=== PATIENT | female | born 1970 | race Caucasian/White ===

== ENCOUNTER 2017-11-05 10:35 | Emergency (ER) | payer MEDICARE, MEDICAID, SELFPAY ==
[2017-11-05 10:36] VITALS: BP 145/33; PULSE 80; RESP 22; TEMP 36.6; O2SAT 100; BMI 38.9
--- NOTE | 2017-11-05 10:47 | RAD_ITS ---
STUDY: X-RAY - RIGHT ANKLE REASON FOR EXAM: Female, 47 years old. Pain and swelling following a recent fall. TECHNIQUE: 3 view(s) of the ankle. COMPARISON: None. FINDINGS: Normal visualized distal tibia and fibula. Normal medial and lateral malleoli. Normal tibiotalar articulation and ankle mortise. Normal visualized talus and calcaneus. The visualized subtalar, talonavicular, calcaneocuboid and tarsal articulations are normal. Diffuse soft tissue swelling. RAD/Ankle min 3 Views IMPRESSION: Diffuse soft tissue swelling. Electronically Signed: Joseph Mclean MD at 11:43 EST Tel [phone], Service support ,
--- NOTE | 2017-11-05 10:47 | RAD_ITS ---
STUDY: X-RAY - RIGHT FOOT CLINICAL: Female, 47 years old. Soft tissue swelling and bruising following a recent fall. TECHNIQUE: 3 view(s) of the foot. COMPARISON: None. FINDINGS: Normal talus, calcaneus, and tarsal bones. Normal visualized subtalar, talonavicular, calcaneocuboid, tarsal and tarsometatarsal articulations. Normal metatarsi. Normal metatarsophalangeal joint of the great toe. Normal tibial and fibular sesamoid bones. Normal interphalangeal joint of the great toe. Normal phalanges of the great toe. Normal second through fifth metatarsophalangeal joints. Normal interphalangeal joints and phalanges of the lesser toes. Diffuse soft tissue swelling worse in the dorsal aspect of the foot. RAD/Foot min 3 Views IMPRESSION: Diffuse soft tissue swelling. Electronically Signed: Joseph Mclean MD at 11:41 EST Tel [phone], Service support ,
--- NOTE | 2017-11-05 11:14 | ED.DCSUM_ITS ---
- ER Visit Summary Date of Service: 11/05/17 Chief Complaint: From urgent care because of presumed fracture infection of the right foot/ankle and leg. History of Present Illness: The patient is a 47 F fell last Wednesday. She has been able to ambulate. She complains of pain with ambulation. No anticoagulant. She does have history of lymphedema per old records. She denies fever, chills night sweats. She has no other complaints please read written note for complete detail. Physical Examination: Should not is obese with a BMI of 39.0. Blood pressure is elevated 145/33 with a wide pulse pressure. Patient has bilateral lymphedema with venous stasis dermatitis bilaterally. There is ecchymosis and discoloration noted over the lateral and medial malleolus as well as over the fifth metatarsal. There is pain palpation over the tip of the lateral malleolus. There is no pain the patient over the posterior aspect of the lateral malleolus or the medial malleolus. There is no laxity with drawer testing. Difficult to palpate pulses secondary to body habitus. There is no pain the patient the base of the fifth metatarsal. There is no subungual hematoma. Test Results: Three-view x-ray of the ankle and foot were obtained interpreted by me as negative for fracture. Emergency Department Course and Treatment: Nursing protocol x-rays were ordered and in my opinion were appropriate. Treatment Plan: Has a sprained ankle with ecchymosis. Her skin discoloration is secondary to venous stasis dermatitis. This does not represent an infection. Disposition: Charge to home with symptomatic treatment i.e. ice, elevation and OTC analgesia Impression: Right ankle sprain anterior talofibular ligament Venous stasis with dermatitis This note was generated with [employer] dictation software. It may contain incorrect words, spelling, and punctuation that were not noted in review of the chart prior to signing ED Disposition - Plan for ED Patient: Disposition: Home or Assisted Living Chief Complaint: Lower Extremity Injury Instructions: ED Sprain Ankle W X Ray, ED Leg Swelling Bilateral Referrals: Dillan Kraus DO [Primary Care Provider] - 1 Week if not improving
[2017-11-05 11:31] VITALS: BP 132/59; PULSE 76; RESP 16; O2SAT 97
== END 2017-11-05 11:32 | disposition home or self-care (01) ==
PROVIDERS: Emergency Provider Emergency Medicine; Family Provider Student in an Organized Health Care Education/Training Program; PCP Student in an Organized Health Care Education/Training Program
DX: S93.491A Sprain of other ligament of right ankle, initial encounter (principal); I87.8 Other specified disorders of veins; L30.9 Dermatitis, unspecified; F32.9 Major depressive disorder, single episode, unspecified; E11.9 Type 2 diabetes mellitus without complications; I10 Essential (primary) hypertension; I25.10 Atherosclerotic heart disease of native coronary artery without angina pectoris; Z72.0 Tobacco use; W19.XXXA Unspecified fall, initial encounter; Y93.9 Activity, unspecified; Y92.89 Other specified places as the place of occurrence of the external cause; Y99.9 Unspecified external cause status
CPT/HCPCS: 73610; 73630; 99282

== ENCOUNTER → 2017-11-30 10:17 | Outpatient (CLI) | payer MEDICARE, MEDICAID, SELFPAY ==
[2017-11-30 13:58] LABS: Albumin, Serum 2.9 g/dL (3.2-5.0); BUN 17 mg/dL (7-18); Calcium,Total 8.7 mg/dL (8.5-10.1); Chloride 110 mmol/L (98-107); Creatinine, Serum 0.81 mg/dL (0.55-1.02); EST Glomerular Filtration Rate 80 mL/min (>60); Est Glom Filt Rate - Afr Amer 97 mL/min (>60); Glucose 148 mg/dL (74-106); Phosphorus 3.3 mg/dL (2.5-4.9); Potassium 4.1 mmol/L (3.5-5.1); Sodium Level 142 mmol/L (136-145)
== END ==
PROVIDERS: Family Provider Student in an Organized Health Care Education/Training Program; PCP Student in an Organized Health Care Education/Training Program; Visit Provider Internal Medicine Nephrology
DX: N18.2 Chronic kidney disease, stage 2 (mild) (principal)
CPT/HCPCS: 36415; 80069

== ENCOUNTER → 2017-12-23 14:55 | Outpatient (CLI) | payer MEDICARE, MEDICAID, SELFPAY ==
[2017-12-23 17:51] LABS: Amphetamine Urine VISTA NEGATIVE (<1000 ng/mL); Barbiturate Urine VISTA NEGATIVE (< 200 ng/mL); Benzodiazepine Urine VISTA NEGATIVE (< 200 ng/mL); Cocaine Urine VISTA NEGATIVE (< 300 ng/mL); Ecstacy Urine VISTA NEGATIVE (< 500 ng/mL); Methadone Urine VISTA NEGATIVE (< 300 ng/mL); PCP Urine VISTA NEGATIVE (< 25 ng/mL); THC Urine VISTA NEGATIVE (< 50 ng/mL); Vista UDS pH Range 5
== END ==
PROVIDERS: Family Provider Student in an Organized Health Care Education/Training Program; PCP Student in an Organized Health Care Education/Training Program; Visit Provider Anesthesiology Pain Medicine
DX: F11.20 Opioid dependence, uncomplicated (principal)
CPT/HCPCS: 80307

== ENCOUNTER → 2017-12-31 17:30 | Outpatient (CLI) | payer MEDICARE, MEDICAID, SELFPAY | PROVIDERS: Family Provider Student in an Organized Health Care Education/Training Program; PCP Student in an Organized Health Care Education/Training Program; Visit Provider Podiatrist | DX: L03.115 Cellulitis of right lower limb (principal) | CPT/HCPCS: 87070; 87186; 87205 ==

== ENCOUNTER 2018-01-01 15:14 | Emergency (ER) | payer MEDICARE, MEDICAID, SELFPAY ==
[2018-01-01 15:16] VITALS: BP 148/75; PULSE 80; RESP 16; TEMP 36.6; O2SAT 94; BMI 45.3
[2018-01-01] MEDS: DiphenhydrAMINE 50 MG/ML Syringe 25 MG IV (15:54)
[2018-01-01] MEDS: proCHLORPERazine 10 MG/2 ML Vial IM (15:58)
--- NOTE | 2018-01-01 16:35 | ED.RN ---
SPOKE WITH DR CIFUENTES REGARDING OBSERVATION OF PT ON MAGNESIUM. VS SET FOR EVERY [address] CIFUENTES VERBALIZED HE WAS GOING TO MONITOR PT REFLEXES. PT STABLE AND TOELRATING WELL AT THIS TIME.
--- NOTE | 2018-01-01 16:57 | ED.DCSUM_ITS ---
- ER Visit Summary Date of Service: 01/01/18 Chief Complaint: Headache for 3 days History of Present Illness: The patient is a 47 F who has a history or migraine headaches presents with global headache for the past 3 days. She states she has taken her migraine medication with no improvement. She denies fever, chills or night sweats. She does complain of photophobia and sonophobia. He denies neck pain or stiffness of her neck. She denies any cardiac, respiratory symptoms. She does complain of nausea without vomiting diarrhea. She denies abdominal pain. She denies any urologic symptoms. She denies any skin lesions. There is no history of trauma. She denies any paresthesia, anesthesia or motor weakness. She does report bilateral lymphedema and is seen at the wound center for cellulitis. Upon further questioning she admits to blurred vision when she concentrates and is reading for a long period of time. There is no history of myasthenia gravis. She denies trouble with vision at night and specifically diplopia. There is a past medical history of type 3 diabetes, hypertension, hypercholesterolemia and paroxysmal atrial fibrillation. She also has history of chronic back pain. Physical Examination: Blood pressure is 148/75. BMI is 45.4. HEENT exam is remarkable for kline face. She does give history of his own use. Otherwise HEENT exam is unremarkable. Neck is supple with no lymphadenopathy or meningeal findings. There is no stridor. Heart is regular without murmur, gallop or rub. S1 and S2 are normal. Lungs are clear to auscultation with good movement of air bilaterally. Abdomen is soft nontender. Patient is alert and oriented ?3. Motor is 5 over 5. Sensory is intact. DTRs are symmetric with no clonus or Babinski sign. Cranial 2 through 12 are intact. Cerebellar testing is normal. Affect is normal. Test Results: None Emergency Department Course and Treatment: Since she is middle-aged with history of diabetes hypertension she was not administered Toradol. She was treated with 10 mg of Compazine and 25 mg of Benadryl since there is a national shortage of Reglan. Treatment Plan: Follow-up with her physician Disposition: Discharged home in stable and improved condition, resolved Impression: Acute migraine headache This note was generated with [employer] dictation software. It may contain incorrect words, spelling, and punctuation that were not noted in review of the chart prior to signing ED Disposition - Plan for ED Patient: Disposition: Home or Assisted Living Chief Complaint: Headache Instructions: ED Headache Migraine Referrals: Dillan Kraus DO [Primary Care Provider] - As Needed
[2018-01-01 17:07] VITALS: BP 147/85; PULSE 77; RESP 16; O2SAT 95
--- NOTE | 2018-01-01 17:09 | ED.RN ---
PT GIVEN WRITTEN AND VERBAL DISCHARGE INSTRUCTIONS. PT VERBALIZES UNDERSTANDING. EDUCATED NOT TO DRIVE AFTER HAVING BENADRYL AND COMPAZINE BECAUSE IT CAUSES DROWSINESS, PT REPORTS FRIEND IS TAKING HER HOME. PT IV D/C AND COVERED WITH 2X2 GAUZE DRESSING AND PAPER TAPE. PT AMBULATORY HOME WITH FRIEND.
== END 2018-01-01 17:12 | disposition home or self-care (01) ==
PROVIDERS: Emergency Provider Emergency Medicine; Family Provider Student in an Organized Health Care Education/Training Program; PCP Student in an Organized Health Care Education/Training Program
DX: G43.909 Migraine, unspecified, not intractable, without status migrainosus (principal); E11.9 Type 2 diabetes mellitus without complications; I10 Essential (primary) hypertension; E78.00 Pure hypercholesterolemia, unspecified; I48.0 Paroxysmal atrial fibrillation; G89.29 Other chronic pain; M54.9 Dorsalgia, unspecified; E66.9 Obesity, unspecified; Z68.42 Body mass index [BMI] 45.0-49.9, adult
CPT/HCPCS: 96374; 96375; 99283; J7030

== ENCOUNTER → 2018-01-10 07:35 | Outpatient (CLI) | payer MEDICARE, MEDICAID, SELFPAY ==
[2018-01-10 08:21] LABS: Hematocrit 42.1 % (37-47); Hemoglobin 13.7 g/dl (12.0-15.0); Mean Corp Hgb Conc 32.5 g/gl (32-36); Mean Corpuscular Hgb 30.2 pg (27.0-32.0); Mean Corpuscular Volume 92.7 fL (81-99); Mean Platelet Vol. 10.2 fl (6.2-12.0); Platelet Count 199 K/mm3 (150-450); RBC Distribution Width CV 13.1 % (11.6-14.6); RBC Distribution Width SD 43.3 fl (35.1-43.9); Red Blood Count 4.54 M/mm3 (4.2-5.4); White Blood Count 7.7 K/mm3 (4.4-11.0)
[2018-01-10 08:25] LABS: Scan Indicated on CBC? Y/N NO
[2018-01-10 08:41] LABS: ALB/GLOB Ratio 0.7 RATIO (0.9-2.4); AST(SGOT) 18 U/L (15-37); Alanine Aminotransfer ALT/SGPT 16 U/L (13-56); Albumin, Serum 2.7 g/dL (3.2-5.0); Alkaline Phosphatase 109 U/L (45-117); Anion Gap 4 (5-15); BUN 19 mg/dL (7-18); BUN/Creat Ratio 20.8 RATIO (10-20); Calcium,Total 8.8 mg/dL (8.5-10.1); Chloride 108 mmol/L (98-107); Creatinine, Serum 0.92 mg/dL (0.55-1.02); EST Glomerular Filtration Rate 69 mL/min (>60); Est Glom Filt Rate - Afr Amer 84 mL/min (>60); Globulin 4.1 g/dL (2.2-4.2); Glucose 199 mg/dL (74-106); Potassium 4.5 mmol/L (3.5-5.1); Prealbumin 15.4 mg/dL (20.0-40.0); Protein, Total 6.8 g/dL (6.4-8.2); Sodium Level 140 mmol/L (136-145)
[2018-01-10 09:13] LABS: Hemoglobin A1c 8.2 % (4.2-6.3)
== END ==
PROVIDERS: Family Provider Student in an Organized Health Care Education/Training Program; PCP Student in an Organized Health Care Education/Training Program; Visit Provider Surgery
DX: E11.9 Type 2 diabetes mellitus without complications (principal); I87.2 Venous insufficiency (chronic) (peripheral); I73.9 Peripheral vascular disease, unspecified; I89.0 Lymphedema, not elsewhere classified
CPT/HCPCS: 36415; 80053; 83036; 84134; 85027

== ENCOUNTER 2018-01-11 08:30 | Outpatient (RCR) | payer MEDICARE, MEDICAID, SELFPAY ==
[2018-01-04 09:28] VITALS: BP 122/55; PULSE 93; RESP 18; TEMP 36.7; BMI 47.1
--- NOTE | 2018-01-04 10:40 | HP.PCM_ITS ---
(1) Tobacco abuse counseling Status: Chronic Current Visit: Yes Code(s): Z71.6 - Tobacco abuse counseling (2) Swelling of lower extremity Status: Chronic Current Visit: Yes Code(s): M79.89 - Other specified soft tissue disorders (3) Edema of both legs Status: Chronic Current Visit: Yes Code(s): R60.0 - Localized edema (4) Lymphedema of leg Status: Chronic Current Visit: Yes Qualifiers: Laterality: bilateral Qualified Code(s): I89.0 - Lymphedema, not elsewhere classified Code(s): I89.0 - Lymphedema, not elsewhere classified (5) GERD (gastroesophageal reflux disease) Status: Chronic Current Visit: No Code(s): K21.9 - Gastro-esophageal reflux disease without esophagitis (6) Multiple sclerosis Status: Chronic Current Visit: No Code(s): G35 - Multiple sclerosis (7) CKD (chronic kidney disease) stage 4, GFR 15-29 ml/min Status: Chronic Current Visit: No Code(s): N18.4 - Chronic kidney disease, stage 4 (severe) (8) PAD (peripheral artery disease) Status: Chronic Current Visit: Yes Code(s): I73.9 - Peripheral vascular disease, unspecified (9) History of CVA (cerebrovascular accident) Status: Chronic Current Visit: No Code(s): Z86.73 - Personal history of transient ischemic attack (TIA), and cerebral infarction without residual deficits (10) History of DVT (deep vein thrombosis) Status: Chronic Current Visit: No Code(s): Z86.718 - Personal history of other venous thrombosis and embolism (11) Psoriasis Status: Acute Current Visit: Yes Code(s): L40.9 - Psoriasis, unspecified (12) CHF (congestive heart failure) Status: Chronic Current Visit: No Code(s): I50.9 - Heart failure, unspecified (13) Hyperlipidemia Status: Chronic Current Visit: No Code(s): E78.5 - Hyperlipidemia, unspecified (14) Hypertension Status: Chronic Current Visit: No Code(s): I10 - Essential (primary) hypertension (15) Type 2 diabetes mellitus Status: Chronic Current Visit: No Code(s): E11.9 - Type 2 diabetes mellitus without complications (16) Tobacco use disorder Status: Chronic Current Visit: Yes Code(s): F17.200 - Nicotine dependence, unspecified, uncomplicated (17) Paroxysmal a-fib Status: Chronic Current Visit: No Code(s): I48.0 - Paroxysmal atrial fibrillation Comment: ? questionable (18) Morbid obesity with body mass index of 40.0-49.9 Status: Chronic Current Visit: Yes Code(s): E66.01 - Morbid (severe) obesity due to excess calories (19) Chronic back pain Status: Chronic Current Visit: No Code(s): M54.9 - Dorsalgia, unspecified; G89.29 - Other chronic pain (20) H/O heart artery stent Status: Chronic Current Visit: No Code(s): Z95.5 - Presence of coronary angioplasty implant and graft (21) Hypothyroidism Status: Chronic Current Visit: No Code(s): E03.9 - Hypothyroidism, unspecified (22) Essential (primary) hypertension Status: Chronic Current Visit: No Code(s): I10 - Essential (primary) hypertension (23) Atherosclerotic heart disease of [place] coronary artery without angina pectoris Status: Chronic Current Visit: No Code(s): I25.10 - Atherosclerotic heart disease of [place] coronary artery without angina pectoris History of Present Illness Date of Service: 01/04/18 Chief Complaint: Bilateral lower extremity swelling, edema, and lymphedema. 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 Mayo, for evaluation and management regarding bilateral lower extremity swelling, edema, and lymphedema. This has been a problem for the patient in the past, and is chronic in nature. However, it appears to have been exacerbated recently by a traumatic hairline fracture of the right ankle which occurred on November 01, 2017. As result, the patient was immobile for a period of time, relatively inactive, spending her days in an idle sitting position. As a result of her inactivity and chronic dependency, she has noted swelling, edema, and lymphedema in her lower extremities to be much more severe than usual, prompting her to seek medical attention. The patient claims to sleep in a relatively flat position at night. She has a history of bilateral lower extremity deep vein thrombosis, for which she has been previously treated with systemic anticoagulation therapy. She is not currently taking anticoagulation. The patient has multiple medical problems, which include diabetes mellitus, morbid obesity, hypertension, coronary artery disease, chronic kidney disease, peripheral arterial occlusive disease, and tobacco abuse. The patient has Farrow wraps for her lower extremities, which she has not been using. She also has pneumatic mechanical compression pumps for her lower extremities, which she has not been using recently. These measures have been previously implemented and treatment for the patient's chronic lower extremity swelling and edema. Past Medical History Past Medical History: Chronic Problems (Last Reviewed 11/12/17 @ 14:16 by Sinan Lazcano) Hyperlipidemia (Chronic) Hypertension (Chronic) Type 2 diabetes mellitus (Chronic) Tobacco use disorder (Chronic) Paroxysmal a-fib (Chronic) ? questionable Multiple personality disorder (Chronic) Morbid obesity with body mass index of 40.0-49.9 (Chronic) Chronic back pain (Chronic) Tobacco abuse counseling (Chronic) Swelling of lower extremity (Chronic) Edema of both legs (Chronic) Lymphedema of leg (Chronic) GERD (gastroesophageal reflux disease) (Chronic) Multiple sclerosis (Chronic) CKD (chronic kidney disease) stage 4, GFR 15-29 ml/min (Chronic) PAD (peripheral artery disease) (Chronic) History of CVA (cerebrovascular accident) (Chronic) History of DVT (deep vein thrombosis) (Chronic) CHF (congestive heart failure) (Chronic) H/O heart artery stent (Chronic) Hypothyroidism (Chronic) Essential (primary) hypertension (Chronic) Atherosclerotic heart disease of [place] coronary artery without angina pectoris (Chronic) Past Medical History: The patient has a history of multiple medical problems, which include myocardial infarction, congestive heart failure, morbid obesity, tobacco abuse, coronary artery disease, and history of deep vein thrombosis bilaterally, multiple sclerosis, alcohol abuse, diabetes mellitus, gastroesophageal reflux disease, stage IV chronic kidney disease, hypertension, hypothyroidism, peripheral arterial occlusive disease, chronic back pain, cerebrovascular accident ?3 with no significant residual deficit, and psoriasis. Surgical History: appendectomy, cholecystectomy, - - The patient has a history of appendectomy, cholecystectomy, bilateral lower extremity vein stripping, partial hysterectomy, tonsillectomy, lumbar surgery ?4, and bilateral carpal tunnel release. The patient is a Ab0. Her only two live births succumbed shortly following . Allergies/Adverse Reactions: Allergies latex Allergy (Verified 01/01/18 15:18) Rash Penicillins Allergy (Verified 01/01/18 15:18) Unknown venom-honey bee [bee venom (honey bee)] Allergy (Verified 01/01/18 15:18) Unknown Home Medications: Ambulatory Orders Medication Instructions Recorded Celecoxib [Celebrex] 200 mg PO BID 07/03/14 Oxycodone HCl/Acetaminophen 1 ea PO Q4H PRN PRN 07/03/14 [Oxycodone-Acetaminophen 10-325] Tizanidine HCl [Zanaflex] 4 mg PO Q8H 07/03/14 Glimepiride [Amaryl] 4 mg PO BID 11/15/14 ALPRAZolam [Xanax] 0.25 mg PO BID 05/20/17 Diltiazem CD [Cardizem CD] 240 mg PO DAILY 05/20/17 Isosorbide Mononitrate [Isosorbide 60 mg PO DAILY 05/20/17 Mononitrate ER] Albuterol Aerosols [Ventolin 2.5 mg INHALATION Q4H PRN #25 vial 06/18/17 Aerosols] Doxycycline [Vibramycin] 100 mg PO BID #20 cap 06/18/17 Benzonatate [Tessalon Perle] 100 mg PO Q4H PRN PRN #20 cap 06/19/17 amitriptyline 50 mg tablet 100 mg PO QHS tab 08/23/17 aspirin 81 mg tablet,delayed 81 mg PO QDAY 08/23/17 release rizatriptan 5 mg tablet 5 mg PO ONCE 08/23/17 thyroid (pork) 60 mg tablet 120 mg PO DAILY tab 08/23/17 Gabapentin [Neurontin] 1,200 mg PO TIDCM 01/01/18 Insulin Detemir [Levemir] 64 unit SQ QHS 01/01/18 Insulin Regular, Human [Novolin R] 100 unit SQ BID 01/01/18 Liraglutide [Victoza] 0.12 mg SQ DAILY 01/01/18 proCHLORPERazine suppository 50 mg RECTAL DAILY PRN PRN 01/01/18 [Compazine suppository] - Family History Maternal Family History: Family History (Last Reviewed 11/12/17 @ 14:16 by Sinan Lazcano) Mother CAD (coronary artery disease) Diabetes, Heart Disease, No pertinent history, - - Hypothyroid Paternal Family History: Family History (Last Reviewed 11/12/17 @ 14:16 by Sinan Lazcano) Mother CAD (coronary artery disease) Cancer, - - The patient's mother had a history of emphysema, COPD, coronary artery disease, diabetes mellitus, dementia, and Parkinson's disease. Patient' s mother at age of 67. Social History: The patient lives alone. She smokes approximately 1 pack of cigarettes per day. She consumes alcoholic beverages occasionally. Lives: Alone Smoking Status: Current some day smoker Tobacco Use: Cigarettes Alcohol: Occasional Drugs: None Review of Systems Constitutional: Denies: Chills, Fever, Weight Change Eyes: Denies: Pain, Vision Change HEENT: Denies: Difficulty Hearing, Difficulty Swallowing, Sinus Congestion Cardiovascular: Denies: Chest Pain, Palpitations Respiratory: Denies: Cough, Shortness of Breath Gastrointestinal: Denies: Diarrhea, Nausea, Vomiting Genitourinary: Denies: Dysuria, Hematuria Endocrine: Denies: Heat/ Cold Intolerance, Polydipsia, Polyuria Hematologic/ Lymphatic: Denies: Easy Bruising, Easy Bleeding - Physical Exam Vital Signs Temp Pulse Resp BP 98.0 F 93 18 122/55 H 01/04/18 09:28 01/04/18 09:28 01/04/18 09:28 01/04/18 09:28 General: Alert, Oriented x3, Cooperative, No apparent distress, Well developed, Well nourished, - - The patient is morbidly obese. HEENT: Atraumatic, PERRLA, EOMI, Normocephalic Oral: Moist Mucosa, - - The patient is edentulous. Neck: Supple, No JVD, Negative Carotid Bruits, Negative Hepatojugular Reflux, No Nodes, No Nuchal Rigidity, Trachea Midline Lungs: Clear to auscultation, Normal air movement, No rhonchi, No wheeze, No rales Cardiovascular: Regular rate, Regular Rhythm, Normal S1, Normal S2, No murmurs Abdomen: Soft, Non Tender, Non-Distended, Obese Extremities: No clubbing, No cyanosis, No Calf Tenderness, - - Swelling, edema, and lymphedema are noted in the lower extremities bilaterally. There are no booker open wounds or ulcerations. Circumference measurements are documented elsewhere. There is no sign of infection or cellulitis. Skin: No rashes Wound Measurements and Assessment WC - Nurse 1 - General Ulcer Measurement Start: 01/04/18 09:28 Freq: Status: Active Protocol: Activity Type Activity Date Activity User E-Sign Co-Sign Detail Recorded Client Recorded Date Recorded By Document 01/04/18 09:28 DV [id number] 01/04/18 09:41 DV 01/04/18 09:28 Wound Center Nurse 1 [Edema Assessment] -Lower Limb Edema Present Yes -Right Calf (cm) 54.3 -Right Ankle (cm) 30 -Left Calf (cm) 54.0 -Left Ankle (cm) 30.6 WC - Nurse 2 - General Ulcer CM Notes Start: 01/04/18 09:28 Freq: Status: Active Protocol: Activity Type Activity Date Activity User E-Sign Co-Sign Detail Recorded Client Recorded Date Recorded By Document 01/04/18 10:10 JS [id number] 01/04/18 10:23 01/04/18 10:10 Pain Scale: 0-10 Numeric [Pain] -Is Patient Pain Free? Yes Musculoskeletal: No Muscle Wasting Neurological: Cranial nerves II-XII grossly intact, Neuro grossly intact Psych/Mental Status: Normal Affect, Appropriate, Alert and oriented to time, place, person, mood and affect Debridement Note Post-Debridement Measurements/Treatment WC - Nurse 2 - General Ulcer CM Notes Start: 01/04/18 09:28 Freq: Status: Active Protocol: Activity Type Activity Date Activity User E-Sign Co-Sign Detail Recorded Client Recorded Date Recorded By Document 01/04/18 10:10 JS [id number] 01/04/18 10:23 01/04/18 10:10 Pain Scale: 0-10 Numeric Is Patient Pain Free? Yes No debridement was completed today Assessment/Plan Active Problems (Last Reviewed 11/12/17 @ 14:16 by Sinan Lazcano) Tobacco use disorder (Chronic) Morbid obesity with body mass index of 40.0-49.9 (Chronic) Tobacco abuse counseling (Chronic) Swelling of lower extremity (Chronic) Edema of both legs (Chronic) Lymphedema of leg (Chronic) PAD (peripheral artery disease) (Chronic) Psoriasis (Acute) Assessment: This is a 47-year-old morbidly obese diabetic female with multiple medical problems, which have been listed above. It appears as though a hairline fracture of the right ankle, sustained on November 01, 2017, resulted in a decrease in activity, limited ambulation, and chronic lower extremity dependency. This significant change in the patient's activity and habits as resulted in exacerbation of the swelling, edema, and lymphedema in the patient' s lower extremities. At this time, there are no open wounds or ulcerations. Plan: The patient has been instructed to elevate her lower extremities as much as possible. Lower extremities are to be elevated to heart level, or higher. She is to sleep on a flat mattress at night. Leg elevation is to be implemented even during daytime hours. Sitting is to be kept to a minimum. Activity has been encouraged. Recruitment of the calf and foot muscle pumps has been explained, and can be implemented by means of activity and ambulation. Weight loss has been highly recommended. The patient has been advised to optimize her diabetic control. Dietary counseling will be offered if the patient so wishes. The patient has been advised to re-implement the use of her mechanical compression pumps. A noninvasive lower extremity arterial study will be obtained, as well as a venous duplex examination. Once the status of her lower extremity arterial system is assessed, it is likely that compression will be implemented to the lower extremities by means of wraps or compression stockings. The patient has been asked to bring her Farrow wraps with her to her next appointment. We are to obtain laboratory studies, which will include a CBC, comprehensive metabolic profile, serum prealbumin, and hemoglobin A1c. Patient will return in 1 week for reassessment. The patient is a smoker, and smoking cessation has been recommended. She is to collaborate with her primary care physician in this regard. Influenza vaccine was not administered today. Patient stands 5 feet 1 inch tall. She weighs 250 pounds. Her BMI is 47.1. Weight loss has been recommended, and the patient has been advised to collaborate with her primary care physician in terms of weight loss options. Dietary counseling has been offered as an option.
[2018-01-11 08:29] VITALS: BP 166/85; PULSE 96; RESP 18; TEMP 35.6; BMI 47.1
--- NOTE | 2018-01-11 08:54 | HP.PCM_ITS ---
(1) Tobacco abuse counseling Status: Chronic Current Visit: Yes Code(s): Z71.6 - Tobacco abuse counseling (2) Swelling of lower extremity Status: Chronic Current Visit: Yes Code(s): M79.89 - Other specified soft tissue disorders (3) Edema of both legs Status: Chronic Current Visit: Yes Code(s): R60.0 - Localized edema (4) Lymphedema of leg Status: Chronic Current Visit: Yes Qualifiers: Laterality: bilateral Qualified Code(s): I89.0 - Lymphedema, not elsewhere classified Code(s): I89.0 - Lymphedema, not elsewhere classified (5) GERD (gastroesophageal reflux disease) Status: Chronic Current Visit: No Code(s): K21.9 - Gastro-esophageal reflux disease without esophagitis (6) Multiple sclerosis Status: Chronic Current Visit: No Code(s): G35 - Multiple sclerosis (7) CKD (chronic kidney disease) stage 4, GFR 15-29 ml/min Status: Chronic Current Visit: No Code(s): N18.4 - Chronic kidney disease, stage 4 (severe) (8) PAD (peripheral artery disease) Status: Chronic Current Visit: Yes Code(s): I73.9 - Peripheral vascular disease, unspecified (9) History of CVA (cerebrovascular accident) Status: Chronic Current Visit: No Code(s): Z86.73 - Personal history of transient ischemic attack (TIA), and cerebral infarction without residual deficits (10) History of DVT (deep vein thrombosis) Status: Chronic Current Visit: No Code(s): Z86.718 - Personal history of other venous thrombosis and embolism (11) Psoriasis Status: Acute Current Visit: Yes Code(s): L40.9 - Psoriasis, unspecified (12) CHF (congestive heart failure) Status: Chronic Current Visit: No Code(s): I50.9 - Heart failure, unspecified (13) Hyperlipidemia Status: Chronic Current Visit: No Code(s): E78.5 - Hyperlipidemia, unspecified (14) Hypertension Status: Chronic Current Visit: No Code(s): I10 - Essential (primary) hypertension (15) Type 2 diabetes mellitus Status: Chronic Current Visit: No Code(s): E11.9 - Type 2 diabetes mellitus without complications (16) Tobacco use disorder Status: Chronic Current Visit: Yes Code(s): F17.200 - Nicotine dependence, unspecified, uncomplicated (17) Paroxysmal a-fib Status: Chronic Current Visit: No Code(s): I48.0 - Paroxysmal atrial fibrillation Comment: ? questionable (18) Morbid obesity with body mass index of 40.0-49.9 Status: Chronic Current Visit: Yes Code(s): E66.01 - Morbid (severe) obesity due to excess calories (19) Chronic back pain Status: Chronic Current Visit: No Code(s): M54.9 - Dorsalgia, unspecified; G89.29 - Other chronic pain (20) H/O heart artery stent Status: Chronic Current Visit: No Code(s): Z95.5 - Presence of coronary angioplasty implant and graft (21) Hypothyroidism Status: Chronic Current Visit: No Code(s): E03.9 - Hypothyroidism, unspecified (22) Essential (primary) hypertension Status: Chronic Current Visit: No Code(s): I10 - Essential (primary) hypertension (23) Atherosclerotic heart disease of [place] coronary artery without angina pectoris Status: Chronic Current Visit: No Code(s): I25.10 - Atherosclerotic heart disease of [place] coronary artery without angina pectoris History of Present Illness Date of Service: 01/11/18 Chief Complaint: Bilateral lower extremity swelling, edema, and lymphedema. History of Wound: This is a 47-year-old morbidly obese diabetic female who presents as a referral from her medication care manager, Dr. Mayo, for evaluation and management regarding bilateral lower extremity swelling, edema, and lymphedema. This has been a problem for the patient in the past, and is chronic in nature. However, it appears to have been exacerbated recently by a traumatic hairline fracture of the right ankle which occurred on November 01, 2017. As a result, the patient was immobile for a period of time, relatively inactive, spending her days in an idle sitting position. As a result of her inactivity and chronic dependency, she has noted swelling, edema, and lymphedema in her lower extremities to be much more severe than usual, prompting her to seek medical attention. The patient claims to sleep in a relatively flat position at night. She has a history of bilateral lower extremity deep vein thrombosis, for which she has been previously treated with systemic anticoagulation therapy. She is not currently taking anticoagulation. The patient has multiple medical problems, which include diabetes mellitus, morbid obesity, hypertension, coronary artery disease, chronic kidney disease, peripheral arterial occlusive disease, and tobacco abuse. The patient has Farrow wraps for her lower extremities, which she has not been using. She also has pneumatic mechanical compression pumps for her lower extremities, which she has not been using recently. These measures have been previously implemented in treatment for the patient's chronic lower extremity swelling and edema. Past Medical History Past Medical History: Chronic Problems (Last Reviewed 11/12/17 @ 14:16 by Sinan Lazcano) Hyperlipidemia (Chronic) Hypertension (Chronic) Type 2 diabetes mellitus (Chronic) Tobacco use disorder (Chronic) Paroxysmal a-fib (Chronic) ? questionable Multiple personality disorder (Chronic) Morbid obesity with body mass index of 40.0-49.9 (Chronic) Chronic back pain (Chronic) Tobacco abuse counseling (Chronic) Swelling of lower extremity (Chronic) Edema of both legs (Chronic) Lymphedema of leg (Chronic) GERD (gastroesophageal reflux disease) (Chronic) Multiple sclerosis (Chronic) CKD (chronic kidney disease) stage 4, GFR 15-29 ml/min (Chronic) PAD (peripheral artery disease) (Chronic) History of CVA (cerebrovascular accident) (Chronic) History of DVT (deep vein thrombosis) (Chronic) CHF (congestive heart failure) (Chronic) H/O heart artery stent (Chronic) Hypothyroidism (Chronic) Essential (primary) hypertension (Chronic) Atherosclerotic heart disease of [place] coronary artery without angina pectoris (Chronic) Surgical History: appendectomy, cholecystectomy, - - The patient has a history of appendectomy, cholecystectomy, bilateral lower extremity vein stripping, partial hysterectomy, tonsillectomy, lumbar surgery ?4, and bilateral carpal tunnel release. The patient is a Ab0. Her only two live births succumbed shortly following . Allergies/Adverse Reactions: Allergies latex Allergy (Verified 01/01/18 15:18) Rash Penicillins Allergy (Verified 01/01/18 15:18) Unknown venom-honey bee [bee venom (honey bee)] Allergy (Verified 01/01/18 15:18) Unknown Home Medications: Ambulatory Orders Medication Instructions Recorded Celecoxib [Celebrex] 200 mg PO BID 07/03/14 Oxycodone HCl/Acetaminophen 1 ea PO Q4H PRN PRN 07/03/14 [Oxycodone-Acetaminophen 10-325] Tizanidine HCl [Zanaflex] 4 mg PO Q8H 07/03/14 Glimepiride [Amaryl] 4 mg PO BID 11/15/14 ALPRAZolam [Xanax] 0.25 mg PO BID 05/20/17 Diltiazem CD [Cardizem CD] 240 mg PO DAILY 05/20/17 Isosorbide Mononitrate [Isosorbide 60 mg PO DAILY 05/20/17 Mononitrate ER] Albuterol Aerosols [Ventolin 2.5 mg INHALATION Q4H PRN #25 vial 06/18/17 Aerosols] Doxycycline [Vibramycin] 100 mg PO BID #20 cap 06/18/17 Benzonatate [Tessalon Perle] 100 mg PO Q4H PRN PRN #20 cap 06/19/17 amitriptyline 50 mg tablet 100 mg PO QHS tab 08/23/17 aspirin 81 mg tablet,delayed 81 mg PO QDAY 08/23/17 release rizatriptan 5 mg tablet 5 mg PO ONCE 08/23/17 thyroid (pork) 60 mg tablet 120 mg PO DAILY tab 08/23/17 Gabapentin [Neurontin] 1,200 mg PO TIDCM 01/01/18 Insulin Detemir [Levemir] 64 unit SQ QHS 01/01/18 Insulin Regular, Human [Novolin R] 100 unit SQ BID 01/01/18 Liraglutide [Victoza] 0.12 mg SQ DAILY 01/01/18 proCHLORPERazine suppository 50 mg RECTAL DAILY PRN PRN 01/01/18 [Compazine suppository] - Family History Maternal Family History: Family History (Last Reviewed 11/12/17 @ 14:16 by Sinan Lazcano) Mother CAD (coronary artery disease) Diabetes, Heart Disease, No pertinent history, - - Hypothyroid Paternal Family History: Family History (Last Reviewed 11/12/17 @ 14:16 by Sinan Lazcano) Mother CAD (coronary artery disease) Cancer, - - The patient's mother had a history of emphysema, COPD, coronary artery disease, diabetes mellitus, dementia, and Parkinson's disease. Patient' s mother at age of 67. Lives: Alone Smoking Status: Current some day smoker Tobacco Use: Cigarettes Alcohol: Occasional Drugs: None Review of Systems Constitutional: Denies: Chills, Fever, Weight Change Eyes: Denies: Pain, Vision Change HEENT: Denies: Difficulty Hearing, Difficulty Swallowing, Sinus Congestion Cardiovascular: Denies: Chest Pain, Palpitations Respiratory: Denies: Cough, Shortness of Breath Gastrointestinal: Denies: Diarrhea, Nausea, Vomiting Genitourinary: Denies: Dysuria, Hematuria Endocrine: Denies: Heat/ Cold Intolerance, Polydipsia, Polyuria Hematologic/ Lymphatic: Denies: Easy Bruising, Easy Bleeding - Physical Exam Vital Signs Temp Pulse Resp BP 96.0 F L 96 18 166/85 H 01/11/18 08:29 01/11/18 08:29 01/11/18 08:29 01/11/18 08:29 General: Alert, Oriented x3, Cooperative, No apparent distress, Well developed, Well nourished, - - The patient is morbidly obese HEENT: Atraumatic, PERRLA, EOMI, Normocephalic Oral: Moist Mucosa Neck: No JVD Lungs: Normal air movement Abdomen: Non-Distended Extremities: No clubbing, No cyanosis, No Calf Tenderness, - - Bilateral lower extremity swelling, edema, and lymphedema are noted. There is very faint bilateral erythema in the gaiter areas. This is not suggestive of infectious cellulitis. There are no open wounds or ulcerations. Circumference measurements today, as compared to last week, are significantly improved, and documented elsewhere. Skin: No breakdown Wound Measurements and Assessment WC - Nurse 1 - General Ulcer Measurement Start: 01/04/18 09:28 Freq: Status: Active Protocol: Activity Type Activity Date Activity User E-Sign Co-Sign Detail Recorded Client Recorded Date Recorded By Document 01/11/18 08:29 [id number] 01/11/18 08:30 01/11/18 08:29 Wound Center Nurse 1 [Edema Assessment] -Lower Limb Edema Present Yes -Right Calf (cm) 49.5 -Right Ankle (cm) 27.5 -Left Calf (cm) 50.0 -Left Ankle (cm) 28.0 WC - Nurse 2 - General Ulcer CM Notes Start: 01/04/18 09:28 Freq: Status: Active Protocol: Activity Type Activity Date Activity User E-Sign Co-Sign Detail Recorded Client Recorded Date Recorded By Document 01/11/18 08:40 [id number] 01/11/18 08:41 01/11/18 08:40 Pain Scale: 0-10 Numeric [Pain] -Is Patient Pain Free? Yes Neurological: Cranial nerves II-XII grossly intact, Neuro grossly intact Psych/Mental Status: Normal Affect, Appropriate, Alert and oriented to time, place, person, mood and affect Debridement Note Post-Debridement Measurements/Treatment WC - Nurse 2 - General Ulcer CM Notes Start: 01/04/18 09:28 Freq: Status: Active Protocol: Activity Type Activity Date Activity User E-Sign Co-Sign Detail Recorded Client Recorded Date Recorded By Document 01/04/18 10:10 [id number] 01/04/18 10:23 Document 01/11/18 08:40 [id number] 01/11/18 08:41 01/04/18 01/11/18 10:10 08:40 Pain Scale: 0-10 Numeric Is Patient Pain Free? Yes Yes No debridement was completed today Assessment/Plan Active Problems (Last Reviewed 11/12/17 @ 14:16 by Sinan Lazcano) Tobacco use disorder (Chronic) Morbid obesity with body mass index of 40.0-49.9 (Chronic) Tobacco abuse counseling (Chronic) Swelling of lower extremity (Chronic) Edema of both legs (Chronic) Lymphedema of leg (Chronic) PAD (peripheral artery disease) (Chronic) Psoriasis (Acute) Assessment: This is a 47-year-old morbidly obese diabetic female with multiple medical problems, which have been listed above. It appears as though a hairline fracture of the right ankle, sustained on November 01, 2017, resulted in a decrease in activity, limited ambulation, and chronic lower extremity dependency. This significant change in the patient's activity and habits as resulted in exacerbation of the swelling, edema, and lymphedema in the patient' s lower extremities. At this time, there are no open wounds or ulcerations. The patient has undergone a battery of diagnostic laboratory tests, which have been reviewed. Results are as follows: White blood count 7.7, hemoglobin 13.7, hematocrit 42.1, platelets 199,000, sodium 140, potassium 4.5, chloride 108, BUN 19, creatinine 0.92, glucose 199, hemoglobin A1c 8.2, calcium 8.8, total bilirubin 0.30, AST 18, ALT 16, alkaline phosphatase 109, total protein 6.8, albumin 2.7, pre-albumin 15.4. Plan: The patient has been instructed to elevate her lower extremities as much as possible. Thus far, she appears to have been compliant with these recommendations. Lower extremities are to be elevated to heart level, or higher. She is to sleep on a flat mattress at night. Leg elevation is to be implemented even during daytime hours. Sitting is to be kept to a minimum. Activity has been encouraged. Recruitment of the calf and foot muscle pumps has been explained, and can be implemented by means of activity and ambulation. Weight loss has been highly recommended. The patient has been advised to optimize her diabetic control. Dietary counseling will be offered if the patient so wishes. The patient has been advised to re-implement the use of her mechanical compression pumps, and appears to have been recently compliant. A noninvasive lower extremity arterial study will be obtained, as well as a venous duplex examination. These are scheduled for late this week, prior to her next follow-up visit. Once the status of her lower extremity arterial system is assessed, it is likely that compression will be implemented to the lower extremities by means of wraps or compression stockings. The patient's Farrow wraps are currently unusable, too small to fit her lower extremities at the current time. Patient will return in 1 week for reassessment. The patient is a smoker, and smoking cessation has been recommended. She is to collaborate with her primary care physician in this regard. Influenza vaccine was not administered today. Patient stands 5 feet 1 inch tall. She weighs 250 pounds. Her BMI is 47.1. Weight loss has been recommended, and the patient has been advised to collaborate with her primary care physician in terms of weight loss options. Dietary counseling has been offered as an option.
--- NOTE | 2018-01-14 12:42 | VDLE_ITS ---
Reason For Study: LYMPHEDEMA RIGHT LEFT GSV is normal. GSV is normal. CFV is compressible, spontaneous, phasic, CFV is compressible, spontaneous, phasic, competent and demonstrates normal competent, and demonstrates normal augmentation. augmentation. FV is compressible, spontaneous, phasic, FV is compressible, spontaneous, phasic, competent and demonstrates normal competent and demonstrates normal augmentation. augmentation. POP V is compressible, spontaneous, phasic, POP V is compressible, spontaneous, phasic, competent and demonstrates normal competent and demonstrates normal augmentation. augmentation. T/P Trunk is compressible. T/P Trunk is compressible. PTV is compressible. PTV is compressible. SFJ is competent SFJ is competent GSV is INCOMPETENT with reflux greater GSV is competent than .5 sec and diameter of .48 x .50 SSV is competent. SSV is competent INCOMPETENT boat canvas installer 17 cm prox to medial malleolus. Procedure Exam performed in department. A preliminary report was called and/or faxed to [facility]. Interpretation Summary Deep veins of the lower extremities are bilaterally patent and compressible segmentally. There is no evidence of deep vein thrombosis on either side. Valvular competence appears intact within the proximal deep venous systems bilaterally. The greater saphenous veins appear bilaterally patent and compressible segmentally. Sapheno-femoral junctions are bilaterally competent . The right greater saphenous vein appears segmentally incompetent. The left greater saphenous vein appears segmentally competent. Small saphenous veins are patent and competent bilaterally. An incompetent boat canvas installer vein is noted in the right calf, located 17 centimeters proximal to the right medial malleolus. Ordering Physician: Benji Moya Referring Physician: Dillan Kraus Performed By: Celeste Dillon RVT
--- NOTE | 2018-01-16 11:40 | LEAS ---
Arterial Study - Arterial Study Arterial Study: This is a 47-year-old female with a history of smoking, multiple sclerosis, chronic kidney disease, hyperlipidemia, hypertension, diabetes mellitus, atrial fibrillation, coronary artery disease, congestive heart failure, and peripheral arterial occlusive disease. The patient is brought to the noninvasive vascular laboratory at this time for the purpose of bilateral noninvasive lower extremity arterial assessment. Doppler signal assessment was used to evaluate the pulses at ankle level bilaterally. The posterior tibial and dorsalis pedis pulses were triphasic bilaterally. Segmental limb pressures were obtained bilaterally. The right ankle pressure, as determined by posterior tibial pulse, was measured at 141 mmHg. The right ankle pressure, as determined by dorsalis pedis pulse, was measured at 143 mmHg. The right digital pressure was measured at 145 mmHg. The left ankle pressure, as determined by posterior tibial pulse, was measured at 164 mmHg. The left ankle pressure, as determined by dorsalis pedis pulse, was measured at 150 mmHg. The left digital pressure was measured at 146 mmHg. Pulse-volume recordings were obtained bilaterally and segmentally. Waveform amplitudes appeared to be satisfactory at all levels bilaterally, including low thigh, calf, ankle, and digital levels. Resting ankle-brachial indices were calculated bilaterally. The resting right ankle-brachial index was calculated to be 1.09. The resting left ankle-brachial index was calculated to be 1.25. Digital-brachial indices were calculated bilaterally. The right digital-brachial index was calculated to be 1.11. The left digital-brachial index was calculated to be 1.11. Impression: Based upon the findings of this resting noninvasive lower extremity arterial study, there is no evidence of significant atherosclerotic peripheral arterial occlusive disease in the lower extremities bilaterally. Triphasic waveforms were noted at ankle level bilaterally. Resting ankle-brachial indices were bilaterally normal. Digital-brachial indices were also normal bilaterally. In summary, this represents a normal resting noninvasive lower extremity arterial study bilaterally.
--- NOTE | 2018-01-16 11:44 | LEAS_ITS ---
Arterial Study - Arterial Study Arterial Study: This is a 47-year-old female with a history of smoking, multiple sclerosis, chronic kidney disease, hyperlipidemia, hypertension, diabetes mellitus, atrial fibrillation, coronary artery disease, congestive heart failure, and peripheral arterial occlusive disease. The patient is brought to the noninvasive vascular laboratory at this time for the purpose of bilateral noninvasive lower extremity arterial assessment. Doppler signal assessment was used to evaluate the pulses at ankle level bilaterally. The posterior tibial and dorsalis pedis pulses were triphasic bilaterally. Segmental limb pressures were obtained bilaterally. The right ankle pressure, as determined by posterior tibial pulse, was measured at 141 mmHg. The right ankle pressure, as determined by dorsalis pedis pulse, was measured at 143 mmHg. The right digital pressure was measured at 145 mmHg. The left ankle pressure, as determined by posterior tibial pulse, was measured at 164 mmHg. The left ankle pressure, as determined by dorsalis pedis pulse, was measured at 150 mmHg. The left digital pressure was measured at 146 mmHg. Pulse-volume recordings were obtained bilaterally and segmentally. Waveform amplitudes appeared to be satisfactory at all levels bilaterally, including low thigh, calf, ankle, and digital levels. Resting ankle-brachial indices were calculated bilaterally. The resting right ankle-brachial index was calculated to be 1.09. The resting left ankle- brachial index was calculated to be 1.25. Digital-brachial indices were calculated bilaterally. The right digital- brachial index was calculated to be 1.11. The left digital-brachial index was calculated to be 1.11. Impression: Based upon the findings of this resting noninvasive lower extremity arterial study, there is no evidence of significant atherosclerotic peripheral arterial occlusive disease in the lower extremities bilaterally. Triphasic waveforms were noted at ankle level bilaterally. Resting ankle-brachial indices were bilaterally normal. Digital-brachial indices were also normal bilaterally. In summary, this represents a normal resting noninvasive lower extremity arterial study bilaterally.
== END 2018-01-17 23:59 ==
LOC: WC 08:30
PROVIDERS: Family Provider Student in an Organized Health Care Education/Training Program; PCP Student in an Organized Health Care Education/Training Program; Visit Provider Surgery
DX: I89.0 Lymphedema, not elsewhere classified (principal); I25.10 Atherosclerotic heart disease of native coronary artery without angina pectoris; E03.9 Hypothyroidism, unspecified; E66.01 Morbid (severe) obesity due to excess calories; K21.9 Gastro-esophageal reflux disease without esophagitis; G35 Multiple sclerosis; I13.0 Hypertensive heart and chronic kidney disease with heart failure and stage 1 through stage 4 chronic kidney disease, or unspecified chronic kidney disease; N18.4 Chronic kidney disease, stage 4 (severe); E11.51 Type 2 diabetes mellitus with diabetic peripheral angiopathy without gangrene; Z95.5 Presence of coronary angioplasty implant and graft; Z68.42 Body mass index [BMI] 45.0-49.9, adult; Z71.3 Dietary counseling and surveillance; Z86.73 Personal history of transient ischemic attack (TIA), and cerebral infarction without residual deficits; Z86.718 Personal history of other venous thrombosis and embolism; L40.9 Psoriasis, unspecified; I50.9 Heart failure, unspecified; E78.5 Hyperlipidemia, unspecified; I48.0 Paroxysmal atrial fibrillation; Z79.899 Other long term (current) drug therapy; Z79.4 Long term (current) use of insulin; F17.210 Nicotine dependence, cigarettes, uncomplicated
CPT/HCPCS: 93923; 93970; 99212; 99213; G0463

== ENCOUNTER → 2018-01-14 12:27 | Outpatient (CLI) | payer MEDICARE, MEDICAID, SELFPAY | PROVIDERS: Family Provider Student in an Organized Health Care Education/Training Program; PCP Student in an Organized Health Care Education/Training Program; Visit Provider Internal Medicine Nephrology | DX: N18.2 Chronic kidney disease, stage 2 (mild) (principal); E11.22 Type 2 diabetes mellitus with diabetic chronic kidney disease | CPT/HCPCS: 36415; 82570; 84156 ==

== ENCOUNTER 2018-02-10 13:49 | Outpatient (RCR) | payer MEDICARE, MEDICAID, SELFPAY ==
--- NOTE | 2018-02-15 07:34 | HP.OTEVAL_ITS ---
Patient's Visit Information CHELITA SILVEIRA is a 47 year old F, referred to Occupational Therapy by Benji Moya, with a diagnosis of BLE lymphedema. Date of Evaluation: 02/10/18 Occupational Therapist: Gilda Navarro, TELMA/Cesar, CHT - Subjective Subjective: Pt states she has been dealing with swelling for some time now- Pt states she has been through treatments for lymphedema in the past. pts states she has used compression socks during the day and does use the farrow wraps at night. Pt states the socks and farrow wraps are over three years old and she is in need of new ones. Pt states she has had cellulitis at least 4-6 time. Pt states her legs did break open and weep - pt states she has been seen at the wound center for the past 6 months. pt states she is walking daily to help with her circulation. pt is hopeful she can get compression socks and the alternative compression garments to use to mtg her lymphedema. - Lymphedema (Circumferential Measure) Mid-foot: right 23cm left 24cm Ankle: right 28cm left 26cm Lower calf: right 32 cm left 31cm Largest calf: right 36cm left 34cm Below knee: right 47cm left 43cm Lower Exremity Comments: pt demo swelling in toes and foot- - Sensation Sensation Comments: denies - Lower Limb Functional Index Lower Extremity Functional Score: 44 - Goals Demonstrate adequate knowledge of self-bangaging by 1st week: Yes Demonstrate adequate knowledge of self-massage by 2nd week: Yes Demonstrate adequate knowledge skin care/prec by 2nd week: Yes Demonstrate adequate knowledge therapeutic exercises by d/c: Yes Select approp compression garment w/donning/care/wear by d/c: Yes Voice need to replace compression garment every 4-6mo by dc: Yes - Rehabilitation General Assessment: pt demo BLE lymphedema- pt has been using farrow wraps during the night and stockenett during the day (pt thought the stockenett was a compression sock sent with the Farrow wraps) pt was ed.on use of compression socks during the day 30-40mmHg and alternative compression garments at night ie CircAide, Farrow waps etc. Pt does have a compression pump she uses but does not use on a regular basis. - pt would benefit from thigh high compression socks 30-40mmHg full foot included for day use. alternative velcro closure compression wraps- with foot and ankle included. Therapist rec'd compression socks with silver to assist in bacteria control- pt is to call her insurance company to see if the compression garments are cover and where the order needs fax. This visit pt was ed. on lymphedema mtg and skin care and beneficial ex to promote fluid circulation. pt demo understanding. pt is to return for further ed. on ex and correct donning and doffing of compression. Rehabilitation Potential: Questionable - Anticipated Interventions Anticipated Interventions: Education re Diagnosis, Education re Life-long lymphedema Management, Education re Self-Bandaging Techniques, Education re Skin Care and Precautions, Education re Self Massage Techniques, Education re Correct Donning Tech,Care&Wearing Sched Comp Garments - Visit Plan Frequency: Every Other Week Duration: 4 Weeks TEXT: Thank you for the opportunity to evaluate your patient. For Medicare and Medicare HMO plans, please review the plan of care and approve it. It will need to be FAXED BACK to us at [phone] for Medicare purposes. Please let me know if there are questions or concerns regarding this plan of care. Physician Signature: Date:
--- NOTE | 2018-05-17 09:19 | HP.OT.NRP ---
HP - Discharge Summary - Patient Information CHELITA SILVEIRA was seen in my office for initial evaluation on 02/10/18. The following Plan of Care was established for this patient: Initial Frequency: Every Other Week Initial Duration: 4 Weeks - Anticipated Interventions Anticipated Interventions: Education re Diagnosis, Education re Life-long lymphedema Management, Education re Self-Bandaging Techniques, Education re Skin Care and Precautions, Education re Self Massage Techniques, Education re Correct Donning Tech,Care&Wearing Sched Comp Garments This patient was last seen in our office 02/10/18. Pertinent comments regarding their Occupational therapy will appear below: Pt was seen for eval only- pt was to return with compression garments. pt was notified that insurance would not cover the compression garments. pt has not returned and due to time laps in tx pt is D/C at this time. At this point I will be discontinuing this patient from occupational therapy. I would be happy to see this patient again in the future if found appropriate by the physician. Thank you! Gilda Navarro, OTR/L, CHT
== END 2018-02-10 19:00 | disposition home or self-care (01) ==
LOC: OT 13:49
PROVIDERS: Family Provider Student in an Organized Health Care Education/Training Program; PCP Student in an Organized Health Care Education/Training Program; Visit Provider Surgery
DX: I89.0 Lymphedema, not elsewhere classified (principal)
CPT/HCPCS: 97166; G8978; G8979

== ENCOUNTER 2018-02-15 08:30 | Outpatient (RCR) | payer MEDICARE, MEDICAID, SELFPAY ==
[2018-01-18 01:12] VITALS: PULSE 96; RESP 18; TEMP 35.6
[2018-01-18 09:22] VITALS: BP 163/87; PULSE 90; RESP 16; TEMP 36
--- NOTE | 2018-01-18 10:36 | PCM.WC.HP ---
(1) Hyperlipidemia Status: Chronic Current Visit: No Code(s): E78.5 - Hyperlipidemia, unspecified (2) Hypertension Status: Chronic Current Visit: No Qualifiers: Hypertension type: essential hypertension Qualified Code(s): I10 - Essential (primary) hypertension Code(s): I10 - Essential (primary) hypertension (3) Type 2 diabetes mellitus Status: Chronic Current Visit: No Code(s): E11.9 - Type 2 diabetes mellitus without complications (4) Tobacco use disorder Status: Chronic Current Visit: No Code(s): F17.200 - Nicotine dependence, unspecified, uncomplicated (5) Paroxysmal a-fib Status: Chronic Current Visit: No Code(s): I48.0 - Paroxysmal atrial fibrillation Comment: ? questionable (6) Multiple personality disorder Status: Chronic Current Visit: No Code(s): F44.81 - Dissociative identity disorder (7) Morbid obesity with body mass index of 40.0-49.9 Status: Chronic Current Visit: Yes Code(s): E66.01 - Morbid (severe) obesity due to excess calories (8) Chronic back pain Status: Chronic Current Visit: No Code(s): M54.9 - Dorsalgia, unspecified; G89.29 - Other chronic pain (9) Tobacco abuse counseling Status: Chronic Current Visit: No Code(s): Z71.6 - Tobacco abuse counseling (10) Swelling of lower extremity Status: Chronic Current Visit: Yes Code(s): M79.89 - Other specified soft tissue disorders (11) Edema of both legs Status: Chronic Current Visit: Yes Code(s): R60.0 - Localized edema (12) Lymphedema of leg Status: Chronic Current Visit: Yes Qualifiers: Laterality: bilateral Code(s): I89.0 - Lymphedema, not elsewhere classified (13) GERD (gastroesophageal reflux disease) Status: Chronic Current Visit: No Code(s): K21.9 - Gastro-esophageal reflux disease without esophagitis (14) Multiple sclerosis Status: Chronic Current Visit: No Code(s): G35 - Multiple sclerosis (15) CKD (chronic kidney disease) stage 4, GFR 15-29 ml/min Status: Chronic Current Visit: No Code(s): N18.4 - Chronic kidney disease, stage 4 (severe) (16) PAD (peripheral artery disease) Status: Chronic Current Visit: No Code(s): I73.9 - Peripheral vascular disease, unspecified (17) History of CVA (cerebrovascular accident) Status: Chronic Current Visit: No Code(s): Z86.73 - Personal history of transient ischemic attack (TIA), and cerebral infarction without residual deficits (18) History of DVT (deep vein thrombosis) Status: Chronic Current Visit: No Code(s): Z86.718 - Personal history of other venous thrombosis and embolism (19) Psoriasis Status: Chronic Current Visit: No Code(s): L40.9 - Psoriasis, unspecified (20) CHF (congestive heart failure) Status: Chronic Current Visit: No Code(s): I50.9 - Heart failure, unspecified (21) Edema Status: Chronic Current Visit: Yes Qualifiers: Code(s): R60.9 - Edema, unspecified (22) H/O heart artery stent Status: Chronic Current Visit: No Code(s): Z95.5 - Presence of coronary angioplasty implant and graft (23) Hypothyroidism Status: Chronic Current Visit: No Code(s): E03.9 - Hypothyroidism, unspecified (24) Essential (primary) hypertension Status: Chronic Current Visit: No Code(s): I10 - Essential (primary) hypertension (25) Atherosclerotic heart disease of [place] coronary artery without angina pectoris Status: Chronic Current Visit: No Code(s): I25.10 - Atherosclerotic heart disease of [place] coronary artery without angina pectoris History of Present Illness Date of Service: 01/18/18 Chief Complaint: Bilateral lower extremity swelling, edema, and lymphedema. History of Wound: This is a 47-year-old morbidly obese diabetic female who presents as a referral from her rolls baker, Dr. Mayo, for evaluation and management regarding bilateral lower extremity swelling, edema, and lymphedema. This has been a problem for the patient in the past, and is chronic in nature. However, it appears to have been exacerbated recently by a traumatic hairline fracture of the right ankle which occurred on November 01, 2017. As a result, the patient was immobile for a period of time, relatively inactive, spending her days in an idle sitting position. As a result of her inactivity and chronic dependency, she has noted swelling, edema, and lymphedema in her lower extremities to be much more severe than usual, prompting her to seek medical attention. The patient claims to sleep in a relatively flat position at night. She has a history of bilateral lower extremity deep vein thrombosis, for which she has been previously treated with systemic anticoagulation therapy. She is not currently taking anticoagulation. The patient has multiple medical problems, which include diabetes mellitus, morbid obesity, hypertension, coronary artery disease, chronic kidney disease, peripheral arterial occlusive disease, and tobacco abuse. The patient has Farrow wraps for her lower extremities, which she has not been using. The wraps are not large enough to accommodate the severe swelling which currently exists in her lower extremities. She also has pneumatic mechanical compression pumps for her lower extremities, which she has not been using recently. These measures have been previously implemented in treatment for the patient's chronic lower extremity swelling and edema. Past Medical History Past Medical History: Chronic Problems (Last Reviewed 11/12/17 @ 14:16 by Sinan Lazcano) Hyperlipidemia (Chronic) Hypertension (Chronic) Type 2 diabetes mellitus (Chronic) Tobacco use disorder (Chronic) Paroxysmal a-fib (Chronic) ? questionable Multiple personality disorder (Chronic) Morbid obesity with body mass index of 40.0-49.9 (Chronic) Chronic back pain (Chronic) Tobacco abuse counseling (Chronic) Swelling of lower extremity (Chronic) Edema of both legs (Chronic) Lymphedema of leg (Chronic) GERD (gastroesophageal reflux disease) (Chronic) Multiple sclerosis (Chronic) CKD (chronic kidney disease) stage 4, GFR 15-29 ml/min (Chronic) PAD (peripheral artery disease) (Chronic) History of CVA (cerebrovascular accident) (Chronic) History of DVT (deep vein thrombosis) (Chronic) Psoriasis (Chronic) CHF (congestive heart failure) (Chronic) Edema (Chronic) H/O heart artery stent (Chronic) Hypothyroidism (Chronic) Essential (primary) hypertension (Chronic) Atherosclerotic heart disease of [place] coronary artery without angina pectoris (Chronic) Surgical History: appendectomy, cholecystectomy, - - The patient has a history of appendectomy, cholecystectomy, bilateral lower extremity vein stripping, partial hysterectomy, tonsillectomy, lumbar surgery ?4, and bilateral carpal tunnel release. The patient is a Ab0. Her only two live births succumbed shortly following . Allergies/Adverse Reactions: Allergies latex Allergy (Verified 01/01/18 15:18) Rash Penicillins Allergy (Verified 01/01/18 15:18) Unknown venom-honey bee [bee venom (honey bee)] Allergy (Verified 01/01/18 15:18) Unknown Home Medications: Ambulatory Orders Medication Instructions Recorded Celecoxib [Celebrex] 200 mg PO BID 07/03/14 Oxycodone HCl/Acetaminophen 1 ea PO Q4H PRN PRN 07/03/14 [Oxycodone-Acetaminophen 10-325] Tizanidine HCl [Zanaflex] 4 mg PO Q8H 07/03/14 Glimepiride [Amaryl] 4 mg PO BID 11/15/14 ALPRAZolam [Xanax] 0.25 mg PO BID 05/20/17 Diltiazem CD [Cardizem CD] 240 mg PO DAILY 05/20/17 Isosorbide Mononitrate [Isosorbide 60 mg PO DAILY 05/20/17 Mononitrate ER] Albuterol Aerosols [Ventolin 2.5 mg INHALATION Q4H PRN #25 vial 06/18/17 Aerosols] Doxycycline [Vibramycin] 100 mg PO BID #20 cap 06/18/17 Benzonatate [Tessalon Perle] 100 mg PO Q4H PRN PRN #20 cap 06/19/17 amitriptyline 50 mg tablet 100 mg PO QHS tab 08/23/17 aspirin 81 mg tablet,delayed 81 mg PO QDAY 08/23/17 release rizatriptan 5 mg tablet 5 mg PO ONCE 08/23/17 thyroid (pork) 60 mg tablet 120 mg PO DAILY tab 08/23/17 Gabapentin [Neurontin] 1,200 mg PO TIDCM 01/01/18 Insulin Detemir [Levemir] 64 unit SQ QHS 01/01/18 Insulin Regular, Human [Novolin R] 100 unit SQ BID 01/01/18 Liraglutide [Victoza] 0.12 mg SQ DAILY 01/01/18 proCHLORPERazine suppository 50 mg RECTAL DAILY PRN PRN 01/01/18 [Compazine suppository] - Family History Maternal Family History: Family History (Last Reviewed 11/12/17 @ 14:16 by Sinan Lazcano) Mother CAD (coronary artery disease) Diabetes, Heart Disease, No pertinent history, - - Hypothyroid Paternal Family History: Family History (Last Reviewed 11/12/17 @ 14:16 by Sinan Lazcano) Mother CAD (coronary artery disease) Cancer, - - The patient's mother had a history of emphysema, COPD, coronary artery disease, diabetes mellitus, dementia, and Parkinson's disease. Patient's mother at age of 67. Smoking Status: Current some day smoker Tobacco Use: Cigarettes Review of Systems Constitutional: Denies: Chills, Fever, Weight Change Eyes: Denies: Pain, Vision Change HEENT: Denies: Difficulty Hearing, Difficulty Swallowing, Sinus Congestion Cardiovascular: Denies: Chest Pain, Palpitations Respiratory: Denies: Cough, Shortness of Breath Gastrointestinal: Denies: Diarrhea, Nausea, Vomiting Genitourinary: Denies: Dysuria, Hematuria Endocrine: Denies: Heat/ Cold Intolerance, Polydipsia, Polyuria Hematologic/ Lymphatic: Denies: Easy Bruising, Easy Bleeding - Physical Exam Vital Signs Temp Pulse Resp BP 96.8 F L 90 16 163/87 H 01/18/18 09:22 01/18/18 09:22 01/18/18 09:22 01/18/18 09:22 General: Alert, Oriented x3, Cooperative, No apparent distress, Well developed, Well nourished HEENT: Atraumatic, PERRLA, EOMI, Normocephalic Oral: Moist Mucosa Neck: No JVD Lungs: Normal air movement Abdomen: Non-Distended Extremities: No clubbing, No cyanosis, No Calf Tenderness, - - Severe swelling, edema, and lymphedema persist in the patient's lower extremities bilaterally. Circumference measurements are documented elsewhere. There are no open wounds or ulcerations. Mild erythema is noted in the gaiter areas bilaterally. The erythema appears to be inflammatory rather than infectious. Cellulitis is not suspected. Wound Measurements and Assessment WC - Nurse 1 - General Ulcer Measurement Start: 01/18/18 09:22 Freq: Status: Active Protocol: Activity Type Activity Date Activity User E-Sign Co-Sign Detail Recorded Client Recorded Date Recorded By Document 01/18/18 09:22 JF [id number] 01/18/18 09:24 ALEX 01/18/18 09:22 Wound Center Nurse 1 [Edema Assessment] -Lower Limb Edema Present Yes -Right Calf (cm) 50.5 -Right Ankle (cm) 26.6 -Left Calf (cm) 47.3 -Left Ankle (cm) 28.5 WC - Nurse 2 - General Ulcer CM Notes Start: 01/18/18 09:22 Freq: Status: Active Protocol: Activity Type Activity Date Activity User E-Sign Co-Sign Detail Recorded Client Recorded Date Recorded By Document 01/18/18 10:18 GELACIO [id number] 01/18/18 10:19 01/18/18 10:18 Pain Scale: 0-10 Numeric [Pain] -Is Patient Pain Free? Yes Neurological: Cranial nerves II-XII grossly intact, Neuro grossly intact Psych/Mental Status: Normal Affect, Appropriate, Alert and oriented to time, place, person, mood and affect Debridement Note Post-Debridement Measurements/Treatment WC - Nurse 2 - General Ulcer CM Notes Start: 01/18/18 09:22 Freq: Status: Active Protocol: Activity Type Activity Date Activity User E-Sign Co-Sign Detail Recorded Client Recorded Date Recorded By Document 01/18/18 10:18 GELACIO [id number] 01/18/18 10:19 01/18/18 10:18 Pain Scale: 0-10 Numeric Is Patient Pain Free? Yes No debridement was completed today Assessment/Plan Active Problems (Last Reviewed 11/12/17 @ 14:16 by Sinan Lazcano) Morbid obesity with body mass index of 40.0-49.9 (Chronic) Swelling of lower extremity (Chronic) Edema of both legs (Chronic) Lymphedema of leg (Chronic) Edema (Chronic) Assessment: This is a 47-year-old morbidly obese diabetic female with multiple medical problems, which have been listed above. It appears as though a hairline fracture of the right ankle, sustained on November 01, 2017, resulted in a decrease in activity, limited ambulation, and chronic lower extremity dependency. This significant change in the patient's activity and habits as resulted in exacerbation of the swelling, edema, and lymphedema in the patient's lower extremities. At this time, there are no open wounds or ulcerations. The patient has undergone a battery of diagnostic laboratory tests, which have been reviewed. Results are as follows: White blood count 7.7, hemoglobin 13.7, hematocrit 42.1, platelets 199,000, sodium 140, potassium 4.5, chloride 108, BUN 19, creatinine 0.92, glucose 199, hemoglobin A1c 8.2, calcium 8.8, total bilirubin 0.30, AST 18, ALT 16, alkaline phosphatase 109, total protein 6.8, albumin 2.7, pre-albumin 15.4. A venous duplex examination has recently been performed, revealing incompetence of the right great saphenous vein and an incompetent traffic safety administrator vein 17 cm proximal to the right medial malleolus. No superficial venous incompetence is noted in the left lower extremity. A noninvasive lower extremity arterial study is normal, revealing normal arterial perfusion in the lower extremities bilaterally. Plan: The patient has been instructed to elevate her lower extremities as much as possible. The patient is accompanied by her sister today, who assists in her daily care. According the patient's sister, the patient has been sitting for long periods each day, despite advice to the contrary. In addition, it appears as though the patient is not very active. Once again, we have encouraged the patient to elevate her legs, even during daytime hours. It appears as though she is sleeping in a relatively recumbent position. Activity has been encouraged. Avoidance of prolonged idle sitting has been recommended. Lower extremities are to be elevated to heart level, or higher. Recruitment of the calf and foot muscle pumps has been explained, and can be implemented by means of activity and ambulation. Weight loss has been highly recommended. The patient has been advised to optimize her diabetic control. Dietary counseling will be offered if the patient so wishes. The patient has been advised to re-implement the use of her mechanical compression pumps. We are to implement compression to the lower extremities by means of a 3M 2 layer compression wrap applied bilaterally, which will be changed twice weekly. The patient's Farrow wraps are currently unusable, too small to fit her lower extremities at the current time. Patient will return in 1 week for reassessment. The patient is a smoker, and smoking cessation has been recommended. She is to collaborate with her primary care physician in this regard. Influenza vaccine was not administered today. Patient stands 5 feet 1 inch tall. She weighs 250 pounds. Her BMI is 47.1. Weight loss has been recommended, and the patient has been advised to collaborate with her primary care physician in terms of weight loss options. Dietary counseling has been offered as an option.
[2018-01-25 09:17] VITALS: BP 146/69; PULSE 74; RESP 16; TEMP 36.1
--- NOTE | 2018-01-25 09:29 | PCM.WC.HP ---
(1) Hyperlipidemia Status: Chronic Current Visit: No Code(s): E78.5 - Hyperlipidemia, unspecified (2) Hypertension Status: Chronic Current Visit: No Qualifiers: Hypertension type: essential hypertension Qualified Code(s): I10 - Essential (primary) hypertension Code(s): I10 - Essential (primary) hypertension (3) Type 2 diabetes mellitus Status: Chronic Current Visit: No Code(s): E11.9 - Type 2 diabetes mellitus without complications (4) Tobacco use disorder Status: Chronic Current Visit: Yes Code(s): F17.200 - Nicotine dependence, unspecified, uncomplicated (5) Paroxysmal a-fib Status: Chronic Current Visit: No Code(s): I48.0 - Paroxysmal atrial fibrillation Comment: ? questionable (6) Multiple personality disorder Status: Chronic Current Visit: No Code(s): F44.81 - Dissociative identity disorder (7) Morbid obesity with body mass index of 40.0-49.9 Status: Chronic Current Visit: Yes Code(s): E66.01 - Morbid (severe) obesity due to excess calories (8) Chronic back pain Status: Chronic Current Visit: No Code(s): M54.9 - Dorsalgia, unspecified; G89.29 - Other chronic pain (9) Tobacco abuse counseling Status: Chronic Current Visit: Yes Code(s): Z71.6 - Tobacco abuse counseling (10) Swelling of lower extremity Status: Chronic Current Visit: Yes Code(s): M79.89 - Other specified soft tissue disorders (11) Edema of both legs Status: Chronic Current Visit: Yes Code(s): R60.0 - Localized edema (12) Lymphedema of leg Status: Chronic Current Visit: Yes Qualifiers: Laterality: bilateral Code(s): I89.0 - Lymphedema, not elsewhere classified (13) GERD (gastroesophageal reflux disease) Status: Chronic Current Visit: No Code(s): K21.9 - Gastro-esophageal reflux disease without esophagitis (14) Multiple sclerosis Status: Chronic Current Visit: No Code(s): G35 - Multiple sclerosis (15) CKD (chronic kidney disease) stage 4, GFR 15-29 ml/min Status: Chronic Current Visit: No Code(s): N18.4 - Chronic kidney disease, stage 4 (severe) (16) PAD (peripheral artery disease) Status: Chronic Current Visit: No Code(s): I73.9 - Peripheral vascular disease, unspecified (17) History of CVA (cerebrovascular accident) Status: Chronic Current Visit: No Code(s): Z86.73 - Personal history of transient ischemic attack (TIA), and cerebral infarction without residual deficits (18) History of DVT (deep vein thrombosis) Status: Chronic Current Visit: No Code(s): Z86.718 - Personal history of other venous thrombosis and embolism (19) Psoriasis Status: Chronic Current Visit: No Code(s): L40.9 - Psoriasis, unspecified (20) CHF (congestive heart failure) Status: Chronic Current Visit: No Code(s): I50.9 - Heart failure, unspecified (21) Edema Status: Chronic Current Visit: Yes Qualifiers: Code(s): R60.9 - Edema, unspecified (22) H/O heart artery stent Status: Chronic Current Visit: No Code(s): Z95.5 - Presence of coronary angioplasty implant and graft (23) Hypothyroidism Status: Chronic Current Visit: No Code(s): E03.9 - Hypothyroidism, unspecified (24) Essential (primary) hypertension Status: Chronic Current Visit: No Code(s): I10 - Essential (primary) hypertension (25) Atherosclerotic heart disease of [place] coronary artery without angina pectoris Status: Chronic Current Visit: No Code(s): I25.10 - Atherosclerotic heart disease of [place] coronary artery without angina pectoris History of Present Illness Date of Service: 01/25/18 Chief Complaint: Bilateral lower extremity swelling, edema, and lymphedema. History of Wound: This is a 47-year-old morbidly obese diabetic female who presents as a referral from her diabetes clinical manager, Dr. Maoy, for evaluation and management regarding bilateral lower extremity swelling, edema, and lymphedema. This has been a problem for the patient in the past, and is chronic in nature. However, it appears to have been exacerbated recently by a traumatic hairline fracture of the right ankle which occurred on November 01, 2017. As a result, the patient was immobile for a period of time, relatively inactive, spending her days in an idle sitting position. As a result of her inactivity and chronic dependency, she has noted swelling, edema, and lymphedema in her lower extremities to be much more severe than usual, prompting her to seek medical attention. The patient claims to sleep in a relatively flat position at night. She has a history of bilateral lower extremity deep vein thrombosis, for which she has been previously treated with systemic anticoagulation therapy. She is not currently taking anticoagulation. The patient has multiple medical problems, which include diabetes mellitus, morbid obesity, hypertension, coronary artery disease, chronic kidney disease, peripheral arterial occlusive disease, and tobacco abuse. The patient has Farrow wraps for her lower extremities, which she has not been using. The wraps are not large enough to accommodate the severe swelling which currently exists in her lower extremities. She also has pneumatic mechanical compression pumps for her lower extremities, which she had not been using recently. These measures have been previously implemented in treatment for the patient's chronic lower extremity swelling and edema. In recent weeks, the patient has demonstrated increasing compliance with recommended measures. She has been elevating her lower extremities more frequently. She has been using her mechanical compression pumps. As result, there has been a significant decrease in the swelling, edema, and lymphedema in her lower extremities bilaterally. Past Medical History Past Medical History: Chronic Problems (Last Reviewed 11/12/17 @ 14:16 by Sinan Lazcano) Hyperlipidemia (Chronic) Hypertension (Chronic) Type 2 diabetes mellitus (Chronic) Tobacco use disorder (Chronic) Paroxysmal a-fib (Chronic) ? questionable Multiple personality disorder (Chronic) Morbid obesity with body mass index of 40.0-49.9 (Chronic) Chronic back pain (Chronic) Tobacco abuse counseling (Chronic) Swelling of lower extremity (Chronic) Edema of both legs (Chronic) Lymphedema of leg (Chronic) GERD (gastroesophageal reflux disease) (Chronic) Multiple sclerosis (Chronic) CKD (chronic kidney disease) stage 4, GFR 15-29 ml/min (Chronic) PAD (peripheral artery disease) (Chronic) History of CVA (cerebrovascular accident) (Chronic) History of DVT (deep vein thrombosis) (Chronic) Psoriasis (Chronic) CHF (congestive heart failure) (Chronic) Edema (Chronic) H/O heart artery stent (Chronic) Hypothyroidism (Chronic) Essential (primary) hypertension (Chronic) Atherosclerotic heart disease of [place] coronary artery without angina pectoris (Chronic) Surgical History: appendectomy, cholecystectomy, - - The patient has a history of appendectomy, cholecystectomy, bilateral lower extremity vein stripping, partial hysterectomy, tonsillectomy, lumbar surgery ?4, and bilateral carpal tunnel release. The patient is a Ab0. Her only two live births succumbed shortly following . Allergies/Adverse Reactions: Allergies latex Allergy (Verified 01/01/18 15:18) Rash Penicillins Allergy (Verified 01/01/18 15:18) Unknown venom-honey bee [bee venom (honey bee)] Allergy (Verified 01/01/18 15:18) Unknown Home Medications: Ambulatory Orders Medication Instructions Recorded Celecoxib [Celebrex] 200 mg PO BID 07/03/14 Oxycodone HCl/Acetaminophen 1 ea PO Q4H PRN PRN 07/03/14 [Oxycodone-Acetaminophen 10-325] Tizanidine HCl [Zanaflex] 4 mg PO Q8H 07/03/14 Glimepiride [Amaryl] 4 mg PO BID 11/15/14 ALPRAZolam [Xanax] 0.25 mg PO BID 05/20/17 Diltiazem CD [Cardizem CD] 240 mg PO DAILY 05/20/17 Isosorbide Mononitrate [Isosorbide 60 mg PO DAILY 05/20/17 Mononitrate ER] Albuterol Aerosols [Ventolin 2.5 mg INHALATION Q4H PRN #25 vial 06/18/17 Aerosols] Doxycycline [Vibramycin] 100 mg PO BID #20 cap 06/18/17 Benzonatate [Tessalon Perle] 100 mg PO Q4H PRN PRN #20 cap 06/19/17 amitriptyline 50 mg tablet 100 mg PO QHS tab 08/23/17 aspirin 81 mg tablet,delayed 81 mg PO QDAY 08/23/17 release rizatriptan 5 mg tablet 5 mg PO ONCE 08/23/17 thyroid (pork) 60 mg tablet 120 mg PO DAILY tab 08/23/17 Gabapentin [Neurontin] 1,200 mg PO TIDCM 01/01/18 Insulin Detemir [Levemir] 64 unit SQ QHS 01/01/18 Insulin Regular, Human [Novolin R] 100 unit SQ BID 01/01/18 Liraglutide [Victoza] 0.12 mg SQ DAILY 01/01/18 proCHLORPERazine suppository 50 mg RECTAL DAILY PRN PRN 01/01/18 [Compazine suppository] - Family History Maternal Family History: Family History (Last Reviewed 11/12/17 @ 14:16 by Sinan Lazcano) Mother CAD (coronary artery disease) Diabetes, Heart Disease, No pertinent history, - - Hypothyroid Paternal Family History: Family History (Last Reviewed 11/12/17 @ 14:16 by Sinan Lazcano) Mother CAD (coronary artery disease) Cancer, - - The patient's mother had a history of emphysema, COPD, coronary artery disease, diabetes mellitus, dementia, and Parkinson's disease. Patient's mother at age of 67. Smoking Status: Current some day smoker Tobacco Use: Cigarettes Review of Systems Constitutional: Denies: Chills, Fever, Weight Change Eyes: Denies: Pain, Vision Change HEENT: Denies: Difficulty Hearing, Difficulty Swallowing, Sinus Congestion Cardiovascular: Denies: Chest Pain, Palpitations Respiratory: Denies: Cough, Shortness of Breath Gastrointestinal: Denies: Diarrhea, Nausea, Vomiting Genitourinary: Denies: Dysuria, Hematuria Endocrine: Denies: Heat/ Cold Intolerance, Polydipsia, Polyuria Hematologic/ Lymphatic: Denies: Easy Bruising, Easy Bleeding - Physical Exam Vital Signs Temp Pulse Resp BP 96.9 F L 74 16 146/69 H 01/25/18 09:17 01/25/18 09:17 01/25/18 09:17 01/25/18 09:17 General: Alert, Oriented x3, Cooperative, No apparent distress, Well developed, Well nourished HEENT: Atraumatic, PERRLA, EOMI, Normocephalic Oral: Moist Mucosa Neck: No JVD Lungs: Normal air movement Abdomen: Non-Distended Extremities: No clubbing, No cyanosis, No Calf Tenderness, - - The swelling, edema, and lymphedema in the lower extremities is markedly diminished. Circumference measurements are significantly decreased bilaterally. Visually, there is marked improvement in the lower extremities bilaterally. There is slight erythema in the gaiter areas bilaterally, which does not appear to be cellulitic, but more likely inflammatory. There are no open wounds or ulcerations. Skin: No breakdown Wound Measurements and Assessment WC - Nurse 1 - General Ulcer Measurement Start: 01/18/18 09:22 Freq: Status: Active Protocol: Activity Type Activity Date Activity User E-Sign Co-Sign Detail Recorded Client Recorded Date Recorded By Document 01/25/18 09:17 ALEX [id number] 01/25/18 09:18 ALEX 01/25/18 09:17 Wound Center Nurse 1 [Edema Assessment] -Lower Limb Edema Present Yes -Right Calf (cm) 41.2 -Right Ankle (cm) 26.7 -Left Calf (cm) 41.6 -Left Ankle (cm) 26.7 WC - Nurse 2 - General Ulcer CM Notes Start: 01/18/18 09:22 Freq: Status: Active Protocol: Activity Type Activity Date Activity User E-Sign Co-Sign Detail Recorded Client Recorded Date Recorded By Document 01/25/18 09:22 [id number] 01/25/18 09:23 01/25/18 09:22 Pain Scale: 0-10 Numeric [Pain] -Is Patient Pain Free? Yes Neurological: Cranial nerves II-XII grossly intact, Neuro grossly intact Psych/Mental Status: Normal Affect, Appropriate, Alert and oriented to time, place, person, mood and affect Debridement Note Post-Debridement Measurements/Treatment WC - Nurse 2 - General Ulcer CM Notes Start: 01/18/18 09:22 Freq: Status: Active Protocol: Activity Type Activity Date Activity User E-Sign Co-Sign Detail Recorded Client Recorded Date Recorded By Document 01/18/18 10:18 [id number] 01/18/18 10:19 JS Document 01/25/18 09:22 [id number] 01/25/18 09:23 01/18/18 01/25/18 10:18 09:22 Pain Scale: 0-10 Numeric Is Patient Pain Free? Yes Yes No debridement was completed today Assessment/Plan Active Problems (Last Reviewed 11/12/17 @ 14:16 by Sinan Lazcano) Tobacco use disorder (Chronic) Morbid obesity with body mass index of 40.0-49.9 (Chronic) Tobacco abuse counseling (Chronic) Swelling of lower extremity (Chronic) Edema of both legs (Chronic) Lymphedema of leg (Chronic) Edema (Chronic) Assessment: This is a 47-year-old morbidly obese diabetic female with multiple medical problems, which have been listed above. It appears as though a hairline fracture of the right ankle, sustained on November 01, 2017, resulted in a decrease in activity, limited ambulation, and chronic lower extremity dependency. This significant change in the patient's activity and habits as resulted in exacerbation of the swelling, edema, and lymphedema in the patient's lower extremities. At this time, there are no open wounds or ulcerations. The patient has undergone a battery of diagnostic laboratory tests, which have been reviewed. Results are as follows: White blood count 7.7, hemoglobin 13.7, hematocrit 42.1, platelets 199,000, sodium 140, potassium 4.5, chloride 108, BUN 19, creatinine 0.92, glucose 199, hemoglobin A1c 8.2, calcium 8.8, total bilirubin 0.30, AST 18, ALT 16, alkaline phosphatase 109, total protein 6.8, albumin 2.7, pre-albumin 15.4. A venous duplex examination has recently been performed, revealing incompetence of the right great saphenous vein and an incompetent clothing consultant vein 17 cm proximal to the right medial malleolus. No superficial venous incompetence is noted in the left lower extremity. A noninvasive lower extremity arterial study is normal, revealing normal arterial perfusion in the lower extremities bilaterally. The patient has, apparently, been more compliant in recent weeks with recommended measures. As result of her compliance with leg elevation, increasing activity levels, avoidance of idle standing and sitting, etc., the swelling, edema, and lymphedema in her lower extremities is markedly improved. Plan: The patient has been instructed to elevate her lower extremities as much as possible. We have encouraged the patient to elevate her legs, even during daytime hours. It appears as though she is sleeping in a relatively recumbent position. Activity has been encouraged. Avoidance of prolonged idle sitting has been recommended. Lower extremities are to be elevated to heart level, or higher. Recruitment of the calf and foot muscle pumps has been explained, and can be implemented by means of activity and ambulation. Weight loss has been highly recommended. The patient has been advised to optimize her diabetic control. Dietary counseling will be offered if the patient so wishes. The patient has been advised to continue the use of her mechanical compression pumps. We are to continue compression to the lower extremities by means of a 3M 2 layer compression wrap applied bilaterally, which will be changed twice weekly. The patient's Farrow wraps have recently been unusable, too small to fit her lower extremities due to extreme swelling. Patient will return in 1 week for reassessment. The patient is a smoker, and smoking cessation has been recommended. She is to collaborate with her primary care physician in this regard. Influenza vaccine was not administered today. Patient stands 5 feet 1 inch tall. She weighs 250 pounds. Her BMI is 47.1. Weight loss has been recommended, and the patient has been advised to collaborate with her primary care physician in terms of weight loss options. Dietary counseling has been offered as an option.
--- NOTE | 2018-01-25 09:37 | HP.PCM_ITS ---
(1) Hyperlipidemia Status: Chronic Current Visit: No Code(s): E78.5 - Hyperlipidemia, unspecified (2) Hypertension Status: Chronic Current Visit: No Qualifiers: Hypertension type: essential hypertension Qualified Code(s): I10 - Essential (primary) hypertension Code(s): I10 - Essential (primary) hypertension (3) Type 2 diabetes mellitus Status: Chronic Current Visit: No Code(s): E11.9 - Type 2 diabetes mellitus without complications (4) Tobacco use disorder Status: Chronic Current Visit: Yes Code(s): F17.200 - Nicotine dependence, unspecified, uncomplicated (5) Paroxysmal a-fib Status: Chronic Current Visit: No Code(s): I48.0 - Paroxysmal atrial fibrillation Comment: ? questionable (6) Multiple personality disorder Status: Chronic Current Visit: No Code(s): F44.81 - Dissociative identity disorder (7) Morbid obesity with body mass index of 40.0-49.9 Status: Chronic Current Visit: Yes Code(s): E66.01 - Morbid (severe) obesity due to excess calories (8) Chronic back pain Status: Chronic Current Visit: No Code(s): M54.9 - Dorsalgia, unspecified; G89.29 - Other chronic pain (9) Tobacco abuse counseling Status: Chronic Current Visit: Yes Code(s): Z71.6 - Tobacco abuse counseling (10) Swelling of lower extremity Status: Chronic Current Visit: Yes Code(s): M79.89 - Other specified soft tissue disorders (11) Edema of both legs Status: Chronic Current Visit: Yes Code(s): R60.0 - Localized edema (12) Lymphedema of leg Status: Chronic Current Visit: Yes Qualifiers: Laterality: bilateral Code(s): I89.0 - Lymphedema, not elsewhere classified (13) GERD (gastroesophageal reflux disease) Status: Chronic Current Visit: No Code(s): K21.9 - Gastro-esophageal reflux disease without esophagitis (14) Multiple sclerosis Status: Chronic Current Visit: No Code(s): G35 - Multiple sclerosis (15) CKD (chronic kidney disease) stage 4, GFR 15-29 ml/min Status: Chronic Current Visit: No Code(s): N18.4 - Chronic kidney disease, stage 4 (severe) (16) PAD (peripheral artery disease) Status: Chronic Current Visit: No Code(s): I73.9 - Peripheral vascular disease, unspecified (17) History of CVA (cerebrovascular accident) Status: Chronic Current Visit: No Code(s): Z86.73 - Personal history of transient ischemic attack (TIA), and cerebral infarction without residual deficits (18) History of DVT (deep vein thrombosis) Status: Chronic Current Visit: No Code(s): Z86.718 - Personal history of other venous thrombosis and embolism (19) Psoriasis Status: Chronic Current Visit: No Code(s): L40.9 - Psoriasis, unspecified (20) CHF (congestive heart failure) Status: Chronic Current Visit: No Code(s): I50.9 - Heart failure, unspecified (21) Edema Status: Chronic Current Visit: Yes Qualifiers: Code(s): R60.9 - Edema, unspecified (22) H/O heart artery stent Status: Chronic Current Visit: No Code(s): Z95.5 - Presence of coronary angioplasty implant and graft (23) Hypothyroidism Status: Chronic Current Visit: No Code(s): E03.9 - Hypothyroidism, unspecified (24) Essential (primary) hypertension Status: Chronic Current Visit: No Code(s): I10 - Essential (primary) hypertension (25) Atherosclerotic heart disease of [place] coronary artery without angina pectoris Status: Chronic Current Visit: No Code(s): I25.10 - Atherosclerotic heart disease of [place] coronary artery without angina pectoris History of Present Illness Date of Service: 01/25/18 Chief Complaint: Bilateral lower extremity swelling, edema, and lymphedema. History of Wound: This is a 47-year-old morbidly obese diabetic female who presents as a referral from her senior training specialist, Dr. Mayo, for evaluation and management regarding bilateral lower extremity swelling, edema, and lymphedema. This has been a problem for the patient in the past, and is chronic in nature. However, it appears to have been exacerbated recently by a traumatic hairline fracture of the right ankle which occurred on November 01, 2017. As a result, the patient was immobile for a period of time, relatively inactive, spending her days in an idle sitting position. As a result of her inactivity and chronic dependency, she has noted swelling, edema, and lymphedema in her lower extremities to be much more severe than usual, prompting her to seek medical attention. The patient claims to sleep in a relatively flat position at night. She has a history of bilateral lower extremity deep vein thrombosis, for which she has been previously treated with systemic anticoagulation therapy. She is not currently taking anticoagulation. The patient has multiple medical problems, which include diabetes mellitus, morbid obesity, hypertension, coronary artery disease, chronic kidney disease, peripheral arterial occlusive disease, and tobacco abuse. The patient has Farrow wraps for her lower extremities, which she has not been using. The wraps are not large enough to accommodate the severe swelling which currently exists in her lower extremities. She also has pneumatic mechanical compression pumps for her lower extremities, which she had not been using recently. These measures have been previously implemented in treatment for the patient's chronic lower extremity swelling and edema. In recent weeks, the patient has demonstrated increasing compliance with recommended measures. She has been elevating her lower extremities more frequently. She has been using her mechanical compression pumps. As result, there has been a significant decrease in the swelling, edema, and lymphedema in her lower extremities bilaterally. Past Medical History Past Medical History: Chronic Problems (Last Reviewed 11/12/17 @ 14:16 by Sinan Lazcano) Hyperlipidemia (Chronic) Hypertension (Chronic) Type 2 diabetes mellitus (Chronic) Tobacco use disorder (Chronic) Paroxysmal a-fib (Chronic) ? questionable Multiple personality disorder (Chronic) Morbid obesity with body mass index of 40.0-49.9 (Chronic) Chronic back pain (Chronic) Tobacco abuse counseling (Chronic) Swelling of lower extremity (Chronic) Edema of both legs (Chronic) Lymphedema of leg (Chronic) GERD (gastroesophageal reflux disease) (Chronic) Multiple sclerosis (Chronic) CKD (chronic kidney disease) stage 4, GFR 15-29 ml/min (Chronic) PAD (peripheral artery disease) (Chronic) History of CVA (cerebrovascular accident) (Chronic) History of DVT (deep vein thrombosis) (Chronic) Psoriasis (Chronic) CHF (congestive heart failure) (Chronic) Edema (Chronic) H/O heart artery stent (Chronic) Hypothyroidism (Chronic) Essential (primary) hypertension (Chronic) Atherosclerotic heart disease of [place] coronary artery without angina pectoris (Chronic) Surgical History: appendectomy, cholecystectomy, - - The patient has a history of appendectomy, cholecystectomy, bilateral lower extremity vein stripping, partial hysterectomy, tonsillectomy, lumbar surgery ?4, and bilateral carpal tunnel release. The patient is a Ab0. Her only two live births succumbed shortly following . Allergies/Adverse Reactions: Allergies latex Allergy (Verified 01/01/18 15:18) Rash Penicillins Allergy (Verified 01/01/18 15:18) Unknown venom-honey bee [bee venom (honey bee)] Allergy (Verified 01/01/18 15:18) Unknown Home Medications: Ambulatory Orders Medication Instructions Recorded Celecoxib [Celebrex] 200 mg PO BID 07/03/14 Oxycodone HCl/Acetaminophen 1 ea PO Q4H PRN PRN 07/03/14 [Oxycodone-Acetaminophen 10-325] Tizanidine HCl [Zanaflex] 4 mg PO Q8H 07/03/14 Glimepiride [Amaryl] 4 mg PO BID 11/15/14 ALPRAZolam [Xanax] 0.25 mg PO BID 05/20/17 Diltiazem CD [Cardizem CD] 240 mg PO DAILY 05/20/17 Isosorbide Mononitrate [Isosorbide 60 mg PO DAILY 05/20/17 Mononitrate ER] Albuterol Aerosols [Ventolin 2.5 mg INHALATION Q4H PRN #25 vial 06/18/17 Aerosols] Doxycycline [Vibramycin] 100 mg PO BID #20 cap 06/18/17 Benzonatate [Tessalon Perle] 100 mg PO Q4H PRN PRN #20 cap 06/19/17 amitriptyline 50 mg tablet 100 mg PO QHS tab 08/23/17 aspirin 81 mg tablet,delayed 81 mg PO QDAY 08/23/17 release rizatriptan 5 mg tablet 5 mg PO ONCE 08/23/17 thyroid (pork) 60 mg tablet 120 mg PO DAILY tab 08/23/17 Gabapentin [Neurontin] 1,200 mg PO TIDCM 01/01/18 Insulin Detemir [Levemir] 64 unit SQ QHS 01/01/18 Insulin Regular, Human [Novolin R] 100 unit SQ BID 01/01/18 Liraglutide [Victoza] 0.12 mg SQ DAILY 01/01/18 proCHLORPERazine suppository 50 mg RECTAL DAILY PRN PRN 01/01/18 [Compazine suppository] - Family History Maternal Family History: Family History (Last Reviewed 11/12/17 @ 14:16 by Sinan Lazcano) Mother CAD (coronary artery disease) Diabetes, Heart Disease, No pertinent history, - - Hypothyroid Paternal Family History: Family History (Last Reviewed 11/12/17 @ 14:16 by Sinan Lazcano) Mother CAD (coronary artery disease) Cancer, - - The patient's mother had a history of emphysema, COPD, coronary artery disease, diabetes mellitus, dementia, and Parkinson's disease. Patient' s mother at age of 67. Smoking Status: Current some day smoker Tobacco Use: Cigarettes Review of Systems Constitutional: Denies: Chills, Fever, Weight Change Eyes: Denies: Pain, Vision Change HEENT: Denies: Difficulty Hearing, Difficulty Swallowing, Sinus Congestion Cardiovascular: Denies: Chest Pain, Palpitations Respiratory: Denies: Cough, Shortness of Breath Gastrointestinal: Denies: Diarrhea, Nausea, Vomiting Genitourinary: Denies: Dysuria, Hematuria Endocrine: Denies: Heat/ Cold Intolerance, Polydipsia, Polyuria Hematologic/ Lymphatic: Denies: Easy Bruising, Easy Bleeding - Physical Exam Vital Signs Temp Pulse Resp BP 96.9 F L 74 16 146/69 H 01/25/18 09:17 01/25/18 09:17 01/25/18 09:17 01/25/18 09:17 General: Alert, Oriented x3, Cooperative, No apparent distress, Well developed, Well nourished HEENT: Atraumatic, PERRLA, EOMI, Normocephalic Oral: Moist Mucosa Neck: No JVD Lungs: Normal air movement Abdomen: Non-Distended Extremities: No clubbing, No cyanosis, No Calf Tenderness, - - The swelling, edema, and lymphedema in the lower extremities is markedly diminished. Circumference measurements are significantly decreased bilaterally. Visually, there is marked improvement in the lower extremities bilaterally. There is slight erythema in the gaiter areas bilaterally, which does not appear to be cellulitic, but more likely inflammatory. There are no open wounds or ulcerations. Skin: No breakdown Wound Measurements and Assessment WC - Nurse 1 - General Ulcer Measurement Start: 01/18/18 09:22 Freq: Status: Active Protocol: Activity Type Activity Date Activity User E-Sign Co-Sign Detail Recorded Client Recorded Date Recorded By Document 01/25/18 09:17 ALEX [id number] 01/25/18 09:18 ALEX 01/25/18 09:17 Wound Center Nurse 1 [Edema Assessment] -Lower Limb Edema Present Yes -Right Calf (cm) 41.2 -Right Ankle (cm) 26.7 -Left Calf (cm) 41.6 -Left Ankle (cm) 26.7 WC - Nurse 2 - General Ulcer CM Notes Start: 01/18/18 09:22 Freq: Status: Active Protocol: Activity Type Activity Date Activity User E-Sign Co-Sign Detail Recorded Client Recorded Date Recorded By Document 01/25/18 09:22 [id number] 01/25/18 09:23 01/25/18 09:22 Pain Scale: 0-10 Numeric [Pain] -Is Patient Pain Free? Yes Neurological: Cranial nerves II-XII grossly intact, Neuro grossly intact Psych/Mental Status: Normal Affect, Appropriate, Alert and oriented to time, place, person, mood and affect Debridement Note Post-Debridement Measurements/Treatment WC - Nurse 2 - General Ulcer CM Notes Start: 01/18/18 09:22 Freq: Status: Active Protocol: Activity Type Activity Date Activity User E-Sign Co-Sign Detail Recorded Client Recorded Date Recorded By Document 01/18/18 10:18 [id number] 01/18/18 10:19 JS Document 01/25/18 09:22 [id number] 01/25/18 09:23 01/18/18 01/25/18 10:18 09:22 Pain Scale: 0-10 Numeric Is Patient Pain Free? Yes Yes No debridement was completed today Assessment/Plan Active Problems (Last Reviewed 11/12/17 @ 14:16 by Sinan Lazcano) Tobacco use disorder (Chronic) Morbid obesity with body mass index of 40.0-49.9 (Chronic) Tobacco abuse counseling (Chronic) Swelling of lower extremity (Chronic) Edema of both legs (Chronic) Lymphedema of leg (Chronic) Edema (Chronic) Assessment: This is a 47-year-old morbidly obese diabetic female with multiple medical problems, which have been listed above. It appears as though a hairline fracture of the right ankle, sustained on November 01, 2017, resulted in a decrease in activity, limited ambulation, and chronic lower extremity dependency. This significant change in the patient's activity and habits as resulted in exacerbation of the swelling, edema, and lymphedema in the patient' s lower extremities. At this time, there are no open wounds or ulcerations. The patient has undergone a battery of diagnostic laboratory tests, which have been reviewed. Results are as follows: White blood count 7.7, hemoglobin 13.7, hematocrit 42.1, platelets 199,000, sodium 140, potassium 4.5, chloride 108, BUN 19, creatinine 0.92, glucose 199, hemoglobin A1c 8.2, calcium 8.8, total bilirubin 0.30, AST 18, ALT 16, alkaline phosphatase 109, total protein 6.8, albumin 2.7, pre-albumin 15.4. A venous duplex examination has recently been performed, revealing incompetence of the right great saphenous vein and an incompetent cyber intelligence analyst vein 17 cm proximal to the right medial malleolus. No superficial venous incompetence is noted in the left lower extremity. A noninvasive lower extremity arterial study is normal, revealing normal arterial perfusion in the lower extremities bilaterally. The patient has, apparently, been more compliant in recent weeks with recommended measures. As result of her compliance with leg elevation, increasing activity levels, avoidance of idle standing and sitting, etc., the swelling, edema, and lymphedema in her lower extremities is markedly improved. Plan: The patient has been instructed to elevate her lower extremities as much as possible. We have encouraged the patient to elevate her legs, even during daytime hours. It appears as though she is sleeping in a relatively recumbent position. Activity has been encouraged. Avoidance of prolonged idle sitting has been recommended. Lower extremities are to be elevated to heart level, or higher. Recruitment of the calf and foot muscle pumps has been explained, and can be implemented by means of activity and ambulation. Weight loss has been highly recommended. The patient has been advised to optimize her diabetic control. Dietary counseling will be offered if the patient so wishes. The patient has been advised to continue the use of her mechanical compression pumps. We are to continue compression to the lower extremities by means of a 3M 2 layer compression wrap applied bilaterally, which will be changed twice weekly. The patient's Farrow wraps have recently been unusable, too small to fit her lower extremities due to extreme swelling. Patient will return in 1 week for reassessment. The patient is a smoker, and smoking cessation has been recommended. She is to collaborate with her primary care physician in this regard. Influenza vaccine was not administered today. Patient stands 5 feet 1 inch tall. She weighs 250 pounds. Her BMI is 47.1. Weight loss has been recommended, and the patient has been advised to collaborate with her primary care physician in terms of weight loss options. Dietary counseling has been offered as an option.
[2018-02-01 08:14] VITALS: BP 119/78; PULSE 80; RESP 18; TEMP 36.4
--- NOTE | 2018-02-01 08:35 | PCM.WC.HP ---
(1) Hyperlipidemia Status: Chronic Current Visit: No Code(s): E78.5 - Hyperlipidemia, unspecified (2) Hypertension Status: Chronic Current Visit: No Qualifiers: Hypertension type: essential hypertension Qualified Code(s): I10 - Essential (primary) hypertension Code(s): I10 - Essential (primary) hypertension (3) Type 2 diabetes mellitus Status: Chronic Current Visit: No Code(s): E11.9 - Type 2 diabetes mellitus without complications (4) Tobacco use disorder Status: Chronic Current Visit: Yes Code(s): F17.200 - Nicotine dependence, unspecified, uncomplicated (5) Paroxysmal a-fib Status: Chronic Current Visit: No Code(s): I48.0 - Paroxysmal atrial fibrillation Comment: ? questionable (6) Multiple personality disorder Status: Chronic Current Visit: No Code(s): F44.81 - Dissociative identity disorder (7) Morbid obesity with body mass index of 40.0-49.9 Status: Chronic Current Visit: Yes Code(s): E66.01 - Morbid (severe) obesity due to excess calories (8) Chronic back pain Status: Chronic Current Visit: No Code(s): M54.9 - Dorsalgia, unspecified; G89.29 - Other chronic pain (9) Tobacco abuse counseling Status: Chronic Current Visit: Yes Code(s): Z71.6 - Tobacco abuse counseling (10) Swelling of lower extremity Status: Chronic Current Visit: Yes Code(s): M79.89 - Other specified soft tissue disorders (11) Edema of both legs Status: Chronic Current Visit: Yes Code(s): R60.0 - Localized edema (12) Lymphedema of leg Status: Chronic Current Visit: Yes Qualifiers: Laterality: bilateral Code(s): I89.0 - Lymphedema, not elsewhere classified (13) GERD (gastroesophageal reflux disease) Status: Chronic Current Visit: No Code(s): K21.9 - Gastro-esophageal reflux disease without esophagitis (14) Multiple sclerosis Status: Chronic Current Visit: No Code(s): G35 - Multiple sclerosis (15) CKD (chronic kidney disease) stage 4, GFR 15-29 ml/min Status: Chronic Current Visit: No Code(s): N18.4 - Chronic kidney disease, stage 4 (severe) (16) PAD (peripheral artery disease) Status: Chronic Current Visit: No Code(s): I73.9 - Peripheral vascular disease, unspecified (17) History of CVA (cerebrovascular accident) Status: Chronic Current Visit: No Code(s): Z86.73 - Personal history of transient ischemic attack (TIA), and cerebral infarction without residual deficits (18) History of DVT (deep vein thrombosis) Status: Chronic Current Visit: No Code(s): Z86.718 - Personal history of other venous thrombosis and embolism (19) Psoriasis Status: Chronic Current Visit: No Code(s): L40.9 - Psoriasis, unspecified (20) CHF (congestive heart failure) Status: Chronic Current Visit: No Code(s): I50.9 - Heart failure, unspecified (21) Edema Status: Chronic Current Visit: Yes Qualifiers: Code(s): R60.9 - Edema, unspecified (22) H/O heart artery stent Status: Chronic Current Visit: No Code(s): Z95.5 - Presence of coronary angioplasty implant and graft (23) Hypothyroidism Status: Chronic Current Visit: No Code(s): E03.9 - Hypothyroidism, unspecified (24) Essential (primary) hypertension Status: Chronic Current Visit: No Code(s): I10 - Essential (primary) hypertension (25) Atherosclerotic heart disease of creek coronary artery without angina pectoris Status: Chronic Current Visit: No Code(s): I25.10 - Atherosclerotic heart disease of [place] coronary artery without angina pectoris History of Present Illness Date of Service: 02/01/18 Chief Complaint: Bilateral lower extremity swelling, edema, and lymphedema. 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 Mayo, for evaluation and management regarding bilateral lower extremity swelling, edema, and lymphedema. This has been a problem for the patient in the past, and is chronic in nature. However, it appears to have been exacerbated recently by a traumatic hairline fracture of the right ankle which occurred on November 01, 2017. As a result, the patient was immobile for a period of time, relatively inactive, spending her days in an idle sitting position. As a result of her inactivity and chronic dependency, she has noted swelling, edema, and lymphedema in her lower extremities to be much more severe than usual, prompting her to seek medical attention. The patient claims to sleep in a relatively flat position at night. She has a history of bilateral lower extremity deep vein thrombosis, for which she has been previously treated with systemic anticoagulation therapy. She is not currently taking anticoagulation. The patient has multiple medical problems, which include diabetes mellitus, morbid obesity, hypertension, coronary artery disease, chronic kidney disease, peripheral arterial occlusive disease, and tobacco abuse. The patient has Farrow wraps for her lower extremities, which she has not been using. The wraps are not large enough to accommodate the severe swelling which currently exists in her lower extremities. She also has pneumatic mechanical compression pumps for her lower extremities, which she had not been using recently. These measures have been previously implemented in treatment for the patient's chronic lower extremity swelling and edema. In recent weeks, the patient has demonstrated increasing compliance with recommended measures. She has been elevating her lower extremities more frequently. She has been using her mechanical compression pumps. As result, there has been a significant decrease in the swelling, edema, and lymphedema in her lower extremities bilaterally. Past Medical History Past Medical History: Chronic Problems (Last Reviewed 11/12/17 @ 14:16 by Sinan Lazcano) Hyperlipidemia (Chronic) Hypertension (Chronic) Type 2 diabetes mellitus (Chronic) Tobacco use disorder (Chronic) Paroxysmal a-fib (Chronic) ? questionable Multiple personality disorder (Chronic) Morbid obesity with body mass index of 40.0-49.9 (Chronic) Chronic back pain (Chronic) Tobacco abuse counseling (Chronic) Swelling of lower extremity (Chronic) Edema of both legs (Chronic) Lymphedema of leg (Chronic) GERD (gastroesophageal reflux disease) (Chronic) Multiple sclerosis (Chronic) CKD (chronic kidney disease) stage 4, GFR 15-29 ml/min (Chronic) PAD (peripheral artery disease) (Chronic) History of CVA (cerebrovascular accident) (Chronic) History of DVT (deep vein thrombosis) (Chronic) Psoriasis (Chronic) CHF (congestive heart failure) (Chronic) Edema (Chronic) H/O heart artery stent (Chronic) Hypothyroidism (Chronic) Essential (primary) hypertension (Chronic) Atherosclerotic heart disease of creek coronary artery without angina pectoris (Chronic) Surgical History: appendectomy, cholecystectomy, - - The patient has a history of appendectomy, cholecystectomy, bilateral lower extremity vein stripping, partial hysterectomy, tonsillectomy, lumbar surgery ?4, and bilateral carpal tunnel release. The patient is a Ab0. Her only two live births succumbed shortly following . Allergies/Adverse Reactions: Allergies latex Allergy (Verified 01/01/18 15:18) Rash Penicillins Allergy (Verified 01/01/18 15:18) Unknown venom-honey bee [bee venom (honey bee)] Allergy (Verified 01/01/18 15:18) Unknown Home Medications: Ambulatory Orders Medication Instructions Recorded Celecoxib [Celebrex] 200 mg PO BID 07/03/14 Oxycodone HCl/Acetaminophen 1 ea PO Q4H PRN PRN 07/03/14 [Oxycodone-Acetaminophen 10-325] Tizanidine HCl [Zanaflex] 4 mg PO Q8H 07/03/14 Glimepiride [Amaryl] 4 mg PO BID 11/15/14 ALPRAZolam [Xanax] 0.25 mg PO BID 05/20/17 Diltiazem CD [Cardizem CD] 240 mg PO DAILY 05/20/17 Isosorbide Mononitrate [Isosorbide 60 mg PO DAILY 05/20/17 Mononitrate ER] Albuterol Aerosols [Ventolin 2.5 mg INHALATION Q4H PRN #25 vial 06/18/17 Aerosols] Doxycycline [Vibramycin] 100 mg PO BID #20 cap 06/18/17 Benzonatate [Tessalon Perle] 100 mg PO Q4H PRN PRN #20 cap 06/19/17 amitriptyline 50 mg tablet 100 mg PO QHS tab 08/23/17 aspirin 81 mg tablet,delayed 81 mg PO QDAY 08/23/17 release rizatriptan 5 mg tablet 5 mg PO ONCE 08/23/17 thyroid (pork) 60 mg tablet 120 mg PO DAILY tab 08/23/17 Gabapentin [Neurontin] 1,200 mg PO TIDCM 01/01/18 Insulin Detemir [Levemir] 64 unit SQ QHS 01/01/18 Insulin Regular, Human [Novolin R] 100 unit SQ BID 01/01/18 Liraglutide [Victoza] 0.12 mg SQ DAILY 01/01/18 proCHLORPERazine suppository 50 mg RECTAL DAILY PRN PRN 01/01/18 [Compazine suppository] - Family History Maternal Family History: Family History (Last Reviewed 11/12/17 @ 14:16 by Sinan Lazcano) Mother CAD (coronary artery disease) Diabetes, Heart Disease, No pertinent history, - - Hypothyroid Paternal Family History: Family History (Last Reviewed 11/12/17 @ 14:16 by Sinan Lazcano) Mother CAD (coronary artery disease) Cancer, - - The patient's mother had a history of emphysema, COPD, coronary artery disease, diabetes mellitus, dementia, and Parkinson's disease. Patient's mother at age of 67. Smoking Status: Current some day smoker Tobacco Use: Cigarettes Review of Systems Constitutional: Denies: Chills, Fever, Weight Change Eyes: Denies: Pain, Vision Change HEENT: Denies: Difficulty Hearing, Difficulty Swallowing, Sinus Congestion Cardiovascular: Denies: Chest Pain, Palpitations Respiratory: Denies: Cough, Shortness of Breath Gastrointestinal: Denies: Diarrhea, Nausea, Vomiting Genitourinary: Denies: Dysuria, Hematuria Endocrine: Denies: Heat/ Cold Intolerance, Polydipsia, Polyuria Hematologic/ Lymphatic: Denies: Easy Bruising, Easy Bleeding - Physical Exam Vital Signs Temp Pulse Resp BP 97.6 F L 80 18 119/78 02/01/18 08:14 02/01/18 08:14 02/01/18 08:14 02/01/18 08:14 General: Alert, Oriented x3, Cooperative, No apparent distress, Well developed, Well nourished HEENT: Atraumatic, PERRLA, EOMI, Normocephalic Oral: Moist Mucosa Neck: No JVD Lungs: Normal air movement Abdomen: Non-Distended, Obese Extremities: No clubbing, No cyanosis, No Calf Tenderness, - - Mild swelling, edema, and lymphedema persist in the lower extremities, though with continuing improvement. Dimensions are improved over prior weeks. The swelling and edema in the distal lower extremities has diminished significantly. There are no open wounds or ulcerations. There is no sign of cellulitis or infection. Skin: No rashes, No breakdown Wound Measurements and Assessment WC - Nurse 1 - General Ulcer Measurement Start: 01/18/18 09:22 Freq: Status: Active Protocol: Activity Type Activity Date Activity User E-Sign Co-Sign Detail Recorded Client Recorded Date Recorded By Document 02/01/18 08:14 DL [id number] 02/01/18 08:16 DL 02/01/18 08:14 Wound Center Nurse 1 [Edema Assessment] -Right Calf (cm) 40.5 -Right Ankle (cm) 25.6 -Left Calf (cm) 40 -Left Ankle (cm) 26 WC - Nurse 2 - General Ulcer CM Notes Start: 01/18/18 09:22 Freq: Status: Active Protocol: Activity Type Activity Date Activity User E-Sign Co-Sign Detail Recorded Client Recorded Date Recorded By Document 02/01/18 08:30 [id number] 02/01/18 08:33 02/01/18 08:30 Pain Scale: 0-10 Numeric [Pain] -Is Patient Pain Free? Yes Neurological: Cranial nerves II-XII grossly intact, Neuro grossly intact Psych/Mental Status: Normal Affect, Appropriate, Alert and oriented to time, place, person, mood and affect Debridement Note Post-Debridement Measurements/Treatment WC - Nurse 2 - General Ulcer CM Notes Start: 01/18/18 09:22 Freq: Status: Active Protocol: Activity Type Activity Date Activity User E-Sign Co-Sign Detail Recorded Client Recorded Date Recorded By Document 01/18/18 10:18 [id number] 01/18/18 10:19 JS Document 01/25/18 09:22 JS [id number] 01/25/18 09:23 JS Document 02/01/18 08:30 [id number] 02/01/18 08:33 JS 01/18/18 01/25/18 02/01/18 10:18 09:22 08:30 Pain Scale: 0-10 Numeric Is Patient Pain Free? Yes Yes Yes No debridement was completed today Assessment/Plan Active Problems (Last Reviewed 11/12/17 @ 14:16 by Sinan Lazcano) Tobacco use disorder (Chronic) Morbid obesity with body mass index of 40.0-49.9 (Chronic) Tobacco abuse counseling (Chronic) Swelling of lower extremity (Chronic) Edema of both legs (Chronic) Lymphedema of leg (Chronic) Edema (Chronic) Assessment: This is a 47-year-old morbidly obese diabetic female with multiple medical problems, which have been listed above. It appears as though a hairline fracture of the right ankle, sustained on November 01, 2017, resulted in a decrease in activity, limited ambulation, and chronic lower extremity dependency. This significant change in the patient's activity and habits resulted in exacerbation of the swelling, edema, and lymphedema in the patient's lower extremities. At this time, there are no open wounds or ulcerations. The patient has undergone a battery of diagnostic laboratory tests, which have been reviewed. Results are as follows: White blood count 7.7, hemoglobin 13.7, hematocrit 42.1, platelets 199,000, sodium 140, potassium 4.5, chloride 108, BUN 19, creatinine 0.92, glucose 199, hemoglobin A1c 8.2, calcium 8.8, total bilirubin 0.30, AST 18, ALT 16, alkaline phosphatase 109, total protein 6.8, albumin 2.7, pre-albumin 15.4. A venous duplex examination has recently been performed, revealing incompetence of the right great saphenous vein and an incompetent relay record clerk vein 17 cm proximal to the right medial malleolus. No superficial venous incompetence is noted in the left lower extremity. A noninvasive lower extremity arterial study is normal, revealing normal arterial perfusion in the lower extremities bilaterally. The patient has, apparently, been more compliant in recent weeks with recommended measures. As a result of her compliance with leg elevation, increasing activity levels, avoidance of idle standing and sitting, etc., the swelling, edema, and lymphedema in her lower extremities is markedly improved. Plan: The patient has been instructed to elevate her lower extremities as much as possible. We have encouraged the patient to elevate her legs, even during daytime hours. It appears as though she is sleeping in a relatively recumbent position. Activity has been encouraged. Avoidance of prolonged idle sitting has been recommended. Lower extremities are to be elevated to heart level, or higher. Recruitment of the calf and foot muscle pumps has been explained, and can be implemented by means of activity and ambulation. Weight loss has been highly recommended. The patient has been advised to optimize her diabetic control. Dietary counseling will be offered if the patient so wishes. The patient has been advised to continue the use of her mechanical compression pumps. We are to continue compression to the lower extremities by means of a 3M 2 layer compression wrap applied bilaterally, which will be changed twice weekly. The patient's Farrow wraps have recently been unusable, too small to fit her lower extremities due to extreme swelling. In addition, the patient's Farrow wraps are several years old, due to be replaced. We are to refer the patient to the [facility] at [facility]. The intention is to instruct in appropriate long-term habits, and to ultimately fit the patient with CircAid Velcro compression garments bilaterally. Patient will return in 1 week for reassessment. Discharge from our facility is anticipated in the near future, as the patient appears to have nearly achieved her goals of treatment. The patient is a smoker, and smoking cessation has been recommended. She is to collaborate with her primary care physician in this regard. Influenza vaccine was not administered today. Patient stands 5 feet 1 inch tall. She weighs 250 pounds. Her BMI is 47.1. Weight loss has been recommended, and the patient has been advised to collaborate with her primary care physician in terms of weight loss options. Dietary counseling has been offered as an option.
--- NOTE | 2018-02-01 08:42 | HP.PCM_ITS ---
(1) Hyperlipidemia Status: Chronic Current Visit: No Code(s): E78.5 - Hyperlipidemia, unspecified (2) Hypertension Status: Chronic Current Visit: No Qualifiers: Hypertension type: essential hypertension Qualified Code(s): I10 - Essential (primary) hypertension Code(s): I10 - Essential (primary) hypertension (3) Type 2 diabetes mellitus Status: Chronic Current Visit: No Code(s): E11.9 - Type 2 diabetes mellitus without complications (4) Tobacco use disorder Status: Chronic Current Visit: Yes Code(s): F17.200 - Nicotine dependence, unspecified, uncomplicated (5) Paroxysmal a-fib Status: Chronic Current Visit: No Code(s): I48.0 - Paroxysmal atrial fibrillation Comment: ? questionable (6) Multiple personality disorder Status: Chronic Current Visit: No Code(s): F44.81 - Dissociative identity disorder (7) Morbid obesity with body mass index of 40.0-49.9 Status: Chronic Current Visit: Yes Code(s): E66.01 - Morbid (severe) obesity due to excess calories (8) Chronic back pain Status: Chronic Current Visit: No Code(s): M54.9 - Dorsalgia, unspecified; G89.29 - Other chronic pain (9) Tobacco abuse counseling Status: Chronic Current Visit: Yes Code(s): Z71.6 - Tobacco abuse counseling (10) Swelling of lower extremity Status: Chronic Current Visit: Yes Code(s): M79.89 - Other specified soft tissue disorders (11) Edema of both legs Status: Chronic Current Visit: Yes Code(s): R60.0 - Localized edema (12) Lymphedema of leg Status: Chronic Current Visit: Yes Qualifiers: Laterality: bilateral Code(s): I89.0 - Lymphedema, not elsewhere classified (13) GERD (gastroesophageal reflux disease) Status: Chronic Current Visit: No Code(s): K21.9 - Gastro-esophageal reflux disease without esophagitis (14) Multiple sclerosis Status: Chronic Current Visit: No Code(s): G35 - Multiple sclerosis (15) CKD (chronic kidney disease) stage 4, GFR 15-29 ml/min Status: Chronic Current Visit: No Code(s): N18.4 - Chronic kidney disease, stage 4 (severe) (16) PAD (peripheral artery disease) Status: Chronic Current Visit: No Code(s): I73.9 - Peripheral vascular disease, unspecified (17) History of CVA (cerebrovascular accident) Status: Chronic Current Visit: No Code(s): Z86.73 - Personal history of transient ischemic attack (TIA), and cerebral infarction without residual deficits (18) History of DVT (deep vein thrombosis) Status: Chronic Current Visit: No Code(s): Z86.718 - Personal history of other venous thrombosis and embolism (19) Psoriasis Status: Chronic Current Visit: No Code(s): L40.9 - Psoriasis, unspecified (20) CHF (congestive heart failure) Status: Chronic Current Visit: No Code(s): I50.9 - Heart failure, unspecified (21) Edema Status: Chronic Current Visit: Yes Qualifiers: Code(s): R60.9 - Edema, unspecified (22) H/O heart artery stent Status: Chronic Current Visit: No Code(s): Z95.5 - Presence of coronary angioplasty implant and graft (23) Hypothyroidism Status: Chronic Current Visit: No Code(s): E03.9 - Hypothyroidism, unspecified (24) Essential (primary) hypertension Status: Chronic Current Visit: No Code(s): I10 - Essential (primary) hypertension (25) Atherosclerotic heart disease of [place] coronary artery without angina pectoris Status: Chronic Current Visit: No Code(s): I25.10 - Atherosclerotic heart disease of [place] coronary artery without angina pectoris History of Present Illness Date of Service: 02/01/18 Chief Complaint: Bilateral lower extremity swelling, edema, and lymphedema. 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 Mayo, for evaluation and management regarding bilateral lower extremity swelling, edema, and lymphedema. This has been a problem for the patient in the past, and is chronic in nature. However, it appears to have been exacerbated recently by a traumatic hairline fracture of the right ankle which occurred on November 01, 2017. As a result, the patient was immobile for a period of time, relatively inactive, spending her days in an idle sitting position. As a result of her inactivity and chronic dependency, she has noted swelling, edema, and lymphedema in her lower extremities to be much more severe than usual, prompting her to seek medical attention. The patient claims to sleep in a relatively flat position at night. She has a history of bilateral lower extremity deep vein thrombosis, for which she has been previously treated with systemic anticoagulation therapy. She is not currently taking anticoagulation. The patient has multiple medical problems, which include diabetes mellitus, morbid obesity, hypertension, coronary artery disease, chronic kidney disease, peripheral arterial occlusive disease, and tobacco abuse. The patient has Farrow wraps for her lower extremities, which she has not been using. The wraps are not large enough to accommodate the severe swelling which currently exists in her lower extremities. She also has pneumatic mechanical compression pumps for her lower extremities, which she had not been using recently. These measures have been previously implemented in treatment for the patient's chronic lower extremity swelling and edema. In recent weeks, the patient has demonstrated increasing compliance with recommended measures. She has been elevating her lower extremities more frequently. She has been using her mechanical compression pumps. As result, there has been a significant decrease in the swelling, edema, and lymphedema in her lower extremities bilaterally. Past Medical History Past Medical History: Chronic Problems (Last Reviewed 11/12/17 @ 14:16 by Sinan Lazcano) Hyperlipidemia (Chronic) Hypertension (Chronic) Type 2 diabetes mellitus (Chronic) Tobacco use disorder (Chronic) Paroxysmal a-fib (Chronic) ? questionable Multiple personality disorder (Chronic) Morbid obesity with body mass index of 40.0-49.9 (Chronic) Chronic back pain (Chronic) Tobacco abuse counseling (Chronic) Swelling of lower extremity (Chronic) Edema of both legs (Chronic) Lymphedema of leg (Chronic) GERD (gastroesophageal reflux disease) (Chronic) Multiple sclerosis (Chronic) CKD (chronic kidney disease) stage 4, GFR 15-29 ml/min (Chronic) PAD (peripheral artery disease) (Chronic) History of CVA (cerebrovascular accident) (Chronic) History of DVT (deep vein thrombosis) (Chronic) Psoriasis (Chronic) CHF (congestive heart failure) (Chronic) Edema (Chronic) H/O heart artery stent (Chronic) Hypothyroidism (Chronic) Essential (primary) hypertension (Chronic) Atherosclerotic heart disease of [place] coronary artery without angina pectoris (Chronic) Surgical History: appendectomy, cholecystectomy, - - The patient has a history of appendectomy, cholecystectomy, bilateral lower extremity vein stripping, partial hysterectomy, tonsillectomy, lumbar surgery ?4, and bilateral carpal tunnel release. The patient is a Ab0. Her only two live births succumbed shortly following . Allergies/Adverse Reactions: Allergies latex Allergy (Verified 01/01/18 15:18) Rash Penicillins Allergy (Verified 01/01/18 15:18) Unknown venom-honey bee [bee venom (honey bee)] Allergy (Verified 01/01/18 15:18) Unknown Home Medications: Ambulatory Orders Medication Instructions Recorded Celecoxib [Celebrex] 200 mg PO BID 07/03/14 Oxycodone HCl/Acetaminophen 1 ea PO Q4H PRN PRN 07/03/14 [Oxycodone-Acetaminophen 10-325] Tizanidine HCl [Zanaflex] 4 mg PO Q8H 07/03/14 Glimepiride [Amaryl] 4 mg PO BID 11/15/14 ALPRAZolam [Xanax] 0.25 mg PO BID 05/20/17 Diltiazem CD [Cardizem CD] 240 mg PO DAILY 05/20/17 Isosorbide Mononitrate [Isosorbide 60 mg PO DAILY 05/20/17 Mononitrate ER] Albuterol Aerosols [Ventolin 2.5 mg INHALATION Q4H PRN #25 vial 06/18/17 Aerosols] Doxycycline [Vibramycin] 100 mg PO BID #20 cap 06/18/17 Benzonatate [Tessalon Perle] 100 mg PO Q4H PRN PRN #20 cap 06/19/17 amitriptyline 50 mg tablet 100 mg PO QHS tab 08/23/17 aspirin 81 mg tablet,delayed 81 mg PO QDAY 08/23/17 release rizatriptan 5 mg tablet 5 mg PO ONCE 08/23/17 thyroid (pork) 60 mg tablet 120 mg PO DAILY tab 08/23/17 Gabapentin [Neurontin] 1,200 mg PO TIDCM 01/01/18 Insulin Detemir [Levemir] 64 unit SQ QHS 01/01/18 Insulin Regular, Human [Novolin R] 100 unit SQ BID 01/01/18 Liraglutide [Victoza] 0.12 mg SQ DAILY 01/01/18 proCHLORPERazine suppository 50 mg RECTAL DAILY PRN PRN 01/01/18 [Compazine suppository] - Family History Maternal Family History: Family History (Last Reviewed 11/12/17 @ 14:16 by Sinan Lazcano) Mother CAD (coronary artery disease) Diabetes, Heart Disease, No pertinent history, - - Hypothyroid Paternal Family History: Family History (Last Reviewed 11/12/17 @ 14:16 by Sinan Lazcano) Mother CAD (coronary artery disease) Cancer, - - The patient's mother had a history of emphysema, COPD, coronary artery disease, diabetes mellitus, dementia, and Parkinson's disease. Patient' s mother at age of 67. Smoking Status: Current some day smoker Tobacco Use: Cigarettes Review of Systems Constitutional: Denies: Chills, Fever, Weight Change Eyes: Denies: Pain, Vision Change HEENT: Denies: Difficulty Hearing, Difficulty Swallowing, Sinus Congestion Cardiovascular: Denies: Chest Pain, Palpitations Respiratory: Denies: Cough, Shortness of Breath Gastrointestinal: Denies: Diarrhea, Nausea, Vomiting Genitourinary: Denies: Dysuria, Hematuria Endocrine: Denies: Heat/ Cold Intolerance, Polydipsia, Polyuria Hematologic/ Lymphatic: Denies: Easy Bruising, Easy Bleeding - Physical Exam Vital Signs Temp Pulse Resp BP 97.6 F L 80 18 119/78 02/01/18 08:14 02/01/18 08:14 02/01/18 08:14 02/01/18 08:14 General: Alert, Oriented x3, Cooperative, No apparent distress, Well developed, Well nourished HEENT: Atraumatic, PERRLA, EOMI, Normocephalic Oral: Moist Mucosa Neck: No JVD Lungs: Normal air movement Abdomen: Non-Distended, Obese Extremities: No clubbing, No cyanosis, No Calf Tenderness, - - Mild swelling, edema, and lymphedema persist in the lower extremities, though with continuing improvement. Dimensions are improved over prior weeks. The swelling and edema in the distal lower extremities has diminished significantly. There are no open wounds or ulcerations. There is no sign of cellulitis or infection. Skin: No rashes, No breakdown Wound Measurements and Assessment WC - Nurse 1 - General Ulcer Measurement Start: 01/18/18 09:22 Freq: Status: Active Protocol: Activity Type Activity Date Activity User E-Sign Co-Sign Detail Recorded Client Recorded Date Recorded By Document 02/01/18 08:14 DL [id number] 02/01/18 08:16 DL 02/01/18 08:14 Wound Center Nurse 1 [Edema Assessment] -Right Calf (cm) 40.5 -Right Ankle (cm) 25.6 -Left Calf (cm) 40 -Left Ankle (cm) 26 WC - Nurse 2 - General Ulcer CM Notes Start: 01/18/18 09:22 Freq: Status: Active Protocol: Activity Type Activity Date Activity User E-Sign Co-Sign Detail Recorded Client Recorded Date Recorded By Document 02/01/18 08:30 [id number] 02/01/18 08:33 02/01/18 08:30 Pain Scale: 0-10 Numeric [Pain] -Is Patient Pain Free? Yes Neurological: Cranial nerves II-XII grossly intact, Neuro grossly intact Psych/Mental Status: Normal Affect, Appropriate, Alert and oriented to time, place, person, mood and affect Debridement Note Post-Debridement Measurements/Treatment WC - Nurse 2 - General Ulcer CM Notes Start: 01/18/18 09:22 Freq: Status: Active Protocol: Activity Type Activity Date Activity User E-Sign Co-Sign Detail Recorded Client Recorded Date Recorded By Document 01/18/18 10:18 [id number] 01/18/18 10:19 JS Document 01/25/18 09:22 JS [id number] 01/25/18 09:23 JS Document 02/01/18 08:30 [id number] 02/01/18 08:33 JS 01/18/18 01/25/18 02/01/18 10:18 09:22 08:30 Pain Scale: 0-10 Numeric Is Patient Pain Free? Yes Yes Yes No debridement was completed today Assessment/Plan Active Problems (Last Reviewed 11/12/17 @ 14:16 by Sinan Lazcano) Tobacco use disorder (Chronic) Morbid obesity with body mass index of 40.0-49.9 (Chronic) Tobacco abuse counseling (Chronic) Swelling of lower extremity (Chronic) Edema of both legs (Chronic) Lymphedema of leg (Chronic) Edema (Chronic) Assessment: This is a 47-year-old morbidly obese diabetic female with multiple medical problems, which have been listed above. It appears as though a hairline fracture of the right ankle, sustained on November 01, 2017, resulted in a decrease in activity, limited ambulation, and chronic lower extremity dependency. This significant change in the patient's activity and habits resulted in exacerbation of the swelling, edema, and lymphedema in the patient' s lower extremities. At this time, there are no open wounds or ulcerations. The patient has undergone a battery of diagnostic laboratory tests, which have been reviewed. Results are as follows: White blood count 7.7, hemoglobin 13.7, hematocrit 42.1, platelets 199,000, sodium 140, potassium 4.5, chloride 108, BUN 19, creatinine 0.92, glucose 199, hemoglobin A1c 8.2, calcium 8.8, total bilirubin 0.30, AST 18, ALT 16, alkaline phosphatase 109, total protein 6.8, albumin 2.7, pre-albumin 15.4. A venous duplex examination has recently been performed, revealing incompetence of the right great saphenous vein and an incompetent welder tack vein 17 cm proximal to the right medial malleolus. No superficial venous incompetence is noted in the left lower extremity. A noninvasive lower extremity arterial study is normal, revealing normal arterial perfusion in the lower extremities bilaterally. The patient has, apparently, been more compliant in recent weeks with recommended measures. As a result of her compliance with leg elevation, increasing activity levels, avoidance of idle standing and sitting, etc., the swelling, edema, and lymphedema in her lower extremities is markedly improved. Plan: The patient has been instructed to elevate her lower extremities as much as possible. We have encouraged the patient to elevate her legs, even during daytime hours. It appears as though she is sleeping in a relatively recumbent position. Activity has been encouraged. Avoidance of prolonged idle sitting has been recommended. Lower extremities are to be elevated to heart level, or higher. Recruitment of the calf and foot muscle pumps has been explained, and can be implemented by means of activity and ambulation. Weight loss has been highly recommended. The patient has been advised to optimize her diabetic control. Dietary counseling will be offered if the patient so wishes. The patient has been advised to continue the use of her mechanical compression pumps. We are to continue compression to the lower extremities by means of a 3M 2 layer compression wrap applied bilaterally, which will be changed twice weekly. The patient's Farrow wraps have recently been unusable, too small to fit her lower extremities due to extreme swelling. In addition, the patient's Farrow wraps are several years old, due to be replaced. We are to refer the patient to the [facility]. The intention is to instruct in appropriate long-term habits, and to ultimately fit the patient with CircAid Velcro compression garments bilaterally. Patient will return in 1 week for reassessment. Discharge from our facility is anticipated in the near future, as the patient appears to have nearly achieved her goals of treatment. The patient is a smoker, and smoking cessation has been recommended. She is to collaborate with her primary care physician in this regard. Influenza vaccine was not administered today. Patient stands 5 feet 1 inch tall. She weighs 250 pounds. Her BMI is 47.1. Weight loss has been recommended, and the patient has been advised to collaborate with her primary care physician in terms of weight loss options. Dietary counseling has been offered as an option.
[2018-02-08 08:07] VITALS: BP 139/64; PULSE 72; RESP 18; TEMP 35.6
--- NOTE | 2018-02-08 08:17 | PCM.WC.HP ---
(1) Hyperlipidemia Status: Chronic Current Visit: No Code(s): E78.5 - Hyperlipidemia, unspecified (2) Hypertension Status: Chronic Current Visit: No Qualifiers: Hypertension type: essential hypertension Qualified Code(s): I10 - Essential (primary) hypertension Code(s): I10 - Essential (primary) hypertension (3) Type 2 diabetes mellitus Status: Chronic Current Visit: No Code(s): E11.9 - Type 2 diabetes mellitus without complications (4) Tobacco use disorder Status: Chronic Current Visit: Yes Code(s): F17.200 - Nicotine dependence, unspecified, uncomplicated (5) Paroxysmal a-fib Status: Chronic Current Visit: No Code(s): I48.0 - Paroxysmal atrial fibrillation Comment: ? questionable (6) Multiple personality disorder Status: Chronic Current Visit: No Code(s): F44.81 - Dissociative identity disorder (7) Morbid obesity with body mass index of 40.0-49.9 Status: Chronic Current Visit: Yes Code(s): E66.01 - Morbid (severe) obesity due to excess calories (8) Chronic back pain Status: Chronic Current Visit: No Code(s): M54.9 - Dorsalgia, unspecified; G89.29 - Other chronic pain (9) Tobacco abuse counseling Status: Chronic Current Visit: Yes Code(s): Z71.6 - Tobacco abuse counseling (10) Swelling of lower extremity Status: Chronic Current Visit: Yes Code(s): M79.89 - Other specified soft tissue disorders (11) Edema of both legs Status: Chronic Current Visit: Yes Code(s): R60.0 - Localized edema (12) Lymphedema of leg Status: Chronic Current Visit: Yes Qualifiers: Laterality: bilateral Code(s): I89.0 - Lymphedema, not elsewhere classified (13) GERD (gastroesophageal reflux disease) Status: Chronic Current Visit: No Code(s): K21.9 - Gastro-esophageal reflux disease without esophagitis (14) Multiple sclerosis Status: Chronic Current Visit: No Code(s): G35 - Multiple sclerosis (15) CKD (chronic kidney disease) stage 4, GFR 15-29 ml/min Status: Chronic Current Visit: No Code(s): N18.4 - Chronic kidney disease, stage 4 (severe) (16) PAD (peripheral artery disease) Status: Chronic Current Visit: No Code(s): I73.9 - Peripheral vascular disease, unspecified (17) History of CVA (cerebrovascular accident) Status: Chronic Current Visit: No Code(s): Z86.73 - Personal history of transient ischemic attack (TIA), and cerebral infarction without residual deficits (18) History of DVT (deep vein thrombosis) Status: Chronic Current Visit: No Code(s): Z86.718 - Personal history of other venous thrombosis and embolism (19) Psoriasis Status: Chronic Current Visit: No Code(s): L40.9 - Psoriasis, unspecified (20) CHF (congestive heart failure) Status: Chronic Current Visit: No Code(s): I50.9 - Heart failure, unspecified (21) Edema Status: Chronic Current Visit: Yes Qualifiers: Code(s): R60.9 - Edema, unspecified (22) H/O heart artery stent Status: Chronic Current Visit: No Code(s): Z95.5 - Presence of coronary angioplasty implant and graft (23) Hypothyroidism Status: Chronic Current Visit: No Code(s): E03.9 - Hypothyroidism, unspecified (24) Essential (primary) hypertension Status: Chronic Current Visit: No Code(s): I10 - Essential (primary) hypertension (25) Atherosclerotic heart disease of [place] coronary artery without angina pectoris Status: Chronic Current Visit: No Code(s): I25.10 - Atherosclerotic heart disease of [place] coronary artery without angina pectoris History of Present Illness Date of Service: 02/08/18 Chief Complaint: Bilateral lower extremity swelling, edema, and lymphedema. History of Wound: This is a 47-year-old morbidly obese diabetic female who presented as a referral from her clinical services assistant, Dr. Mayo, for evaluation and management regarding bilateral lower extremity swelling, edema, and lymphedema. This has been a problem for the patient in the past, and is chronic in nature. However, it appears to have been exacerbated recently by a traumatic hairline fracture of the right ankle which occurred on November 01, 2017. As a result, the patient was immobile for a period of time, relatively inactive, spending her days in an idle sitting position. As a result of her inactivity and chronic dependency, she has noted swelling, edema, and lymphedema in her lower extremities to be much more severe than usual, prompting her to seek medical attention. The patient claims to sleep in a relatively flat position at night. She has a history of bilateral lower extremity deep vein thrombosis, for which she has been previously treated with systemic anticoagulation therapy. She is not currently taking anticoagulation. The patient has multiple medical problems, which include diabetes mellitus, morbid obesity, hypertension, coronary artery disease, chronic kidney disease, peripheral arterial occlusive disease, and tobacco abuse. The patient has Farrow wraps for her lower extremities, which she has not been using. The wraps are not large enough to accommodate the severe swelling which currently exists in her lower extremities. She also has pneumatic mechanical compression pumps for her lower extremities, which she had not been using recently. These measures have been previously implemented in treatment for the patient's chronic lower extremity swelling and edema. In recent weeks, the patient has demonstrated increasing compliance with recommended measures. She has been elevating her lower extremities more frequently. She has been using her mechanical compression pumps. As result, there was a significant decrease in the swelling, edema, and lymphedema in her lower extremities bilaterally. Her, within the last week, the patient has demonstrated some noncompliance with the recommended treatment plan. She cites transportation issues as reasons why she did not come in twice weekly for rewrapping of her lower extremities with a 3M 2 layer compression wraps. Additionally, she has not had her appointment at the [facility] for evaluation and long-term recommendations. Past Medical History Past Medical History: Chronic Problems (Last Reviewed 11/12/17 @ 14:16 by Sinan Lazcano) Hyperlipidemia (Chronic) Hypertension (Chronic) Type 2 diabetes mellitus (Chronic) Tobacco use disorder (Chronic) Paroxysmal a-fib (Chronic) ? questionable Multiple personality disorder (Chronic) Morbid obesity with body mass index of 40.0-49.9 (Chronic) Chronic back pain (Chronic) Tobacco abuse counseling (Chronic) Swelling of lower extremity (Chronic) Edema of both legs (Chronic) Lymphedema of leg (Chronic) GERD (gastroesophageal reflux disease) (Chronic) Multiple sclerosis (Chronic) CKD (chronic kidney disease) stage 4, GFR 15-29 ml/min (Chronic) PAD (peripheral artery disease) (Chronic) History of CVA (cerebrovascular accident) (Chronic) History of DVT (deep vein thrombosis) (Chronic) Psoriasis (Chronic) CHF (congestive heart failure) (Chronic) Edema (Chronic) H/O heart artery stent (Chronic) Hypothyroidism (Chronic) Essential (primary) hypertension (Chronic) Atherosclerotic heart disease of [place] coronary artery without angina pectoris (Chronic) Surgical History: appendectomy, cholecystectomy, - - The patient has a history of appendectomy, cholecystectomy, bilateral lower extremity vein stripping, partial hysterectomy, tonsillectomy, lumbar surgery ?4, and bilateral carpal tunnel release. The patient is a Ab0. Her only two live births succumbed shortly following . Allergies/Adverse Reactions: Allergies latex Allergy (Verified 01/01/18 15:18) Rash Penicillins Allergy (Verified 01/01/18 15:18) Unknown venom-honey bee [bee venom (honey bee)] Allergy (Verified 01/01/18 15:18) Unknown Home Medications: Ambulatory Orders Medication Instructions Recorded Celecoxib [Celebrex] 200 mg PO BID 07/03/14 Oxycodone HCl/Acetaminophen 1 ea PO Q4H PRN PRN 07/03/14 [Oxycodone-Acetaminophen 10-325] Tizanidine HCl [Zanaflex] 4 mg PO Q8H 07/03/14 Glimepiride [Amaryl] 4 mg PO BID 11/15/14 ALPRAZolam [Xanax] 0.25 mg PO BID 05/20/17 Diltiazem CD [Cardizem CD] 240 mg PO DAILY 05/20/17 Isosorbide Mononitrate [Isosorbide 60 mg PO DAILY 05/20/17 Mononitrate ER] Albuterol Aerosols [Ventolin 2.5 mg INHALATION Q4H PRN #25 vial 06/18/17 Aerosols] Doxycycline [Vibramycin] 100 mg PO BID #20 cap 06/18/17 Benzonatate [Tessalon Perle] 100 mg PO Q4H PRN PRN #20 cap 06/19/17 amitriptyline 50 mg tablet 100 mg PO QHS tab 08/23/17 aspirin 81 mg tablet,delayed 81 mg PO QDAY 08/23/17 release rizatriptan 5 mg tablet 5 mg PO ONCE 08/23/17 thyroid (pork) 60 mg tablet 120 mg PO DAILY tab 08/23/17 Gabapentin [Neurontin] 1,200 mg PO TIDCM 01/01/18 Insulin Detemir [Levemir] 64 unit SQ QHS 01/01/18 Insulin Regular, Human [Novolin R] 100 unit SQ BID 01/01/18 Liraglutide [Victoza] 0.12 mg SQ DAILY 01/01/18 proCHLORPERazine suppository 50 mg RECTAL DAILY PRN PRN 01/01/18 [Compazine suppository] - Family History Maternal Family History: Family History (Last Reviewed 11/12/17 @ 14:16 by Sinan Lazcano) Mother CAD (coronary artery disease) Diabetes, Heart Disease, No pertinent history, - - Hypothyroid Paternal Family History: Family History (Last Reviewed 11/12/17 @ 14:16 by Sinan Lazcano) Mother CAD (coronary artery disease) Cancer, - - The patient's mother had a history of emphysema, COPD, coronary artery disease, diabetes mellitus, dementia, and Parkinson's disease. Patient's mother at age of 67. Smoking Status: Current some day smoker Tobacco Use: Cigarettes Review of Systems Constitutional: Denies: Chills, Fever, Weight Change Eyes: Denies: Pain, Vision Change HEENT: Denies: Difficulty Hearing, Difficulty Swallowing, Sinus Congestion Cardiovascular: Denies: Chest Pain, Palpitations Respiratory: Denies: Cough, Shortness of Breath Gastrointestinal: Denies: Diarrhea, Nausea, Vomiting Genitourinary: Denies: Dysuria, Hematuria Endocrine: Denies: Heat/ Cold Intolerance, Polydipsia, Polyuria Hematologic/ Lymphatic: Denies: Easy Bruising, Easy Bleeding - Physical Exam Vital Signs Temp Pulse Resp BP 96.0 F L 72 18 139/64 H 02/08/18 08:07 02/08/18 08:07 02/08/18 08:07 02/08/18 08:07 General: Alert, Oriented x3, Cooperative, No apparent distress, Well developed, Well nourished, - - The patient is morbidly obese. HEENT: Atraumatic, PERRLA, EOMI, Normocephalic Oral: Moist Mucosa Neck: No JVD Lungs: Normal air movement Abdomen: Non-Distended Extremities: No clubbing, No cyanosis, No Calf Tenderness, - - Moderate to severe swelling and edema is noted in the lower extremities bilaterally. The swelling has increased since the patient was last seen a week ago. Circumference measurements are documented elsewhere. There are no open wounds or ulcerations, and no significant skin changes. Skin: No rashes, No breakdown Wound Measurements and Assessment WC - Nurse 1 - General Ulcer Measurement Start: 01/18/18 09:22 Freq: Status: Active Protocol: Activity Type Activity Date Activity User E-Sign Co-Sign Detail Recorded Client Recorded Date Recorded By Document 02/08/18 08:07 [id number] 02/08/18 08:08 02/08/18 08:07 Wound Center Nurse 1 [Edema Assessment] -Lower Limb Edema Present Yes -Right Calf (cm) 57 -Right Ankle (cm) 26 -Left Calf (cm) 44.5 -Left Ankle (cm) 26.2 Neurological: Cranial nerves II-XII grossly intact, Neuro grossly intact Psych/Mental Status: Normal Affect, Appropriate, Alert and oriented to time, place, person, mood and affect Debridement Note Post-Debridement Measurements/Treatment WC - Nurse 2 - General Ulcer CM Notes Start: 01/18/18 09:22 Freq: Status: Active Protocol: Activity Type Activity Date Activity User E-Sign Co-Sign Detail Recorded Client Recorded Date Recorded By Document 01/18/18 10:18 [id number] 01/18/18 10:19 Document 01/25/18 09:22 [id number] 01/25/18 09:23 Document 02/01/18 08:30 [id number] 02/01/18 08:33 01/18/18 01/25/18 02/01/18 10:18 09:22 08:30 Pain Scale: 0-10 Numeric Is Patient Pain Free? Yes Yes Yes No debridement was completed today Assessment/Plan Active Problems (Last Reviewed 11/12/17 @ 14:16 by Sinan Lazcano) Tobacco use disorder (Chronic) Morbid obesity with body mass index of 40.0-49.9 (Chronic) Tobacco abuse counseling (Chronic) Swelling of lower extremity (Chronic) Edema of both legs (Chronic) Lymphedema of leg (Chronic) Edema (Chronic) Assessment: This is a 47-year-old morbidly obese diabetic female with multiple medical problems, which have been listed above. It appears as though a hairline fracture of the right ankle, sustained on November 01, 2017, resulted in a decrease in activity, limited ambulation, and chronic lower extremity dependency. This significant change in the patient's activity and habits resulted in exacerbation of the swelling, edema, and lymphedema in the patient's lower extremities. At this time, there are no open wounds or ulcerations. The patient has undergone a battery of diagnostic laboratory tests, which have been reviewed. Results are as follows: White blood count 7.7, hemoglobin 13.7, hematocrit 42.1, platelets 199,000, sodium 140, potassium 4.5, chloride 108, BUN 19, creatinine 0.92, glucose 199, hemoglobin A1c 8.2, calcium 8.8, total bilirubin 0.30, AST 18, ALT 16, alkaline phosphatase 109, total protein 6.8, albumin 2.7, pre-albumin 15.4. A venous duplex examination has recently been performed, revealing incompetence of the right great saphenous vein and an incompetent chief digital officer vein 17 cm proximal to the right medial malleolus. No superficial venous incompetence is noted in the left lower extremity. A noninvasive lower extremity arterial study is normal, revealing normal arterial perfusion in the lower extremities bilaterally. Because of transportation issues, the patient has not returned to our facility twice weekly for a change of her multilayer compression wraps, and has failed to comply with arrangements for evaluation in the Lymphedema Clinic. As result, the swelling and edema in the patient's lower extremities has increased. Plan: The patient has been instructed to elevate her lower extremities as much as possible. We have encouraged the patient to elevate her legs, even during daytime hours. It appears as though she is sleeping in a relatively recumbent position. Activity has been encouraged. Avoidance of prolonged idle sitting has been recommended. Lower extremities are to be elevated to heart level, or higher. Recruitment of the calf and foot muscle pumps has been explained, and can be implemented by means of activity and ambulation. Weight loss has been highly recommended. The patient has been advised to optimize her diabetic control. Dietary counseling will be offered if the patient so wishes. The patient has been advised to continue the use of her mechanical compression pumps. We are to continue compression to the lower extremities by means of a 3M 2 layer compression wrap applied bilaterally, which will be changed twice weekly. The patient's Farrow wraps have recently been unusable, too small to fit her lower extremities due to extreme swelling. In addition, the patient's Farrow wraps are several years old, due to be replaced. We are to refer the patient to the Lymphedema Clinic at [facility]. The intention is to instruct in appropriate long-term habits, and to ultimately fit the patient with CircAid Velcro compression garments bilaterally. Patient will return in 2 weeks for reassessment. Discharge from our facility is anticipated in the near future, though patient non-compliance now appears to be an issue that has derailed the patient's recent progress. The patient is a smoker, and smoking cessation has been recommended. She is to collaborate with her primary care physician in this regard. Influenza vaccine was not administered today. Patient stands 5 feet 1 inch tall. She weighs 250 pounds. Her BMI is 47.1. Weight loss has been recommended, and the patient has been advised to collaborate with her primary care physician in terms of weight loss options. Dietary counseling has been offered as an option.
[2018-02-11 10:51] VITALS: BP 141/99; PULSE 70; RESP 16; TEMP 36.2
[2018-02-15 08:54] VITALS: BP 138/91; PULSE 78; RESP 16; TEMP 35.9
== END 2018-02-17 23:59 ==
LOC: WC 08:30
PROVIDERS: Family Provider Student in an Organized Health Care Education/Training Program; PCP Student in an Organized Health Care Education/Training Program; Visit Provider Surgery
DX: I89.0 Lymphedema, not elsewhere classified (principal); I50.9 Heart failure, unspecified; I25.10 Atherosclerotic heart disease of native coronary artery without angina pectoris; E03.9 Hypothyroidism, unspecified; E66.01 Morbid (severe) obesity due to excess calories; K21.9 Gastro-esophageal reflux disease without esophagitis; G35 Multiple sclerosis; L40.9 Psoriasis, unspecified; I13.0 Hypertensive heart and chronic kidney disease with heart failure and stage 1 through stage 4 chronic kidney disease, or unspecified chronic kidney disease; N18.4 Chronic kidney disease, stage 4 (severe); Z95.5 Presence of coronary angioplasty implant and graft; Z68.42 Body mass index [BMI] 45.0-49.9, adult; Z86.73 Personal history of transient ischemic attack (TIA), and cerebral infarction without residual deficits; Z86.718 Personal history of other venous thrombosis and embolism; Z71.6 Tobacco abuse counseling; M54.9 Dorsalgia, unspecified; G89.29 Other chronic pain; I48.0 Paroxysmal atrial fibrillation; F44.81 Dissociative identity disorder; F17.200 Nicotine dependence, unspecified, uncomplicated; E11.9 Type 2 diabetes mellitus without complications
CPT/HCPCS: 29581; 99211; 99212; 99213; G0463

== ENCOUNTER 2018-03-14 14:30 | Outpatient (RCR) | payer MEDICARE, MEDICAID, SELFPAY ==
[2018-02-18 00:59] VITALS: BP 138/91; PULSE 78; RESP 16; TEMP 35.9
[2018-02-18 09:38] VITALS: BP 122/54; PULSE 80; RESP 16; TEMP 36
--- NOTE | 2018-02-28 16:04 | HP.PCM_ITS ---
(1) Atherosclerotic heart disease of [place] coronary artery without angina pectoris Status: Chronic Code(s): I25.10 - Atherosclerotic heart disease of [place] coronary artery without angina pectoris (2) CHF (congestive heart failure) Status: Chronic Code(s): I50.9 - Heart failure, unspecified (3) CKD (chronic kidney disease) stage 4, GFR 15-29 ml/min Status: Chronic Code(s): N18.4 - Chronic kidney disease, stage 4 (severe) (4) Chronic back pain Status: Chronic Code(s): M54.9 - Dorsalgia, unspecified; G89.29 - Other chronic pain (5) Edema Status: Chronic Qualifiers: Code(s): R60.9 - Edema, unspecified (6) Edema of both legs Status: Chronic Code(s): R60.0 - Localized edema (7) Essential (primary) hypertension Status: Chronic Code(s): I10 - Essential (primary) hypertension (8) GERD (gastroesophageal reflux disease) Status: Chronic Code(s): K21.9 - Gastro-esophageal reflux disease without esophagitis (9) H/O heart artery stent Status: Chronic Code(s): Z95.5 - Presence of coronary angioplasty implant and graft (10) History of CVA (cerebrovascular accident) Status: Chronic Code(s): Z86.73 - Personal history of transient ischemic attack (TIA), and cerebral infarction without residual deficits (11) History of DVT (deep vein thrombosis) Status: Chronic Code(s): Z86.718 - Personal history of other venous thrombosis and embolism (12) Hyperlipidemia Status: Chronic Code(s): E78.5 - Hyperlipidemia, unspecified (13) Hypertension Status: Chronic Qualifiers: Code(s): I10 - Essential (primary) hypertension (14) Hypothyroidism Status: Chronic Code(s): E03.9 - Hypothyroidism, unspecified (15) Lymphedema of leg Status: Chronic Qualifiers: Laterality: bilateral Code(s): I89.0 - Lymphedema, not elsewhere classified (16) Morbid obesity with body mass index of 40.0-49.9 Status: Chronic Code(s): E66.01 - Morbid (severe) obesity due to excess calories (17) Multiple personality disorder Status: Chronic Code(s): F44.81 - Dissociative identity disorder (18) Multiple sclerosis Status: Chronic Code(s): G35 - Multiple sclerosis (19) PAD (peripheral artery disease) Status: Chronic Code(s): I73.9 - Peripheral vascular disease, unspecified (20) Paroxysmal a-fib Status: Chronic Code(s): I48.0 - Paroxysmal atrial fibrillation Comment: ? questionable (21) Psoriasis Status: Chronic Code(s): L40.9 - Psoriasis, unspecified (22) Swelling of lower extremity Status: Chronic Code(s): M79.89 - Other specified soft tissue disorders (23) Tobacco abuse counseling Status: Chronic Code(s): Z71.6 - Tobacco abuse counseling (24) Tobacco use disorder Status: Chronic Code(s): F17.200 - Nicotine dependence, unspecified, uncomplicated (25) Type 2 diabetes mellitus Status: Chronic Code(s): E11.9 - Type 2 diabetes mellitus without complications History of Present Illness Date of Service: 02/28/18 Chief Complaint: Bilateral lower extremity swelling, edema, and lymphedema. History of Wound: This is a 47-year-old morbidly obese diabetic female who presented as a referral from her brush holder inspector, Dr. Mayo, for evaluation and management regarding bilateral lower extremity swelling, edema, and lymphedema. This has been a problem for the patient in the past, and is chronic in nature. However, it appears to have been exacerbated recently by a traumatic hairline fracture of the right ankle which occurred on November 01, 2017. As a result, the patient was immobile for a period of time, relatively inactive, spending her days in an idle sitting position. As a result of her inactivity and chronic dependency, she has noted swelling, edema, and lymphedema in her lower extremities to be much more severe than usual, prompting her to seek medical attention. The patient claims to sleep in a relatively flat position at night. She has a history of bilateral lower extremity deep vein thrombosis, for which she has been previously treated with systemic anticoagulation therapy. She is not currently taking anticoagulation. The patient has multiple medical problems, which include diabetes mellitus, morbid obesity, hypertension, coronary artery disease, chronic kidney disease, peripheral arterial occlusive disease, and tobacco abuse. The patient has Farrow wraps for her lower extremities, which she had not been using. The wraps are not large enough to accommodate the severe swelling which currently exists in her lower extremities. She also has pneumatic mechanical compression pumps for her lower extremities, which she had not been using recently. These measures have been previously implemented in treatment for the patient's chronic lower extremity swelling and edema. In recent weeks, the patient has demonstrated increasing compliance with recommended measures. She has been elevating her lower extremities more frequently. She has been using her mechanical compression pumps. As result, there was a significant decrease in the swelling , edema, and lymphedema in her lower extremities bilaterally. The patient has been relatively noncompliant in recent weeks. Furthermore, the patient removed her 3M 2 layer compression wraps approximately 5 days ago, and has been without compression to her lower extremities since that time. Apparently, the compression wraps had become malpositioned, creating some pressure points on each lower extremity. As result, the patient has developed superficial wounds on the left upper calf in the right anterior tibial surface. In addition, the swelling in the lower extremities is markedly increased. Past Medical History Past Medical History: Chronic Problems (Last Reviewed 11/12/17 @ 14:16 by Sinan Lazcano) Hyperlipidemia (Chronic) Hypertension (Chronic) Type 2 diabetes mellitus (Chronic) Tobacco use disorder (Chronic) Paroxysmal a-fib (Chronic) ? questionable Multiple personality disorder (Chronic) Morbid obesity with body mass index of 40.0-49.9 (Chronic) Chronic back pain (Chronic) Tobacco abuse counseling (Chronic) Swelling of lower extremity (Chronic) Edema of both legs (Chronic) Lymphedema of leg (Chronic) GERD (gastroesophageal reflux disease) (Chronic) Multiple sclerosis (Chronic) CKD (chronic kidney disease) stage 4, GFR 15-29 ml/min (Chronic) PAD (peripheral artery disease) (Chronic) History of CVA (cerebrovascular accident) (Chronic) History of DVT (deep vein thrombosis) (Chronic) Psoriasis (Chronic) CHF (congestive heart failure) (Chronic) Edema (Chronic) H/O heart artery stent (Chronic) Hypothyroidism (Chronic) Essential (primary) hypertension (Chronic) Atherosclerotic heart disease of [place] coronary artery without angina pectoris (Chronic) Surgical History: appendectomy, cholecystectomy, - - The patient has a history of appendectomy, cholecystectomy, bilateral lower extremity vein stripping, partial hysterectomy, tonsillectomy, lumbar surgery ?4, and bilateral carpal tunnel release. The patient is a Ab0. Her only two live births succumbed shortly following . Allergies/Adverse Reactions: Allergies latex Allergy (Verified 01/01/18 15:18) Rash Penicillins Allergy (Verified 01/01/18 15:18) Unknown venom-honey bee [bee venom (honey bee)] Allergy (Verified 01/01/18 15:18) Unknown Home Medications: Ambulatory Orders Medication Instructions Recorded Celecoxib [Celebrex] 200 mg PO BID 07/03/14 Oxycodone HCl/Acetaminophen 1 ea PO Q4H PRN PRN 07/03/14 [Oxycodone-Acetaminophen 10-325] Tizanidine HCl [Zanaflex] 4 mg PO Q8H 07/03/14 Glimepiride [Amaryl] 4 mg PO BID 11/15/14 ALPRAZolam [Xanax] 0.25 mg PO BID 05/20/17 Diltiazem CD [Cardizem CD] 240 mg PO DAILY 05/20/17 Isosorbide Mononitrate [Isosorbide 60 mg PO DAILY 05/20/17 Mononitrate ER] Albuterol Aerosols [Ventolin 2.5 mg INHALATION Q4H PRN #25 vial 06/18/17 Aerosols] Doxycycline [Vibramycin] 100 mg PO BID #20 cap 06/18/17 Benzonatate [Tessalon Perle] 100 mg PO Q4H PRN PRN #20 cap 06/19/17 amitriptyline 50 mg tablet 100 mg PO QHS tab 08/23/17 aspirin 81 mg tablet,delayed 81 mg PO QDAY 08/23/17 release rizatriptan 5 mg tablet 5 mg PO ONCE 08/23/17 thyroid (pork) 60 mg tablet 120 mg PO DAILY tab 08/23/17 Gabapentin [Neurontin] 1,200 mg PO TIDCM 01/01/18 Insulin Detemir [Levemir] 64 unit SQ QHS 01/01/18 Insulin Regular, Human [Novolin R] 100 unit SQ BID 01/01/18 Liraglutide [Victoza] 0.12 mg SQ DAILY 01/01/18 proCHLORPERazine suppository 50 mg RECTAL DAILY PRN PRN 01/01/18 [Compazine suppository] - Family History Maternal Family History: Family History (Last Reviewed 11/12/17 @ 14:16 by Sinan Lazcano) Mother CAD (coronary artery disease) Diabetes, Heart Disease, No pertinent history, - - Hypothyroid Paternal Family History: Family History (Last Reviewed 11/12/17 @ 14:16 by Sinan Lazcano) Mother CAD (coronary artery disease) Cancer, - - The patient's mother had a history of emphysema, COPD, coronary artery disease, diabetes mellitus, dementia, and Parkinson's disease. Patient' s mother at age of 67. Smoking Status: Current some day smoker Tobacco Use: Cigarettes Review of Systems Constitutional: Denies: Chills, Fever, Weight Change Eyes: Denies: Pain, Vision Change HEENT: Denies: Difficulty Hearing, Difficulty Swallowing, Sinus Congestion Cardiovascular: Denies: Chest Pain, Palpitations Respiratory: Denies: Cough, Shortness of Breath Gastrointestinal: Denies: Diarrhea, Nausea, Vomiting Genitourinary: Denies: Dysuria, Hematuria Endocrine: Denies: Heat/ Cold Intolerance, Polydipsia, Polyuria Hematologic/ Lymphatic: Denies: Easy Bruising, Easy Bleeding - Physical Exam Vital Signs Temp Pulse Resp BP 96.8 F L 80 16 122/54 H 02/18/18 09:38 02/18/18 09:38 02/18/18 09:38 02/18/18 09:38 General: Alert, Oriented x3, Cooperative, No apparent distress, Well developed, Well nourished HEENT: Atraumatic, PERRLA, EOMI, Normocephalic Oral: Moist Mucosa Neck: No JVD Lungs: Normal air movement Abdomen: Non-Distended Extremities: No clubbing, No cyanosis, No edema, No Calf Tenderness, - - Severe swelling and edema is noted in the lower extremities bilaterally. It is markedly increased from prior visits. There is now a superficial ulceration on the right anterior tibial surface, as well as a superficial ulceration on the left proximal calf, which is nearly circumferential, and appears related to descendance of her prior left lower extremity compression wrap. It appears as though pressure phenomenon has caused this ulceration/wound. There is no sign of infection. The bases of the new wounds/ulcers are pink and healthy. Neurological: Cranial nerves II-XII grossly intact, Neuro grossly intact Psych/Mental Status: Normal Affect, Appropriate, Alert and oriented to time, place, person, mood and affect Debridement Note No debridement was completed today Assessment/Plan Assessment: This is a 47-year-old morbidly obese diabetic female with multiple medical problems, which have been listed above. It appears as though a hairline fracture of the right ankle, sustained on November 01, 2017, resulted in a decrease in activity, limited ambulation, and chronic lower extremity dependency. This significant change in the patient's activity and habits resulted in exacerbation of the swelling, edema, and lymphedema in the patient' s lower extremities. The patient has now been at least 4-5 days without compression to her lower extremities, which has resulted in significant increase in swelling in both lower extremities. There are now open wounds in each lower extremity, appearing to be related to the malposition of the compression wraps in each leg. These wounds are quite superficial, and without any sign of infection or cellulitis. The patient has undergone a battery of diagnostic laboratory tests, which have been reviewed. Results are as follows: White blood count 7.7, hemoglobin 13.7, hematocrit 42.1, platelets 199,000, sodium 140, potassium 4.5, chloride 108, BUN 19, creatinine 0.92, glucose 199, hemoglobin A1c 8.2, calcium 8.8, total bilirubin 0.30, AST 18, ALT 16, alkaline phosphatase 109, total protein 6.8, albumin 2.7, pre-albumin 15.4. 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 No superficial venous incompetence is noted in the left lower extremity. A noninvasive lower extremity arterial study is normal, revealing normal arterial perfusion in the lower extremities bilaterally. Plan: The patient has been instructed to elevate her lower extremities as much as possible. We have encouraged the patient to elevate her legs, even during daytime hours. It appears as though she is sleeping in a relatively recumbent position. Activity has been encouraged. Avoidance of prolonged idle sitting has been recommended. Lower extremities are to be elevated to heart level, or higher. Recruitment of the calf and foot muscle pumps has been explained, and can be implemented by means of activity and ambulation. Weight loss has been highly recommended. The patient has been advised to optimize her diabetic control. Dietary counseling will be offered if the patient so wishes. The patient has been advised to continue the use of her mechanical pneumatic compression pumps. We are to continue compression to the lower extremities by means of Unna boots/multilayer compression wraps, which will be changed twice weekly. The patient's Farrow wraps have recently been unusable, too small to fit her lower extremities due to extreme swelling. In addition, the patient's Farrow wraps are several years old, due to be replaced. We are to refer the patient to the [facility] at [facility]. The intention is to instruct in appropriate long-term habits, and to ultimately fit the patient with CircAid Velcro compression garments bilaterally. CircAid garments are awaited. Patient will return in 1 week for reassessment. The patient is a smoker, and smoking cessation has been recommended. She is to collaborate with her primary care physician in this regard. Influenza vaccine was not administered today. Patient stands 5 feet 1 inch tall. She weighs 250 pounds. Her BMI is 47.1. Weight loss has been recommended, and the patient has been advised to collaborate with her primary care physician in terms of weight loss options. Dietary counseling has been offered as an option.
[2018-03-03 08:54] VITALS: BP 153/83; PULSE 78; RESP 20; TEMP 36.2
[2018-03-11 16:11] VITALS: BP 130/69; PULSE 95; RESP 16; TEMP 36.2
[2018-03-14 14:29] VITALS: BP 132/72; PULSE 97; RESP 18; TEMP 36.3
--- NOTE | 2018-03-14 15:51 | PCM.WC.HP ---
(1) Atherosclerotic heart disease of [place] coronary artery without angina pectoris Status: Chronic Current Visit: No Code(s): I25.10 - Atherosclerotic heart disease of [place] coronary artery without angina pectoris (2) CHF (congestive heart failure) Status: Chronic Current Visit: No Code(s): I50.9 - Heart failure, unspecified (3) CKD (chronic kidney disease) stage 4, GFR 15-29 ml/min Status: Chronic Current Visit: No Code(s): N18.4 - Chronic kidney disease, stage 4 (severe) (4) Chronic back pain Status: Chronic Current Visit: No Code(s): M54.9 - Dorsalgia, unspecified; G89.29 - Other chronic pain (5) Edema Status: Chronic Current Visit: Yes Qualifiers: Code(s): R60.9 - Edema, unspecified (6) Edema of both legs Status: Chronic Current Visit: Yes Code(s): R60.0 - Localized edema (7) Essential (primary) hypertension Status: Chronic Current Visit: No Code(s): I10 - Essential (primary) hypertension (8) GERD (gastroesophageal reflux disease) Status: Chronic Current Visit: No Code(s): K21.9 - Gastro-esophageal reflux disease without esophagitis (9) H/O heart artery stent Status: Chronic Current Visit: No Code(s): Z95.5 - Presence of coronary angioplasty implant and graft (10) History of CVA (cerebrovascular accident) Status: Chronic Current Visit: No Code(s): Z86.73 - Personal history of transient ischemic attack (TIA), and cerebral infarction without residual deficits (11) History of DVT (deep vein thrombosis) Status: Chronic Current Visit: No Code(s): Z86.718 - Personal history of other venous thrombosis and embolism (12) Hyperlipidemia Status: Chronic Current Visit: No Code(s): E78.5 - Hyperlipidemia, unspecified (13) Hypertension Status: Chronic Current Visit: No Qualifiers: Code(s): I10 - Essential (primary) hypertension (14) Hypothyroidism Status: Chronic Current Visit: No Code(s): E03.9 - Hypothyroidism, unspecified (15) Lymphedema of leg Status: Chronic Current Visit: Yes Qualifiers: Laterality: bilateral Code(s): I89.0 - Lymphedema, not elsewhere classified (16) Morbid obesity with body mass index of 40.0-49.9 Status: Chronic Current Visit: Yes Code(s): E66.01 - Morbid (severe) obesity due to excess calories (17) Multiple personality disorder Status: Chronic Current Visit: No Code(s): F44.81 - Dissociative identity disorder (18) Multiple sclerosis Status: Chronic Current Visit: No Code(s): G35 - Multiple sclerosis (19) PAD (peripheral artery disease) Status: Chronic Current Visit: No Code(s): I73.9 - Peripheral vascular disease, unspecified (20) Paroxysmal a-fib Status: Chronic Current Visit: No Code(s): I48.0 - Paroxysmal atrial fibrillation Comment: ? questionable (21) Psoriasis Status: Chronic Current Visit: No Code(s): L40.9 - Psoriasis, unspecified (22) Swelling of lower extremity Status: Chronic Current Visit: Yes Code(s): M79.89 - Other specified soft tissue disorders (23) Tobacco abuse counseling Status: Chronic Current Visit: No Code(s): Z71.6 - Tobacco abuse counseling (24) Tobacco use disorder Status: Chronic Current Visit: No Code(s): F17.200 - Nicotine dependence, unspecified, uncomplicated (25) Type 2 diabetes mellitus Status: Chronic Current Visit: No Code(s): E11.9 - Type 2 diabetes mellitus without complications History of Present Illness Date of Service: 03/14/18 Chief Complaint: Bilateral lower extremity swelling, edema, and lymphedema. History of Wound: This is a 47-year-old morbidly obese diabetic female who presented as a referral from her handle maker, Dr. Mayo, for evaluation and management regarding bilateral lower extremity swelling, edema, and lymphedema. This has been a problem for the patient in the past, and is chronic in nature. However, it appears to have been exacerbated recently by a traumatic hairline fracture of the right ankle which occurred on November 01, 2017. As a result, the patient was immobile for a period of time, relatively inactive, spending her days in an idle sitting position. As a result of her inactivity and chronic dependency, she has noted swelling, edema, and lymphedema in her lower extremities to be much more severe than usual, prompting her to seek medical attention. The patient claims to sleep in a relatively flat position at night. She has a history of bilateral lower extremity deep vein thrombosis, for which she has been previously treated with systemic anticoagulation therapy. She is not currently taking anticoagulation. The patient has multiple medical problems, which include diabetes mellitus, morbid obesity, hypertension, coronary artery disease, chronic kidney disease, peripheral arterial occlusive disease, and tobacco abuse. The patient has Farrow wraps for her lower extremities, which she had not been using. The wraps are not large enough to accommodate the severe swelling which currently exists in her lower extremities. She also has pneumatic mechanical compression pumps for her lower extremities, which she had not been using recently. These measures have been previously implemented in treatment for the patient's chronic lower extremity swelling and edema. In recent weeks, the patient has demonstrated increasing compliance with recommended measures. She has been elevating her lower extremities more frequently. She has been using her mechanical compression pumps. As result, there was a significant decrease in the swelling, edema, and lymphedema in her lower extremities bilaterally. Last week, due to slippage of the 2 layer wraps, the patient developed a superficial ulceration on the right anterior tibial surface. Past Medical History Past Medical History: Chronic Problems (Last Reviewed 11/12/17 @ 14:16 by Sinan Lazcano) Hyperlipidemia (Chronic) Hypertension (Chronic) Type 2 diabetes mellitus (Chronic) Tobacco use disorder (Chronic) Paroxysmal a-fib (Chronic) ? questionable Multiple personality disorder (Chronic) Morbid obesity with body mass index of 40.0-49.9 (Chronic) Chronic back pain (Chronic) Tobacco abuse counseling (Chronic) Swelling of lower extremity (Chronic) Edema of both legs (Chronic) Lymphedema of leg (Chronic) GERD (gastroesophageal reflux disease) (Chronic) Multiple sclerosis (Chronic) CKD (chronic kidney disease) stage 4, GFR 15-29 ml/min (Chronic) PAD (peripheral artery disease) (Chronic) History of CVA (cerebrovascular accident) (Chronic) History of DVT (deep vein thrombosis) (Chronic) Psoriasis (Chronic) CHF (congestive heart failure) (Chronic) Edema (Chronic) H/O heart artery stent (Chronic) Hypothyroidism (Chronic) Essential (primary) hypertension (Chronic) Atherosclerotic heart disease of [place] coronary artery without angina pectoris (Chronic) Surgical History: appendectomy, cholecystectomy, - - The patient has a history of appendectomy, cholecystectomy, bilateral lower extremity vein stripping, partial hysterectomy, tonsillectomy, lumbar surgery ?4, and bilateral carpal tunnel release. The patient is a Ab0. Her only two live births succumbed shortly following . Allergies/Adverse Reactions: Allergies latex Allergy (Verified 01/01/18 15:18) Rash Penicillins Allergy (Verified 01/01/18 15:18) Unknown venom-honey bee [bee venom (honey bee)] Allergy (Verified 01/01/18 15:18) Unknown Home Medications: Ambulatory Orders Medication Instructions Recorded Celecoxib [Celebrex] 200 mg PO BID 07/03/14 Oxycodone HCl/Acetaminophen 1 ea PO Q4H PRN PRN 07/03/14 [Oxycodone-Acetaminophen 10-325] Tizanidine HCl [Zanaflex] 4 mg PO Q8H 07/03/14 Glimepiride [Amaryl] 4 mg PO BID 11/15/14 ALPRAZolam [Xanax] 0.25 mg PO BID 05/20/17 Diltiazem CD [Cardizem CD] 240 mg PO DAILY 05/20/17 Isosorbide Mononitrate [Isosorbide 60 mg PO DAILY 05/20/17 Mononitrate ER] Albuterol Aerosols [Ventolin 2.5 mg INHALATION Q4H PRN #25 vial 06/18/17 Aerosols] Doxycycline [Vibramycin] 100 mg PO BID #20 cap 06/18/17 Benzonatate [Tessalon Perle] 100 mg PO Q4H PRN PRN #20 cap 06/19/17 amitriptyline 50 mg tablet 100 mg PO QHS tab 08/23/17 aspirin 81 mg tablet,delayed 81 mg PO QDAY 08/23/17 release rizatriptan 5 mg tablet 5 mg PO ONCE 08/23/17 thyroid (pork) 60 mg tablet 120 mg PO DAILY tab 08/23/17 Gabapentin [Neurontin] 1,200 mg PO TIDCM 01/01/18 Insulin Detemir [Levemir] 64 unit SQ QHS 01/01/18 Insulin Regular, Human [Novolin R] 100 unit SQ BID 01/01/18 Liraglutide [Victoza] 0.12 mg SQ DAILY 01/01/18 proCHLORPERazine suppository 50 mg RECTAL DAILY PRN PRN 01/01/18 [Compazine suppository] - Family History Maternal Family History: Family History (Last Reviewed 11/12/17 @ 14:16 by Sinan Lazcano) Mother CAD (coronary artery disease) Diabetes, Heart Disease, No pertinent history, - - Hypothyroid Paternal Family History: Family History (Last Reviewed 11/12/17 @ 14:16 by Sinan Lazcano) Mother CAD (coronary artery disease) Cancer, - - The patient's mother had a history of emphysema, COPD, coronary artery disease, diabetes mellitus, dementia, and Parkinson's disease. Patient's mother at age of 67. Smoking Status: Current some day smoker Tobacco Use: Cigarettes Review of Systems Constitutional: Denies: Chills, Fever, Weight Change Eyes: Denies: Pain, Vision Change HEENT: Denies: Difficulty Hearing, Difficulty Swallowing, Sinus Congestion Cardiovascular: Denies: Chest Pain, Palpitations Respiratory: Denies: Cough, Shortness of Breath Gastrointestinal: Denies: Diarrhea, Nausea, Vomiting Genitourinary: Denies: Dysuria, Hematuria Endocrine: Denies: Heat/ Cold Intolerance, Polydipsia, Polyuria Hematologic/ Lymphatic: Denies: Easy Bruising, Easy Bleeding - Physical Exam Vital Signs Temp Pulse Resp BP 97.3 F L 97 18 132/72 H 03/14/18 14:29 03/14/18 14:29 03/14/18 14:29 03/14/18 14:29 General: Alert, Oriented x3, Cooperative, No apparent distress, Well developed, Well nourished, - - Patient is morbidly obese. HEENT: Atraumatic, PERRLA, EOMI, Normocephalic Oral: Moist Mucosa Neck: No JVD Lungs: Normal air movement Abdomen: Non-Distended, Obese Extremities: No clubbing, No cyanosis, No Calf Tenderness, - - Moderate bilateral lower extremity swelling and edema persists. There is now a small superficial ulceration on the right anterior tibial surface, about the size of a quarter. Exact dimensions are documented elsewhere. The base of the ulceration is pink and healthy in appearance, with evidence of active granulation tissue. There is no sign of infection or cellulitis. Wound Measurements and Assessment WC - Nurse 1 - General Ulcer Measurement Start: 02/18/18 09:37 Freq: Status: Active Protocol: Activity Type Activity Date Activity User E-Sign Co-Sign Detail Recorded Client Recorded Date Recorded By Document 03/11/18 16:11 [facility] [id number] 03/11/18 16:12 [facility] Document 03/14/18 14:29 [id number] 03/14/18 14:48 03/11/18 03/14/18 16:11 14:29 [Ulcer Assessment] 6-RIGHT DEJESUS -Combined with other wound No -Current Size (cm) - Length 1.8 -Current Size (cm) - Width 2.4 -Current Size (cm) - Depth 0.1 -Total Square Cm 4.32 -Photo Taken Yes -Epithelialization Small 1-33% -Tunneling No -Undermining/Tunneling No -Circular Undermining No -Classification - [place] Grading ( Grade 1 Diabetic Ulcer) -Exudate Amt Large (67-100%) -Exudate Type Serous -Wound Margin Flat & Intact -Granulation Amt Small (1-33%) -Granulation Quality [place] -Necrosis Amt Small (1-33%) -Necrotic Tissue Type Adherent Slough -Texture (Cristina-wound Skin Appearance) Assessed Localized Edema -Moisture (Cristina-wound Skin Appearance Assessed ) Weeping -Color (Cristina-wound Skin Appearance) Assessed Hemosiderin Staining -Temperature (Cristina-wound Skin No Abnormality Appearance) (Pt Warm) -Tenderness on Palpation (Cristina-wound Yes Skin Appearance) -Ulcer Cleansing Wound Cleanser -Foul Odor after Cleansing No -Anesthetic Used 4% Lidocaine Solution Wound Center Nurse 1 [Edema Assessment] -Lower Limb Edema Present Yes Yes -Right Calf (cm) 47.7 44.0 -Right Ankle (cm) 28.2 29.0 -Left Calf (cm) 49 47.5 -Left Ankle (cm) 29.4 29.5 WC - Nurse 2 - General Ulcer CM Notes Start: 02/18/18 09:37 Freq: Status: Active Protocol: Activity Type Activity Date Activity User E-Sign Co-Sign Detail Recorded Client Recorded Date Recorded By Document 03/14/18 15:33 [id number] 03/14/18 15:42 03/14/18 15:33 Wound Center Nurse 2 [Procedure/Treatment] 6-RIGHT DEJESUS -Time 15:41 -Correct Patient Yes -Correct Side, Site, Position Yes -Correct Procedure Yes -Procedure Performed No -Wound/Ulcer Outcome Not Healed -Ulcer Cleansing Rinsed/ Irrigated with Saline -Foul Odor after Cleansing No -Bleeding Controlled with NA [See Physician Procedure note for Specifics] Pain Scale: 0-10 Numeric [Pain] -Is Patient Pain Free? Yes Neurological: Cranial nerves II-XII grossly intact, Neuro grossly intact Psych/Mental Status: Normal Affect, Appropriate, Alert and oriented to time, place, person, mood and affect Debridement Note Post-Debridement Measurements/Treatment WC - Nurse 2 - General Ulcer CM Notes Start: 02/18/18 09:37 Freq: Status: Active Protocol: Activity Type Activity Date Activity User E-Sign Co-Sign Detail Recorded Client Recorded Date Recorded By Document 03/14/18 15:33 [id number] 03/14/18 15:42 03/14/18 15:33 Wound Center Nurse 2 6-RIGHT DEJESUS -Time 15:41 -Correct Patient Yes -Correct Side, Site, Position Yes -Correct Procedure Yes -Procedure Performed No -Wound/Ulcer Outcome Not Healed -Ulcer Cleansing Rinsed/ Irrigated with Saline -Foul Odor after Cleansing No -Bleeding Controlled with NA Pain Scale: 0-10 Numeric Is Patient Pain Free? Yes No debridement was completed today Assessment/Plan Active Problems (Last Reviewed 11/12/17 @ 14:16 by Sinan Lazcano) Morbid obesity with body mass index of 40.0-49.9 (Chronic) Swelling of lower extremity (Chronic) Edema of both legs (Chronic) Lymphedema of leg (Chronic) Edema (Chronic) Assessment: This is a 47-year-old morbidly obese diabetic female with multiple medical problems, which have been listed above. It appears as though a hairline fracture of the right ankle, sustained on November 01, 2017, resulted in a decrease in activity, limited ambulation, and chronic lower extremity dependency. This significant change in the patient's activity and habits resulted in exacerbation of the swelling, edema, and lymphedema in the patient's lower extremities. There is now a superficial ulceration on the right anterior tibial surface, thought to be due to slippage of her 3M 2 layer compression wrap. The patient has undergone a battery of diagnostic laboratory tests, which have been reviewed. Results are as follows: White blood count 7.7, hemoglobin 13.7, hematocrit 42.1, platelets 199,000, sodium 140, potassium 4.5, chloride 108, BUN 19, creatinine 0.92, glucose 199, hemoglobin A1c 8.2, calcium 8.8, total bilirubin 0.30, AST 18, ALT 16, alkaline phosphatase 109, total protein 6.8, albumin 2.7, pre-albumin 15.4. A venous duplex examination has recently been performed, revealing incompetence of the right great saphenous vein and an incompetent seo marketing specialist vein 17 cm proximal to the right medial malleolus. No superficial venous incompetence is noted in the left lower extremity. A noninvasive lower extremity arterial study is normal, revealing normal arterial perfusion in the lower extremities bilaterally. Plan: The patient has been instructed to elevate her lower extremities as much as possible. We have encouraged the patient to elevate her legs, even during daytime hours. It appears as though she is sleeping in a relatively recumbent position. Activity has been encouraged. Avoidance of prolonged idle sitting has been recommended. Lower extremities are to be elevated to heart level, or higher. Recruitment of the calf and foot muscle pumps has been explained, and can be implemented by means of activity and ambulation. Weight loss has been highly recommended. The patient has been advised to optimize her diabetic control. Dietary counseling will be offered if the patient so wishes. The patient has been advised to continue the use of her mechanical pneumatic compression pumps. We are to continue compression to the lower extremities by means of Unna boots/multilayer compression wraps, which will be changed twice weekly. An Unna boot will be used on the right lower extremity, and a 3M 2 layer compression wrap will be used on the left lower extremity. The patient's Farrow wraps have recently been unusable, too small to fit her lower extremities due to extreme swelling. In addition, the patient's Farrow wraps are several years old, due to be replaced. We are to refer the patient to the [facility] at [facility]. The intention is to instruct in appropriate long-term habits, and to ultimately fit the patient with CircAid Velcro compression garments bilaterally. CircAid garments are awaited. Patient will return in 1 week for reassessment. The patient is a smoker, and smoking cessation has been recommended. She is to collaborate with her primary care physician in this regard. Influenza vaccine was not administered today. Patient stands 5 feet 1 inch tall. She weighs 250 pounds. Her BMI is 47.1. Weight loss has been recommended, and the patient has been advised to collaborate with her primary care physician in terms of weight loss options. Dietary counseling has been offered as an option.
--- NOTE | 2018-03-14 16:00 | HP.PCM_ITS ---
(1) Atherosclerotic heart disease of [place] coronary artery without angina pectoris Status: Chronic Current Visit: No Code(s): I25.10 - Atherosclerotic heart disease of [place] coronary artery without angina pectoris (2) CHF (congestive heart failure) Status: Chronic Current Visit: No Code(s): I50.9 - Heart failure, unspecified (3) CKD (chronic kidney disease) stage 4, GFR 15-29 ml/min Status: Chronic Current Visit: No Code(s): N18.4 - Chronic kidney disease, stage 4 (severe) (4) Chronic back pain Status: Chronic Current Visit: No Code(s): M54.9 - Dorsalgia, unspecified; G89.29 - Other chronic pain (5) Edema Status: Chronic Current Visit: Yes Qualifiers: Code(s): R60.9 - Edema, unspecified (6) Edema of both legs Status: Chronic Current Visit: Yes Code(s): R60.0 - Localized edema (7) Essential (primary) hypertension Status: Chronic Current Visit: No Code(s): I10 - Essential (primary) hypertension (8) GERD (gastroesophageal reflux disease) Status: Chronic Current Visit: No Code(s): K21.9 - Gastro-esophageal reflux disease without esophagitis (9) H/O heart artery stent Status: Chronic Current Visit: No Code(s): Z95.5 - Presence of coronary angioplasty implant and graft (10) History of CVA (cerebrovascular accident) Status: Chronic Current Visit: No Code(s): Z86.73 - Personal history of transient ischemic attack (TIA), and cerebral infarction without residual deficits (11) History of DVT (deep vein thrombosis) Status: Chronic Current Visit: No Code(s): Z86.718 - Personal history of other venous thrombosis and embolism (12) Hyperlipidemia Status: Chronic Current Visit: No Code(s): E78.5 - Hyperlipidemia, unspecified (13) Hypertension Status: Chronic Current Visit: No Qualifiers: Code(s): I10 - Essential (primary) hypertension (14) Hypothyroidism Status: Chronic Current Visit: No Code(s): E03.9 - Hypothyroidism, unspecified (15) Lymphedema of leg Status: Chronic Current Visit: Yes Qualifiers: Laterality: bilateral Code(s): I89.0 - Lymphedema, not elsewhere classified (16) Morbid obesity with body mass index of 40.0-49.9 Status: Chronic Current Visit: Yes Code(s): E66.01 - Morbid (severe) obesity due to excess calories (17) Multiple personality disorder Status: Chronic Current Visit: No Code(s): F44.81 - Dissociative identity disorder (18) Multiple sclerosis Status: Chronic Current Visit: No Code(s): G35 - Multiple sclerosis (19) PAD (peripheral artery disease) Status: Chronic Current Visit: No Code(s): I73.9 - Peripheral vascular disease, unspecified (20) Paroxysmal a-fib Status: Chronic Current Visit: No Code(s): I48.0 - Paroxysmal atrial fibrillation Comment: ? questionable (21) Psoriasis Status: Chronic Current Visit: No Code(s): L40.9 - Psoriasis, unspecified (22) Swelling of lower extremity Status: Chronic Current Visit: Yes Code(s): M79.89 - Other specified soft tissue disorders (23) Tobacco abuse counseling Status: Chronic Current Visit: No Code(s): Z71.6 - Tobacco abuse counseling (24) Tobacco use disorder Status: Chronic Current Visit: No Code(s): F17.200 - Nicotine dependence, unspecified, uncomplicated (25) Type 2 diabetes mellitus Status: Chronic Current Visit: No Code(s): E11.9 - Type 2 diabetes mellitus without complications History of Present Illness Date of Service: 03/14/18 Chief Complaint: Bilateral lower extremity swelling, edema, and lymphedema. 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 Mayo, for evaluation and management regarding bilateral lower extremity swelling, edema, and lymphedema. This has been a problem for the patient in the past, and is chronic in nature. However, it appears to have been exacerbated recently by a traumatic hairline fracture of the right ankle which occurred on November 01, 2017. As a result, the patient was immobile for a period of time, relatively inactive, spending her days in an idle sitting position. As a result of her inactivity and chronic dependency, she has noted swelling, edema, and lymphedema in her lower extremities to be much more severe than usual, prompting her to seek medical attention. The patient claims to sleep in a relatively flat position at night. She has a history of bilateral lower extremity deep vein thrombosis, for which she has been previously treated with systemic anticoagulation therapy. She is not currently taking anticoagulation. The patient has multiple medical problems, which include diabetes mellitus, morbid obesity, hypertension, coronary artery disease, chronic kidney disease, peripheral arterial occlusive disease, and tobacco abuse. The patient has Farrow wraps for her lower extremities, which she had not been using. The wraps are not large enough to accommodate the severe swelling which currently exists in her lower extremities. She also has pneumatic mechanical compression pumps for her lower extremities, which she had not been using recently. These measures have been previously implemented in treatment for the patient's chronic lower extremity swelling and edema. In recent weeks, the patient has demonstrated increasing compliance with recommended measures. She has been elevating her lower extremities more frequently. She has been using her mechanical compression pumps. As result, there was a significant decrease in the swelling , edema, and lymphedema in her lower extremities bilaterally. Last week, due to slippage of the 2 layer wraps, the patient developed a superficial ulceration on the right anterior tibial surface. Past Medical History Past Medical History: Chronic Problems (Last Reviewed 11/12/17 @ 14:16 by Sinan Lazcano) Hyperlipidemia (Chronic) Hypertension (Chronic) Type 2 diabetes mellitus (Chronic) Tobacco use disorder (Chronic) Paroxysmal a-fib (Chronic) ? questionable Multiple personality disorder (Chronic) Morbid obesity with body mass index of 40.0-49.9 (Chronic) Chronic back pain (Chronic) Tobacco abuse counseling (Chronic) Swelling of lower extremity (Chronic) Edema of both legs (Chronic) Lymphedema of leg (Chronic) GERD (gastroesophageal reflux disease) (Chronic) Multiple sclerosis (Chronic) CKD (chronic kidney disease) stage 4, GFR 15-29 ml/min (Chronic) PAD (peripheral artery disease) (Chronic) History of CVA (cerebrovascular accident) (Chronic) History of DVT (deep vein thrombosis) (Chronic) Psoriasis (Chronic) CHF (congestive heart failure) (Chronic) Edema (Chronic) H/O heart artery stent (Chronic) Hypothyroidism (Chronic) Essential (primary) hypertension (Chronic) Atherosclerotic heart disease of [place] coronary artery without angina pectoris (Chronic) Surgical History: appendectomy, cholecystectomy, - - The patient has a history of appendectomy, cholecystectomy, bilateral lower extremity vein stripping, partial hysterectomy, tonsillectomy, lumbar surgery ?4, and bilateral carpal tunnel release. The patient is a Ab0. Her only two live births succumbed shortly following . Allergies/Adverse Reactions: Allergies latex Allergy (Verified 01/01/18 15:18) Rash Penicillins Allergy (Verified 01/01/18 15:18) Unknown venom-honey bee [bee venom (honey bee)] Allergy (Verified 01/01/18 15:18) Unknown Home Medications: Ambulatory Orders Medication Instructions Recorded Celecoxib [Celebrex] 200 mg PO BID 07/03/14 Oxycodone HCl/Acetaminophen 1 ea PO Q4H PRN PRN 07/03/14 [Oxycodone-Acetaminophen 10-325] Tizanidine HCl [Zanaflex] 4 mg PO Q8H 07/03/14 Glimepiride [Amaryl] 4 mg PO BID 11/15/14 ALPRAZolam [Xanax] 0.25 mg PO BID 05/20/17 Diltiazem CD [Cardizem CD] 240 mg PO DAILY 05/20/17 Isosorbide Mononitrate [Isosorbide 60 mg PO DAILY 05/20/17 Mononitrate ER] Albuterol Aerosols [Ventolin 2.5 mg INHALATION Q4H PRN #25 vial 06/18/17 Aerosols] Doxycycline [Vibramycin] 100 mg PO BID #20 cap 06/18/17 Benzonatate [Tessalon Perle] 100 mg PO Q4H PRN PRN #20 cap 06/19/17 amitriptyline 50 mg tablet 100 mg PO QHS tab 08/23/17 aspirin 81 mg tablet,delayed 81 mg PO QDAY 08/23/17 release rizatriptan 5 mg tablet 5 mg PO ONCE 08/23/17 thyroid (pork) 60 mg tablet 120 mg PO DAILY tab 08/23/17 Gabapentin [Neurontin] 1,200 mg PO TIDCM 01/01/18 Insulin Detemir [Levemir] 64 unit SQ QHS 01/01/18 Insulin Regular, Human [Novolin R] 100 unit SQ BID 01/01/18 Liraglutide [Victoza] 0.12 mg SQ DAILY 01/01/18 proCHLORPERazine suppository 50 mg RECTAL DAILY PRN PRN 01/01/18 [Compazine suppository] - Family History Maternal Family History: Family History (Last Reviewed 11/12/17 @ 14:16 by Sinan Lazcano) Mother CAD (coronary artery disease) Diabetes, Heart Disease, No pertinent history, - - Hypothyroid Paternal Family History: Family History (Last Reviewed 11/12/17 @ 14:16 by Sinan Lazcano) Mother CAD (coronary artery disease) Cancer, - - The patient's mother had a history of emphysema, COPD, coronary artery disease, diabetes mellitus, dementia, and Parkinson's disease. Patient' s mother at age of 67. Smoking Status: Current some day smoker Tobacco Use: Cigarettes Review of Systems Constitutional: Denies: Chills, Fever, Weight Change Eyes: Denies: Pain, Vision Change HEENT: Denies: Difficulty Hearing, Difficulty Swallowing, Sinus Congestion Cardiovascular: Denies: Chest Pain, Palpitations Respiratory: Denies: Cough, Shortness of Breath Gastrointestinal: Denies: Diarrhea, Nausea, Vomiting Genitourinary: Denies: Dysuria, Hematuria Endocrine: Denies: Heat/ Cold Intolerance, Polydipsia, Polyuria Hematologic/ Lymphatic: Denies: Easy Bruising, Easy Bleeding - Physical Exam Vital Signs Temp Pulse Resp BP 97.3 F L 97 18 132/72 H 03/14/18 14:29 03/14/18 14:29 03/14/18 14:29 03/14/18 14:29 General: Alert, Oriented x3, Cooperative, No apparent distress, Well developed, Well nourished, - - Patient is morbidly obese. HEENT: Atraumatic, PERRLA, EOMI, Normocephalic Oral: Moist Mucosa Neck: No JVD Lungs: Normal air movement Abdomen: Non-Distended, Obese Extremities: No clubbing, No cyanosis, No Calf Tenderness, - - Moderate bilateral lower extremity swelling and edema persists. There is now a small superficial ulceration on the right anterior tibial surface, about the size of a quarter. Exact dimensions are documented elsewhere. The base of the ulceration is pink and healthy in appearance, with evidence of active granulation tissue. There is no sign of infection or cellulitis. Wound Measurements and Assessment WC - Nurse 1 - General Ulcer Measurement Start: 02/18/18 09:37 Freq: Status: Active Protocol: Activity Type Activity Date Activity User E-Sign Co-Sign Detail Recorded Client Recorded Date Recorded By Document 03/11/18 16:11 [facility] [id number] 03/11/18 16:12 [facility] Document 03/14/18 14:29 [id number] 03/14/18 14:48 03/11/18 03/14/18 16:11 14:29 [Ulcer Assessment] 6-RIGHT DEJESUS -Combined with other wound No -Current Size (cm) - Length 1.8 -Current Size (cm) - Width 2.4 -Current Size (cm) - Depth 0.1 -Total Square Cm 4.32 -Photo Taken Yes -Epithelialization Small 1-33% -Tunneling No -Undermining/Tunneling No -Circular Undermining No -Classification - [place] Grading ( Grade 1 Diabetic Ulcer) -Exudate Amt Large (67-100%) -Exudate Type Serous -Wound Margin Flat & Intact -Granulation Amt Small (1-33%) -Granulation Quality [place] -Necrosis Amt Small (1-33%) -Necrotic Tissue Type Adherent Slough -Texture (Cristina-wound Skin Appearance) Assessed Localized Edema -Moisture (Cristina-wound Skin Appearance Assessed ) Weeping -Color (Cristina-wound Skin Appearance) Assessed Hemosiderin Staining -Temperature (Cristina-wound Skin No Abnormality Appearance) (Pt Warm) -Tenderness on Palpation (Cristina-wound Yes Skin Appearance) -Ulcer Cleansing Wound Cleanser -Foul Odor after Cleansing No -Anesthetic Used 4% Lidocaine Solution Wound Center Nurse 1 [Edema Assessment] -Lower Limb Edema Present Yes Yes -Right Calf (cm) 47.7 44.0 -Right Ankle (cm) 28.2 29.0 -Left Calf (cm) 49 47.5 -Left Ankle (cm) 29.4 29.5 WC - Nurse 2 - General Ulcer CM Notes Start: 02/18/18 09:37 Freq: Status: Active Protocol: Activity Type Activity Date Activity User E-Sign Co-Sign Detail Recorded Client Recorded Date Recorded By Document 03/14/18 15:33 [id number] 03/14/18 15:42 03/14/18 15:33 Wound Center Nurse 2 [Procedure/Treatment] 6-RIGHT DEJESUS -Time 15:41 -Correct Patient Yes -Correct Side, Site, Position Yes -Correct Procedure Yes -Procedure Performed No -Wound/Ulcer Outcome Not Healed -Ulcer Cleansing Rinsed/ Irrigated with Saline -Foul Odor after Cleansing No -Bleeding Controlled with NA [See Physician Procedure note for Specifics] Pain Scale: 0-10 Numeric [Pain] -Is Patient Pain Free? Yes Neurological: Cranial nerves II-XII grossly intact, Neuro grossly intact Psych/Mental Status: Normal Affect, Appropriate, Alert and oriented to time, place, person, mood and affect Debridement Note Post-Debridement Measurements/Treatment WC - Nurse 2 - General Ulcer CM Notes Start: 02/18/18 09:37 Freq: Status: Active Protocol: Activity Type Activity Date Activity User E-Sign Co-Sign Detail Recorded Client Recorded Date Recorded By Document 03/14/18 15:33 [id number] 03/14/18 15:42 03/14/18 15:33 Wound Center Nurse 2 6-RIGHT DEJESUS -Time 15:41 -Correct Patient Yes -Correct Side, Site, Position Yes -Correct Procedure Yes -Procedure Performed No -Wound/Ulcer Outcome Not Healed -Ulcer Cleansing Rinsed/ Irrigated with Saline -Foul Odor after Cleansing No -Bleeding Controlled with NA Pain Scale: 0-10 Numeric Is Patient Pain Free? Yes No debridement was completed today Assessment/Plan Active Problems (Last Reviewed 11/12/17 @ 14:16 by Sinan Lazcano) Morbid obesity with body mass index of 40.0-49.9 (Chronic) Swelling of lower extremity (Chronic) Edema of both legs (Chronic) Lymphedema of leg (Chronic) Edema (Chronic) Assessment: This is a 47-year-old morbidly obese diabetic female with multiple medical problems, which have been listed above. It appears as though a hairline fracture of the right ankle, sustained on November 01, 2017, resulted in a decrease in activity, limited ambulation, and chronic lower extremity dependency. This significant change in the patient's activity and habits resulted in exacerbation of the swelling, edema, and lymphedema in the patient' s lower extremities. There is now a superficial ulceration on the right anterior tibial surface, thought to be due to slippage of her 3M 2 layer compression wrap. The patient has undergone a battery of diagnostic laboratory tests, which have been reviewed. Results are as follows: White blood count 7.7 , hemoglobin 13.7, hematocrit 42.1, platelets 199,000, sodium 140, potassium 4.5 , chloride 108, BUN 19, creatinine 0.92, glucose 199, hemoglobin A1c 8.2, calcium 8.8, total bilirubin 0.30, AST 18, ALT 16, alkaline phosphatase 109, total protein 6.8, albumin 2.7, pre-albumin 15.4. A venous duplex examination has recently been performed, revealing incompetence of the right great saphenous vein and an incompetent solar designer/installer vein 17 cm proximal to the right medial malleolus. No superficial venous incompetence is noted in the left lower extremity. A noninvasive lower extremity arterial study is normal, revealing normal arterial perfusion in the lower extremities bilaterally. Plan: The patient has been instructed to elevate her lower extremities as much as possible. We have encouraged the patient to elevate her legs, even during daytime hours. It appears as though she is sleeping in a relatively recumbent position. Activity has been encouraged. Avoidance of prolonged idle sitting has been recommended. Lower extremities are to be elevated to heart level, or higher. Recruitment of the calf and foot muscle pumps has been explained, and can be implemented by means of activity and ambulation. Weight loss has been highly recommended. The patient has been advised to optimize her diabetic control. Dietary counseling will be offered if the patient so wishes. The patient has been advised to continue the use of her mechanical pneumatic compression pumps. We are to continue compression to the lower extremities by means of Unna boots/multilayer compression wraps, which will be changed twice weekly. An Unna boot will be used on the right lower extremity, and a 3M 2 layer compression wrap will be used on the left lower extremity. The patient's Farrow wraps have recently been unusable, too small to fit her lower extremities due to extreme swelling. In addition, the patient's Farrow wraps are several years old, due to be replaced. We are to refer the patient to the L[facility] at [facility]. The intention is to instruct in appropriate long-term habits, and to ultimately fit the patient with CircAid Velcro compression garments bilaterally. CircAid garments are awaited. Patient will return in 1 week for reassessment. The patient is a smoker, and smoking cessation has been recommended. She is to collaborate with her primary care physician in this regard. Influenza vaccine was not administered today. Patient stands 5 feet 1 inch tall. She weighs 250 pounds. Her BMI is 47.1. Weight loss has been recommended, and the patient has been advised to collaborate with her primary care physician in terms of weight loss options. Dietary counseling has been offered as an option.
== END 2018-03-19 23:59 ==
LOC: WC 14:30
PROVIDERS: Family Provider Student in an Organized Health Care Education/Training Program; PCP Student in an Organized Health Care Education/Training Program; Visit Provider Surgery
DX: E11.51 Type 2 diabetes mellitus with diabetic peripheral angiopathy without gangrene (principal); E11.22 Type 2 diabetes mellitus with diabetic chronic kidney disease; G35 Multiple sclerosis; I48.0 Paroxysmal atrial fibrillation; E03.9 Hypothyroidism, unspecified; I89.0 Lymphedema, not elsewhere classified; I25.10 Atherosclerotic heart disease of native coronary artery without angina pectoris; I13.0 Hypertensive heart and chronic kidney disease with heart failure and stage 1 through stage 4 chronic kidney disease, or unspecified chronic kidney disease; N18.4 Chronic kidney disease, stage 4 (severe); I50.9 Heart failure, unspecified; K21.9 Gastro-esophageal reflux disease without esophagitis; Z86.718 Personal history of other venous thrombosis and embolism; E78.5 Hyperlipidemia, unspecified; E66.01 Morbid (severe) obesity due to excess calories; Z68.42 Body mass index [BMI] 45.0-49.9, adult; Z71.3 Dietary counseling and surveillance; L40.9 Psoriasis, unspecified; M79.89 Other specified soft tissue disorders; Z72.0 Tobacco use; L97.818 Non-pressure chronic ulcer of other part of right lower leg with other specified severity; E11.622 Type 2 diabetes mellitus with other skin ulcer
CPT/HCPCS: 29580; 29581; 99212; 99213; G0463

== ENCOUNTER → 2018-03-31 10:25 | Outpatient (CLI) | payer MEDICARE, MEDICAID, SELFPAY ==
--- NOTE | 2018-03-31 10:27 | ECHOCS_ITS ---
Reason For Study: MURMUR Procedure This was a 2D Doppler, Color Flow transthoracic echocardiogram. The exam was of poor technical quality due to body habitus. The study was technically difficult. Contrast injection was performed. Exam performed in department. Left Ventricle Normal LV size. Mild concentric left ventricular hypertrophy. Left ventricular systolic function is normal. The estimated ejection fraction is 65 %. There is evidence of diastolic dysfunction. No regional wall motion abnormalities noted. Right Ventricle The right ventricle is not well visualized. Atria Normal left atrium. The right atrium is not well visualized. No doppler evidence for ASD. Mitral Valve There is no mitral annular calcification. Normal mitral valve. Trivial mitral valve insufficiency. Tricuspid Valve The tricuspid valve is not well visualized. Trivial tricuspid valve insufficiency. Unable to estimate RV systolic pressure/pulmonary artery pressure due to technically difficult study. Aortic Valve The aortic valve is not well visualized. Pulmonic Valve The pulmonic valve is not well visualized. Great Vessels Normal sized aortic root. Pericardium/Pleural Trivial pericardial effusion. There are no echocardiographic indications of cardiac tamponade. Medication 22 gauge I.V. with prn adaptor inserted into right arm. Diluted definity 2ml given slow IV push to enhance endocardial definition. MMode/2D Measurements & Calculations LVIDd: 4.2 cm IVSd: 1.3 cm Ao root diam: 3.1 cm LVIDs: 2.9 cm LVPWd: 1.3 cm LA dimension: 2.7 cm RVDd: 2.7 cm FS: 32.2 % LAV(MOD-bp): 36.1 ml LA A4 area: 11.9 cm2 RA A4 area: 11.1 cm2 LAV(MOD-bp) Indexed: 18.0 ml/m2 LAV(MOD-sp2): 48.2 ml LAV(MOD-sp4): 25.8 ml Time Measurements MV dec time: 0.28 sec Doppler Measurements & Calculations MV E max jey: 112.2 cm/sec Lat Peak E' Jey: 7.0 cm/sec Med Peak E' Jey: 7.1 cm/sec MV A max jey: 112.6 cm/sec E/E' lat: 16.1 E/E' med: 15.8 MV E/A: 1.00 Ao V2 max: 149.3 cm/sec LV V1 max: 110.7 cm/sec PA V2 max: 81.7 cm/sec Ao max P.9 mmHg LV V1 max P.9 mmHg Interpretation Summary The study was technically difficult. Contrast injection was performed. Left ventricular systolic function is normal. The estimated ejection fraction is 65 %. Mild concentric left ventricular hypertrophy. Trivial mitral valve insufficiency. Trivial tricuspid valve insufficiency. Trivial pericardial effusion. There are no echocardiographic indications of cardiac tamponade. Unable to estimate RV systolic pressure/pulmonary artery pressure due to technically difficult study. There is evidence of diastolic dysfunction. Ordering Physician: Bean Cao Referring Physician: BENJAMIN ORTIZ Performed By: Migdalia Nath RDCS
[2018-03-31 12:06] LABS: AST(SGOT) 21 U/L (15-37); Alanine Aminotransfer ALT/SGPT 21 U/L (13-56); Albumin, Serum 2.6 g/dL (3.2-5.0); Alkaline Phosphatase 115 U/L (45-117); Bilirubin, Direct 0.09 mg/dL (0.00-0.30); Cholesterol 266 mg/dL (200); Globulin 4.5 g/dL (2.2-4.2); High Density Lipoprotein 33 mg/dL; Protein, Total 7.1 g/dL (6.4-8.2); Triglycerides 219 mg/dL; Very Low Density Lipoprotein 44 mg/dL (5-40)
== END ==
PROVIDERS: Family Provider Student in an Organized Health Care Education/Training Program; PCP Student in an Organized Health Care Education/Training Program; Visit Provider Internal Medicine Cardiovascular Disease
DX: E78.5 Hyperlipidemia, unspecified (principal); R01.1 Cardiac murmur, unspecified
CPT/HCPCS: 36415; 80061; 80076; 93306; Q9957; A4216; C8929

== ENCOUNTER 2018-04-18 13:00 | Outpatient (RCR) | payer MEDICARE, MEDICAID, SELFPAY ==
[2018-03-20 00:51] VITALS: BP 132/72; PULSE 97; RESP 18; TEMP 36.3
[2018-03-21 14:56] VITALS: BP 138/71; PULSE 91; RESP 18; TEMP 36.3
--- NOTE | 2018-03-21 15:49 | PCM.WC.HP ---
(1) Hyperlipidemia Status: Chronic Current Visit: No Code(s): E78.5 - Hyperlipidemia, unspecified (2) Hypertension Status: Chronic Current Visit: No Qualifiers: Code(s): I10 - Essential (primary) hypertension (3) Type 2 diabetes mellitus Status: Chronic Current Visit: Yes Code(s): E11.9 - Type 2 diabetes mellitus without complications (4) Tobacco use disorder Status: Chronic Current Visit: Yes Code(s): F17.200 - Nicotine dependence, unspecified, uncomplicated (5) Paroxysmal a-fib Status: Chronic Current Visit: No Code(s): I48.0 - Paroxysmal atrial fibrillation Comment: ? questionable (6) Multiple personality disorder Status: Chronic Current Visit: No Code(s): F44.81 - Dissociative identity disorder (7) Morbid obesity with body mass index of 40.0-49.9 Status: Chronic Current Visit: Yes Code(s): E66.01 - Morbid (severe) obesity due to excess calories (8) Chronic back pain Status: Chronic Current Visit: No Code(s): M54.9 - Dorsalgia, unspecified; G89.29 - Other chronic pain (9) Tobacco abuse counseling Status: Chronic Current Visit: Yes Code(s): Z71.6 - Tobacco abuse counseling (10) Swelling of lower extremity Status: Chronic Current Visit: Yes Code(s): M79.89 - Other specified soft tissue disorders (11) Edema of both legs Status: Chronic Current Visit: Yes Code(s): R60.0 - Localized edema (12) Lymphedema of leg Status: Chronic Current Visit: Yes Qualifiers: Laterality: bilateral Code(s): I89.0 - Lymphedema, not elsewhere classified (13) GERD (gastroesophageal reflux disease) Status: Chronic Current Visit: No Code(s): K21.9 - Gastro-esophageal reflux disease without esophagitis (14) Multiple sclerosis Status: Chronic Current Visit: No Code(s): G35 - Multiple sclerosis (15) CKD (chronic kidney disease) stage 4, GFR 15-29 ml/min Status: Chronic Current Visit: No Code(s): N18.4 - Chronic kidney disease, stage 4 (severe) (16) PAD (peripheral artery disease) Status: Chronic Current Visit: No Code(s): I73.9 - Peripheral vascular disease, unspecified (17) History of CVA (cerebrovascular accident) Status: Chronic Current Visit: No Code(s): Z86.73 - Personal history of transient ischemic attack (TIA), and cerebral infarction without residual deficits (18) History of DVT (deep vein thrombosis) Status: Chronic Current Visit: No Code(s): Z86.718 - Personal history of other venous thrombosis and embolism (19) Psoriasis Status: Chronic Current Visit: No Code(s): L40.9 - Psoriasis, unspecified (20) CHF (congestive heart failure) Status: Chronic Current Visit: No Code(s): I50.9 - Heart failure, unspecified (21) Edema Status: Chronic Current Visit: Yes Qualifiers: Code(s): R60.9 - Edema, unspecified (22) Hypothyroidism Status: Chronic Current Visit: No Code(s): E03.9 - Hypothyroidism, unspecified (23) Essential (primary) hypertension Status: Chronic Current Visit: No Code(s): I10 - Essential (primary) hypertension (24) Atherosclerotic heart disease of [place] coronary artery without angina pectoris Status: Chronic Current Visit: No Code(s): I25.10 - Atherosclerotic heart disease of [place] coronary artery without angina pectoris History of Present Illness Date of Service: 03/21/18 Chief Complaint: Bilateral lower extremity swelling, edema, and lymphedema. History of Wound: This is a 47-year-old morbidly obese diabetic female who presented as a referral from her cell inspector, Dr. Mayo, for evaluation and management regarding bilateral lower extremity swelling, edema, and lymphedema. This has been a problem for the patient in the past, and is chronic in nature. However, it appears to have been exacerbated recently by a traumatic hairline fracture of the right ankle which occurred on November 01, 2017. As a result, the patient was immobile for a period of time, relatively inactive, spending her days in an idle sitting position. As a result of her inactivity and chronic dependency, she has noted swelling, edema, and lymphedema in her lower extremities to be much more severe than usual, prompting her to seek medical attention. The patient claims to sleep in a relatively flat position at night. She has a history of bilateral lower extremity deep vein thrombosis, for which she has been previously treated with systemic anticoagulation therapy. She is not currently taking anticoagulation. The patient has multiple medical problems, which include diabetes mellitus, morbid obesity, hypertension, coronary artery disease, chronic kidney disease, peripheral arterial occlusive disease, and tobacco abuse. The patient has Farrow wraps for her lower extremities, which she had not been using. The wraps are not large enough to accommodate the severe swelling which currently exists in her lower extremities. She also has pneumatic mechanical compression pumps for her lower extremities, which she had not been using recently. These measures have been previously implemented in treatment for the patient's chronic lower extremity swelling and edema. In recent weeks, the patient has demonstrated increasing compliance with recommended measures. She has been elevating her lower extremities more frequently. She has been using her mechanical compression pumps. As result, there was a significant decrease in the swelling, edema, and lymphedema in her lower extremities bilaterally. Several weeks ago, due to slippage of the 2 layer wraps, the patient developed a superficial ulceration on the right anterior tibial surface. Past Medical History Past Medical History: Chronic Problems (Last Reviewed 11/12/17 @ 14:16 by Sinan Lazcano) Hyperlipidemia (Chronic) Hypertension (Chronic) Type 2 diabetes mellitus (Chronic) Tobacco use disorder (Chronic) Paroxysmal a-fib (Chronic) ? questionable Multiple personality disorder (Chronic) Morbid obesity with body mass index of 40.0-49.9 (Chronic) Chronic back pain (Chronic) Tobacco abuse counseling (Chronic) Swelling of lower extremity (Chronic) Edema of both legs (Chronic) Lymphedema of leg (Chronic) GERD (gastroesophageal reflux disease) (Chronic) Multiple sclerosis (Chronic) CKD (chronic kidney disease) stage 4, GFR 15-29 ml/min (Chronic) PAD (peripheral artery disease) (Chronic) History of CVA (cerebrovascular accident) (Chronic) History of DVT (deep vein thrombosis) (Chronic) Psoriasis (Chronic) CHF (congestive heart failure) (Chronic) Edema (Chronic) Hypothyroidism (Chronic) Essential (primary) hypertension (Chronic) Atherosclerotic heart disease of [place] coronary artery without angina pectoris (Chronic) Surgical History: appendectomy, cholecystectomy, - - The patient has a history of appendectomy, cholecystectomy, bilateral lower extremity vein stripping, partial hysterectomy, tonsillectomy, lumbar surgery ?4, and bilateral carpal tunnel release. The patient is a Ab0. Her only two live births succumbed shortly following . Allergies/Adverse Reactions: Allergies latex Allergy (Verified 01/01/18 15:18) Rash Penicillins Allergy (Verified 01/01/18 15:18) Unknown venom-honey bee [bee venom (honey bee)] Allergy (Verified 01/01/18 15:18) Unknown Home Medications: Ambulatory Orders Medication Instructions Recorded Celecoxib [Celebrex] 200 mg PO BID 07/03/14 Oxycodone HCl/Acetaminophen 1 ea PO Q4H PRN PRN 07/03/14 [Oxycodone-Acetaminophen 10-325] Tizanidine HCl [Zanaflex] 4 mg PO Q8H 07/03/14 Glimepiride [Amaryl] 4 mg PO BID 11/15/14 ALPRAZolam [Xanax] 0.25 mg PO BID 05/20/17 Diltiazem CD [Cardizem CD] 240 mg PO DAILY 05/20/17 Isosorbide Mononitrate [Isosorbide 60 mg PO DAILY 05/20/17 Mononitrate ER] Albuterol Aerosols [Ventolin 2.5 mg INHALATION Q4H PRN #25 vial 06/18/17 Aerosols] Doxycycline [Vibramycin] 100 mg PO BID #20 cap 06/18/17 Benzonatate [Tessalon Perle] 100 mg PO Q4H PRN PRN #20 cap 06/19/17 amitriptyline 50 mg tablet 100 mg PO QHS tab 08/23/17 aspirin 81 mg tablet,delayed 81 mg PO QDAY 08/23/17 release rizatriptan 5 mg tablet 5 mg PO ONCE 08/23/17 thyroid (pork) 60 mg tablet 120 mg PO DAILY tab 08/23/17 Gabapentin [Neurontin] 1,200 mg PO TIDCM 01/01/18 Insulin Detemir [Levemir] 64 unit SQ QHS 01/01/18 Insulin Regular, Human [Novolin R] 100 unit SQ BID 01/01/18 Liraglutide [Victoza] 0.12 mg SQ DAILY 01/01/18 proCHLORPERazine suppository 50 mg RECTAL DAILY PRN PRN 01/01/18 [Compazine suppository] - Family History Maternal Family History: Family History (Last Reviewed 11/12/17 @ 14:16 by Sinan Lazcano) Mother CAD (coronary artery disease) Diabetes, Heart Disease, No pertinent history, - - Hypothyroid Paternal Family History: Family History (Last Reviewed 11/12/17 @ 14:16 by Sinan Lazcano) Mother CAD (coronary artery disease) Cancer, - - The patient's mother had a history of emphysema, COPD, coronary artery disease, diabetes mellitus, dementia, and Parkinson's disease. Patient's mother at age of 67. Smoking Status: Current some day smoker Tobacco Use: Cigarettes Review of Systems Constitutional: Denies: Chills, Fever, Weight Change Eyes: Denies: Pain, Vision Change HEENT: Denies: Difficulty Hearing, Difficulty Swallowing, Sinus Congestion Cardiovascular: Denies: Chest Pain, Palpitations Respiratory: Denies: Cough, Shortness of Breath Gastrointestinal: Denies: Diarrhea, Nausea, Vomiting Genitourinary: Denies: Dysuria, Hematuria Endocrine: Denies: Heat/ Cold Intolerance, Polydipsia, Polyuria Hematologic/ Lymphatic: Denies: Easy Bruising, Easy Bleeding - Physical Exam Vital Signs Temp Pulse Resp BP 97.3 F L 91 18 138/71 H 03/21/18 14:56 03/21/18 14:56 03/21/18 14:56 03/21/18 14:56 General: Alert, Oriented x3, Cooperative, No apparent distress, Well developed, Well nourished HEENT: Atraumatic, PERRLA, EOMI, Normocephalic Oral: Moist Mucosa Neck: No JVD Lungs: Normal air movement Abdomen: Non-Distended Extremities: No clubbing, No cyanosis, No Calf Tenderness, - - Swelling, edema, and lymphedema persist in the lower extremities bilaterally. However, there is some obvious improvement. Circumference measurements are diminished bilaterally. The ulceration on the right anterior tibial surface is smaller in size, and quite superficial. Dimensions are documented elsewhere. The base of the ulceration is generally pink and healthy in appearance, with active granulation tissue. There is no sign of infection or cellulitis. Skin: No rashes Wound Measurements and Assessment WC - Nurse 1 - General Ulcer Measurement Start: 03/21/18 14:55 Freq: Status: Active Protocol: Activity Type Activity Date Activity User E-Sign Co-Sign Detail Recorded Client Recorded Date Recorded By Document 03/21/18 14:56 [id number] 03/21/18 15:01 03/21/18 14:56 Wound Center Nurse 1 [Ulcer Assessment] 6-RIGHT DEJESUS -Combined with other wound No -Current Size (cm) - Length 0.6 -Current Size (cm) - Width 2.0 -Current Size (cm) - Depth 0.1 -Total Square Cm 1.20 -Photo Taken No -Epithelialization Small 1-33% -Tunneling No -Undermining/Tunneling No -Circular Undermining No -Classification - Thickness Full Thickness without Exposed Support Structure -Exudate Amt Small (1-33%) -Exudate Type Serosanguineous -Wound Margin Distinct, Outline Attached -Granulation Amt Large (67-100%) -Granulation Quality Red -Slough/Fibrin Yes -Necrosis Amt Small (1-33%) -Necrotic Tissue Type Adherent Slough -Structure Exposed Fascia Fat Layer Exposed -Texture (Cristina-wound Skin Appearance) No Abnormality -Moisture (Cristina-wound Skin Appearance No Abnormality ) -Color (Cristina-wound Skin Appearance) Erythema Hemosiderin Staining -Temperature (Cristina-wound Skin No Abnormality Appearance) (Pt Warm) -Tenderness on Palpation (Cristina-wound No Skin Appearance) -Ulcer Cleansing hibiclens -Foul Odor after Cleansing No -Anesthetic Used 4% Lidocaine Solution [Edema Assessment] -Lower Limb Edema Present Yes -Right Calf (cm) 42.5 -Right Ankle (cm) 28.2 -Left Calf (cm) 38.2 -Left Ankle (cm) 28.8 WC - Nurse 2 - General Ulcer CM Notes Start: 03/21/18 14:55 Freq: Status: Active Protocol: Activity Type Activity Date Activity User E-Sign Co-Sign Detail Recorded Client Recorded Date Recorded By Document 03/21/18 15:44 [email or web address] [id number] 03/21/18 15:45 GELACIO 03/21/18 15:44 Wound Center Nurse 2 [Procedure/Treatment] 6-RIGHT DEJESUS -Time 15:44 -Correct Patient Yes -Correct Side, Site, Position Yes -Correct Procedure Yes -Procedure Performed Yes -Type of Procedure Debridement -Clinical Debridement Subcutaneous -Post Debridement Size (cm) - Length 1.9 -Post Debridement Size (cm) - Width 1.8 -Post Debridement Size (cm) - Depth 1 -Total Square Cm 3.42 -Wound/Ulcer Outcome Not Healed -Ulcer Cleansing Rinsed/ Irrigated with Saline -Foul Odor after Cleansing No -Bioengineered Tissue No -Topical Lidocaine (%) 4 -Lidocaine (ml) 5 -Bleeding Controlled with NA -Treatment Response Procedure Tolerated Well [See Physician Procedure note for Specifics] Pain Scale: 0-10 Numeric [Pain] -Is Patient Pain Free? Yes Neurological: Cranial nerves II-XII grossly intact, Neuro grossly intact Psych/Mental Status: Normal Affect, Appropriate, Alert and oriented to time, place, person, mood and affect Debridement Note Post-Debridement Measurements/Treatment WC - Nurse 2 - General Ulcer CM Notes Start: 03/21/18 14:55 Freq: Status: Active Protocol: Activity Type Activity Date Activity User E-Sign Co-Sign Detail Recorded Client Recorded Date Recorded By Document 03/21/18 15:44 [email or web address] [id number] 03/21/18 15:45 GELACIO 03/21/18 15:44 Wound Center Nurse 2 6-RIGHT DEJESUS -Time 15:44 -Correct Patient Yes -Correct Side, Site, Position Yes -Correct Procedure Yes -Procedure Performed Yes -Type of Procedure Debridement -Clinical Debridement Subcutaneous -Post Debridement Size (cm) - Length 1.9 -Post Debridement Size (cm) - Width 1.8 -Post Debridement Size (cm) - Depth 1 -Total Square Cm 3.42 -Wound/Ulcer Outcome Not Healed -Ulcer Cleansing Rinsed/ Irrigated with Saline -Foul Odor after Cleansing No -Bioengineered Tissue No -Topical Lidocaine (%) 4 -Lidocaine (ml) 5 -Bleeding Controlled with NA -Treatment Response Procedure Tolerated Well Pain Scale: 0-10 Numeric Is Patient Pain Free? Yes Laterality: Right - Anterior tibial surface Type of Debridement: Excisional debridement Anesthesia Used: 4% Lidocaine Solution Depth: Down to and including healthy tissue, in the subcutaneous layer Percentage of wound debrided: 100 Instrument Used: 5mm curette Severity: Fat Layer Exposed Amount of bleeding with debridement: Mild Bleeding Controlled with: Compression and gauze Patient tolerated procedure well Assessment/Plan Active Problems (Last Reviewed 11/12/17 @ 14:16 by Sinan Lazcano) Type 2 diabetes mellitus (Chronic) Tobacco use disorder (Chronic) Morbid obesity with body mass index of 40.0-49.9 (Chronic) Tobacco abuse counseling (Chronic) Swelling of lower extremity (Chronic) Edema of both legs (Chronic) Lymphedema of leg (Chronic) Edema (Chronic) Assessment: This is a 47-year-old morbidly obese diabetic female with multiple medical problems, which have been listed above. It appears as though a hairline fracture of the right ankle, sustained on November 01, 2017, resulted in a decrease in activity, limited ambulation, and chronic lower extremity dependency. This significant change in the patient's activity and habits resulted in exacerbation of the swelling, edema, and lymphedema in the patient's lower extremities. There is now a superficial ulceration on the right anterior tibial surface, thought to be due to slippage of her 3M 2 layer compression wrap. The patient has undergone a battery of diagnostic laboratory tests, which have been reviewed. Results are as follows: White blood count 7.7, hemoglobin 13.7, hematocrit 42.1, platelets 199,000, sodium 140, potassium 4.5, chloride 108, BUN 19, creatinine 0.92, glucose 199, hemoglobin A1c 8.2, calcium 8.8, total bilirubin 0.30, AST 18, ALT 16, alkaline phosphatase 109, total protein 6.8, albumin 2.7, pre-albumin 15.4. 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 No superficial venous incompetence is noted in the left lower extremity. A noninvasive lower extremity arterial study is normal, revealing normal arterial perfusion in the lower extremities bilaterally. Plan: The patient has been instructed to elevate her lower extremities as much as possible. We have encouraged the patient to elevate her legs, even during daytime hours. It appears as though she is sleeping in a relatively recumbent position. Activity has been encouraged. Avoidance of prolonged idle sitting has been recommended. Lower extremities are to be elevated to heart level, or higher. Recruitment of the calf and foot muscle pumps has been explained, and can be implemented by means of activity and ambulation. Weight loss has been highly recommended. The patient has been advised to optimize her diabetic control. Dietary counseling will be offered if the patient so wishes. The patient has been advised to continue the use of her mechanical pneumatic compression pumps. We are to continue compression to the lower extremities by means of Unna boots/multilayer compression wraps, which will be changed twice weekly. An Unna boot will be used on the right lower extremity, and a 3M 2 layer compression wrap will be used on the left lower extremity. The patient's Farrow wraps have recently been unusable, too small to fit her lower extremities due to extreme swelling. In addition, the patient's Farrow wraps are several years old, due to be replaced. We are to refer the patient to the [facility] at [facility]. The intention is to instruct in appropriate long-term habits, and to ultimately fit the patient with CircAid Velcro compression garments bilaterally. CircAid garments are awaited. Patient will return in 1 week for reassessment. The patient is a smoker, and smoking cessation has been recommended. She is to collaborate with her primary care physician in this regard. Influenza vaccine was not administered today. Patient stands 5 feet 1 inch tall. She weighs 250 pounds. Her BMI is 47.1. Weight loss has been recommended, and the patient has been advised to collaborate with her primary care physician in terms of weight loss options. Dietary counseling has been offered as an option.
--- NOTE | 2018-03-21 15:54 | HP.PCM_ITS ---
(1) Hyperlipidemia Status: Chronic Current Visit: No Code(s): E78.5 - Hyperlipidemia, unspecified (2) Hypertension Status: Chronic Current Visit: No Qualifiers: Code(s): I10 - Essential (primary) hypertension (3) Type 2 diabetes mellitus Status: Chronic Current Visit: Yes Code(s): E11.9 - Type 2 diabetes mellitus without complications (4) Tobacco use disorder Status: Chronic Current Visit: Yes Code(s): F17.200 - Nicotine dependence, unspecified, uncomplicated (5) Paroxysmal a-fib Status: Chronic Current Visit: No Code(s): I48.0 - Paroxysmal atrial fibrillation Comment: ? questionable (6) Multiple personality disorder Status: Chronic Current Visit: No Code(s): F44.81 - Dissociative identity disorder (7) Morbid obesity with body mass index of 40.0-49.9 Status: Chronic Current Visit: Yes Code(s): E66.01 - Morbid (severe) obesity due to excess calories (8) Chronic back pain Status: Chronic Current Visit: No Code(s): M54.9 - Dorsalgia, unspecified; G89.29 - Other chronic pain (9) Tobacco abuse counseling Status: Chronic Current Visit: Yes Code(s): Z71.6 - Tobacco abuse counseling (10) Swelling of lower extremity Status: Chronic Current Visit: Yes Code(s): M79.89 - Other specified soft tissue disorders (11) Edema of both legs Status: Chronic Current Visit: Yes Code(s): R60.0 - Localized edema (12) Lymphedema of leg Status: Chronic Current Visit: Yes Qualifiers: Laterality: bilateral Code(s): I89.0 - Lymphedema, not elsewhere classified (13) GERD (gastroesophageal reflux disease) Status: Chronic Current Visit: No Code(s): K21.9 - Gastro-esophageal reflux disease without esophagitis (14) Multiple sclerosis Status: Chronic Current Visit: No Code(s): G35 - Multiple sclerosis (15) CKD (chronic kidney disease) stage 4, GFR 15-29 ml/min Status: Chronic Current Visit: No Code(s): N18.4 - Chronic kidney disease, stage 4 (severe) (16) PAD (peripheral artery disease) Status: Chronic Current Visit: No Code(s): I73.9 - Peripheral vascular disease, unspecified (17) History of CVA (cerebrovascular accident) Status: Chronic Current Visit: No Code(s): Z86.73 - Personal history of transient ischemic attack (TIA), and cerebral infarction without residual deficits (18) History of DVT (deep vein thrombosis) Status: Chronic Current Visit: No Code(s): Z86.718 - Personal history of other venous thrombosis and embolism (19) Psoriasis Status: Chronic Current Visit: No Code(s): L40.9 - Psoriasis, unspecified (20) CHF (congestive heart failure) Status: Chronic Current Visit: No Code(s): I50.9 - Heart failure, unspecified (21) Edema Status: Chronic Current Visit: Yes Qualifiers: Code(s): R60.9 - Edema, unspecified (22) Hypothyroidism Status: Chronic Current Visit: No Code(s): E03.9 - Hypothyroidism, unspecified (23) Essential (primary) hypertension Status: Chronic Current Visit: No Code(s): I10 - Essential (primary) hypertension (24) Atherosclerotic heart disease of [place] coronary artery without angina pectoris Status: Chronic Current Visit: No Code(s): I25.10 - Atherosclerotic heart disease of [place] coronary artery without angina pectoris History of Present Illness Date of Service: 03/21/18 Chief Complaint: Bilateral lower extremity swelling, edema, and lymphedema. 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 Mayo, for evaluation and management regarding bilateral lower extremity swelling, edema, and lymphedema. This has been a problem for the patient in the past, and is chronic in nature. However, it appears to have been exacerbated recently by a traumatic hairline fracture of the right ankle which occurred on November 01, 2017. As a result, the patient was immobile for a period of time, relatively inactive, spending her days in an idle sitting position. As a result of her inactivity and chronic dependency, she has noted swelling, edema, and lymphedema in her lower extremities to be much more severe than usual, prompting her to seek medical attention. The patient claims to sleep in a relatively flat position at night. She has a history of bilateral lower extremity deep vein thrombosis, for which she has been previously treated with systemic anticoagulation therapy. She is not currently taking anticoagulation. The patient has multiple medical problems, which include diabetes mellitus, morbid obesity, hypertension, coronary artery disease, chronic kidney disease, peripheral arterial occlusive disease, and tobacco abuse. The patient has Farrow wraps for her lower extremities, which she had not been using. The wraps are not large enough to accommodate the severe swelling which currently exists in her lower extremities. She also has pneumatic mechanical compression pumps for her lower extremities, which she had not been using recently. These measures have been previously implemented in treatment for the patient's chronic lower extremity swelling and edema. In recent weeks, the patient has demonstrated increasing compliance with recommended measures. She has been elevating her lower extremities more frequently. She has been using her mechanical compression pumps. As result, there was a significant decrease in the swelling , edema, and lymphedema in her lower extremities bilaterally. Several weeks ago , due to slippage of the 2 layer wraps, the patient developed a superficial ulceration on the right anterior tibial surface. Past Medical History Past Medical History: Chronic Problems (Last Reviewed 11/12/17 @ 14:16 by Sinan Lazcano) Hyperlipidemia (Chronic) Hypertension (Chronic) Type 2 diabetes mellitus (Chronic) Tobacco use disorder (Chronic) Paroxysmal a-fib (Chronic) ? questionable Multiple personality disorder (Chronic) Morbid obesity with body mass index of 40.0-49.9 (Chronic) Chronic back pain (Chronic) Tobacco abuse counseling (Chronic) Swelling of lower extremity (Chronic) Edema of both legs (Chronic) Lymphedema of leg (Chronic) GERD (gastroesophageal reflux disease) (Chronic) Multiple sclerosis (Chronic) CKD (chronic kidney disease) stage 4, GFR 15-29 ml/min (Chronic) PAD (peripheral artery disease) (Chronic) History of CVA (cerebrovascular accident) (Chronic) History of DVT (deep vein thrombosis) (Chronic) Psoriasis (Chronic) CHF (congestive heart failure) (Chronic) Edema (Chronic) Hypothyroidism (Chronic) Essential (primary) hypertension (Chronic) Atherosclerotic heart disease of [place] coronary artery without angina pectoris (Chronic) Surgical History: appendectomy, cholecystectomy, - - The patient has a history of appendectomy, cholecystectomy, bilateral lower extremity vein stripping, partial hysterectomy, tonsillectomy, lumbar surgery ?4, and bilateral carpal tunnel release. The patient is a Ab0. Her only two live births succumbed shortly following . Allergies/Adverse Reactions: Allergies latex Allergy (Verified 01/01/18 15:18) Rash Penicillins Allergy (Verified 01/01/18 15:18) Unknown venom-honey bee [bee venom (honey bee)] Allergy (Verified 01/01/18 15:18) Unknown Home Medications: Ambulatory Orders Medication Instructions Recorded Celecoxib [Celebrex] 200 mg PO BID 07/03/14 Oxycodone HCl/Acetaminophen 1 ea PO Q4H PRN PRN 07/03/14 [Oxycodone-Acetaminophen 10-325] Tizanidine HCl [Zanaflex] 4 mg PO Q8H 07/03/14 Glimepiride [Amaryl] 4 mg PO BID 11/15/14 ALPRAZolam [Xanax] 0.25 mg PO BID 05/20/17 Diltiazem CD [Cardizem CD] 240 mg PO DAILY 05/20/17 Isosorbide Mononitrate [Isosorbide 60 mg PO DAILY 05/20/17 Mononitrate ER] Albuterol Aerosols [Ventolin 2.5 mg INHALATION Q4H PRN #25 vial 06/18/17 Aerosols] Doxycycline [Vibramycin] 100 mg PO BID #20 cap 06/18/17 Benzonatate [Tessalon Perle] 100 mg PO Q4H PRN PRN #20 cap 06/19/17 amitriptyline 50 mg tablet 100 mg PO QHS tab 08/23/17 aspirin 81 mg tablet,delayed 81 mg PO QDAY 08/23/17 release rizatriptan 5 mg tablet 5 mg PO ONCE 08/23/17 thyroid (pork) 60 mg tablet 120 mg PO DAILY tab 08/23/17 Gabapentin [Neurontin] 1,200 mg PO TIDCM 01/01/18 Insulin Detemir [Levemir] 64 unit SQ QHS 01/01/18 Insulin Regular, Human [Novolin R] 100 unit SQ BID 01/01/18 Liraglutide [Victoza] 0.12 mg SQ DAILY 01/01/18 proCHLORPERazine suppository 50 mg RECTAL DAILY PRN PRN 01/01/18 [Compazine suppository] - Family History Maternal Family History: Family History (Last Reviewed 11/12/17 @ 14:16 by Sinan Lazcano) Mother CAD (coronary artery disease) Diabetes, Heart Disease, No pertinent history, - - Hypothyroid Paternal Family History: Family History (Last Reviewed 11/12/17 @ 14:16 by Sinan Lazcano) Mother CAD (coronary artery disease) Cancer, - - The patient's mother had a history of emphysema, COPD, coronary artery disease, diabetes mellitus, dementia, and Parkinson's disease. Patient' s mother at age of 67. Smoking Status: Current some day smoker Tobacco Use: Cigarettes Review of Systems Constitutional: Denies: Chills, Fever, Weight Change Eyes: Denies: Pain, Vision Change HEENT: Denies: Difficulty Hearing, Difficulty Swallowing, Sinus Congestion Cardiovascular: Denies: Chest Pain, Palpitations Respiratory: Denies: Cough, Shortness of Breath Gastrointestinal: Denies: Diarrhea, Nausea, Vomiting Genitourinary: Denies: Dysuria, Hematuria Endocrine: Denies: Heat/ Cold Intolerance, Polydipsia, Polyuria Hematologic/ Lymphatic: Denies: Easy Bruising, Easy Bleeding - Physical Exam Vital Signs Temp Pulse Resp BP 97.3 F L 91 18 138/71 H 03/21/18 14:56 03/21/18 14:56 03/21/18 14:56 03/21/18 14:56 General: Alert, Oriented x3, Cooperative, No apparent distress, Well developed, Well nourished HEENT: Atraumatic, PERRLA, EOMI, Normocephalic Oral: Moist Mucosa Neck: No JVD Lungs: Normal air movement Abdomen: Non-Distended Extremities: No clubbing, No cyanosis, No Calf Tenderness, - - Swelling, edema, and lymphedema persist in the lower extremities bilaterally. However, there is some obvious improvement. Circumference measurements are diminished bilaterally. The ulceration on the right anterior tibial surface is smaller in size, and quite superficial. Dimensions are documented elsewhere. The base of the ulceration is generally pink and healthy in appearance, with active granulation tissue. There is no sign of infection or cellulitis. Skin: No rashes Wound Measurements and Assessment WC - Nurse 1 - General Ulcer Measurement Start: 03/21/18 14:55 Freq: Status: Active Protocol: Activity Type Activity Date Activity User E-Sign Co-Sign Detail Recorded Client Recorded Date Recorded By Document 03/21/18 14:56 [id number] 03/21/18 15:01 03/21/18 14:56 Wound Center Nurse 1 [Ulcer Assessment] 6-RIGHT DEJESUS -Combined with other wound No -Current Size (cm) - Length 0.6 -Current Size (cm) - Width 2.0 -Current Size (cm) - Depth 0.1 -Total Square Cm 1.20 -Photo Taken No -Epithelialization Small 1-33% -Tunneling No -Undermining/Tunneling No -Circular Undermining No -Classification - Thickness Full Thickness without Exposed Support Structure -Exudate Amt Small (1-33%) -Exudate Type Serosanguineous -Wound Margin Distinct, Outline Attached -Granulation Amt Large (67-100%) -Granulation Quality Red -Slough/Fibrin Yes -Necrosis Amt Small (1-33%) -Necrotic Tissue Type Adherent Slough -Structure Exposed Fascia Fat Layer Exposed -Texture (Cristina-wound Skin Appearance) No Abnormality -Moisture (Cristina-wound Skin Appearance No Abnormality ) -Color (Cristina-wound Skin Appearance) Erythema Hemosiderin Staining -Temperature (Cristina-wound Skin No Abnormality Appearance) (Pt Warm) -Tenderness on Palpation (Cristina-wound No Skin Appearance) -Ulcer Cleansing hibiclens -Foul Odor after Cleansing No -Anesthetic Used 4% Lidocaine Solution [Edema Assessment] -Lower Limb Edema Present Yes -Right Calf (cm) 42.5 -Right Ankle (cm) 28.2 -Left Calf (cm) 38.2 -Left Ankle (cm) 28.8 WC - Nurse 2 - General Ulcer CM Notes Start: 03/21/18 14:55 Freq: Status: Active Protocol: Activity Type Activity Date Activity User E-Sign Co-Sign Detail Recorded Client Recorded Date Recorded By Document 03/21/18 15:44 GELACIO [id number] 03/21/18 15:45 GELACIO 03/21/18 15:44 Wound Center Nurse 2 [Procedure/Treatment] 6-RIGHT DEJESUS -Time 15:44 -Correct Patient Yes -Correct Side, Site, Position Yes -Correct Procedure Yes -Procedure Performed Yes -Type of Procedure Debridement -Clinical Debridement Subcutaneous -Post Debridement Size (cm) - Length 1.9 -Post Debridement Size (cm) - Width 1.8 -Post Debridement Size (cm) - Depth 1 -Total Square Cm 3.42 -Wound/Ulcer Outcome Not Healed -Ulcer Cleansing Rinsed/ Irrigated with Saline -Foul Odor after Cleansing No -Bioengineered Tissue No -Topical Lidocaine (%) 4 -Lidocaine (ml) 5 -Bleeding Controlled with NA -Treatment Response Procedure Tolerated Well [See Physician Procedure note for Specifics] Pain Scale: 0-10 Numeric [Pain] -Is Patient Pain Free? Yes Neurological: Cranial nerves II-XII grossly intact, Neuro grossly intact Psych/Mental Status: Normal Affect, Appropriate, Alert and oriented to time, place, person, mood and affect Debridement Note Post-Debridement Measurements/Treatment WC - Nurse 2 - General Ulcer CM Notes Start: 03/21/18 14:55 Freq: Status: Active Protocol: Activity Type Activity Date Activity User E-Sign Co-Sign Detail Recorded Client Recorded Date Recorded By Document 03/21/18 15:44 [email or web address] [id number] 03/21/18 15:45 GELACIO 03/21/18 15:44 Wound Center Nurse 2 6-RIGHT DEJESUS -Time 15:44 -Correct Patient Yes -Correct Side, Site, Position Yes -Correct Procedure Yes -Procedure Performed Yes -Type of Procedure Debridement -Clinical Debridement Subcutaneous -Post Debridement Size (cm) - Length 1.9 -Post Debridement Size (cm) - Width 1.8 -Post Debridement Size (cm) - Depth 1 -Total Square Cm 3.42 -Wound/Ulcer Outcome Not Healed -Ulcer Cleansing Rinsed/ Irrigated with Saline -Foul Odor after Cleansing No -Bioengineered Tissue No -Topical Lidocaine (%) 4 -Lidocaine (ml) 5 -Bleeding Controlled with NA -Treatment Response Procedure Tolerated Well Pain Scale: 0-10 Numeric Is Patient Pain Free? Yes Laterality: Right - Anterior tibial surface Type of Debridement: Excisional debridement Anesthesia Used: 4% Lidocaine Solution Depth: Down to and including healthy tissue, in the subcutaneous layer Percentage of wound debrided: 100 Instrument Used: 5mm curette Severity: Fat Layer Exposed Amount of bleeding with debridement: Mild Bleeding Controlled with: Compression and gauze Patient tolerated procedure well Assessment/Plan Active Problems (Last Reviewed 11/12/17 @ 14:16 by Sinan Lazcano) Type 2 diabetes mellitus (Chronic) Tobacco use disorder (Chronic) Morbid obesity with body mass index of 40.0-49.9 (Chronic) Tobacco abuse counseling (Chronic) Swelling of lower extremity (Chronic) Edema of both legs (Chronic) Lymphedema of leg (Chronic) Edema (Chronic) Assessment: This is a 47-year-old morbidly obese diabetic female with multiple medical problems, which have been listed above. It appears as though a hairline fracture of the right ankle, sustained on November 01, 2017, resulted in a decrease in activity, limited ambulation, and chronic lower extremity dependency. This significant change in the patient's activity and habits resulted in exacerbation of the swelling, edema, and lymphedema in the patient' s lower extremities. There is now a superficial ulceration on the right anterior tibial surface, thought to be due to slippage of her 3M 2 layer compression wrap. The patient has undergone a battery of diagnostic laboratory tests, which have been reviewed. Results are as follows: White blood count 7.7 , hemoglobin 13.7, hematocrit 42.1, platelets 199,000, sodium 140, potassium 4.5 , chloride 108, BUN 19, creatinine 0.92, glucose 199, hemoglobin A1c 8.2, calcium 8.8, total bilirubin 0.30, AST 18, ALT 16, alkaline phosphatase 109, total protein 6.8, albumin 2.7, pre-albumin 15.4. A venous duplex examination has recently been performed, revealing incompetence of the right great saphenous vein and an incompetent tailman vein 17 cm proximal to the right medial malleolus. No superficial venous incompetence is noted in the left lower extremity. A noninvasive lower extremity arterial study is normal, revealing normal arterial perfusion in the lower extremities bilaterally. Plan: The patient has been instructed to elevate her lower extremities as much as possible. We have encouraged the patient to elevate her legs, even during daytime hours. It appears as though she is sleeping in a relatively recumbent position. Activity has been encouraged. Avoidance of prolonged idle sitting has been recommended. Lower extremities are to be elevated to heart level, or higher. Recruitment of the calf and foot muscle pumps has been explained, and can be implemented by means of activity and ambulation. Weight loss has been highly recommended. The patient has been advised to optimize her diabetic control. Dietary counseling will be offered if the patient so wishes. The patient has been advised to continue the use of her mechanical pneumatic compression pumps. We are to continue compression to the lower extremities by means of Unna boots/multilayer compression wraps, which will be changed twice weekly. An Unna boot will be used on the right lower extremity, and a 3M 2 layer compression wrap will be used on the left lower extremity. The patient's Farrow wraps have recently been unusable, too small to fit her lower extremities due to extreme swelling. In addition, the patient's Farrow wraps are several years old, due to be replaced. We are to refer the patient to the [facility] at [facility]. The intention is to instruct in appropriate long-term habits, and to ultimately fit the patient with CircAid Velcro compression garments bilaterally. CircAid garments are awaited. Patient will return in 1 week for reassessment. The patient is a smoker, and smoking cessation has been recommended. She is to collaborate with her primary care physician in this regard. Influenza vaccine was not administered today. Patient stands 5 feet 1 inch tall. She weighs 250 pounds. Her BMI is 47.1. Weight loss has been recommended, and the patient has been advised to collaborate with her primary care physician in terms of weight loss options. Dietary counseling has been offered as an option.
[2018-03-25 14:26] VITALS: BP 148/85; PULSE 81; RESP 18; TEMP 36.1
[2018-03-28 12:13] VITALS: BP 150/78; PULSE 84; RESP 16; TEMP 36.3
--- NOTE | 2018-03-28 12:59 | PCM.WC.HP ---
(1) Hyperlipidemia Status: Chronic Current Visit: No Qualifiers: Hyperlipidemia type: unspecified Qualified Code(s): E78.5 - Hyperlipidemia, unspecified Code(s): E78.5 - Hyperlipidemia, unspecified (2) Hypertension Status: Chronic Current Visit: No Qualifiers: Hypertension type: essential hypertension Qualified Code(s): I10 - Essential (primary) hypertension Code(s): I10 - Essential (primary) hypertension (3) Type 2 diabetes mellitus Status: Chronic Current Visit: Yes Code(s): E11.9 - Type 2 diabetes mellitus without complications (4) Tobacco use disorder Status: Chronic Current Visit: Yes Code(s): F17.200 - Nicotine dependence, unspecified, uncomplicated (5) Multiple personality disorder Status: Chronic Current Visit: No Code(s): F44.81 - Dissociative identity disorder (6) Morbid obesity with body mass index of 40.0-49.9 Status: Chronic Current Visit: Yes Code(s): E66.01 - Morbid (severe) obesity due to excess calories (7) Chronic back pain Status: Chronic Current Visit: No Code(s): M54.9 - Dorsalgia, unspecified; G89.29 - Other chronic pain (8) Tobacco abuse counseling Status: Chronic Current Visit: Yes Code(s): Z71.6 - Tobacco abuse counseling (9) Swelling of lower extremity Status: Chronic Current Visit: Yes Code(s): M79.89 - Other specified soft tissue disorders (10) Edema of both legs Status: Chronic Current Visit: Yes Code(s): R60.0 - Localized edema (11) Lymphedema of leg Status: Chronic Current Visit: Yes Qualifiers: Laterality: bilateral Code(s): I89.0 - Lymphedema, not elsewhere classified (12) GERD (gastroesophageal reflux disease) Status: Chronic Current Visit: No Code(s): K21.9 - Gastro-esophageal reflux disease without esophagitis (13) Multiple sclerosis Status: Chronic Current Visit: No Code(s): G35 - Multiple sclerosis (14) CKD (chronic kidney disease) stage 4, GFR 15-29 ml/min Status: Chronic Current Visit: No Code(s): N18.4 - Chronic kidney disease, stage 4 (severe) (15) PAD (peripheral artery disease) Status: Chronic Current Visit: No Code(s): I73.9 - Peripheral vascular disease, unspecified (16) History of CVA (cerebrovascular accident) Status: Chronic Current Visit: No Code(s): Z86.73 - Personal history of transient ischemic attack (TIA), and cerebral infarction without residual deficits (17) History of DVT (deep vein thrombosis) Status: Chronic Current Visit: No Code(s): Z86.718 - Personal history of other venous thrombosis and embolism (18) Psoriasis Status: Chronic Current Visit: No Code(s): L40.9 - Psoriasis, unspecified (19) CHF (congestive heart failure) Status: Chronic Current Visit: No Code(s): I50.9 - Heart failure, unspecified (20) Edema Status: Chronic Current Visit: Yes Qualifiers: Edema type: unspecified Qualified Code(s): R60.9 - Edema, unspecified Code(s): R60.9 - Edema, unspecified (21) Hypothyroidism Status: Chronic Current Visit: No Code(s): E03.9 - Hypothyroidism, unspecified (22) Essential (primary) hypertension Status: Chronic Current Visit: No Code(s): I10 - Essential (primary) hypertension (23) 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 Mayo, for evaluation and management regarding bilateral lower extremity swelling, edema, and lymphedema. This has been a problem for the patient in the past, and is chronic in nature. However, it appears to have been exacerbated recently by a traumatic hairline fracture of the right ankle which occurred on November 01, 2017. As a result, the patient was immobile for a period of time, relatively inactive, spending her days in an idle sitting position. As a result of her inactivity and chronic dependency, she has noted swelling, edema, and lymphedema in her lower extremities to be much more severe than usual, prompting her to seek medical attention. The patient claims to sleep in a relatively flat position at night. She has a history of bilateral lower extremity deep vein thrombosis, for which she has been previously treated with systemic anticoagulation therapy. She is not currently taking anticoagulation. The patient has multiple medical problems, which include diabetes mellitus, morbid obesity, hypertension, coronary artery disease, chronic kidney disease, peripheral arterial occlusive disease, and tobacco abuse. The patient has Farrow wraps for her lower extremities, which she had not been using. The wraps are not large enough to accommodate the severe swelling which currently exists in her lower extremities. She also has pneumatic mechanical compression pumps for her lower extremities, which she had not been using recently. These measures have been previously implemented in treatment for the patient's chronic lower extremity swelling and edema. In recent weeks, the patient has demonstrated increasing compliance with recommended measures. She has been elevating her lower extremities more frequently. She has been using her mechanical compression pumps. As result, there was a significant decrease in the swelling, edema, and lymphedema in her lower extremities bilaterally. Several weeks ago, due to slippage of the 2 layer wraps, the patient developed a superficial ulceration on the right anterior tibial surface. Since her last visit 1 week ago, the patient has now developed an ulceration on the right lower buttock. This occurred due to prolonged sitting. The patient was at a buddhist conference for several days, sitting long hours each day while attending lectures and presentations. Past Medical History Past Medical History: Chronic Problems (Last Reviewed 03/24/18 @ 15:20 by Gilda Zhang) Hyperlipidemia (Chronic) Hypertension (Chronic) Type 2 diabetes mellitus (Chronic) Tobacco use disorder (Chronic) Multiple personality disorder (Chronic) Morbid obesity with body mass index of 40.0-49.9 (Chronic) Chronic back pain (Chronic) Tobacco abuse counseling (Chronic) Swelling of lower extremity (Chronic) Edema of both legs (Chronic) Lymphedema of leg (Chronic) GERD (gastroesophageal reflux disease) (Chronic) Multiple sclerosis (Chronic) CKD (chronic kidney disease) stage 4, GFR 15-29 ml/min (Chronic) PAD (peripheral artery disease) (Chronic) History of CVA (cerebrovascular accident) (Chronic) History of DVT (deep vein thrombosis) (Chronic) Psoriasis (Chronic) CHF (congestive heart failure) (Chronic) Edema (Chronic) Hypothyroidism (Chronic) Essential (primary) hypertension (Chronic) 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 The patient is a Ab0. Her only two live births succumbed shortly following . Allergies/Adverse Reactions: Allergies latex Allergy (Verified 03/24/18 15:10) Rash Penicillins Allergy (Verified 03/24/18 15:10) Unknown venom-honey bee [bee venom (honey bee)] Allergy (Verified 03/24/18 15:10) Unknown Home Medications: Ambulatory Orders Medication Instructions Recorded Celecoxib [Celebrex] 200 mg PO BID 07/03/14 Oxycodone HCl/Acetaminophen 1 ea PO Q4H PRN PRN 07/03/14 [Oxycodone-Acetaminophen 10-325] Tizanidine HCl [Zanaflex] 4 mg PO Q8H 07/03/14 Glimepiride [Amaryl] 4 mg PO BID 11/15/14 ALPRAZolam [Xanax] 0.25 mg PO BID 05/20/17 Albuterol Aerosols [Ventolin 2.5 mg INHALATION Q4H PRN #25 vial 06/18/17 Aerosols] Doxycycline [Vibramycin] 100 mg PO BID #20 cap 06/18/17 Benzonatate [Tessalon Perle] 100 mg PO Q4H PRN PRN #20 cap 06/19/17 amitriptyline 50 mg tablet 100 mg PO QHS tab 08/23/17 aspirin 81 mg tablet,delayed 81 mg PO QDAY 08/23/17 release thyroid (pork) 60 mg tablet 120 mg PO DAILY tab 08/23/17 Gabapentin [Neurontin] 1,200 mg PO TIDCM 01/01/18 Insulin Detemir [Levemir] 64 unit SQ QHS 01/01/18 Insulin Regular, Human [Novolin R] 100 unit SQ BID 01/01/18 Liraglutide [Victoza] 0.12 mg SQ DAILY 01/01/18 proCHLORPERazine suppository 50 mg RECTAL DAILY PRN PRN 01/01/18 [Compazine suppository] diltiazem CD 240 mg 240 mg PO DAILY #90 cap 03/24/18 capsule,extended release 24 hr isosorbide mononitrate ER 60 mg 60 mg PO DAILY #90 tab 03/24/18 tablet,extended release 24 hr nitroglycerin 0.4 mg sublingual 0.4 mg SUBLINGUAL Q5-15M PRN 03/24/18 tablet - Family History Maternal Family History: Family History (Last Reviewed 03/24/18 @ 15:20 by Gilda Zhang) Mother CAD (coronary artery disease) Diabetes, Heart Disease, No pertinent history, - - Hypothyroid Paternal Family History: Family History (Last Reviewed 03/24/18 @ 15:20 by Gilda Zhang) Mother CAD (coronary artery disease) Cancer, - - The patient's mother had a history of emphysema, COPD, coronary artery disease, diabetes mellitus, dementia, and Parkinson's disease. Patient's mother at age of 67. Smoking Status: Current some day smoker Tobacco Use: Cigarettes Review of Systems Constitutional: Denies: Chills, Fever, Weight Change Eyes: Denies: Pain, Vision Change HEENT: Denies: Difficulty Hearing, Difficulty Swallowing, Sinus Congestion Cardiovascular: Denies: Chest Pain, Palpitations Respiratory: Denies: Cough, Shortness of Breath Gastrointestinal: Denies: Diarrhea, Nausea, Vomiting Genitourinary: Denies: Dysuria, Hematuria Endocrine: Denies: Heat/ Cold Intolerance, Polydipsia, Polyuria Hematologic/ Lymphatic: Denies: Easy Bruising, Easy Bleeding - Physical Exam Vital Signs Temp Pulse Resp BP 97.3 F L 84 16 150/78 H 03/28/18 12:13 03/28/18 12:13 03/28/18 12:13 03/28/18 12:13 General: Alert, Oriented x3, Cooperative, No apparent distress, Well developed, Well nourished, - - The patient is morbidly obese. HEENT: Atraumatic, PERRLA, EOMI, Normocephalic Oral: Moist Mucosa Neck: No JVD Lungs: Normal air movement Abdomen: Non-Distended, Obese Extremities: No clubbing, No cyanosis, No Calf Tenderness, - - Bilateral lower extremity swelling and edema is noted. There is an ulceration noted on the right anterior tibial surface. It is superficial in nature. The base of the ulceration is generally pink and healthy in appearance, with only a small to moderate amount of bioburden. There is no sign of infection or cellulitis. Dimensions are documented elsewhere. Skin: - - There is an ulceration on the right lower buttock, dimensions documented elsewhere. There is a moderate amount of bioburden and nonviable tissue. There is no sign of infection or cellulitis. This appears to represent a stage II pressure ulceration. Wound Measurements and Assessment WC - Nurse 1 - General Ulcer Measurement Start: 03/21/18 14:55 Freq: Status: Active Protocol: Activity Type Activity Date Activity User E-Sign Co-Sign Detail Recorded Client Recorded Date Recorded By Document 03/25/18 14:26 [facility] [id number] 03/25/18 14:27 BM Document 03/28/18 12:13 [facility] [id number] 03/28/18 12:31 BMF 03/25/18 03/28/18 14:26 12:13 [Ulcer Assessment] #7- RT GLUTEAL FOLD -Combined with other wound No -Current Size (cm) - Length 0.5 -Current Size (cm) - Width 1 -Current Size (cm) - Depth 0.2 -Total Square Cm 0.5 -Date of Last Picture (Recall this 03/28/18 field) -Photo Taken Yes -Epithelialization None Present -Tunneling No -Undermining/Tunneling No -Circular Undermining No -Exudate Amt None Present (0 %) -Wound Margin Distinct, Outline Attached -Granulation Amt Small (1-33%) -Granulation Quality Red -Slough/Fibrin Yes -Necrosis Amt Large (67-100%) -Necrotic Tissue Type Adherent Slough -Texture (Cristina-wound Skin Appearance) Scarring -Moisture (Cristina-wound Skin Appearance Dry/Scaly ) -Color (Cristina-wound Skin Appearance) Erythema -Temperature (Cristina-wound Skin No Abnormality Appearance) (Pt Warm) -Tenderness on Palpation (Cristina-wound No Skin Appearance) -Ulcer Cleansing Rinsed/ Irrigated with Saline -Foul Odor after Cleansing No -Anesthetic Used 4% Lidocaine Solution 6-RIGHT DEJESUS -Combined with other wound No -Current Size (cm) - Length 1.2 -Current Size (cm) - Width 1.4 -Current Size (cm) - Depth 0.1 -Total Square Cm 1.68 -Photo Taken No -Epithelialization Small 1-33% -Tunneling No -Undermining/Tunneling No -Circular Undermining No -Exudate Amt Small (1-33%) -Exudate Type Serosanguineous -Wound Margin Distinct, Outline Attached -Granulation Amt Large (67-100%) -Granulation Quality Red -Slough/Fibrin Yes -Necrosis Amt Small (1-33%) -Structure Exposed None/Limited to Skin Breakdown -Texture (Cristina-wound Skin Appearance) Scarring -Moisture (Cristina-wound Skin Appearance Dry/Scaly ) -Color (Cristina-wound Skin Appearance) Assessed -Temperature (Cristina-wound Skin No Abnormality Appearance) (Pt Warm) -Tenderness on Palpation (Cristina-wound No Skin Appearance) -Ulcer Cleansing Wound Cleanser -Foul Odor after Cleansing No -Anesthetic Used 5% Lidocaine Gel Wound Center Nurse 1 [Edema Assessment] -Lower Limb Edema Present Yes Yes -Right Calf (cm) 41 41.6 -Right Ankle (cm) 25.5 25.5 -Left Calf (cm) 38.5 39.2 -Left Ankle (cm) 25.5 24.4 WC - Nurse 2 - General Ulcer CM Notes Start: 03/21/18 14:55 Freq: Status: Active Protocol: Activity Type Activity Date Activity User E-Sign Co-Sign Detail Recorded Client Recorded Date Recorded By Document 03/28/18 12:49 GELACIO [id number] 03/28/18 12:54 GELACIO 03/28/18 12:49 Wound Center Nurse 2 [Procedure/Treatment] #7- RT GLUTEAL FOLD -Time 12:50 -Correct Patient Yes -Correct Side, Site, Position Yes -Correct Procedure Yes -Procedure Performed Yes -Type of Procedure Debridement -Clinical Debridement Subcutaneous -Post Debridement Size (cm) - Length 0.8 -Post Debridement Size (cm) - Width 1.0 -Post Debridement Size (cm) - Depth 0.2 -Total Square Cm 0.80 -Wound/Ulcer Outcome Not Healed -Ulcer Cleansing Rinsed/ Irrigated with Saline -Foul Odor after Cleansing No -Bioengineered Tissue No -Bleeding Controlled with NA -Treatment Response Procedure Tolerated Well 6-RIGHT DEJESUS -Time 12:51 -Correct Patient Yes -Correct Side, Site, Position Yes -Correct Procedure Yes -Procedure Performed Yes -Type of Procedure Debridement -Clinical Debridement Subcutaneous -Post Debridement Size (cm) - Length 1.2 -Post Debridement Size (cm) - Width 1.4 -Post Debridement Size (cm) - Depth 0.2 -Total Square Cm 1.68 -Wound/Ulcer Outcome Not Healed -Ulcer Cleansing Rinsed/ Irrigated with Saline -Foul Odor after Cleansing No -Bioengineered Tissue No -Bleeding Controlled with NA -Treatment Response Procedure Tolerated Well [See Physician Procedure note for Specifics] Pain Scale: 0-10 Numeric [Pain] -Is Patient Pain Free? Yes Neurological: Cranial nerves II-XII grossly intact, Neuro grossly intact Psych/Mental Status: Normal Affect, Appropriate, Alert and oriented to time, place, person, mood and affect Debridement Note Post-Debridement Measurements/Treatment WC - Nurse 2 - General Ulcer CM Notes Start: 03/21/18 14:55 Freq: Status: Active Protocol: Activity Type Activity Date Activity User E-Sign Co-Sign Detail Recorded Client Recorded Date Recorded By Document 03/21/18 15:44 [id number] 03/21/18 15:45 JS Document 03/28/18 12:49 [id number] 03/28/18 12:54 JS 03/21/18 03/28/18 15:44 12:49 Wound Center Nurse 2 #7- RT GLUTEAL FOLD -Time 12:50 -Correct Patient Yes -Correct Side, Site, Position Yes -Correct Procedure Yes -Procedure Performed Yes -Type of Procedure Debridement -Clinical Debridement Subcutaneous -Post Debridement Size (cm) - Length 0.8 -Post Debridement Size (cm) - Width 1.0 -Post Debridement Size (cm) - Depth 0.2 -Total Square Cm 0.80 -Wound/Ulcer Outcome Not Healed -Ulcer Cleansing Rinsed/ Irrigated with Saline -Foul Odor after Cleansing No -Bioengineered Tissue No -Bleeding Controlled with NA -Treatment Response Procedure Tolerated Well 6-RIGHT DEJESUS -Time 15:44 12:51 -Correct Patient Yes Yes -Correct Side, Site, Position Yes Yes -Correct Procedure Yes Yes -Procedure Performed Yes Yes -Type of Procedure Debridement Debridement -Clinical Debridement Subcutaneous Subcutaneous -Post Debridement Size (cm) - Length 1.9 1.2 -Post Debridement Size (cm) - Width 1.8 1.4 -Post Debridement Size (cm) - Depth 1 0.2 -Total Square Cm 3.42 1.68 -Wound/Ulcer Outcome Not Healed Not Healed -Ulcer Cleansing Rinsed/ Rinsed/ Irrigated with Irrigated with Saline Saline -Foul Odor after Cleansing No No -Bioengineered Tissue No No -Topical Lidocaine (%) 4 -Lidocaine (ml) 5 -Bleeding Controlled with NA NA -Treatment Response Procedure Procedure Tolerated Well Tolerated Well Pain Scale: 0-10 Numeric Is Patient Pain Free? Yes Yes Laterality: Right - Anterior tibial surface Type of Debridement: Excisional debridement Anesthesia Used: 4% Lidocaine Solution Depth: Down to and including healthy tissue, in the subcutaneous layer Percentage of wound debrided: 100 Instrument Used: 5mm curette Severity: Fat Layer Exposed Amount of bleeding with debridement: Mild Bleeding Controlled with: Compression and gauze Patient tolerated procedure well - Additional Wound Laterality: Right - Lower buttock Type of Debridement: Excisional debridement Anesthesia Used: 4% Lidocaine Solution Depth: Down to and including healthy tissue, in the subcutaneous layer Percentage of wound debrided: 100 Instrument Used: 5mm curette Severity: Fat Layer Exposed Amount of bleeding with debridement: Mild Bleeding Controlled with: Compression and gauze Patient tolerated procedure: Patient tolerated procedure well Assessment/Plan Active Problems (Last Reviewed 03/24/18 @ 15:20 by Gilda Zhang) Pressure ulcer of right buttock, stage 2 (Acute) Type 2 diabetes mellitus (Chronic) Tobacco use disorder (Chronic) Morbid obesity with body mass index of 40.0-49.9 (Chronic) Tobacco abuse counseling (Chronic) Swelling of lower extremity (Chronic) Edema of both legs (Chronic) Lymphedema of leg (Chronic) Edema (Chronic) Assessment: This is a 47-year-old morbidly obese diabetic female with multiple medical problems, which have been listed above. It appears as though a hairline fracture of the right ankle, sustained on November 01, 2017, resulted in a decrease in activity, limited ambulation, and chronic lower extremity dependency. This significant change in the patient's activity and habits resulted in exacerbation of the swelling, edema, and lymphedema in the patient's lower extremities. There is now a superficial ulceration on the right anterior tibial surface, thought to be due to slippage of her 3M 2 layer compression wrap. The patient has undergone a battery of diagnostic laboratory tests, which have been reviewed. Results are as follows: White blood count 7.7, hemoglobin 13.7, hematocrit 42.1, platelets 199,000, sodium 140, potassium 4.5, chloride 108, BUN 19, creatinine 0.92, glucose 199, hemoglobin A1c 8.2, calcium 8.8, total bilirubin 0.30, AST 18, ALT 16, alkaline phosphatase 109, total protein 6.8, albumin 2.7, pre-albumin 15.4. 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 No superficial venous incompetence is noted in the left lower extremity. A noninvasive lower extremity arterial study is normal, revealing normal arterial perfusion in the lower extremities bilaterally. Finally, as result of prolonged sitting in a buddhist conference recently, the patient has developed a pressure ulceration on her right lower buttock, stage II. Plan: The patient has been instructed to elevate her lower extremities as much as possible. We have encouraged the patient to elevate her legs, even during daytime hours. It appears as though she is sleeping in a relatively recumbent position. Activity has been encouraged. Avoidance of prolonged idle sitting has been recommended. Lower extremities are to be elevated to heart level, or higher. Recruitment of the calf and foot muscle pumps has been explained, and can be implemented by means of activity and ambulation. Weight loss has been highly recommended. The patient has been advised to optimize her diabetic control. Dietary counseling will be offered if the patient so wishes. The patient has been advised to continue the use of her mechanical pneumatic compression pumps. We are to continue compression to the lower extremities by means of Unna boots/multilayer compression wraps, which will be changed twice weekly. An Unna boot will be used on the right lower extremity, and a 3M 2 layer compression wrap will be used on the left lower extremity. The patient's Farrow wraps have recently been unusable, too small to fit her lower extremities due to extreme swelling. In addition, the patient's Farrow wraps are several years old, due to be replaced. We are to refer the patient to the [facility] at [facility]. The intention is to instruct in appropriate long-term habits, and to ultimately fit the patient with CircAid Velcro compression garments bilaterally. CircAid garments are awaited. Patient will return in 1 week for reassessment. With respect to the pressure ulceration on the patient's right lower buttock, offloading measures are to be implemented, and the use of Sarah which will be changed every other day. The patient is a smoker, and smoking cessation has been recommended. She is to collaborate with her primary care physician in this regard. Influenza vaccine was not administered today. Patient stands 5 feet 1 inch tall. She weighs 250 pounds. Her BMI is 47.1. Weight loss has been recommended, and the patient has been advised to collaborate with her primary care physician in terms of weight loss options. Dietary counseling has been offered as an option.
--- NOTE | 2018-03-28 13:10 | HP.PCM_ITS ---
(1) Hyperlipidemia Status: Chronic Current Visit: No Qualifiers: Hyperlipidemia type: unspecified Qualified Code(s): E78.5 - Hyperlipidemia , unspecified Code(s): E78.5 - Hyperlipidemia, unspecified (2) Hypertension Status: Chronic Current Visit: No Qualifiers: Hypertension type: essential hypertension Qualified Code(s): I10 - Essential (primary) hypertension Code(s): I10 - Essential (primary) hypertension (3) Type 2 diabetes mellitus Status: Chronic Current Visit: Yes Code(s): E11.9 - Type 2 diabetes mellitus without complications (4) Tobacco use disorder Status: Chronic Current Visit: Yes Code(s): F17.200 - Nicotine dependence, unspecified, uncomplicated (5) Multiple personality disorder Status: Chronic Current Visit: No Code(s): F44.81 - Dissociative identity disorder (6) Morbid obesity with body mass index of 40.0-49.9 Status: Chronic Current Visit: Yes Code(s): E66.01 - Morbid (severe) obesity due to excess calories (7) Chronic back pain Status: Chronic Current Visit: No Code(s): M54.9 - Dorsalgia, unspecified; G89.29 - Other chronic pain (8) Tobacco abuse counseling Status: Chronic Current Visit: Yes Code(s): Z71.6 - Tobacco abuse counseling (9) Swelling of lower extremity Status: Chronic Current Visit: Yes Code(s): M79.89 - Other specified soft tissue disorders (10) Edema of both legs Status: Chronic Current Visit: Yes Code(s): R60.0 - Localized edema (11) Lymphedema of leg Status: Chronic Current Visit: Yes Qualifiers: Laterality: bilateral Code(s): I89.0 - Lymphedema, not elsewhere classified (12) GERD (gastroesophageal reflux disease) Status: Chronic Current Visit: No Code(s): K21.9 - Gastro-esophageal reflux disease without esophagitis (13) Multiple sclerosis Status: Chronic Current Visit: No Code(s): G35 - Multiple sclerosis (14) CKD (chronic kidney disease) stage 4, GFR 15-29 ml/min Status: Chronic Current Visit: No Code(s): N18.4 - Chronic kidney disease, stage 4 (severe) (15) PAD (peripheral artery disease) Status: Chronic Current Visit: No Code(s): I73.9 - Peripheral vascular disease, unspecified (16) History of CVA (cerebrovascular accident) Status: Chronic Current Visit: No Code(s): Z86.73 - Personal history of transient ischemic attack (TIA), and cerebral infarction without residual deficits (17) History of DVT (deep vein thrombosis) Status: Chronic Current Visit: No Code(s): Z86.718 - Personal history of other venous thrombosis and embolism (18) Psoriasis Status: Chronic Current Visit: No Code(s): L40.9 - Psoriasis, unspecified (19) CHF (congestive heart failure) Status: Chronic Current Visit: No Code(s): I50.9 - Heart failure, unspecified (20) Edema Status: Chronic Current Visit: Yes Qualifiers: Edema type: unspecified Qualified Code(s): R60.9 - Edema, unspecified Code(s): R60.9 - Edema, unspecified (21) Hypothyroidism Status: Chronic Current Visit: No Code(s): E03.9 - Hypothyroidism, unspecified (22) Essential (primary) hypertension Status: Chronic Current Visit: No Code(s): I10 - Essential (primary) hypertension (23) Atherosclerotic heart disease of teller coronary artery without angina pectoris Status: Chronic Current Visit: No Code(s): I25.10 - Atherosclerotic heart disease of teller coronary artery without angina pectoris (24) Pressure ulcer of right buttock, stage 2 Status: Acute Current Visit: Yes Code(s): L89.312 - Pressure ulcer of right buttock, stage 2 History of Present Illness Date of Service: 03/28/18 Chief Complaint: Bilateral lower extremity swelling, edema, and lymphedema. 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 This has been a problem for the patient in the past, and is chronic in nature. However, it appears to have been exacerbated recently by a traumatic hairline fracture of the right ankle which occurred on November 01, 2017. As a result, the patient was immobile for a period of time, relatively inactive, spending her days in an idle sitting position. As a result of her inactivity and chronic dependency, she has noted swelling, edema, and lymphedema in her lower extremities to be much more severe than usual, prompting her to seek medical attention. The patient claims to sleep in a relatively flat position at night. She has a history of bilateral lower extremity deep vein thrombosis, for which she has been previously treated with systemic anticoagulation therapy. She is not currently taking anticoagulation. The patient has multiple medical problems, which include diabetes mellitus, morbid obesity, hypertension, coronary artery disease, chronic kidney disease, peripheral arterial occlusive disease, and tobacco abuse. The patient has Farrow wraps for her lower extremities, which she had not been using. The wraps are not large enough to accommodate the severe swelling which currently exists in her lower extremities. She also has pneumatic mechanical compression pumps for her lower extremities, which she had not been using recently. These measures have been previously implemented in treatment for the patient's chronic lower extremity swelling and edema. In recent weeks, the patient has demonstrated increasing compliance with recommended measures. She has been elevating her lower extremities more frequently. She has been using her mechanical compression pumps. As result, there was a significant decrease in the swelling , edema, and lymphedema in her lower extremities bilaterally. Several weeks ago , due to slippage of the 2 layer wraps, the patient developed a superficial ulceration on the right anterior tibial surface. Since her last visit 1 week ago, the patient has now developed an ulceration on the right lower buttock. This occurred due to prolonged sitting. The patient was at a mormonism conference for several days, sitting long hours each day while attending lectures and presentations. Past Medical History Past Medical History: Chronic Problems (Last Reviewed 03/24/18 @ 15:20 by Gilda Zhang) Hyperlipidemia (Chronic) Hypertension (Chronic) Type 2 diabetes mellitus (Chronic) Tobacco use disorder (Chronic) Multiple personality disorder (Chronic) Morbid obesity with body mass index of 40.0-49.9 (Chronic) Chronic back pain (Chronic) Tobacco abuse counseling (Chronic) Swelling of lower extremity (Chronic) Edema of both legs (Chronic) Lymphedema of leg (Chronic) GERD (gastroesophageal reflux disease) (Chronic) Multiple sclerosis (Chronic) CKD (chronic kidney disease) stage 4, GFR 15-29 ml/min (Chronic) PAD (peripheral artery disease) (Chronic) History of CVA (cerebrovascular accident) (Chronic) History of DVT (deep vein thrombosis) (Chronic) Psoriasis (Chronic) CHF (congestive heart failure) (Chronic) Edema (Chronic) Hypothyroidism (Chronic) Essential (primary) hypertension (Chronic) Atherosclerotic heart disease of teller coronary artery without angina pectoris (Chronic) Surgical History: appendectomy, cholecystectomy, - - The patient has a history of appendectomy, cholecystectomy, bilateral lower extremity vein stripping, partial hysterectomy, tonsillectomy, lumbar surgery ?4, and bilateral carpal tunnel release. The patient is a Ab0. Her only two live births succumbed shortly following . Allergies/Adverse Reactions: Allergies latex Allergy (Verified 03/24/18 15:10) Rash Penicillins Allergy (Verified 03/24/18 15:10) Unknown venom-honey bee [bee venom (honey bee)] Allergy (Verified 03/24/18 15:10) Unknown Home Medications: Ambulatory Orders Medication Instructions Recorded Celecoxib [Celebrex] 200 mg PO BID 07/03/14 Oxycodone HCl/Acetaminophen 1 ea PO Q4H PRN PRN 07/03/14 [Oxycodone-Acetaminophen 10-325] Tizanidine HCl [Zanaflex] 4 mg PO Q8H 07/03/14 Glimepiride [Amaryl] 4 mg PO BID 11/15/14 ALPRAZolam [Xanax] 0.25 mg PO BID 05/20/17 Albuterol Aerosols [Ventolin 2.5 mg INHALATION Q4H PRN #25 vial 06/18/17 Aerosols] Doxycycline [Vibramycin] 100 mg PO BID #20 cap 06/18/17 Benzonatate [Tessalon Perle] 100 mg PO Q4H PRN PRN #20 cap 06/19/17 amitriptyline 50 mg tablet 100 mg PO QHS tab 08/23/17 aspirin 81 mg tablet,delayed 81 mg PO QDAY 08/23/17 release thyroid (pork) 60 mg tablet 120 mg PO DAILY tab 08/23/17 Gabapentin [Neurontin] 1,200 mg PO TIDCM 01/01/18 Insulin Detemir [Levemir] 64 unit SQ QHS 01/01/18 Insulin Regular, Human [Novolin R] 100 unit SQ BID 01/01/18 Liraglutide [Victoza] 0.12 mg SQ DAILY 01/01/18 proCHLORPERazine suppository 50 mg RECTAL DAILY PRN PRN 01/01/18 [Compazine suppository] diltiazem CD 240 mg 240 mg PO DAILY #90 cap 03/24/18 capsule,extended release 24 hr isosorbide mononitrate ER 60 mg 60 mg PO DAILY #90 tab 03/24/18 tablet,extended release 24 hr nitroglycerin 0.4 mg sublingual 0.4 mg SUBLINGUAL Q5-15M PRN 03/24/18 tablet - Family History Maternal Family History: Family History (Last Reviewed 03/24/18 @ 15:20 by Gilda Zhang) Mother CAD (coronary artery disease) Diabetes, Heart Disease, No pertinent history, - - Hypothyroid Paternal Family History: Family History (Last Reviewed 03/24/18 @ 15:20 by Gilda Zhang) Mother CAD (coronary artery disease) Cancer, - - The patient's mother had a history of emphysema, COPD, coronary artery disease, diabetes mellitus, dementia, and Parkinson's disease. Patient' s mother at age of 67. Smoking Status: Current some day smoker Tobacco Use: Cigarettes Review of Systems Constitutional: Denies: Chills, Fever, Weight Change Eyes: Denies: Pain, Vision Change HEENT: Denies: Difficulty Hearing, Difficulty Swallowing, Sinus Congestion Cardiovascular: Denies: Chest Pain, Palpitations Respiratory: Denies: Cough, Shortness of Breath Gastrointestinal: Denies: Diarrhea, Nausea, Vomiting Genitourinary: Denies: Dysuria, Hematuria Endocrine: Denies: Heat/ Cold Intolerance, Polydipsia, Polyuria Hematologic/ Lymphatic: Denies: Easy Bruising, Easy Bleeding - Physical Exam Vital Signs Temp Pulse Resp BP 97.3 F L 84 16 150/78 H 03/28/18 12:13 03/28/18 12:13 03/28/18 12:13 03/28/18 12:13 General: Alert, Oriented x3, Cooperative, No apparent distress, Well developed, Well nourished, - - The patient is morbidly obese. HEENT: Atraumatic, PERRLA, EOMI, Normocephalic Oral: Moist Mucosa Neck: No JVD Lungs: Normal air movement Abdomen: Non-Distended, Obese Extremities: No clubbing, No cyanosis, No Calf Tenderness, - - Bilateral lower extremity swelling and edema is noted. There is an ulceration noted on the right anterior tibial surface. It is superficial in nature. The base of the ulceration is generally pink and healthy in appearance, with only a small to moderate amount of bioburden. There is no sign of infection or cellulitis. Dimensions are documented elsewhere. Skin: - - There is an ulceration on the right lower buttock, dimensions documented elsewhere. There is a moderate amount of bioburden and nonviable tissue. There is no sign of infection or cellulitis. This appears to represent a stage II pressure ulceration. Wound Measurements and Assessment WC - Nurse 1 - General Ulcer Measurement Start: 03/21/18 14:55 Freq: Status: Active Protocol: Activity Type Activity Date Activity User E-Sign Co-Sign Detail Recorded Client Recorded Date Recorded By Document 03/25/18 14:26 [facility] [id number] 03/25/18 14:27 BM Document 03/28/18 12:13 [facility] [id number] 03/28/18 12:31 BMF 03/25/18 03/28/18 14:26 12:13 [Ulcer Assessment] #7- RT GLUTEAL FOLD -Combined with other wound No -Current Size (cm) - Length 0.5 -Current Size (cm) - Width 1 -Current Size (cm) - Depth 0.2 -Total Square Cm 0.5 -Date of Last Picture (Recall this 03/28/18 field) -Photo Taken Yes -Epithelialization None Present -Tunneling No -Undermining/Tunneling No -Circular Undermining No -Exudate Amt None Present (0 %) -Wound Margin Distinct, Outline Attached -Granulation Amt Small (1-33%) -Granulation Quality Red -Slough/Fibrin Yes -Necrosis Amt Large (67-100%) -Necrotic Tissue Type Adherent Slough -Texture (Cristina-wound Skin Appearance) Scarring -Moisture (Cristina-wound Skin Appearance Dry/Scaly ) -Color (Cristina-wound Skin Appearance) Erythema -Temperature (Cristina-wound Skin No Abnormality Appearance) (Pt Warm) -Tenderness on Palpation (Cristina-wound No Skin Appearance) -Ulcer Cleansing Rinsed/ Irrigated with Saline -Foul Odor after Cleansing No -Anesthetic Used 4% Lidocaine Solution 6-RIGHT DEJESUS -Combined with other wound No -Current Size (cm) - Length 1.2 -Current Size (cm) - Width 1.4 -Current Size (cm) - Depth 0.1 -Total Square Cm 1.68 -Photo Taken No -Epithelialization Small 1-33% -Tunneling No -Undermining/Tunneling No -Circular Undermining No -Exudate Amt Small (1-33%) -Exudate Type Serosanguineous -Wound Margin Distinct, Outline Attached -Granulation Amt Large (67-100%) -Granulation Quality Red -Slough/Fibrin Yes -Necrosis Amt Small (1-33%) -Structure Exposed None/Limited to Skin Breakdown -Texture (Cristina-wound Skin Appearance) Scarring -Moisture (Cristina-wound Skin Appearance Dry/Scaly ) -Color (Cristina-wound Skin Appearance) Assessed -Temperature (Cristina-wound Skin No Abnormality Appearance) (Pt Warm) -Tenderness on Palpation (Cristina-wound No Skin Appearance) -Ulcer Cleansing Wound Cleanser -Foul Odor after Cleansing No -Anesthetic Used 5% Lidocaine Gel Wound Center Nurse 1 [Edema Assessment] -Lower Limb Edema Present Yes Yes -Right Calf (cm) 41 41.6 -Right Ankle (cm) 25.5 25.5 -Left Calf (cm) 38.5 39.2 -Left Ankle (cm) 25.5 24.4 WC - Nurse 2 - General Ulcer CM Notes Start: 03/21/18 14:55 Freq: Status: Active Protocol: Activity Type Activity Date Activity User E-Sign Co-Sign Detail Recorded Client Recorded Date Recorded By Document 03/28/18 12:49 GELACIO [id number] 03/28/18 12:54 GELACIO 03/28/18 12:49 Wound Center Nurse 2 [Procedure/Treatment] #7- RT GLUTEAL FOLD -Time 12:50 -Correct Patient Yes -Correct Side, Site, Position Yes -Correct Procedure Yes -Procedure Performed Yes -Type of Procedure Debridement -Clinical Debridement Subcutaneous -Post Debridement Size (cm) - Length 0.8 -Post Debridement Size (cm) - Width 1.0 -Post Debridement Size (cm) - Depth 0.2 -Total Square Cm 0.80 -Wound/Ulcer Outcome Not Healed -Ulcer Cleansing Rinsed/ Irrigated with Saline -Foul Odor after Cleansing No -Bioengineered Tissue No -Bleeding Controlled with NA -Treatment Response Procedure Tolerated Well 6-RIGHT DEJESUS -Time 12:51 -Correct Patient Yes -Correct Side, Site, Position Yes -Correct Procedure Yes -Procedure Performed Yes -Type of Procedure Debridement -Clinical Debridement Subcutaneous -Post Debridement Size (cm) - Length 1.2 -Post Debridement Size (cm) - Width 1.4 -Post Debridement Size (cm) - Depth 0.2 -Total Square Cm 1.68 -Wound/Ulcer Outcome Not Healed -Ulcer Cleansing Rinsed/ Irrigated with Saline -Foul Odor after Cleansing No -Bioengineered Tissue No -Bleeding Controlled with NA -Treatment Response Procedure Tolerated Well [See Physician Procedure note for Specifics] Pain Scale: 0-10 Numeric [Pain] -Is Patient Pain Free? Yes Neurological: Cranial nerves II-XII grossly intact, Neuro grossly intact Psych/Mental Status: Normal Affect, Appropriate, Alert and oriented to time, place, person, mood and affect Debridement Note Post-Debridement Measurements/Treatment WC - Nurse 2 - General Ulcer CM Notes Start: 03/21/18 14:55 Freq: Status: Active Protocol: Activity Type Activity Date Activity User E-Sign Co-Sign Detail Recorded Client Recorded Date Recorded By Document 03/21/18 15:44 [id number] 03/21/18 15:45 JS Document 03/28/18 12:49 [id number] 03/28/18 12:54 JS 03/21/18 03/28/18 15:44 12:49 Wound Center Nurse 2 #7- RT GLUTEAL FOLD -Time 12:50 -Correct Patient Yes -Correct Side, Site, Position Yes -Correct Procedure Yes -Procedure Performed Yes -Type of Procedure Debridement -Clinical Debridement Subcutaneous -Post Debridement Size (cm) - Length 0.8 -Post Debridement Size (cm) - Width 1.0 -Post Debridement Size (cm) - Depth 0.2 -Total Square Cm 0.80 -Wound/Ulcer Outcome Not Healed -Ulcer Cleansing Rinsed/ Irrigated with Saline -Foul Odor after Cleansing No -Bioengineered Tissue No -Bleeding Controlled with NA -Treatment Response Procedure Tolerated Well 6-RIGHT DEJESUS -Time 15:44 12:51 -Correct Patient Yes Yes -Correct Side, Site, Position Yes Yes -Correct Procedure Yes Yes -Procedure Performed Yes Yes -Type of Procedure Debridement Debridement -Clinical Debridement Subcutaneous Subcutaneous -Post Debridement Size (cm) - Length 1.9 1.2 -Post Debridement Size (cm) - Width 1.8 1.4 -Post Debridement Size (cm) - Depth 1 0.2 -Total Square Cm 3.42 1.68 -Wound/Ulcer Outcome Not Healed Not Healed -Ulcer Cleansing Rinsed/ Rinsed/ Irrigated with Irrigated with Saline Saline -Foul Odor after Cleansing No No -Bioengineered Tissue No No -Topical Lidocaine (%) 4 -Lidocaine (ml) 5 -Bleeding Controlled with NA NA -Treatment Response Procedure Procedure Tolerated Well Tolerated Well Pain Scale: 0-10 Numeric Is Patient Pain Free? Yes Yes Laterality: Right - Anterior tibial surface Type of Debridement: Excisional debridement Anesthesia Used: 4% Lidocaine Solution Depth: Down to and including healthy tissue, in the subcutaneous layer Percentage of wound debrided: 100 Instrument Used: 5mm curette Severity: Fat Layer Exposed Amount of bleeding with debridement: Mild Bleeding Controlled with: Compression and gauze Patient tolerated procedure well - Additional Wound Laterality: Right - Lower buttock Type of Debridement: Excisional debridement Anesthesia Used: 4% Lidocaine Solution Depth: Down to and including healthy tissue, in the subcutaneous layer Percentage of wound debrided: 100 Instrument Used: 5mm curette Severity: Fat Layer Exposed Amount of bleeding with debridement: Mild Bleeding Controlled with: Compression and gauze Patient tolerated procedure: Patient tolerated procedure well Assessment/Plan Active Problems (Last Reviewed 03/24/18 @ 15:20 by Gilda Zhang) Pressure ulcer of right buttock, stage 2 (Acute) Type 2 diabetes mellitus (Chronic) Tobacco use disorder (Chronic) Morbid obesity with body mass index of 40.0-49.9 (Chronic) Tobacco abuse counseling (Chronic) Swelling of lower extremity (Chronic) Edema of both legs (Chronic) Lymphedema of leg (Chronic) Edema (Chronic) Assessment: This is a 47-year-old morbidly obese diabetic female with multiple medical problems, which have been listed above. It appears as though a hairline fracture of the right ankle, sustained on November 01, 2017, resulted in a decrease in activity, limited ambulation, and chronic lower extremity dependency. This significant change in the patient's activity and habits resulted in exacerbation of the swelling, edema, and lymphedema in the patient' s lower extremities. There is now a superficial ulceration on the right anterior tibial surface, thought to be due to slippage of her 3M 2 layer compression wrap. The patient has undergone a battery of diagnostic laboratory tests, which have been reviewed. Results are as follows: White blood count 7.7 , hemoglobin 13.7, hematocrit 42.1, platelets 199,000, sodium 140, potassium 4.5 , chloride 108, BUN 19, creatinine 0.92, glucose 199, hemoglobin A1c 8.2, calcium 8.8, total bilirubin 0.30, AST 18, ALT 16, alkaline phosphatase 109, total protein 6.8, albumin 2.7, pre-albumin 15.4. A venous duplex examination has recently been performed, revealing incompetence of the right great saphenous vein and an incompetent global logistics manager vein 17 cm proximal to the right medial malleolus. No superficial venous incompetence is noted in the left lower extremity. A noninvasive lower extremity arterial study is normal, revealing normal arterial perfusion in the lower extremities bilaterally. Finally, as result of prolonged sitting in a mormonism conference recently, the patient has developed a pressure ulceration on her right lower buttock, stage II. Plan: The patient has been instructed to elevate her lower extremities as much as possible. We have encouraged the patient to elevate her legs, even during daytime hours. It appears as though she is sleeping in a relatively recumbent position. Activity has been encouraged. Avoidance of prolonged idle sitting has been recommended. Lower extremities are to be elevated to heart level, or higher. Recruitment of the calf and foot muscle pumps has been explained, and can be implemented by means of activity and ambulation. Weight loss has been highly recommended. The patient has been advised to optimize her diabetic control. Dietary counseling will be offered if the patient so wishes. The patient has been advised to continue the use of her mechanical pneumatic compression pumps. We are to continue compression to the lower extremities by means of Unna boots/multilayer compression wraps, which will be changed twice weekly. An Unna boot will be used on the right lower extremity, and a 3M 2 layer compression wrap will be used on the left lower extremity. The patient's Farrow wraps have recently been unusable, too small to fit her lower extremities due to extreme swelling. In addition, the patient's Farrow wraps are several years old, due to be replaced. We are to refer the patient to the [facility] at [facility]. The intention is to instruct in appropriate long-term habits, and to ultimately fit the patient with CircAid Velcro compression garments bilaterally. CircAid garments are awaited. Patient will return in 1 week for reassessment. With respect to the pressure ulceration on the patient's right lower buttock, offloading measures are to be implemented, and the use of Sarah which will be changed every other day. The patient is a smoker, and smoking cessation has been recommended. She is to collaborate with her primary care physician in this regard. Influenza vaccine was not administered today. Patient stands 5 feet 1 inch tall. She weighs 250 pounds. Her BMI is 47.1. Weight loss has been recommended, and the patient has been advised to collaborate with her primary care physician in terms of weight loss options. Dietary counseling has been offered as an option.
[2018-04-01 10:02] VITALS: BP 186/94; PULSE 84; RESP 16; TEMP 36.4
[2018-04-04 14:16] VITALS: BP 134/99; PULSE 92; RESP 18; TEMP 36.4
--- NOTE | 2018-04-04 15:08 | PCM.WC.HP ---
(1) Hyperlipidemia Status: Chronic Current Visit: No Qualifiers: Hyperlipidemia type: unspecified Qualified Code(s): E78.5 - Hyperlipidemia, unspecified Code(s): E78.5 - Hyperlipidemia, unspecified (2) Hypertension Status: Chronic Current Visit: No Qualifiers: Hypertension type: essential hypertension Qualified Code(s): I10 - Essential (primary) hypertension Code(s): I10 - Essential (primary) hypertension (3) Type 2 diabetes mellitus Status: Chronic Current Visit: Yes Code(s): E11.9 - Type 2 diabetes mellitus without complications (4) Tobacco use disorder Status: Chronic Current Visit: Yes Code(s): F17.200 - Nicotine dependence, unspecified, uncomplicated (5) Multiple personality disorder Status: Chronic Current Visit: No Code(s): F44.81 - Dissociative identity disorder (6) Morbid obesity with body mass index of 40.0-49.9 Status: Chronic Current Visit: Yes Code(s): E66.01 - Morbid (severe) obesity due to excess calories (7) Chronic back pain Status: Chronic Current Visit: No Code(s): M54.9 - Dorsalgia, unspecified; G89.29 - Other chronic pain (8) Tobacco abuse counseling Status: Chronic Current Visit: Yes Code(s): Z71.6 - Tobacco abuse counseling (9) Swelling of lower extremity Status: Chronic Current Visit: Yes Code(s): M79.89 - Other specified soft tissue disorders (10) Edema of both legs Status: Chronic Current Visit: Yes Code(s): R60.0 - Localized edema (11) Lymphedema of leg Status: Chronic Current Visit: Yes Qualifiers: Laterality: bilateral Code(s): I89.0 - Lymphedema, not elsewhere classified (12) GERD (gastroesophageal reflux disease) Status: Chronic Current Visit: No Code(s): K21.9 - Gastro-esophageal reflux disease without esophagitis (13) Multiple sclerosis Status: Chronic Current Visit: No Code(s): G35 - Multiple sclerosis (14) CKD (chronic kidney disease) stage 4, GFR 15-29 ml/min Status: Chronic Current Visit: No Code(s): N18.4 - Chronic kidney disease, stage 4 (severe) (15) PAD (peripheral artery disease) Status: Chronic Current Visit: No Code(s): I73.9 - Peripheral vascular disease, unspecified (16) History of CVA (cerebrovascular accident) Status: Chronic Current Visit: No Code(s): Z86.73 - Personal history of transient ischemic attack (TIA), and cerebral infarction without residual deficits (17) History of DVT (deep vein thrombosis) Status: Chronic Current Visit: No Code(s): Z86.718 - Personal history of other venous thrombosis and embolism (18) Psoriasis Status: Chronic Current Visit: No Code(s): L40.9 - Psoriasis, unspecified (19) CHF (congestive heart failure) Status: Chronic Current Visit: No Code(s): I50.9 - Heart failure, unspecified (20) Edema Status: Chronic Current Visit: Yes Qualifiers: Edema type: unspecified Qualified Code(s): R60.9 - Edema, unspecified Code(s): R60.9 - Edema, unspecified (21) Hypothyroidism Status: Chronic Current Visit: No Code(s): E03.9 - Hypothyroidism, unspecified (22) Essential (primary) hypertension Status: Chronic Current Visit: No Code(s): I10 - Essential (primary) hypertension (23) Atherosclerotic heart disease of [place] coronary artery without angina pectoris Status: Chronic Current Visit: No Code(s): I25.10 - Atherosclerotic heart disease of [place] coronary artery without angina pectoris (24) Pressure ulcer of right buttock, stage 2 Status: Acute Current Visit: Yes Code(s): L89.312 - Pressure ulcer of right buttock, stage 2 History of Present Illness Date of Service: 04/04/18 Chief Complaint: Bilateral lower extremity swelling, edema, and lymphedema. History of Wound: This is a 47-year-old morbidly obese diabetic female who presented as a referral from her sales marketing, Dr. Mayo, for evaluation and management regarding bilateral lower extremity swelling, edema, and lymphedema. This has been a problem for the patient in the past, and is chronic in nature. However, it appears to have been exacerbated recently by a traumatic hairline fracture of the right ankle which occurred on November 01, 2017. As a result, the patient was immobile for a period of time, relatively inactive, spending her days in an idle sitting position. As a result of her inactivity and chronic dependency, she has noted swelling, edema, and lymphedema in her lower extremities to be much more severe than usual, prompting her to seek medical attention. The patient claims to sleep in a relatively flat position at night. She has a history of bilateral lower extremity deep vein thrombosis, for which she has been previously treated with systemic anticoagulation therapy. She is not currently taking anticoagulation. The patient has multiple medical problems, which include diabetes mellitus, morbid obesity, hypertension, coronary artery disease, chronic kidney disease, peripheral arterial occlusive disease, and tobacco abuse. The patient has Farrow wraps for her lower extremities, which she had not been using. The wraps are not large enough to accommodate the severe swelling which currently exists in her lower extremities. She also has pneumatic mechanical compression pumps for her lower extremities, which she had not been using recently. These measures have been previously implemented in treatment for the patient's chronic lower extremity swelling and edema. In recent weeks, the patient has demonstrated increasing compliance with recommended measures. She has been elevating her lower extremities more frequently. She has been using her mechanical compression pumps. Several weeks ago, due to slippage of the 2 layer wraps, the patient developed a superficial ulceration on the right anterior tibial surface. The patient has now developed an ulceration on the right lower buttock. This occurred due to prolonged sitting. The patient was at a nondenominational conference for several days, sitting long hours each day while attending lectures and presentations. Past Medical History Past Medical History: Chronic Problems (Last Reviewed 03/24/18 @ 15:20 by Gilda Zhang) Hyperlipidemia (Chronic) Hypertension (Chronic) Type 2 diabetes mellitus (Chronic) Tobacco use disorder (Chronic) Multiple personality disorder (Chronic) Morbid obesity with body mass index of 40.0-49.9 (Chronic) Chronic back pain (Chronic) Tobacco abuse counseling (Chronic) Swelling of lower extremity (Chronic) Edema of both legs (Chronic) Lymphedema of leg (Chronic) GERD (gastroesophageal reflux disease) (Chronic) Multiple sclerosis (Chronic) CKD (chronic kidney disease) stage 4, GFR 15-29 ml/min (Chronic) PAD (peripheral artery disease) (Chronic) History of CVA (cerebrovascular accident) (Chronic) History of DVT (deep vein thrombosis) (Chronic) Psoriasis (Chronic) CHF (congestive heart failure) (Chronic) Edema (Chronic) Hypothyroidism (Chronic) Essential (primary) hypertension (Chronic) Atherosclerotic heart disease of [place] coronary artery without angina pectoris (Chronic) Surgical History: appendectomy, cholecystectomy, - - The patient has a history of appendectomy, cholecystectomy, bilateral lower extremity vein stripping, partial hysterectomy, tonsillectomy, lumbar surgery ?4, and bilateral carpal tunnel release. The patient is a Ab0. Her only two live births succumbed shortly following . Allergies/Adverse Reactions: Allergies latex Allergy (Verified 03/24/18 15:10) Rash Penicillins Allergy (Verified 03/24/18 15:10) Unknown venom-honey bee [bee venom (honey bee)] Allergy (Verified 03/24/18 15:10) Unknown Home Medications: Ambulatory Orders Medication Instructions Recorded Celecoxib [Celebrex] 200 mg PO BID 07/03/14 Oxycodone HCl/Acetaminophen 1 ea PO Q4H PRN PRN 07/03/14 [Oxycodone-Acetaminophen 10-325] Tizanidine HCl [Zanaflex] 4 mg PO Q8H 07/03/14 Glimepiride [Amaryl] 4 mg PO BID 11/15/14 ALPRAZolam [Xanax] 0.25 mg PO BID 05/20/17 Albuterol Aerosols [Ventolin 2.5 mg INHALATION Q4H PRN #25 vial 06/18/17 Aerosols] Doxycycline [Vibramycin] 100 mg PO BID #20 cap 06/18/17 Benzonatate [Tessalon Perle] 100 mg PO Q4H PRN PRN #20 cap 06/19/17 amitriptyline 50 mg tablet 100 mg PO QHS tab 08/23/17 aspirin 81 mg tablet,delayed 81 mg PO QDAY 08/23/17 release thyroid (pork) 60 mg tablet 120 mg PO DAILY tab 08/23/17 Gabapentin [Neurontin] 1,200 mg PO TIDCM 01/01/18 Insulin Detemir [Levemir] 64 unit SQ QHS 01/01/18 Insulin Regular, Human [Novolin R] 100 unit SQ BID 01/01/18 Liraglutide [Victoza] 0.12 mg SQ DAILY 01/01/18 proCHLORPERazine suppository 50 mg RECTAL DAILY PRN PRN 01/01/18 [Compazine suppository] diltiazem CD 240 mg 240 mg PO DAILY #90 cap 03/24/18 capsule,extended release 24 hr isosorbide mononitrate ER 60 mg 60 mg PO DAILY #90 tab 03/24/18 tablet,extended release 24 hr nitroglycerin 0.4 mg sublingual 0.4 mg SUBLINGUAL Q5-15M PRN 03/24/18 tablet atorvastatin 80 mg tablet 80 mg PO QDAY #90 tab 04/04/18 - Family History Maternal Family History: Family History (Last Reviewed 03/24/18 @ 15:20 by Gilda Zhang) Mother CAD (coronary artery disease) Diabetes, Heart Disease, No pertinent history, - - Hypothyroid Paternal Family History: Family History (Last Reviewed 03/24/18 @ 15:20 by Gilda Zhang) Mother CAD (coronary artery disease) Cancer, - - The patient's mother had a history of emphysema, COPD, coronary artery disease, diabetes mellitus, dementia, and Parkinson's disease. Patient's mother at age of 67. Smoking Status: Current some day smoker Tobacco Use: Cigarettes Review of Systems Constitutional: Denies: Chills, Fever, Weight Change Eyes: Denies: Pain, Vision Change HEENT: Denies: Difficulty Hearing, Difficulty Swallowing, Sinus Congestion Cardiovascular: Denies: Chest Pain, Palpitations Respiratory: Denies: Cough, Shortness of Breath Gastrointestinal: Denies: Diarrhea, Nausea, Vomiting Genitourinary: Denies: Dysuria, Hematuria Endocrine: Denies: Heat/ Cold Intolerance, Polydipsia, Polyuria Hematologic/ Lymphatic: Denies: Easy Bruising, Easy Bleeding - Physical Exam Vital Signs Temp Pulse Resp BP 97.5 F L 92 18 134/99 H 04/04/18 14:16 04/04/18 14:16 04/04/18 14:16 04/04/18 14:16 General: Alert, Oriented x3, Cooperative, No apparent distress, Well developed, Well nourished, - - The patient is morbidly obese HEENT: Atraumatic, PERRLA, EOMI, Normocephalic Oral: Moist Mucosa Neck: No JVD Lungs: Normal air movement Abdomen: Non-Distended, Obese Extremities: No clubbing, No cyanosis, No Calf Tenderness, - - Severe swelling and edema is noted in the lower extremities bilaterally. There is no evidence of infection or cellulitis. Circumference measurements are documented elsewhere. A wound is noted on the right anterior tibial surface. Dimensions are documented elsewhere. The base of the wound is pink and healthy in appearance. It is superficial in nature. Skin: No rashes, - - An ulceration persists on the right buttock. Dimensions are documented elsewhere. There is no sign of infection or cellulitis. The base of the ulceration is generally pink and healthy in appearance. Wound Measurements and Assessment WC - Nurse 1 - General Ulcer Measurement Start: 03/21/18 14:55 Freq: Status: Active Protocol: Activity Type Activity Date Activity User E-Sign Co-Sign Detail Recorded Client Recorded Date Recorded By Document 04/04/18 14:16 [facility] [id number] 04/04/18 14:32 [facility] 04/04/18 14:16 Wound Center Nurse 1 [Ulcer Assessment] #7- RT GLUTEAL FOLD -Combined with other wound No -Current Size (cm) - Length 0.8 -Current Size (cm) - Width 0.9 -Current Size (cm) - Depth 0.2 -Total Square Cm 0.72 -Photo Taken No -Epithelialization None Present -Tunneling No -Undermining/Tunneling No -Circular Undermining No -Exudate Amt Small (1-33%) -Exudate Type Serosanguineous -Wound Margin Distinct, Outline Attached -Granulation Amt Medium (34-66%) -Granulation Quality Red -Slough/Fibrin Yes -Necrosis Amt Medium (34-66%) -Necrotic Tissue Type Adherent Slough -Structure Exposed None/Limited to Skin Breakdown -Texture (Cristina-wound Skin Appearance) Scarring -Moisture (Cristina-wound Skin Appearance Dry/Scaly ) -Color (Cristina-wound Skin Appearance) Assessed -Temperature (Cristina-wound Skin No Abnormality Appearance) (Pt Warm) -Tenderness on Palpation (Cristina-wound Yes Skin Appearance) -Ulcer Cleansing Rinsed/ Irrigated with Saline -Foul Odor after Cleansing No -Anesthetic Used 5% Lidocaine Gel #6-RIGHT DEJESUS -Combined with other wound No -Current Size (cm) - Length 1 -Current Size (cm) - Width 1 -Current Size (cm) - Depth 0.1 -Total Square Cm 1 -Photo Taken No -Epithelialization Small 1-33% -Tunneling No -Undermining/Tunneling No -Circular Undermining No -Exudate Amt Small (1-33%) -Exudate Type Serosanguineous -Wound Margin Distinct, Outline Attached -Granulation Amt Large (67-100%) -Granulation Quality Red -Slough/Fibrin No -Necrosis Amt None Present (0 %) -Structure Exposed None/Limited to Skin Breakdown -Texture (Cristina-wound Skin Appearance) Scarring -Moisture (Cristina-wound Skin Appearance Assessed ) -Color (Cristina-wound Skin Appearance) Erythema Hemosiderin Staining -Temperature (Cristina-wound Skin No Abnormality Appearance) (Pt Warm) -Tenderness on Palpation (Cristina-wound Yes Skin Appearance) -Ulcer Cleansing Rinsed/ Irrigated with Saline -Foul Odor after Cleansing No -Anesthetic Used 5% Lidocaine Gel [Edema Assessment] -Lower Limb Edema Present Yes -Right Calf (cm) 52.5 -Right Ankle (cm) 24.9 -Left Calf (cm) 52.9 -Left Ankle (cm) 25 WC - Nurse 2 - General Ulcer CM Notes Start: 03/21/18 14:55 Freq: Status: Active Protocol: Activity Type Activity Date Activity User E-Sign Co-Sign Detail Recorded Client Recorded Date Recorded By Document 04/04/18 14:57 GELACIO [id number] 04/04/18 15:02 GELACIO 04/04/18 14:57 Wound Center Nurse 2 [Procedure/Treatment] #7- RT GLUTEAL FOLD -Time 14:57 -Correct Patient Yes -Correct Side, Site, Position Yes -Correct Procedure Yes -Procedure Performed Yes -Type of Procedure Debridement -Clinical Debridement Subcutaneous -Post Debridement Size (cm) - Length 0.2 -Post Debridement Size (cm) - Width 1.0 -Post Debridement Size (cm) - Depth 0.2 -Total Square Cm 0.20 -Wound/Ulcer Outcome Not Healed -Ulcer Cleansing Rinsed/ Irrigated with Saline -Foul Odor after Cleansing No -Bioengineered Tissue No -Topical Lidocaine (%) 4 -Lidocaine (ml) 5 -Bleeding Controlled with NA -Treatment Response Procedure Tolerated Well #6-RIGHT DEJESUS -Time 14:58 -Correct Patient Yes -Correct Side, Site, Position Yes -Correct Procedure Yes -Procedure Performed Yes -Type of Procedure Debridement -Clinical Debridement Subcutaneous -Post Debridement Size (cm) - Length 1.1 -Post Debridement Size (cm) - Width 1.1 -Post Debridement Size (cm) - Depth 0.1 -Total Square Cm 1.21 -Wound/Ulcer Outcome Not Healed -Ulcer Cleansing Rinsed/ Irrigated with Saline -Foul Odor after Cleansing No -Bioengineered Tissue No -Topical Lidocaine (%) 4 -Lidocaine (ml) 5 -Bleeding Controlled with NA -Treatment Response Procedure Tolerated Well [See Physician Procedure note for Specifics] Pain Scale: 0-10 Numeric [Pain] -Is Patient Pain Free? Yes Neurological: Cranial nerves II-XII grossly intact, Neuro grossly intact Psych/Mental Status: Normal Affect, Appropriate, Alert and oriented to time, place, person, mood and affect Debridement Note Post-Debridement Measurements/Treatment WC - Nurse 2 - General Ulcer CM Notes Start: 03/21/18 14:55 Freq: Status: Active Protocol: Activity Type Activity Date Activity User E-Sign Co-Sign Detail Recorded Client Recorded Date Recorded By Document 03/21/18 15:44 [id number] 03/21/18 15:45 JS Document 03/28/18 12:49 JS [id number] 03/28/18 12:54 JS Document 04/04/18 14:57 JS [id number] 04/04/18 15:02 JS 03/21/18 03/28/18 04/04/18 15:44 12:49 14:57 Wound Center Nurse 2 #7- RT GLUTEAL FOLD -Time 12:50 14:57 -Correct Patient Yes Yes -Correct Side, Site, Position Yes Yes -Correct Procedure Yes Yes -Procedure Performed Yes Yes -Type of Procedure Debridement Debridement -Clinical Debridement Subcutaneous Subcutaneous -Post Debridement Size (cm) - Length 0.8 0.2 -Post Debridement Size (cm) - Width 1.0 1.0 -Post Debridement Size (cm) - Depth 0.2 0.2 -Total Square Cm 0.80 0.20 -Wound/Ulcer Outcome Not Healed Not Healed -Ulcer Cleansing Rinsed/ Rinsed/ Irrigated with Irrigated with Saline Saline -Foul Odor after Cleansing No No -Bioengineered Tissue No No -Topical Lidocaine (%) 4 -Lidocaine (ml) 5 -Bleeding Controlled with NA NA -Treatment Response Procedure Procedure Tolerated Well Tolerated Well #6-RIGHT DEJESUS -Time 15:44 12:51 14:58 -Correct Patient Yes Yes Yes -Correct Side, Site, Position Yes Yes Yes -Correct Procedure Yes Yes Yes -Procedure Performed Yes Yes Yes -Type of Procedure Debridement Debridement Debridement -Clinical Debridement Subcutaneous Subcutaneous Subcutaneous -Post Debridement Size (cm) - Length 1.9 1.2 1.1 -Post Debridement Size (cm) - Width 1.8 1.4 1.1 -Post Debridement Size (cm) - Depth 1 0.2 0.1 -Total Square Cm 3.42 1.68 1.21 -Wound/Ulcer Outcome Not Healed Not Healed Not Healed -Ulcer Cleansing Rinsed/ Rinsed/ Rinsed/ Irrigated with Irrigated with Irrigated with Saline Saline Saline -Foul Odor after Cleansing No No No -Bioengineered Tissue No No No -Topical Lidocaine (%) 4 4 -Lidocaine (ml) 5 5 -Bleeding Controlled with NA NA NA -Treatment Response Procedure Procedure Procedure Tolerated Well Tolerated Well Tolerated Well Pain Scale: 0-10 Numeric Is Patient Pain Free? Yes Yes Yes Laterality: Right - Anterior tibial surface Type of Debridement: Excisional debridement Anesthesia Used: 4% Lidocaine Solution Depth: Down to and including healthy tissue, in the subcutaneous layer Percentage of wound debrided: 100 Instrument Used: 5mm curette Severity: Fat Layer Exposed Amount of bleeding with debridement: Mild Bleeding Controlled with: Compression and gauze Patient tolerated procedure well - Additional Wound Laterality: Right - Buttock Type of Debridement: Excisional debridement Anesthesia Used: 4% Lidocaine Solution Depth: Down to and including healthy tissue, in the subcutaneous layer Percentage of wound debrided: 100 Instrument Used: 5mm curette Severity: Fat Layer Exposed Amount of bleeding with debridement: Mild Bleeding Controlled with: Compression and gauze Patient tolerated procedure: Patient tolerated procedure well Assessment/Plan Active Problems (Last Reviewed 03/24/18 @ 15:20 by Gilda Zhang) Pressure ulcer of right buttock, stage 2 (Acute) Type 2 diabetes mellitus (Chronic) Tobacco use disorder (Chronic) Morbid obesity with body mass index of 40.0-49.9 (Chronic) Tobacco abuse counseling (Chronic) Swelling of lower extremity (Chronic) Edema of both legs (Chronic) Lymphedema of leg (Chronic) Edema (Chronic) Assessment: This is a 47-year-old morbidly obese diabetic female with multiple medical problems, which have been listed above. It appears as though a hairline fracture of the right ankle, sustained on November 01, 2017, resulted in a decrease in activity, limited ambulation, and chronic lower extremity dependency. This significant change in the patient's activity and habits resulted in exacerbation of the swelling, edema, and lymphedema in the patient's lower extremities. There is now a superficial ulceration on the right anterior tibial surface, thought to be due to slippage of her 3M 2 layer compression wrap. The patient has undergone a battery of diagnostic laboratory tests, which have been reviewed. Results are as follows: White blood count 7.7, hemoglobin 13.7, hematocrit 42.1, platelets 199,000, sodium 140, potassium 4.5, chloride 108, BUN 19, creatinine 0.92, glucose 199, hemoglobin A1c 8.2, calcium 8.8, total bilirubin 0.30, AST 18, ALT 16, alkaline phosphatase 109, total protein 6.8, albumin 2.7, pre-albumin 15.4. A venous duplex examination has recently been performed, revealing incompetence of the right great saphenous vein and an incompetent new product trainer vein 17 cm proximal to the right medial malleolus. No superficial venous incompetence is noted in the left lower extremity. A noninvasive lower extremity arterial study is normal, revealing normal arterial perfusion in the lower extremities bilaterally. Finally, as result of prolonged sitting in a nondenominational conference recently, the patient has developed a pressure ulceration on her right lower buttock, stage II. Plan: The patient has been instructed to elevate her lower extremities as much as possible. We have encouraged the patient to elevate her legs, even during daytime hours. It appears as though she is sleeping in a relatively recumbent position. Activity has been encouraged. Avoidance of prolonged idle sitting has been recommended. Lower extremities are to be elevated to heart level, or higher. Recruitment of the calf and foot muscle pumps has been explained, and can be implemented by means of activity and ambulation. Weight loss has been highly recommended. The patient has been advised to optimize her diabetic control. Dietary counseling will be offered if the patient so wishes. The patient has been advised to continue the use of her mechanical pneumatic compression pumps. We are to continue compression to the lower extremities by means of Unna boots/multilayer compression wraps, which will be changed twice weekly. An Unna boot will be used on the right lower extremity, and a 3M 2 layer compression wrap will be used on the left lower extremity. The patient's Farrow wraps have recently been unusable, too small to fit her lower extremities due to extreme swelling. In addition, the patient's Farrow wraps are several years old, due to be replaced. We have referred the patient to the [facility], and recommendations have been reviewed. The intention is to instruct in appropriate long-term habits, and to ultimately fit the patient with CircAid Velcro compression garments bilaterally or graduated compression stockings. Patient will return in 2 weeks for reassessment. With respect to the pressure ulceration on the patient's right lower buttock, offloading measures are to be implemented, and the use of Sarah which will be changed every other day. The patient is a smoker, and smoking cessation has been recommended. She is to collaborate with her primary care physician in this regard. Influenza vaccine was not administered today. Patient stands 5 feet 1 inch tall. She weighs 250 pounds. Her BMI is 47.1. Weight loss has been recommended, and the patient has been advised to collaborate with her primary care physician in terms of weight loss options. Dietary counseling has been offered as an option.
--- NOTE | 2018-04-04 15:16 | HP.PCM_ITS ---
(1) Hyperlipidemia Status: Chronic Current Visit: No Qualifiers: Hyperlipidemia type: unspecified Qualified Code(s): E78.5 - Hyperlipidemia , unspecified Code(s): E78.5 - Hyperlipidemia, unspecified (2) Hypertension Status: Chronic Current Visit: No Qualifiers: Hypertension type: essential hypertension Qualified Code(s): I10 - Essential (primary) hypertension Code(s): I10 - Essential (primary) hypertension (3) Type 2 diabetes mellitus Status: Chronic Current Visit: Yes Code(s): E11.9 - Type 2 diabetes mellitus without complications (4) Tobacco use disorder Status: Chronic Current Visit: Yes Code(s): F17.200 - Nicotine dependence, unspecified, uncomplicated (5) Multiple personality disorder Status: Chronic Current Visit: No Code(s): F44.81 - Dissociative identity disorder (6) Morbid obesity with body mass index of 40.0-49.9 Status: Chronic Current Visit: Yes Code(s): E66.01 - Morbid (severe) obesity due to excess calories (7) Chronic back pain Status: Chronic Current Visit: No Code(s): M54.9 - Dorsalgia, unspecified; G89.29 - Other chronic pain (8) Tobacco abuse counseling Status: Chronic Current Visit: Yes Code(s): Z71.6 - Tobacco abuse counseling (9) Swelling of lower extremity Status: Chronic Current Visit: Yes Code(s): M79.89 - Other specified soft tissue disorders (10) Edema of both legs Status: Chronic Current Visit: Yes Code(s): R60.0 - Localized edema (11) Lymphedema of leg Status: Chronic Current Visit: Yes Qualifiers: Laterality: bilateral Code(s): I89.0 - Lymphedema, not elsewhere classified (12) GERD (gastroesophageal reflux disease) Status: Chronic Current Visit: No Code(s): K21.9 - Gastro-esophageal reflux disease without esophagitis (13) Multiple sclerosis Status: Chronic Current Visit: No Code(s): G35 - Multiple sclerosis (14) CKD (chronic kidney disease) stage 4, GFR 15-29 ml/min Status: Chronic Current Visit: No Code(s): N18.4 - Chronic kidney disease, stage 4 (severe) (15) PAD (peripheral artery disease) Status: Chronic Current Visit: No Code(s): I73.9 - Peripheral vascular disease, unspecified (16) History of CVA (cerebrovascular accident) Status: Chronic Current Visit: No Code(s): Z86.73 - Personal history of transient ischemic attack (TIA), and cerebral infarction without residual deficits (17) History of DVT (deep vein thrombosis) Status: Chronic Current Visit: No Code(s): Z86.718 - Personal history of other venous thrombosis and embolism (18) Psoriasis Status: Chronic Current Visit: No Code(s): L40.9 - Psoriasis, unspecified (19) CHF (congestive heart failure) Status: Chronic Current Visit: No Code(s): I50.9 - Heart failure, unspecified (20) Edema Status: Chronic Current Visit: Yes Qualifiers: Edema type: unspecified Qualified Code(s): R60.9 - Edema, unspecified Code(s): R60.9 - Edema, unspecified (21) Hypothyroidism Status: Chronic Current Visit: No Code(s): E03.9 - Hypothyroidism, unspecified (22) Essential (primary) hypertension Status: Chronic Current Visit: No Code(s): I10 - Essential (primary) hypertension (23) Atherosclerotic heart disease of [place] coronary artery without angina pectoris Status: Chronic Current Visit: No Code(s): I25.10 - Atherosclerotic heart disease of [place] coronary artery without angina pectoris (24) Pressure ulcer of right buttock, stage 2 Status: Acute Current Visit: Yes Code(s): L89.312 - Pressure ulcer of right buttock, stage 2 History of Present Illness Date of Service: 04/04/18 Chief Complaint: Bilateral lower extremity swelling, edema, and lymphedema. History of Wound: This is a 47-year-old morbidly obese diabetic female who presented as a referral from her visual designer, Dr. Mayo, for evaluation and management regarding bilateral lower extremity swelling, edema, and lymphedema. This has been a problem for the patient in the past, and is chronic in nature. However, it appears to have been exacerbated recently by a traumatic hairline fracture of the right ankle which occurred on November 01, 2017. As a result, the patient was immobile for a period of time, relatively inactive, spending her days in an idle sitting position. As a result of her inactivity and chronic dependency, she has noted swelling, edema, and lymphedema in her lower extremities to be much more severe than usual, prompting her to seek medical attention. The patient claims to sleep in a relatively flat position at night. She has a history of bilateral lower extremity deep vein thrombosis, for which she has been previously treated with systemic anticoagulation therapy. She is not currently taking anticoagulation. The patient has multiple medical problems, which include diabetes mellitus, morbid obesity, hypertension, coronary artery disease, chronic kidney disease, peripheral arterial occlusive disease, and tobacco abuse. The patient has Farrow wraps for her lower extremities, which she had not been using. The wraps are not large enough to accommodate the severe swelling which currently exists in her lower extremities. She also has pneumatic mechanical compression pumps for her lower extremities, which she had not been using recently. These measures have been previously implemented in treatment for the patient's chronic lower extremity swelling and edema. In recent weeks, the patient has demonstrated increasing compliance with recommended measures. She has been elevating her lower extremities more frequently. She has been using her mechanical compression pumps. Several weeks ago, due to slippage of the 2 layer wraps, the patient developed a superficial ulceration on the right anterior tibial surface. The patient has now developed an ulceration on the right lower buttock. This occurred due to prolonged sitting. 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 Past Medical History Past Medical History: Chronic Problems (Last Reviewed 03/24/18 @ 15:20 by Gilda Zhang) Hyperlipidemia (Chronic) Hypertension (Chronic) Type 2 diabetes mellitus (Chronic) Tobacco use disorder (Chronic) Multiple personality disorder (Chronic) Morbid obesity with body mass index of 40.0-49.9 (Chronic) Chronic back pain (Chronic) Tobacco abuse counseling (Chronic) Swelling of lower extremity (Chronic) Edema of both legs (Chronic) Lymphedema of leg (Chronic) GERD (gastroesophageal reflux disease) (Chronic) Multiple sclerosis (Chronic) CKD (chronic kidney disease) stage 4, GFR 15-29 ml/min (Chronic) PAD (peripheral artery disease) (Chronic) History of CVA (cerebrovascular accident) (Chronic) History of DVT (deep vein thrombosis) (Chronic) Psoriasis (Chronic) CHF (congestive heart failure) (Chronic) Edema (Chronic) Hypothyroidism (Chronic) Essential (primary) hypertension (Chronic) Atherosclerotic heart disease of [place] coronary artery without angina pectoris (Chronic) Surgical History: appendectomy, cholecystectomy, - - The patient has a history of appendectomy, cholecystectomy, bilateral lower extremity vein stripping, partial hysterectomy, tonsillectomy, lumbar surgery ?4, and bilateral carpal tunnel release. The patient is a Ab0. Her only two live births succumbed shortly following . Allergies/Adverse Reactions: Allergies latex Allergy (Verified 03/24/18 15:10) Rash Penicillins Allergy (Verified 03/24/18 15:10) Unknown venom-honey bee [bee venom (honey bee)] Allergy (Verified 03/24/18 15:10) Unknown Home Medications: Ambulatory Orders Medication Instructions Recorded Celecoxib [Celebrex] 200 mg PO BID 07/03/14 Oxycodone HCl/Acetaminophen 1 ea PO Q4H PRN PRN 07/03/14 [Oxycodone-Acetaminophen 10-325] Tizanidine HCl [Zanaflex] 4 mg PO Q8H 07/03/14 Glimepiride [Amaryl] 4 mg PO BID 11/15/14 ALPRAZolam [Xanax] 0.25 mg PO BID 05/20/17 Albuterol Aerosols [Ventolin 2.5 mg INHALATION Q4H PRN #25 vial 06/18/17 Aerosols] Doxycycline [Vibramycin] 100 mg PO BID #20 cap 06/18/17 Benzonatate [Tessalon Perle] 100 mg PO Q4H PRN PRN #20 cap 06/19/17 amitriptyline 50 mg tablet 100 mg PO QHS tab 08/23/17 aspirin 81 mg tablet,delayed 81 mg PO QDAY 08/23/17 release thyroid (pork) 60 mg tablet 120 mg PO DAILY tab 08/23/17 Gabapentin [Neurontin] 1,200 mg PO TIDCM 01/01/18 Insulin Detemir [Levemir] 64 unit SQ QHS 01/01/18 Insulin Regular, Human [Novolin R] 100 unit SQ BID 01/01/18 Liraglutide [Victoza] 0.12 mg SQ DAILY 01/01/18 proCHLORPERazine suppository 50 mg RECTAL DAILY PRN PRN 01/01/18 [Compazine suppository] diltiazem CD 240 mg 240 mg PO DAILY #90 cap 03/24/18 capsule,extended release 24 hr isosorbide mononitrate ER 60 mg 60 mg PO DAILY #90 tab 03/24/18 tablet,extended release 24 hr nitroglycerin 0.4 mg sublingual 0.4 mg SUBLINGUAL Q5-15M PRN 03/24/18 tablet atorvastatin 80 mg tablet 80 mg PO QDAY #90 tab 04/04/18 - Family History Maternal Family History: Family History (Last Reviewed 03/24/18 @ 15:20 by Gilda Zhang) Mother CAD (coronary artery disease) Diabetes, Heart Disease, No pertinent history, - - Hypothyroid Paternal Family History: Family History (Last Reviewed 03/24/18 @ 15:20 by Gilda Zhang) Mother CAD (coronary artery disease) Cancer, - - The patient's mother had a history of emphysema, COPD, coronary artery disease, diabetes mellitus, dementia, and Parkinson's disease. Patient' s mother at age of 67. Smoking Status: Current some day smoker Tobacco Use: Cigarettes Review of Systems Constitutional: Denies: Chills, Fever, Weight Change Eyes: Denies: Pain, Vision Change HEENT: Denies: Difficulty Hearing, Difficulty Swallowing, Sinus Congestion Cardiovascular: Denies: Chest Pain, Palpitations Respiratory: Denies: Cough, Shortness of Breath Gastrointestinal: Denies: Diarrhea, Nausea, Vomiting Genitourinary: Denies: Dysuria, Hematuria Endocrine: Denies: Heat/ Cold Intolerance, Polydipsia, Polyuria Hematologic/ Lymphatic: Denies: Easy Bruising, Easy Bleeding - Physical Exam Vital Signs Temp Pulse Resp BP 97.5 F L 92 18 134/99 H 04/04/18 14:16 04/04/18 14:16 04/04/18 14:16 04/04/18 14:16 General: Alert, Oriented x3, Cooperative, No apparent distress, Well developed, Well nourished, - - The patient is morbidly obese HEENT: Atraumatic, PERRLA, EOMI, Normocephalic Oral: Moist Mucosa Neck: No JVD Lungs: Normal air movement Abdomen: Non-Distended, Obese Extremities: No clubbing, No cyanosis, No Calf Tenderness, - - Severe swelling and edema is noted in the lower extremities bilaterally. There is no evidence of infection or cellulitis. Circumference measurements are documented elsewhere. A wound is noted on the right anterior tibial surface. Dimensions are documented elsewhere. The base of the wound is pink and healthy in appearance. It is superficial in nature. Skin: No rashes, - - An ulceration persists on the right buttock. Dimensions are documented elsewhere. There is no sign of infection or cellulitis. The base of the ulceration is generally pink and healthy in appearance. Wound Measurements and Assessment WC - Nurse 1 - General Ulcer Measurement Start: 03/21/18 14:55 Freq: Status: Active Protocol: Activity Type Activity Date Activity User E-Sign Co-Sign Detail Recorded Client Recorded Date Recorded By Document 04/04/18 14:16 [facility] [id number] 04/04/18 14:32 [facility] 04/04/18 14:16 Wound Center Nurse 1 [Ulcer Assessment] #7- RT GLUTEAL FOLD -Combined with other wound No -Current Size (cm) - Length 0.8 -Current Size (cm) - Width 0.9 -Current Size (cm) - Depth 0.2 -Total Square Cm 0.72 -Photo Taken No -Epithelialization None Present -Tunneling No -Undermining/Tunneling No -Circular Undermining No -Exudate Amt Small (1-33%) -Exudate Type Serosanguineous -Wound Margin Distinct, Outline Attached -Granulation Amt Medium (34-66%) -Granulation Quality Red -Slough/Fibrin Yes -Necrosis Amt Medium (34-66%) -Necrotic Tissue Type Adherent Slough -Structure Exposed None/Limited to Skin Breakdown -Texture (Cristina-wound Skin Appearance) Scarring -Moisture (Cristina-wound Skin Appearance Dry/Scaly ) -Color (Cristina-wound Skin Appearance) Assessed -Temperature (Cristina-wound Skin No Abnormality Appearance) (Pt Warm) -Tenderness on Palpation (Cristina-wound Yes Skin Appearance) -Ulcer Cleansing Rinsed/ Irrigated with Saline -Foul Odor after Cleansing No -Anesthetic Used 5% Lidocaine Gel #6-RIGHT DEJESUS -Combined with other wound No -Current Size (cm) - Length 1 -Current Size (cm) - Width 1 -Current Size (cm) - Depth 0.1 -Total Square Cm 1 -Photo Taken No -Epithelialization Small 1-33% -Tunneling No -Undermining/Tunneling No -Circular Undermining No -Exudate Amt Small (1-33%) -Exudate Type Serosanguineous -Wound Margin Distinct, Outline Attached -Granulation Amt Large (67-100%) -Granulation Quality Red -Slough/Fibrin No -Necrosis Amt None Present (0 %) -Structure Exposed None/Limited to Skin Breakdown -Texture (Cristina-wound Skin Appearance) Scarring -Moisture (Cristina-wound Skin Appearance Assessed ) -Color (Cristina-wound Skin Appearance) Erythema Hemosiderin Staining -Temperature (Cristina-wound Skin No Abnormality Appearance) (Pt Warm) -Tenderness on Palpation (Cristina-wound Yes Skin Appearance) -Ulcer Cleansing Rinsed/ Irrigated with Saline -Foul Odor after Cleansing No -Anesthetic Used 5% Lidocaine Gel [Edema Assessment] -Lower Limb Edema Present Yes -Right Calf (cm) 52.5 -Right Ankle (cm) 24.9 -Left Calf (cm) 52.9 -Left Ankle (cm) 25 WC - Nurse 2 - General Ulcer CM Notes Start: 03/21/18 14:55 Freq: Status: Active Protocol: Activity Type Activity Date Activity User E-Sign Co-Sign Detail Recorded Client Recorded Date Recorded By Document 04/04/18 14:57 GELACIO [id number] 04/04/18 15:02 GELACIO 04/04/18 14:57 Wound Center Nurse 2 [Procedure/Treatment] #7- RT GLUTEAL FOLD -Time 14:57 -Correct Patient Yes -Correct Side, Site, Position Yes -Correct Procedure Yes -Procedure Performed Yes -Type of Procedure Debridement -Clinical Debridement Subcutaneous -Post Debridement Size (cm) - Length 0.2 -Post Debridement Size (cm) - Width 1.0 -Post Debridement Size (cm) - Depth 0.2 -Total Square Cm 0.20 -Wound/Ulcer Outcome Not Healed -Ulcer Cleansing Rinsed/ Irrigated with Saline -Foul Odor after Cleansing No -Bioengineered Tissue No -Topical Lidocaine (%) 4 -Lidocaine (ml) 5 -Bleeding Controlled with NA -Treatment Response Procedure Tolerated Well #6-RIGHT DEJESUS -Time 14:58 -Correct Patient Yes -Correct Side, Site, Position Yes -Correct Procedure Yes -Procedure Performed Yes -Type of Procedure Debridement -Clinical Debridement Subcutaneous -Post Debridement Size (cm) - Length 1.1 -Post Debridement Size (cm) - Width 1.1 -Post Debridement Size (cm) - Depth 0.1 -Total Square Cm 1.21 -Wound/Ulcer Outcome Not Healed -Ulcer Cleansing Rinsed/ Irrigated with Saline -Foul Odor after Cleansing No -Bioengineered Tissue No -Topical Lidocaine (%) 4 -Lidocaine (ml) 5 -Bleeding Controlled with NA -Treatment Response Procedure Tolerated Well [See Physician Procedure note for Specifics] Pain Scale: 0-10 Numeric [Pain] -Is Patient Pain Free? Yes Neurological: Cranial nerves II-XII grossly intact, Neuro grossly intact Psych/Mental Status: Normal Affect, Appropriate, Alert and oriented to time, place, person, mood and affect Debridement Note Post-Debridement Measurements/Treatment WC - Nurse 2 - General Ulcer CM Notes Start: 03/21/18 14:55 Freq: Status: Active Protocol: Activity Type Activity Date Activity User E-Sign Co-Sign Detail Recorded Client Recorded Date Recorded By Document 03/21/18 15:44 [id number] 03/21/18 15:45 JS Document 03/28/18 12:49 JS [id number] 03/28/18 12:54 JS Document 04/04/18 14:57 JS [id number] 04/04/18 15:02 JS 03/21/18 03/28/18 04/04/18 15:44 12:49 14:57 Wound Center Nurse 2 #7- RT GLUTEAL FOLD -Time 12:50 14:57 -Correct Patient Yes Yes -Correct Side, Site, Position Yes Yes -Correct Procedure Yes Yes -Procedure Performed Yes Yes -Type of Procedure Debridement Debridement -Clinical Debridement Subcutaneous Subcutaneous -Post Debridement Size (cm) - Length 0.8 0.2 -Post Debridement Size (cm) - Width 1.0 1.0 -Post Debridement Size (cm) - Depth 0.2 0.2 -Total Square Cm 0.80 0.20 -Wound/Ulcer Outcome Not Healed Not Healed -Ulcer Cleansing Rinsed/ Rinsed/ Irrigated with Irrigated with Saline Saline -Foul Odor after Cleansing No No -Bioengineered Tissue No No -Topical Lidocaine (%) 4 -Lidocaine (ml) 5 -Bleeding Controlled with NA NA -Treatment Response Procedure Procedure Tolerated Well Tolerated Well #6-RIGHT DEJESUS -Time 15:44 12:51 14:58 -Correct Patient Yes Yes Yes -Correct Side, Site, Position Yes Yes Yes -Correct Procedure Yes Yes Yes -Procedure Performed Yes Yes Yes -Type of Procedure Debridement Debridement Debridement -Clinical Debridement Subcutaneous Subcutaneous Subcutaneous -Post Debridement Size (cm) - Length 1.9 1.2 1.1 -Post Debridement Size (cm) - Width 1.8 1.4 1.1 -Post Debridement Size (cm) - Depth 1 0.2 0.1 -Total Square Cm 3.42 1.68 1.21 -Wound/Ulcer Outcome Not Healed Not Healed Not Healed -Ulcer Cleansing Rinsed/ Rinsed/ Rinsed/ Irrigated with Irrigated with Irrigated with Saline Saline Saline -Foul Odor after Cleansing No No No -Bioengineered Tissue No No No -Topical Lidocaine (%) 4 4 -Lidocaine (ml) 5 5 -Bleeding Controlled with NA NA NA -Treatment Response Procedure Procedure Procedure Tolerated Well Tolerated Well Tolerated Well Pain Scale: 0-10 Numeric Is Patient Pain Free? Yes Yes Yes Laterality: Right - Anterior tibial surface Type of Debridement: Excisional debridement Anesthesia Used: 4% Lidocaine Solution Depth: Down to and including healthy tissue, in the subcutaneous layer Percentage of wound debrided: 100 Instrument Used: 5mm curette Severity: Fat Layer Exposed Amount of bleeding with debridement: Mild Bleeding Controlled with: Compression and gauze Patient tolerated procedure well - Additional Wound Laterality: Right - Buttock Type of Debridement: Excisional debridement Anesthesia Used: 4% Lidocaine Solution Depth: Down to and including healthy tissue, in the subcutaneous layer Percentage of wound debrided: 100 Instrument Used: 5mm curette Severity: Fat Layer Exposed Amount of bleeding with debridement: Mild Bleeding Controlled with: Compression and gauze Patient tolerated procedure: Patient tolerated procedure well Assessment/Plan Active Problems (Last Reviewed 03/24/18 @ 15:20 by Gilda Zhang) Pressure ulcer of right buttock, stage 2 (Acute) Type 2 diabetes mellitus (Chronic) Tobacco use disorder (Chronic) Morbid obesity with body mass index of 40.0-49.9 (Chronic) Tobacco abuse counseling (Chronic) Swelling of lower extremity (Chronic) Edema of both legs (Chronic) Lymphedema of leg (Chronic) Edema (Chronic) Assessment: This is a 47-year-old morbidly obese diabetic female with multiple medical problems, which have been listed above. It appears as though a hairline fracture of the right ankle, sustained on November 01, 2017, resulted in a decrease in activity, limited ambulation, and chronic lower extremity dependency. This significant change in the patient's activity and habits resulted in exacerbation of the swelling, edema, and lymphedema in the patient' s lower extremities. There is now a superficial ulceration on the right anterior tibial surface, thought to be due to slippage of her 3M 2 layer compression wrap. The patient has undergone a battery of diagnostic laboratory tests, which have been reviewed. Results are as follows: White blood count 7.7 , hemoglobin 13.7, hematocrit 42.1, platelets 199,000, sodium 140, potassium 4.5 , chloride 108, BUN 19, creatinine 0.92, glucose 199, hemoglobin A1c 8.2, calcium 8.8, total bilirubin 0.30, AST 18, ALT 16, alkaline phosphatase 109, total protein 6.8, albumin 2.7, pre-albumin 15.4. A venous duplex examination has recently been performed, revealing incompetence of the right great saphenous vein and an incompetent seafood clerk vein 17 cm proximal to the right medial malleolus. No superficial venous incompetence is noted in the left lower extremity. A noninvasive lower extremity arterial study is normal, revealing normal arterial perfusion in the lower extremities bilaterally. Finally, as result of prolonged sitting in a zoroastrian conference recently, the patient has developed a pressure ulceration on her right lower buttock, stage II. Plan: The patient has been instructed to elevate her lower extremities as much as possible. We have encouraged the patient to elevate her legs, even during daytime hours. It appears as though she is sleeping in a relatively recumbent position. Activity has been encouraged. Avoidance of prolonged idle sitting has been recommended. Lower extremities are to be elevated to heart level, or higher. Recruitment of the calf and foot muscle pumps has been explained, and can be implemented by means of activity and ambulation. Weight loss has been highly recommended. The patient has been advised to optimize her diabetic control. Dietary counseling will be offered if the patient so wishes. The patient has been advised to continue the use of her mechanical pneumatic compression pumps. We are to continue compression to the lower extremities by means of Unna boots/multilayer compression wraps, which will be changed twice weekly. An Unna boot will be used on the right lower extremity, and a 3M 2 layer compression wrap will be used on the left lower extremity. The patient's Farrow wraps have recently been unusable, too small to fit her lower extremities due to extreme swelling. In addition, the patient's Farrow wraps are several years old, due to be replaced. We have referred the patient to the [facility], and recommendations have been reviewed. The intention is to instruct in appropriate long-term habits, and to ultimately fit the patient with CircAid Velcro compression garments bilaterally or graduated compression stockings. Patient will return in 2 weeks for reassessment. With respect to the pressure ulceration on the patient's right lower buttock, offloading measures are to be implemented, and the use of Sarah which will be changed every other day. The patient is a smoker, and smoking cessation has been recommended. She is to collaborate with her primary care physician in this regard. Influenza vaccine was not administered today. Patient stands 5 feet 1 inch tall. She weighs 250 pounds. Her BMI is 47.1. Weight loss has been recommended, and the patient has been advised to collaborate with her primary care physician in terms of weight loss options. Dietary counseling has been offered as an option.
[2018-04-11 10:10] VITALS: BP 140/105; PULSE 88; RESP 16; TEMP 36.1
[2018-04-13 13:48] VITALS: BP 149/73; PULSE 81; RESP 18; TEMP 36
[2018-04-18 12:49] VITALS: BP 120/60; PULSE 76; RESP 18; TEMP 36.1
--- NOTE | 2018-04-18 13:47 | PCM.WC.HP ---
(1) Hyperlipidemia Status: Chronic Current Visit: No Qualifiers: Hyperlipidemia type: unspecified Qualified Code(s): E78.5 - Hyperlipidemia, unspecified Code(s): E78.5 - Hyperlipidemia, unspecified (2) Hypertension Status: Chronic Current Visit: No Qualifiers: Hypertension type: essential hypertension Qualified Code(s): I10 - Essential (primary) hypertension Code(s): I10 - Essential (primary) hypertension (3) Type 2 diabetes mellitus Status: Chronic Current Visit: Yes Code(s): E11.9 - Type 2 diabetes mellitus without complications (4) Tobacco use disorder Status: Chronic Current Visit: Yes Code(s): F17.200 - Nicotine dependence, unspecified, uncomplicated (5) Multiple personality disorder Status: Chronic Current Visit: No Code(s): F44.81 - Dissociative identity disorder (6) Morbid obesity with body mass index of 40.0-49.9 Status: Chronic Current Visit: Yes Code(s): E66.01 - Morbid (severe) obesity due to excess calories (7) Chronic back pain Status: Chronic Current Visit: No Code(s): M54.9 - Dorsalgia, unspecified; G89.29 - Other chronic pain (8) Tobacco abuse counseling Status: Chronic Current Visit: Yes Code(s): Z71.6 - Tobacco abuse counseling (9) Swelling of lower extremity Status: Chronic Current Visit: Yes Code(s): M79.89 - Other specified soft tissue disorders (10) Edema of both legs Status: Chronic Current Visit: Yes Code(s): R60.0 - Localized edema (11) Lymphedema of leg Status: Chronic Current Visit: Yes Qualifiers: Laterality: bilateral Code(s): I89.0 - Lymphedema, not elsewhere classified (12) GERD (gastroesophageal reflux disease) Status: Chronic Current Visit: No Code(s): K21.9 - Gastro-esophageal reflux disease without esophagitis (13) Multiple sclerosis Status: Chronic Current Visit: No Code(s): G35 - Multiple sclerosis (14) CKD (chronic kidney disease) stage 4, GFR 15-29 ml/min Status: Chronic Current Visit: No Code(s): N18.4 - Chronic kidney disease, stage 4 (severe) (15) PAD (peripheral artery disease) Status: Chronic Current Visit: No Code(s): I73.9 - Peripheral vascular disease, unspecified (16) History of CVA (cerebrovascular accident) Status: Chronic Current Visit: No Code(s): Z86.73 - Personal history of transient ischemic attack (TIA), and cerebral infarction without residual deficits (17) History of DVT (deep vein thrombosis) Status: Chronic Current Visit: No Code(s): Z86.718 - Personal history of other venous thrombosis and embolism (18) Psoriasis Status: Chronic Current Visit: No Code(s): L40.9 - Psoriasis, unspecified (19) CHF (congestive heart failure) Status: Chronic Current Visit: No Code(s): I50.9 - Heart failure, unspecified (20) Edema Status: Chronic Current Visit: Yes Qualifiers: Edema type: unspecified Qualified Code(s): R60.9 - Edema, unspecified Code(s): R60.9 - Edema, unspecified (21) Hypothyroidism Status: Chronic Current Visit: No Code(s): E03.9 - Hypothyroidism, unspecified (22) Essential (primary) hypertension Status: Chronic Current Visit: No Code(s): I10 - Essential (primary) hypertension (23) Atherosclerotic heart disease of [place] coronary artery without angina pectoris Status: Chronic Current Visit: No Code(s): I25.10 - Atherosclerotic heart disease of [place] coronary artery without angina pectoris (24) Pressure ulcer of right buttock, stage 2 Status: Acute Current Visit: Yes Code(s): L89.312 - Pressure ulcer of right buttock, stage 2 History of Present Illness Date of Service: 04/18/18 Chief Complaint: Bilateral lower extremity swelling, edema, and lymphedema. 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 Mayo, for evaluation and management regarding bilateral lower extremity swelling, edema, and lymphedema. This has been a problem for the patient in the past, and is chronic in nature. However, it appears to have been exacerbated recently by a traumatic hairline fracture of the right ankle which occurred on November 01, 2017. As a result, the patient was immobile for a period of time, relatively inactive, spending her days in an idle sitting position. As a result of her inactivity and chronic dependency, she has noted swelling, edema, and lymphedema in her lower extremities to be much more severe than usual, prompting her to seek medical attention. The patient claims to sleep in a relatively flat position at night. She has a history of bilateral lower extremity deep vein thrombosis, for which she has been previously treated with systemic anticoagulation therapy. She is not currently taking anticoagulation. The patient has multiple medical problems, which include diabetes mellitus, morbid obesity, hypertension, coronary artery disease, chronic kidney disease, peripheral arterial occlusive disease, and tobacco abuse. The patient has Farrow wraps for her lower extremities, which she had not been using. The wraps are not large enough to accommodate the severe swelling which currently exists in her lower extremities. She also has pneumatic mechanical compression pumps for her lower extremities, which she had not been using until recently. These measures have been previously implemented in treatment for the patient's chronic lower extremity swelling and edema. In recent weeks, the patient has demonstrated increasing compliance with recommended measures. She has been elevating her lower extremities more frequently. She has been using her mechanical compression pumps. Several weeks ago, due to slippage of the 2 layer wraps, the patient developed a superficial ulceration on the right anterior tibial surface. The patient has now developed an ulceration on the right lower buttock. This occurred due to prolonged sitting. The patient was at a holiness conference for several days, sitting long hours each day while attending lectures and presentations. Past Medical History Past Medical History: Chronic Problems (Last Reviewed 03/24/18 @ 15:20 by Gilda Zhang) Hyperlipidemia (Chronic) Hypertension (Chronic) Type 2 diabetes mellitus (Chronic) Tobacco use disorder (Chronic) Multiple personality disorder (Chronic) Morbid obesity with body mass index of 40.0-49.9 (Chronic) Chronic back pain (Chronic) Tobacco abuse counseling (Chronic) Swelling of lower extremity (Chronic) Edema of both legs (Chronic) Lymphedema of leg (Chronic) GERD (gastroesophageal reflux disease) (Chronic) Multiple sclerosis (Chronic) CKD (chronic kidney disease) stage 4, GFR 15-29 ml/min (Chronic) PAD (peripheral artery disease) (Chronic) History of CVA (cerebrovascular accident) (Chronic) History of DVT (deep vein thrombosis) (Chronic) Psoriasis (Chronic) CHF (congestive heart failure) (Chronic) Edema (Chronic) Hypothyroidism (Chronic) Essential (primary) hypertension (Chronic) Atherosclerotic heart disease of [place] coronary artery without angina pectoris (Chronic) Surgical History: appendectomy, cholecystectomy, - - The patient has a history of appendectomy, cholecystectomy, bilateral lower extremity vein stripping, partial hysterectomy, tonsillectomy, lumbar surgery ?4, and bilateral carpal tunnel release. The patient is a Ab0. Her only two live births succumbed shortly following . Allergies/Adverse Reactions: Allergies latex Allergy (Verified 03/24/18 15:10) Rash Penicillins Allergy (Verified 03/24/18 15:10) Unknown venom-honey bee [bee venom (honey bee)] Allergy (Verified 03/24/18 15:10) Unknown Home Medications: Ambulatory Orders Medication Instructions Recorded Celecoxib [Celebrex] 200 mg PO BID 07/03/14 Oxycodone HCl/Acetaminophen 1 ea PO Q4H PRN PRN 07/03/14 [Oxycodone-Acetaminophen 10-325] Tizanidine HCl [Zanaflex] 4 mg PO Q8H 07/03/14 Glimepiride [Amaryl] 4 mg PO BID 11/15/14 ALPRAZolam [Xanax] 0.25 mg PO BID 05/20/17 Albuterol Aerosols [Ventolin 2.5 mg INHALATION Q4H PRN #25 vial 06/18/17 Aerosols] Doxycycline [Vibramycin] 100 mg PO BID #20 cap 06/18/17 Benzonatate [Tessalon Perle] 100 mg PO Q4H PRN PRN #20 cap 06/19/17 amitriptyline 50 mg tablet 100 mg PO QHS tab 08/23/17 aspirin 81 mg tablet,delayed 81 mg PO QDAY 08/23/17 release thyroid (pork) 60 mg tablet 120 mg PO DAILY tab 08/23/17 Gabapentin [Neurontin] 1,200 mg PO TIDCM 01/01/18 Insulin Detemir [Levemir] 64 unit SQ QHS 01/01/18 Insulin Regular, Human [Novolin R] 100 unit SQ BID 01/01/18 Liraglutide [Victoza] 0.12 mg SQ DAILY 01/01/18 proCHLORPERazine suppository 50 mg RECTAL DAILY PRN PRN 01/01/18 [Compazine suppository] diltiazem CD 240 mg 240 mg PO DAILY #90 cap 03/24/18 capsule,extended release 24 hr isosorbide mononitrate ER 60 mg 60 mg PO DAILY #90 tab 03/24/18 tablet,extended release 24 hr nitroglycerin 0.4 mg sublingual 0.4 mg SUBLINGUAL Q5-15M PRN 03/24/18 tablet atorvastatin 80 mg tablet 80 mg PO QDAY #90 tab 04/04/18 - Family History Maternal Family History: Family History (Last Reviewed 03/24/18 @ 15:20 by Gilda Zhang) Mother CAD (coronary artery disease) Diabetes, Heart Disease, No pertinent history, - - Hypothyroid Paternal Family History: Family History (Last Reviewed 03/24/18 @ 15:20 by Gilda Zhang) Mother CAD (coronary artery disease) Cancer, - - The patient's mother had a history of emphysema, COPD, coronary artery disease, diabetes mellitus, dementia, and Parkinson's disease. Patient's mother at age of 67. Smoking Status: Current some day smoker Tobacco Use: Cigarettes Review of Systems Constitutional: Denies: Chills, Fever, Weight Change Eyes: Denies: Pain, Vision Change HEENT: Denies: Difficulty Hearing, Difficulty Swallowing, Sinus Congestion Cardiovascular: Denies: Chest Pain, Palpitations Respiratory: Denies: Cough, Shortness of Breath Gastrointestinal: Denies: Diarrhea, Nausea, Vomiting Genitourinary: Denies: Dysuria, Hematuria Endocrine: Denies: Heat/ Cold Intolerance, Polydipsia, Polyuria Hematologic/ Lymphatic: Denies: Easy Bruising, Easy Bleeding - Physical Exam Vital Signs Temp Pulse Resp BP 96.9 F L 76 18 120/60 04/18/18 12:49 04/18/18 12:49 04/18/18 12:49 04/18/18 12:49 General: Alert, Oriented x3, Cooperative, No apparent distress, Well developed, Well nourished HEENT: Atraumatic, PERRLA, EOMI, Normocephalic Oral: Moist Mucosa Neck: No JVD Lungs: Normal air movement Abdomen: Non-Distended Extremities: No clubbing, No cyanosis, No Calf Tenderness, - - The swelling and edema in the patient's lower extremities appears relatively well controlled. The ulceration on the right anterior tibial surface appears to be healed and epithelialized. There is no sign of infection or cellulitis in the lower extremities. Circumference measurements are documented elsewhere. Skin: No rashes, - - The ulceration persists in the right lower buttock. There is little changed in size or appearance. Dimensions are documented elsewhere. There is no sign of infection or cellulitis. Wound Measurements and Assessment SAMIRA - Nurse 1 - General Ulcer Measurement Start: 03/21/18 14:55 Freq: Status: Active Protocol: Activity Type Activity Date Activity User E-Sign Co-Sign Detail Recorded Client Recorded Date Recorded By Document 04/18/18 12:49 [id number] 04/18/18 12:50 04/18/18 12:49 Wound Center Nurse 1 [Ulcer Assessment] #7- RT GLUTEAL FOLD -Combined with other wound No -Current Size (cm) - Length 0.4 -Current Size (cm) - Width 0.6 -Current Size (cm) - Depth 0.1 -Total Square Cm 0.24 -Photo Taken No -Epithelialization Small 1-33% -Tunneling No -Undermining/Tunneling No -Circular Undermining No -Exudate Amt Small (1-33%) -Exudate Type Serosanguineous -Wound Margin Flat & Intact -Granulation Amt Large (67-100%) -Granulation Quality Red -Slough/Fibrin Yes -Necrosis Amt Small (1-33%) -Necrotic Tissue Type Adherent Slough -Structure Exposed N/A -Texture (Cristina-wound Skin Appearance) Assessed Scarring -Moisture (Cristina-wound Skin Appearance Assessed ) Dry/Scaly -Color (Cristina-wound Skin Appearance) Assessed -Temperature (Cristina-wound Skin No Abnormality Appearance) (Pt Warm) -Tenderness on Palpation (Cristina-wound No Skin Appearance) -Ulcer Cleansing Wound Cleanser -Foul Odor after Cleansing No -Anesthetic Used 4% Lidocaine Solution [Edema Assessment] -Lower Limb Edema Present Yes -Right Calf (cm) 41.3 -Right Ankle (cm) 24.6 -Left Calf (cm) 38 -Left Ankle (cm) 23.5 WC - Nurse 2 - General Ulcer CM Notes Start: 03/21/18 14:55 Freq: Status: Active Protocol: Activity Type Activity Date Activity User E-Sign Co-Sign Detail Recorded Client Recorded Date Recorded By Document 04/18/18 13:39 [id number] 04/18/18 13:45 04/18/18 13:39 Wound Center Nurse 2 [Procedure/Treatment] #7- RT GLUTEAL FOLD -Time 13:39 -Correct Patient Yes -Correct Side, Site, Position Yes -Correct Procedure Yes -Procedure Performed Yes -Type of Procedure Debridement -Clinical Debridement Subcutaneous -Post Debridement Size (cm) - Length 0.5 -Post Debridement Size (cm) - Width 0.6 -Post Debridement Size (cm) - Depth 0.1 -Total Square Cm 0.30 -Wound/Ulcer Outcome Not Healed -Ulcer Cleansing Rinsed/ Irrigated with Saline -Foul Odor after Cleansing No -Bioengineered Tissue No -Bleeding Controlled with Pressure -Treatment Response Procedure Tolerated Well #6-RIGHT DEJESUS -Correct Patient No -Correct Side, Site, Position No -Correct Procedure No -Procedure Performed No -Post Debridement Size (cm) - Length 0 -Post Debridement Size (cm) - Width 0 -Post Debridement Size (cm) - Depth 0 -Total Square Cm 0 -Wound/Ulcer Outcome Healed- Epithelialized [See Physician Procedure note for Specifics] Pain Scale: 0-10 Numeric [Pain] -Is Patient Pain Free? Yes Neurological: Cranial nerves II-XII grossly intact, Neuro grossly intact Psych/Mental Status: Normal Affect, Appropriate, Alert and oriented to time, place, person, mood and affect Debridement Note Post-Debridement Measurements/Treatment WC - Nurse 2 - General Ulcer CM Notes Start: 03/21/18 14:55 Freq: Status: Active Protocol: Activity Type Activity Date Activity User E-Sign Co-Sign Detail Recorded Client Recorded Date Recorded By Document 03/21/18 15:44 [id number] 03/21/18 15:45 Document 03/28/18 12:49 [id number] 03/28/18 12:54 JS Document 04/04/18 14:57 [id number] 04/04/18 15:02 Document 04/18/18 13:39 [id number] 04/18/18 13:45 03/21/18 03/28/18 04/04/18 15:44 12:49 14:57 Wound Center Nurse 2 #7- RT GLUTEAL FOLD -Time 12:50 14:57 -Correct Patient Yes Yes -Correct Side, Site, Position Yes Yes -Correct Procedure Yes Yes -Procedure Performed Yes Yes -Type of Procedure Debridement Debridement -Clinical Debridement Subcutaneous Subcutaneous -Post Debridement Size (cm) - Length 0.8 0.2 -Post Debridement Size (cm) - Width 1.0 1.0 -Post Debridement Size (cm) - Depth 0.2 0.2 -Total Square Cm 0.80 0.20 -Wound/Ulcer Outcome Not Healed Not Healed -Ulcer Cleansing Rinsed/ Rinsed/ Irrigated with Irrigated with Saline Saline -Foul Odor after Cleansing No No -Bioengineered Tissue No No -Topical Lidocaine (%) 4 -Lidocaine (ml) 5 -Bleeding Controlled with NA NA -Treatment Response Procedure Procedure Tolerated Well Tolerated Well #6-RIGHT DEJESUS -Time 15:44 12:51 14:58 -Correct Patient Yes Yes Yes -Correct Side, Site, Position Yes Yes Yes -Correct Procedure Yes Yes Yes -Procedure Performed Yes Yes Yes -Type of Procedure Debridement Debridement Debridement -Clinical Debridement Subcutaneous Subcutaneous Subcutaneous -Post Debridement Size (cm) - Length 1.9 1.2 1.1 -Post Debridement Size (cm) - Width 1.8 1.4 1.1 -Post Debridement Size (cm) - Depth 1 0.2 0.1 -Total Square Cm 3.42 1.68 1.21 -Wound/Ulcer Outcome Not Healed Not Healed Not Healed -Ulcer Cleansing Rinsed/ Rinsed/ Rinsed/ Irrigated with Irrigated with Irrigated with Saline Saline Saline -Foul Odor after Cleansing No No No -Bioengineered Tissue No No No -Topical Lidocaine (%) 4 4 -Lidocaine (ml) 5 5 -Bleeding Controlled with NA NA NA -Treatment Response Procedure Procedure Procedure Tolerated Well Tolerated Well Tolerated Well Pain Scale: 0-10 Numeric Is Patient Pain Free? Yes Yes Yes 04/18/18 13:39 Wound Center Nurse 2 #7- RT GLUTEAL FOLD -Time 13:39 -Correct Patient Yes -Correct Side, Site, Position Yes -Correct Procedure Yes -Procedure Performed Yes -Type of Procedure Debridement -Clinical Debridement Subcutaneous -Post Debridement Size (cm) - Length 0.5 -Post Debridement Size (cm) - Width 0.6 -Post Debridement Size (cm) - Depth 0.1 -Total Square Cm 0.30 -Wound/Ulcer Outcome Not Healed -Ulcer Cleansing Rinsed/ Irrigated with Saline -Foul Odor after Cleansing No -Bioengineered Tissue No -Topical Lidocaine (%) -Lidocaine (ml) -Bleeding Controlled with Pressure -Treatment Response Procedure Tolerated Well #6-RIGHT DEJESUS -Time -Correct Patient No -Correct Side, Site, Position No -Correct Procedure No -Procedure Performed No -Type of Procedure -Clinical Debridement -Post Debridement Size (cm) - Length 0 -Post Debridement Size (cm) - Width 0 -Post Debridement Size (cm) - Depth 0 -Total Square Cm 0 -Wound/Ulcer Outcome Healed- Epithelialized -Ulcer Cleansing -Foul Odor after Cleansing -Bioengineered Tissue -Topical Lidocaine (%) -Lidocaine (ml) -Bleeding Controlled with -Treatment Response Pain Scale: 0-10 Numeric Is Patient Pain Free? Yes Laterality: Right - Lower buttock Type of Debridement: Excisional debridement Anesthesia Used: 4% Lidocaine Solution Depth: Down to and including healthy tissue, in the subcutaneous layer Percentage of wound debrided: 100 Instrument Used: 5mm curette Severity: Fat Layer Exposed Amount of bleeding with debridement: Mild Bleeding Controlled with: Compression and gauze Patient tolerated procedure well Assessment/Plan Active Problems (Last Reviewed 03/24/18 @ 15:20 by Gilda Zhang) Pressure ulcer of right buttock, stage 2 (Acute) Type 2 diabetes mellitus (Chronic) Tobacco use disorder (Chronic) Morbid obesity with body mass index of 40.0-49.9 (Chronic) Tobacco abuse counseling (Chronic) Swelling of lower extremity (Chronic) Edema of both legs (Chronic) Lymphedema of leg (Chronic) Edema (Chronic) Assessment: This is a 47-year-old morbidly obese diabetic female with multiple medical problems, which have been listed above. It appears as though a hairline fracture of the right ankle, sustained on November 01, 2017, resulted in a decrease in activity, limited ambulation, and chronic lower extremity dependency. This significant change in the patient's activity and habits resulted in exacerbation of the swelling, edema, and lymphedema in the patient's lower extremities. The ulceration on the right anterior tibial surface is now completely healed. The patient has undergone a battery of diagnostic laboratory tests, which have been reviewed. Results are as follows: White blood count 7.7, hemoglobin 13.7, hematocrit 42.1, platelets 199,000, sodium 140, potassium 4.5, chloride 108, BUN 19, creatinine 0.92, glucose 199, hemoglobin A1c 8.2, calcium 8.8, total bilirubin 0.30, AST 18, ALT 16, alkaline phosphatase 109, total protein 6.8, albumin 2.7, pre-albumin 15.4. A venous duplex examination has recently been performed, revealing incompetence of the right great saphenous vein and an incompetent cardiovascular radiologic technologist vein 17 cm proximal to the right medial malleolus. No superficial venous incompetence is noted in the left lower extremity. A noninvasive lower extremity arterial study is normal, revealing normal arterial perfusion in the lower extremities bilaterally. Finally, as result of prolonged sitting in a holiness conference recently, the patient has developed a pressure ulceration on her right lower buttock, stage II. The right buttock ulceration is little changed in size, but its base appears clean and healthy in appearance. Plan: The patient has been instructed to elevate her lower extremities as much as possible. We have encouraged the patient to elevate her legs, even during daytime hours. It appears as though she is sleeping in a relatively recumbent position. Activity has been encouraged. Avoidance of prolonged idle sitting has been recommended. Lower extremities are to be elevated to heart level, or higher. Recruitment of the calf and foot muscle pumps has been explained, and can be implemented by means of activity and ambulation. Weight loss has been highly recommended. The patient has been advised to optimize her diabetic control. Dietary counseling will be offered if the patient so wishes. The patient has been advised to continue the use of her mechanical pneumatic compression pumps. We are to continue compression to the lower extremities by means of multilayer compression wraps, which will be changed twice weekly. The patient's Farrow wraps have recently been unusable, too small to fit her lower extremities due to extreme swelling. In addition, the patient's Farrow wraps are several years old, due to be replaced. We have referred the patient to the [facility] at [facility], and recommendations have been reviewed. The intention is to instruct in appropriate long-term habits, and to ultimately fit the patient with CircAid Velcro compression garments bilaterally or graduated compression stockings. An attempt will be made to secure CircAid compression garments for the lower extremities. Patient will return in 2 weeks for reassessment. With respect to the pressure ulceration on the patient's right lower buttock, offloading measures are to be continued, and the use of Sarah which will be changed every other day. The patient is a smoker, and smoking cessation has been recommended. She is to collaborate with her primary care physician in this regard. Influenza vaccine was not administered today. Patient stands 5 feet 1 inch tall. She weighs 250 pounds. Her BMI is 47.1. Weight loss has been recommended, and the patient has been advised to collaborate with her primary care physician in terms of weight loss options. Dietary counseling has been offered as an option.
--- NOTE | 2018-04-18 13:51 | HP.PCM_ITS ---
(1) Hyperlipidemia Status: Chronic Current Visit: No Qualifiers: Hyperlipidemia type: unspecified Qualified Code(s): E78.5 - Hyperlipidemia , unspecified Code(s): E78.5 - Hyperlipidemia, unspecified (2) Hypertension Status: Chronic Current Visit: No Qualifiers: Hypertension type: essential hypertension Qualified Code(s): I10 - Essential (primary) hypertension Code(s): I10 - Essential (primary) hypertension (3) Type 2 diabetes mellitus Status: Chronic Current Visit: Yes Code(s): E11.9 - Type 2 diabetes mellitus without complications (4) Tobacco use disorder Status: Chronic Current Visit: Yes Code(s): F17.200 - Nicotine dependence, unspecified, uncomplicated (5) Multiple personality disorder Status: Chronic Current Visit: No Code(s): F44.81 - Dissociative identity disorder (6) Morbid obesity with body mass index of 40.0-49.9 Status: Chronic Current Visit: Yes Code(s): E66.01 - Morbid (severe) obesity due to excess calories (7) Chronic back pain Status: Chronic Current Visit: No Code(s): M54.9 - Dorsalgia, unspecified; G89.29 - Other chronic pain (8) Tobacco abuse counseling Status: Chronic Current Visit: Yes Code(s): Z71.6 - Tobacco abuse counseling (9) Swelling of lower extremity Status: Chronic Current Visit: Yes Code(s): M79.89 - Other specified soft tissue disorders (10) Edema of both legs Status: Chronic Current Visit: Yes Code(s): R60.0 - Localized edema (11) Lymphedema of leg Status: Chronic Current Visit: Yes Qualifiers: Laterality: bilateral Code(s): I89.0 - Lymphedema, not elsewhere classified (12) GERD (gastroesophageal reflux disease) Status: Chronic Current Visit: No Code(s): K21.9 - Gastro-esophageal reflux disease without esophagitis (13) Multiple sclerosis Status: Chronic Current Visit: No Code(s): G35 - Multiple sclerosis (14) CKD (chronic kidney disease) stage 4, GFR 15-29 ml/min Status: Chronic Current Visit: No Code(s): N18.4 - Chronic kidney disease, stage 4 (severe) (15) PAD (peripheral artery disease) Status: Chronic Current Visit: No Code(s): I73.9 - Peripheral vascular disease, unspecified (16) History of CVA (cerebrovascular accident) Status: Chronic Current Visit: No Code(s): Z86.73 - Personal history of transient ischemic attack (TIA), and cerebral infarction without residual deficits (17) History of DVT (deep vein thrombosis) Status: Chronic Current Visit: No Code(s): Z86.718 - Personal history of other venous thrombosis and embolism (18) Psoriasis Status: Chronic Current Visit: No Code(s): L40.9 - Psoriasis, unspecified (19) CHF (congestive heart failure) Status: Chronic Current Visit: No Code(s): I50.9 - Heart failure, unspecified (20) Edema Status: Chronic Current Visit: Yes Qualifiers: Edema type: unspecified Qualified Code(s): R60.9 - Edema, unspecified Code(s): R60.9 - Edema, unspecified (21) Hypothyroidism Status: Chronic Current Visit: No Code(s): E03.9 - Hypothyroidism, unspecified (22) Essential (primary) hypertension Status: Chronic Current Visit: No Code(s): I10 - Essential (primary) hypertension (23) Atherosclerotic heart disease of [place] coronary artery without angina pectoris Status: Chronic Current Visit: No Code(s): I25.10 - Atherosclerotic heart disease of [place] coronary artery without angina pectoris (24) Pressure ulcer of right buttock, stage 2 Status: Acute Current Visit: Yes Code(s): L89.312 - Pressure ulcer of right buttock, stage 2 History of Present Illness Date of Service: 04/18/18 Chief Complaint: Bilateral lower extremity swelling, edema, and lymphedema. History of Wound: This is a 47-year-old morbidly obese diabetic female who presented as a referral from her private inquiry agent, Dr. Mayo, for evaluation and management regarding bilateral lower extremity swelling, edema, and lymphedema. This has been a problem for the patient in the past, and is chronic in nature. However, it appears to have been exacerbated recently by a traumatic hairline fracture of the right ankle which occurred on November 01, 2017. As a result, the patient was immobile for a period of time, relatively inactive, spending her days in an idle sitting position. As a result of her inactivity and chronic dependency, she has noted swelling, edema, and lymphedema in her lower extremities to be much more severe than usual, prompting her to seek medical attention. The patient claims to sleep in a relatively flat position at night. She has a history of bilateral lower extremity deep vein thrombosis, for which she has been previously treated with systemic anticoagulation therapy. She is not currently taking anticoagulation. The patient has multiple medical problems, which include diabetes mellitus, morbid obesity, hypertension, coronary artery disease, chronic kidney disease, peripheral arterial occlusive disease, and tobacco abuse. The patient has Farrow wraps for her lower extremities, which she had not been using. The wraps are not large enough to accommodate the severe swelling which currently exists in her lower extremities. She also has pneumatic mechanical compression pumps for her lower extremities, which she had not been using until recently. These measures have been previously implemented in treatment for the patient's chronic lower extremity swelling and edema. In recent weeks, the patient has demonstrated increasing compliance with recommended measures. She has been elevating her lower extremities more frequently. She has been using her mechanical compression pumps. Several weeks ago, due to slippage of the 2 layer wraps, the patient developed a superficial ulceration on the right anterior tibial surface. The patient has now developed an ulceration on the right lower buttock. This occurred due to prolonged sitting. The patient was at a [employer] conference for several days, sitting long hours each day while attending lectures and presentations. Past Medical History Past Medical History: Chronic Problems (Last Reviewed 03/24/18 @ 15:20 by Gilda Zhang) Hyperlipidemia (Chronic) Hypertension (Chronic) Type 2 diabetes mellitus (Chronic) Tobacco use disorder (Chronic) Multiple personality disorder (Chronic) Morbid obesity with body mass index of 40.0-49.9 (Chronic) Chronic back pain (Chronic) Tobacco abuse counseling (Chronic) Swelling of lower extremity (Chronic) Edema of both legs (Chronic) Lymphedema of leg (Chronic) GERD (gastroesophageal reflux disease) (Chronic) Multiple sclerosis (Chronic) CKD (chronic kidney disease) stage 4, GFR 15-29 ml/min (Chronic) PAD (peripheral artery disease) (Chronic) History of CVA (cerebrovascular accident) (Chronic) History of DVT (deep vein thrombosis) (Chronic) Psoriasis (Chronic) CHF (congestive heart failure) (Chronic) Edema (Chronic) Hypothyroidism (Chronic) Essential (primary) hypertension (Chronic) Atherosclerotic heart disease of [place] coronary artery without angina pectoris (Chronic) Surgical History: appendectomy, cholecystectomy, - - The patient has a history of appendectomy, cholecystectomy, bilateral lower extremity vein stripping, partial hysterectomy, tonsillectomy, lumbar surgery ?4, and bilateral carpal tunnel release. The patient is a Ab0. Her only two live births succumbed shortly following . Allergies/Adverse Reactions: Allergies latex Allergy (Verified 03/24/18 15:10) Rash Penicillins Allergy (Verified 03/24/18 15:10) Unknown venom-honey bee [bee venom (honey bee)] Allergy (Verified 03/24/18 15:10) Unknown Home Medications: Ambulatory Orders Medication Instructions Recorded Celecoxib [Celebrex] 200 mg PO BID 07/03/14 Oxycodone HCl/Acetaminophen 1 ea PO Q4H PRN PRN 07/03/14 [Oxycodone-Acetaminophen 10-325] Tizanidine HCl [Zanaflex] 4 mg PO Q8H 07/03/14 Glimepiride [Amaryl] 4 mg PO BID 11/15/14 ALPRAZolam [Xanax] 0.25 mg PO BID 05/20/17 Albuterol Aerosols [Ventolin 2.5 mg INHALATION Q4H PRN #25 vial 06/18/17 Aerosols] Doxycycline [Vibramycin] 100 mg PO BID #20 cap 06/18/17 Benzonatate [Tessalon Perle] 100 mg PO Q4H PRN PRN #20 cap 06/19/17 amitriptyline 50 mg tablet 100 mg PO QHS tab 08/23/17 aspirin 81 mg tablet,delayed 81 mg PO QDAY 08/23/17 release thyroid (pork) 60 mg tablet 120 mg PO DAILY tab 08/23/17 Gabapentin [Neurontin] 1,200 mg PO TIDCM 01/01/18 Insulin Detemir [Levemir] 64 unit SQ QHS 01/01/18 Insulin Regular, Human [Novolin R] 100 unit SQ BID 01/01/18 Liraglutide [Victoza] 0.12 mg SQ DAILY 01/01/18 proCHLORPERazine suppository 50 mg RECTAL DAILY PRN PRN 01/01/18 [Compazine suppository] diltiazem CD 240 mg 240 mg PO DAILY #90 cap 03/24/18 capsule,extended release 24 hr isosorbide mononitrate ER 60 mg 60 mg PO DAILY #90 tab 03/24/18 tablet,extended release 24 hr nitroglycerin 0.4 mg sublingual 0.4 mg SUBLINGUAL Q5-15M PRN 03/24/18 tablet atorvastatin 80 mg tablet 80 mg PO QDAY #90 tab 04/04/18 - Family History Maternal Family History: Family History (Last Reviewed 03/24/18 @ 15:20 by Gilda Zhang) Mother CAD (coronary artery disease) Diabetes, Heart Disease, No pertinent history, - - Hypothyroid Paternal Family History: Family History (Last Reviewed 03/24/18 @ 15:20 by Gilda Zhang) Mother CAD (coronary artery disease) Cancer, - - The patient's mother had a history of emphysema, COPD, coronary artery disease, diabetes mellitus, dementia, and Parkinson's disease. Patient' s mother at age of 67. Smoking Status: Current some day smoker Tobacco Use: Cigarettes Review of Systems Constitutional: Denies: Chills, Fever, Weight Change Eyes: Denies: Pain, Vision Change HEENT: Denies: Difficulty Hearing, Difficulty Swallowing, Sinus Congestion Cardiovascular: Denies: Chest Pain, Palpitations Respiratory: Denies: Cough, Shortness of Breath Gastrointestinal: Denies: Diarrhea, Nausea, Vomiting Genitourinary: Denies: Dysuria, Hematuria Endocrine: Denies: Heat/ Cold Intolerance, Polydipsia, Polyuria Hematologic/ Lymphatic: Denies: Easy Bruising, Easy Bleeding - Physical Exam Vital Signs Temp Pulse Resp BP 96.9 F L 76 18 120/60 04/18/18 12:49 04/18/18 12:49 04/18/18 12:49 04/18/18 12:49 General: Alert, Oriented x3, Cooperative, No apparent distress, Well developed, Well nourished HEENT: Atraumatic, PERRLA, EOMI, Normocephalic Oral: Moist Mucosa Neck: No JVD Lungs: Normal air movement Abdomen: Non-Distended Extremities: No clubbing, No cyanosis, No Calf Tenderness, - - The swelling and edema in the patient's lower extremities appears relatively well controlled. The ulceration on the right anterior tibial surface appears to be healed and epithelialized. There is no sign of infection or cellulitis in the lower extremities. Circumference measurements are documented elsewhere. Skin: No rashes, - - The ulceration persists in the right lower buttock. There is little changed in size or appearance. Dimensions are documented elsewhere. There is no sign of infection or cellulitis. Wound Measurements and Assessment SAMIRA - Nurse 1 - General Ulcer Measurement Start: 03/21/18 14:55 Freq: Status: Active Protocol: Activity Type Activity Date Activity User E-Sign Co-Sign Detail Recorded Client Recorded Date Recorded By Document 04/18/18 12:49 [id number] 04/18/18 12:50 04/18/18 12:49 Wound Center Nurse 1 [Ulcer Assessment] #7- RT GLUTEAL FOLD -Combined with other wound No -Current Size (cm) - Length 0.4 -Current Size (cm) - Width 0.6 -Current Size (cm) - Depth 0.1 -Total Square Cm 0.24 -Photo Taken No -Epithelialization Small 1-33% -Tunneling No -Undermining/Tunneling No -Circular Undermining No -Exudate Amt Small (1-33%) -Exudate Type Serosanguineous -Wound Margin Flat & Intact -Granulation Amt Large (67-100%) -Granulation Quality Red -Slough/Fibrin Yes -Necrosis Amt Small (1-33%) -Necrotic Tissue Type Adherent Slough -Structure Exposed N/A -Texture (Cristina-wound Skin Appearance) Assessed Scarring -Moisture (Cristina-wound Skin Appearance Assessed ) Dry/Scaly -Color (Cristina-wound Skin Appearance) Assessed -Temperature (Cristina-wound Skin No Abnormality Appearance) (Pt Warm) -Tenderness on Palpation (Cristina-wound No Skin Appearance) -Ulcer Cleansing Wound Cleanser -Foul Odor after Cleansing No -Anesthetic Used 4% Lidocaine Solution [Edema Assessment] -Lower Limb Edema Present Yes -Right Calf (cm) 41.3 -Right Ankle (cm) 24.6 -Left Calf (cm) 38 -Left Ankle (cm) 23.5 WC - Nurse 2 - General Ulcer CM Notes Start: 03/21/18 14:55 Freq: Status: Active Protocol: Activity Type Activity Date Activity User E-Sign Co-Sign Detail Recorded Client Recorded Date Recorded By Document 04/18/18 13:39 [id number] 04/18/18 13:45 04/18/18 13:39 Wound Center Nurse 2 [Procedure/Treatment] #7- RT GLUTEAL FOLD -Time 13:39 -Correct Patient Yes -Correct Side, Site, Position Yes -Correct Procedure Yes -Procedure Performed Yes -Type of Procedure Debridement -Clinical Debridement Subcutaneous -Post Debridement Size (cm) - Length 0.5 -Post Debridement Size (cm) - Width 0.6 -Post Debridement Size (cm) - Depth 0.1 -Total Square Cm 0.30 -Wound/Ulcer Outcome Not Healed -Ulcer Cleansing Rinsed/ Irrigated with Saline -Foul Odor after Cleansing No -Bioengineered Tissue No -Bleeding Controlled with Pressure -Treatment Response Procedure Tolerated Well #6-RIGHT DEJESUS -Correct Patient No -Correct Side, Site, Position No -Correct Procedure No -Procedure Performed No -Post Debridement Size (cm) - Length 0 -Post Debridement Size (cm) - Width 0 -Post Debridement Size (cm) - Depth 0 -Total Square Cm 0 -Wound/Ulcer Outcome Healed- Epithelialized [See Physician Procedure note for Specifics] Pain Scale: 0-10 Numeric [Pain] -Is Patient Pain Free? Yes Neurological: Cranial nerves II-XII grossly intact, Neuro grossly intact Psych/Mental Status: Normal Affect, Appropriate, Alert and oriented to time, place, person, mood and affect Debridement Note Post-Debridement Measurements/Treatment WC - Nurse 2 - General Ulcer CM Notes Start: 03/21/18 14:55 Freq: Status: Active Protocol: Activity Type Activity Date Activity User E-Sign Co-Sign Detail Recorded Client Recorded Date Recorded By Document 03/21/18 15:44 [id number] 03/21/18 15:45 Document 03/28/18 12:49 [id number] 03/28/18 12:54 JS Document 04/04/18 14:57 [id number] 04/04/18 15:02 Document 04/18/18 13:39 [id number] 04/18/18 13:45 03/21/18 03/28/18 04/04/18 15:44 12:49 14:57 Wound Center Nurse 2 #7- RT GLUTEAL FOLD -Time 12:50 14:57 -Correct Patient Yes Yes -Correct Side, Site, Position Yes Yes -Correct Procedure Yes Yes -Procedure Performed Yes Yes -Type of Procedure Debridement Debridement -Clinical Debridement Subcutaneous Subcutaneous -Post Debridement Size (cm) - Length 0.8 0.2 -Post Debridement Size (cm) - Width 1.0 1.0 -Post Debridement Size (cm) - Depth 0.2 0.2 -Total Square Cm 0.80 0.20 -Wound/Ulcer Outcome Not Healed Not Healed -Ulcer Cleansing Rinsed/ Rinsed/ Irrigated with Irrigated with Saline Saline -Foul Odor after Cleansing No No -Bioengineered Tissue No No -Topical Lidocaine (%) 4 -Lidocaine (ml) 5 -Bleeding Controlled with NA NA -Treatment Response Procedure Procedure Tolerated Well Tolerated Well #6-RIGHT DEJESUS -Time 15:44 12:51 14:58 -Correct Patient Yes Yes Yes -Correct Side, Site, Position Yes Yes Yes -Correct Procedure Yes Yes Yes -Procedure Performed Yes Yes Yes -Type of Procedure Debridement Debridement Debridement -Clinical Debridement Subcutaneous Subcutaneous Subcutaneous -Post Debridement Size (cm) - Length 1.9 1.2 1.1 -Post Debridement Size (cm) - Width 1.8 1.4 1.1 -Post Debridement Size (cm) - Depth 1 0.2 0.1 -Total Square Cm 3.42 1.68 1.21 -Wound/Ulcer Outcome Not Healed Not Healed Not Healed -Ulcer Cleansing Rinsed/ Rinsed/ Rinsed/ Irrigated with Irrigated with Irrigated with Saline Saline Saline -Foul Odor after Cleansing No No No -Bioengineered Tissue No No No -Topical Lidocaine (%) 4 4 -Lidocaine (ml) 5 5 -Bleeding Controlled with NA NA NA -Treatment Response Procedure Procedure Procedure Tolerated Well Tolerated Well Tolerated Well Pain Scale: 0-10 Numeric Is Patient Pain Free? Yes Yes Yes 04/18/18 13:39 Wound Center Nurse 2 #7- RT GLUTEAL FOLD -Time 13:39 -Correct Patient Yes -Correct Side, Site, Position Yes -Correct Procedure Yes -Procedure Performed Yes -Type of Procedure Debridement -Clinical Debridement Subcutaneous -Post Debridement Size (cm) - Length 0.5 -Post Debridement Size (cm) - Width 0.6 -Post Debridement Size (cm) - Depth 0.1 -Total Square Cm 0.30 -Wound/Ulcer Outcome Not Healed -Ulcer Cleansing Rinsed/ Irrigated with Saline -Foul Odor after Cleansing No -Bioengineered Tissue No -Topical Lidocaine (%) -Lidocaine (ml) -Bleeding Controlled with Pressure -Treatment Response Procedure Tolerated Well #6-RIGHT DEJESUS -Time -Correct Patient No -Correct Side, Site, Position No -Correct Procedure No -Procedure Performed No -Type of Procedure -Clinical Debridement -Post Debridement Size (cm) - Length 0 -Post Debridement Size (cm) - Width 0 -Post Debridement Size (cm) - Depth 0 -Total Square Cm 0 -Wound/Ulcer Outcome Healed- Epithelialized -Ulcer Cleansing -Foul Odor after Cleansing -Bioengineered Tissue -Topical Lidocaine (%) -Lidocaine (ml) -Bleeding Controlled with -Treatment Response Pain Scale: 0-10 Numeric Is Patient Pain Free? Yes Laterality: Right - Lower buttock Type of Debridement: Excisional debridement Anesthesia Used: 4% Lidocaine Solution Depth: Down to and including healthy tissue, in the subcutaneous layer Percentage of wound debrided: 100 Instrument Used: 5mm curette Severity: Fat Layer Exposed Amount of bleeding with debridement: Mild Bleeding Controlled with: Compression and gauze Patient tolerated procedure well Assessment/Plan Active Problems (Last Reviewed 03/24/18 @ 15:20 by Gilda Zhang) Pressure ulcer of right buttock, stage 2 (Acute) Type 2 diabetes mellitus (Chronic) Tobacco use disorder (Chronic) Morbid obesity with body mass index of 40.0-49.9 (Chronic) Tobacco abuse counseling (Chronic) Swelling of lower extremity (Chronic) Edema of both legs (Chronic) Lymphedema of leg (Chronic) Edema (Chronic) Assessment: This is a 47-year-old morbidly obese diabetic female with multiple medical problems, which have been listed above. It appears as though a hairline fracture of the right ankle, sustained on November 01, 2017, resulted in a decrease in activity, limited ambulation, and chronic lower extremity dependency. This significant change in the patient's activity and habits resulted in exacerbation of the swelling, edema, and lymphedema in the patient' s lower extremities. The ulceration on the right anterior tibial surface is now completely healed. The patient has undergone a battery of diagnostic laboratory tests, which have been reviewed. Results are as follows: White blood count 7.7, hemoglobin 13.7, hematocrit 42.1, platelets 199,000, sodium 140 , potassium 4.5, chloride 108, BUN 19, creatinine 0.92, glucose 199, hemoglobin A1c 8.2, calcium 8.8, total bilirubin 0.30, AST 18, ALT 16, alkaline phosphatase 109, total protein 6.8, albumin 2.7, pre-albumin 15.4. A venous duplex examination has recently been performed, revealing incompetence of the right great saphenous vein and an incompetent meat molder vein 17 cm proximal to the right medial malleolus. No superficial venous incompetence is noted in the left lower extremity. A noninvasive lower extremity arterial study is normal, revealing normal arterial perfusion in the lower extremities bilaterally. Finally, as result of prolonged sitting in a [employer] conference recently, the patient has developed a pressure ulceration on her right lower buttock, stage II. The right buttock ulceration is little changed in size, but its base appears clean and healthy in appearance. Plan: The patient has been instructed to elevate her lower extremities as much as possible. We have encouraged the patient to elevate her legs, even during daytime hours. It appears as though she is sleeping in a relatively recumbent position. Activity has been encouraged. Avoidance of prolonged idle sitting has been recommended. Lower extremities are to be elevated to heart level, or higher. Recruitment of the calf and foot muscle pumps has been explained, and can be implemented by means of activity and ambulation. Weight loss has been highly recommended. The patient has been advised to optimize her diabetic control. Dietary counseling will be offered if the patient so wishes. The patient has been advised to continue the use of her mechanical pneumatic compression pumps. We are to continue compression to the lower extremities by means of multilayer compression wraps, which will be changed twice weekly. The patient's Farrow wraps have recently been unusable, too small to fit her lower extremities due to extreme swelling. In addition, the patient's Farrow wraps are several years old, due to be replaced. We have referred the patient to the L[facility] at [facility], and recommendations have been reviewed. The intention is to instruct in appropriate long-term habits, and to ultimately fit the patient with CircAid Velcro compression garments bilaterally or graduated compression stockings. An attempt will be made to secure CircAid compression garments for the lower extremities. Patient will return in 2 weeks for reassessment. With respect to the pressure ulceration on the patient's right lower buttock, offloading measures are to be continued, and the use of Sarah which will be changed every other day. The patient is a smoker, and smoking cessation has been recommended. She is to collaborate with her primary care physician in this regard. Influenza vaccine was not administered today. Patient stands 5 feet 1 inch tall. She weighs 250 pounds. Her BMI is 47.1. Weight loss has been recommended, and the patient has been advised to collaborate with her primary care physician in terms of weight loss options. Dietary counseling has been offered as an option.
== END 2018-04-19 23:59 ==
LOC: WC 13:00
PROVIDERS: Family Provider Student in an Organized Health Care Education/Training Program; PCP Student in an Organized Health Care Education/Training Program; Visit Provider Surgery
DX: E11.622 Type 2 diabetes mellitus with other skin ulcer (principal); E66.01 Morbid (severe) obesity due to excess calories; Z71.3 Dietary counseling and surveillance; L97.812 Non-pressure chronic ulcer of other part of right lower leg with fat layer exposed; I89.0 Lymphedema, not elsewhere classified; E78.5 Hyperlipidemia, unspecified; I48.0 Paroxysmal atrial fibrillation; Z68.42 Body mass index [BMI] 45.0-49.9, adult; M79.89 Other specified soft tissue disorders; R60.0 Localized edema; E11.22 Type 2 diabetes mellitus with diabetic chronic kidney disease; G35 Multiple sclerosis; N18.9 Chronic kidney disease, unspecified; I12.9 Hypertensive chronic kidney disease with stage 1 through stage 4 chronic kidney disease, or unspecified chronic kidney disease; Z86.73 Personal history of transient ischemic attack (TIA), and cerebral infarction without residual deficits; Z86.718 Personal history of other venous thrombosis and embolism; L40.9 Psoriasis, unspecified; K21.9 Gastro-esophageal reflux disease without esophagitis; I25.10 Atherosclerotic heart disease of native coronary artery without angina pectoris; E03.9 Hypothyroidism, unspecified; E11.51 Type 2 diabetes mellitus with diabetic peripheral angiopathy without gangrene; F17.210 Nicotine dependence, cigarettes, uncomplicated; L89.322 Pressure ulcer of left buttock, stage 2
CPT/HCPCS: 11042; 29580; 29581; 97605; 99212; 99213; G0463

== ENCOUNTER → 2018-05-16 11:12 | Outpatient (CLI) | payer MEDICARE, MEDICAID, SELFPAY ==
[2018-05-16 11:35] LABS: Erythrocyte Sedimentation Rate 66 mm/hr (0-20)
== END ==
PROVIDERS: Family Provider Student in an Organized Health Care Education/Training Program; PCP Student in an Organized Health Care Education/Training Program; Visit Provider Psychiatry & Neurology Neurology
DX: R51 Headache (principal)
CPT/HCPCS: 36415; 85652

== ENCOUNTER 2018-05-17 09:00 | Outpatient (RCR) | payer MEDICARE, MEDICAID, SELFPAY ==
[2018-04-20 00:50] VITALS: BP 120/60; PULSE 76; RESP 18; TEMP 36.1
[2018-04-21 12:51] VITALS: BP 161/76; PULSE 74; RESP 18; TEMP 35.7
[2018-04-25 13:35] VITALS: BP 121/60; PULSE 78; RESP 18; TEMP 36.1
--- NOTE | 2018-04-25 15:13 | PCM.WC.HP ---
(1) Pressure ulcer of right buttock, stage 2 Status: Chronic Current Visit: Yes Code(s): L89.312 - Pressure ulcer of right buttock, stage 2 (2) Hyperlipidemia Status: Chronic Current Visit: No Qualifiers: Code(s): E78.5 - Hyperlipidemia, unspecified (3) Hypertension Status: Chronic Current Visit: No Qualifiers: Code(s): I10 - Essential (primary) hypertension (4) Type 2 diabetes mellitus Status: Chronic Current Visit: Yes Code(s): E11.9 - Type 2 diabetes mellitus without complications (5) Tobacco use disorder Status: Chronic Current Visit: Yes Code(s): F17.200 - Nicotine dependence, unspecified, uncomplicated (6) Multiple personality disorder Status: Chronic Current Visit: No Code(s): F44.81 - Dissociative identity disorder (7) Morbid obesity with body mass index of 40.0-49.9 Status: Chronic Current Visit: No Code(s): E66.01 - Morbid (severe) obesity due to excess calories (8) Chronic back pain Status: Chronic Current Visit: No Code(s): M54.9 - Dorsalgia, unspecified; G89.29 - Other chronic pain (9) Tobacco abuse counseling Status: Chronic Current Visit: No Code(s): Z71.6 - Tobacco abuse counseling (10) Swelling of lower extremity Status: Chronic Current Visit: Yes Code(s): M79.89 - Other specified soft tissue disorders (11) Edema of both legs Status: Chronic Current Visit: Yes Code(s): R60.0 - Localized edema (12) Lymphedema of leg Status: Chronic Current Visit: Yes Qualifiers: Laterality: bilateral Code(s): I89.0 - Lymphedema, not elsewhere classified (13) GERD (gastroesophageal reflux disease) Status: Chronic Current Visit: No Code(s): K21.9 - Gastro-esophageal reflux disease without esophagitis (14) Multiple sclerosis Status: Chronic Current Visit: No Code(s): G35 - Multiple sclerosis (15) CKD (chronic kidney disease) stage 4, GFR 15-29 ml/min Status: Chronic Current Visit: No Code(s): N18.4 - Chronic kidney disease, stage 4 (severe) (16) PAD (peripheral artery disease) Status: Chronic Current Visit: No Code(s): I73.9 - Peripheral vascular disease, unspecified (17) History of CVA (cerebrovascular accident) Status: Chronic Current Visit: No Code(s): Z86.73 - Personal history of transient ischemic attack (TIA), and cerebral infarction without residual deficits (18) History of DVT (deep vein thrombosis) Status: Chronic Current Visit: No Code(s): Z86.718 - Personal history of other venous thrombosis and embolism (19) Psoriasis Status: Chronic Current Visit: No Code(s): L40.9 - Psoriasis, unspecified (20) CHF (congestive heart failure) Status: Chronic Current Visit: No Code(s): I50.9 - Heart failure, unspecified (21) Edema Status: Chronic Current Visit: Yes Qualifiers: Code(s): R60.9 - Edema, unspecified (22) Hypothyroidism Status: Chronic Current Visit: No Code(s): E03.9 - Hypothyroidism, unspecified (23) Essential (primary) hypertension Status: Chronic Current Visit: No Code(s): I10 - Essential (primary) hypertension (24) Atherosclerotic heart disease of [place] coronary artery without angina pectoris Status: Chronic Current Visit: No Code(s): I25.10 - Atherosclerotic heart disease of [place] coronary artery without angina pectoris History of Present Illness Date of Service: 04/25/18 Chief Complaint: Bilateral lower extremity swelling, edema, and lymphedema; Right buttock pressure ulceration (stage 2) History of Wound: This is a 47-year-old morbidly obese diabetic female who presented as a referral from her [facility] [place], Dr. Mayo, for evaluation and management regarding bilateral lower extremity swelling, edema, and lymphedema. This has been a problem for the patient in the past, and is chronic in nature. However, it appears to have been exacerbated recently by a traumatic hairline fracture of the right ankle which occurred on November 01, 2017. As a result, the patient was immobile for a period of time, relatively inactive, spending her days in an idle sitting position. As a result of her inactivity and chronic dependency, she has noted swelling, edema, and lymphedema in her lower extremities to be much more severe than usual, prompting her to seek medical attention. The patient claims to sleep in a relatively flat position at night. She has a history of bilateral lower extremity deep vein thrombosis, for which she has been previously treated with systemic anticoagulation therapy. She is not currently taking anticoagulation. The patient has multiple medical problems, which include diabetes mellitus, morbid obesity, hypertension, coronary artery disease, chronic kidney disease, peripheral arterial occlusive disease, and tobacco abuse. The patient has Farrow wraps for her lower extremities, which she had not been using. The wraps are not large enough to accommodate the severe swelling which currently exists in her lower extremities. She also has pneumatic mechanical compression pumps for her lower extremities, which she had not been using until recently. These measures have been previously implemented in treatment for the patient's chronic lower extremity swelling and edema. In recent weeks, the patient has demonstrated increasing compliance with recommended measures. She has been elevating her lower extremities more frequently. She has been using her mechanical compression pumps. The patient has now developed an ulceration on the right lower buttock. This occurred due to prolonged sitting. 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 This appears to be a stage II pressure ulceration. Past Medical History Past Medical History: Chronic Problems (Last Reviewed 03/24/18 @ 15:20 by Gilda Zhang) Pressure ulcer of right buttock, stage 2 (Chronic) Hyperlipidemia (Chronic) Hypertension (Chronic) Type 2 diabetes mellitus (Chronic) Tobacco use disorder (Chronic) Multiple personality disorder (Chronic) Morbid obesity with body mass index of 40.0-49.9 (Chronic) Chronic back pain (Chronic) Tobacco abuse counseling (Chronic) Swelling of lower extremity (Chronic) Edema of both legs (Chronic) Lymphedema of leg (Chronic) GERD (gastroesophageal reflux disease) (Chronic) Multiple sclerosis (Chronic) CKD (chronic kidney disease) stage 4, GFR 15-29 ml/min (Chronic) PAD (peripheral artery disease) (Chronic) History of CVA (cerebrovascular accident) (Chronic) History of DVT (deep vein thrombosis) (Chronic) Psoriasis (Chronic) CHF (congestive heart failure) (Chronic) Edema (Chronic) Hypothyroidism (Chronic) Essential (primary) hypertension (Chronic) Atherosclerotic heart disease of [place] coronary artery without angina pectoris (Chronic) Surgical History: appendectomy, cholecystectomy, - - The patient has a history of appendectomy, cholecystectomy, bilateral lower extremity vein stripping, partial hysterectomy, tonsillectomy, lumbar surgery ?4, and bilateral carpal tunnel release. The patient is a Ab0. Her only two live births succumbed shortly following . Allergies/Adverse Reactions: Allergies latex Allergy (Verified 03/24/18 15:10) Rash Penicillins Allergy (Verified 03/24/18 15:10) Unknown venom-honey bee [bee venom (honey bee)] Allergy (Verified 03/24/18 15:10) Unknown Home Medications: Ambulatory Orders Medication Instructions Recorded Celecoxib [Celebrex] 200 mg PO BID 07/03/14 Oxycodone HCl/Acetaminophen 1 ea PO Q4H PRN PRN 07/03/14 [Oxycodone-Acetaminophen 10-325] Tizanidine HCl [Zanaflex] 4 mg PO Q8H 07/03/14 Glimepiride [Amaryl] 4 mg PO BID 11/15/14 ALPRAZolam [Xanax] 0.25 mg PO BID 05/20/17 Albuterol Aerosols [Ventolin 2.5 mg INHALATION Q4H PRN #25 vial 06/18/17 Aerosols] Doxycycline [Vibramycin] 100 mg PO BID #20 cap 06/18/17 Benzonatate [Tessalon Perle] 100 mg PO Q4H PRN PRN #20 cap 06/19/17 amitriptyline 50 mg tablet 100 mg PO QHS tab 08/23/17 aspirin 81 mg tablet,delayed 81 mg PO QDAY 08/23/17 release thyroid (pork) 60 mg tablet 120 mg PO DAILY tab 08/23/17 Gabapentin [Neurontin] 1,200 mg PO TIDCM 01/01/18 Insulin Detemir [Levemir] 64 unit SQ QHS 01/01/18 Insulin Regular, Human [Novolin R] 100 unit SQ BID 01/01/18 Liraglutide [Victoza] 0.12 mg SQ DAILY 01/01/18 proCHLORPERazine suppository 50 mg RECTAL DAILY PRN PRN 01/01/18 [Compazine suppository] diltiazem CD 240 mg 240 mg PO DAILY #90 cap 03/24/18 capsule,extended release 24 hr isosorbide mononitrate ER 60 mg 60 mg PO DAILY #90 tab 03/24/18 tablet,extended release 24 hr nitroglycerin 0.4 mg sublingual 0.4 mg SUBLINGUAL Q5-15M PRN 03/24/18 tablet atorvastatin 80 mg tablet 80 mg PO QDAY #90 tab 04/04/18 - Family History Maternal Family History: Family History (Last Reviewed 03/24/18 @ 15:20 by Gilda Zhang) Mother CAD (coronary artery disease) Diabetes, Heart Disease, No pertinent history, - - Hypothyroid Paternal Family History: Family History (Last Reviewed 03/24/18 @ 15:20 by Gilda Zhang) Mother CAD (coronary artery disease) Cancer, - - The patient's mother had a history of emphysema, COPD, coronary artery disease, diabetes mellitus, dementia, and Parkinson's disease. Patient's mother at age of 67. Smoking Status: Current some day smoker Tobacco Use: Cigarettes Review of Systems Constitutional: Denies: Chills, Fever, Weight Change Eyes: Denies: Pain, Vision Change HEENT: Denies: Difficulty Hearing, Difficulty Swallowing, Sinus Congestion Cardiovascular: Denies: Chest Pain, Palpitations Respiratory: Denies: Cough, Shortness of Breath Gastrointestinal: Denies: Diarrhea, Nausea, Vomiting Genitourinary: Denies: Dysuria, Hematuria Endocrine: Denies: Heat/ Cold Intolerance, Polydipsia, Polyuria Hematologic/ Lymphatic: Denies: Easy Bruising, Easy Bleeding - Physical Exam Vital Signs Temp Pulse Resp BP 97.0 F L 78 18 121/60 H 04/25/18 13:35 04/25/18 13:35 04/25/18 13:35 04/25/18 13:35 General: Alert, Oriented x3, Cooperative, No apparent distress, Well developed, Well nourished HEENT: Atraumatic, PERRLA, EOMI, Normocephalic Oral: Moist Mucosa Neck: No JVD Lungs: Normal air movement Abdomen: Non-Distended Extremities: No clubbing, No cyanosis, No Calf Tenderness, Edema, - - Mild swelling and edema persist in the lower extremities. However, the swelling and edema continues to improve. There are no open wounds or ulcerations in the lower remedies. There is no sign of infection or cellulitis. Circumferences are documented elsewhere. Skin: - - A stage II pressure ulceration persists in the right lower buttock. There is no sign of infection. Dimensions are documented elsewhere. The ulceration has decreased in size. The patient of the ulceration is generally pink, with minimal bioburden. Wound Measurements and Assessment WC - Nurse 1 - General Ulcer Measurement Start: 04/21/18 12:51 Freq: Status: Active Protocol: Activity Type Activity Date Activity User E-Sign Co-Sign Detail Recorded Client Recorded Date Recorded By Document 04/25/18 13:35 [id number] 04/25/18 13:51 04/25/18 13:35 Wound Center Nurse 1 [Ulcer Assessment] #7- RT GLUTEAL FOLD -Current Size (cm) - Length 0.1 -Current Size (cm) - Width 0.1 -Current Size (cm) - Depth 0.1 -Total Square Cm 0.01 -Photo Taken No -Exudate Amt None Present (0 %) -Wound Margin Flat & Intact -Granulation Amt Large (67-100%) -Granulation Quality [place] [address] -Necrosis Amt None Present (0 %) -Structure Exposed N/A -Texture (Cristina-wound Skin Appearance) Scarring -Moisture (Cristina-wound Skin Appearance No Abnormality ) -Color (Cristina-wound Skin Appearance) No Abnormality -Ulcer Cleansing Rinsed/ Irrigated with Saline -Foul Odor after Cleansing No -Anesthetic Used 4% Lidocaine Solution [Edema Assessment] -Right Calf (cm) 37.5 -Right Ankle (cm) 23 -Left Calf (cm) 36.7 -Left Ankle (cm) 22.5 WC - Nurse 2 - General Ulcer CM Notes Start: 04/21/18 12:51 Freq: Status: Active Protocol: Activity Type Activity Date Activity User E-Sign Co-Sign Detail Recorded Client Recorded Date Recorded By Document 04/25/18 15:02 [id number] 04/25/18 15:08 04/25/18 15:02 Wound Center Nurse 2 [Procedure/Treatment] #7- RT GLUTEAL FOLD -Time 15:02 -Correct Patient Yes -Correct Side, Site, Position Yes -Correct Procedure Yes -Procedure Performed Yes -Type of Procedure Debridement -Clinical Debridement Subcutaneous -Post Debridement Size (cm) - Length 0.1 -Post Debridement Size (cm) - Width 0.1 -Post Debridement Size (cm) - Depth 0.1 -Total Square Cm 0.01 -Wound/Ulcer Outcome Not Healed -Ulcer Cleansing Rinsed/ Irrigated with Saline -Foul Odor after Cleansing No -Bioengineered Tissue No -Topical Lidocaine (%) 4 -Lidocaine (ml) 5 -Bleeding Controlled with NA -Treatment Response Procedure Tolerated Well [See Physician Procedure note for Specifics] Neurological: Cranial nerves II-XII grossly intact, Neuro grossly intact Psych/Mental Status: Normal Affect, Appropriate, Alert and oriented to time, place, person, mood and affect Debridement Note Post-Debridement Measurements/Treatment WC - Nurse 2 - General Ulcer CM Notes Start: 04/21/18 12:51 Freq: Status: Active Protocol: Activity Type Activity Date Activity User E-Sign Co-Sign Detail Recorded Client Recorded Date Recorded By Document 04/25/18 15:02 [email or web address] [id number] 04/25/18 15:08 GELACIO 04/25/18 15:02 Wound Center Nurse 2 #7- RT GLUTEAL FOLD -Time 15:02 -Correct Patient Yes -Correct Side, Site, Position Yes -Correct Procedure Yes -Procedure Performed Yes -Type of Procedure Debridement -Clinical Debridement Subcutaneous -Post Debridement Size (cm) - Length 0.1 -Post Debridement Size (cm) - Width 0.1 -Post Debridement Size (cm) - Depth 0.1 -Total Square Cm 0.01 -Wound/Ulcer Outcome Not Healed -Ulcer Cleansing Rinsed/ Irrigated with Saline -Foul Odor after Cleansing No -Bioengineered Tissue No -Topical Lidocaine (%) 4 -Lidocaine (ml) 5 -Bleeding Controlled with NA -Treatment Response Procedure Tolerated Well Laterality: Right - Buttock Type of Debridement: Excisional debridement Anesthesia Used: 4% Lidocaine Solution Depth: Down to and including healthy tissue, in the subcutaneous layer Percentage of wound debrided: 100 Instrument Used: 3mm curette Severity: Fat Layer Exposed Amount of bleeding with debridement: Mild Bleeding Controlled with: Compression and gauze Patient tolerated procedure well Assessment/Plan Active Problems (Last Reviewed 03/24/18 @ 15:20 by Gilda Zhang) Pressure ulcer of right buttock, stage 2 (Chronic) Type 2 diabetes mellitus (Chronic) Tobacco use disorder (Chronic) Swelling of lower extremity (Chronic) Edema of both legs (Chronic) Lymphedema of leg (Chronic) Edema (Chronic) Assessment: This is a 47-year-old morbidly obese diabetic female with multiple medical problems, which have been listed above. It appears as though a hairline fracture of the right ankle, sustained on November 01, 2017, resulted in a decrease in activity, limited ambulation, and chronic lower extremity dependency. This significant change in the patient's activity and habits resulted in exacerbation of the swelling, edema, and lymphedema in the patient's lower extremities. The ulceration on the right anterior tibial surface is now completely healed. The patient has undergone a battery of diagnostic laboratory tests, which have been reviewed. Results are as follows: White blood count 7.7, hemoglobin 13.7, hematocrit 42.1, platelets 199,000, sodium 140, potassium 4.5, chloride 108, BUN 19, creatinine 0.92, glucose 199, hemoglobin A1c 8.2, calcium 8.8, total bilirubin 0.30, AST 18, ALT 16, alkaline phosphatase 109, total protein 6.8, albumin 2.7, pre-albumin 15.4. A venous duplex examination has recently been performed, revealing incompetence of the right great saphenous vein and an incompetent solar manufacturer's representative vein 17 cm proximal to the right medial malleolus. No superficial venous incompetence is noted in the left lower extremity. A noninvasive lower extremity arterial study is normal, revealing normal arterial perfusion in the lower extremities bilaterally. Finally, as result of prolonged sitting in a pentecost[employer] conference recently, the patient has developed a pressure ulceration on her right lower buttock, stage II. The right buttock ulceration is slightly smaller in size, and its base appears clean and healthy in appearance. Plan: The patient has been instructed to elevate her lower extremities as much as possible. We have encouraged the patient to elevate her legs, even during daytime hours. It appears as though she is sleeping in a relatively recumbent position. Activity has been encouraged. Avoidance of prolonged idle sitting has been recommended. Lower extremities are to be elevated to heart level, or higher. Recruitment of the calf and foot muscle pumps has been explained, and can be implemented by means of activity and ambulation. Weight loss has been highly recommended. The patient has been advised to optimize her diabetic control. Dietary counseling will be offered if the patient so wishes. The patient has been advised to continue the use of her mechanical pneumatic compression pumps. She has obtained graduated compression stockings of 20-30 mmHg compression, which she has been instructed to wear on a daily basis. The patient's Farrow wraps have recently been unusable, too small to fit her lower extremities due to extreme swelling. In addition, the patient's Farrow wraps are several years old, due to be replaced. We have referred the patient to the [facility] at [facility], and recommendations have been reviewed. The intention is to instruct in appropriate long-term habits, and to ultimately fit the patient with CircAid Velcro compression garments. An attempt will be made to secure CircAid compression garments for the lower extremities. Patient will return in 1 week for reassessment. With respect to the pressure ulceration on the patient's right lower buttock, offloading measures are to be continued, and the use of collagen hydrogel will be implemented on a daily basis. The patient is a smoker, and smoking cessation has been recommended. She is to collaborate with her primary care physician in this regard. Influenza vaccine was not administered today. Patient stands 5 feet 1 inch tall. She weighs 250 pounds. Her BMI is 47.1. Weight loss has been recommended, and the patient has been advised to collaborate with her primary care physician in terms of weight loss options. Dietary counseling has been offered as an option.
--- NOTE | 2018-04-25 15:19 | HP.PCM_ITS ---
(1) Pressure ulcer of right buttock, stage 2 Status: Chronic Current Visit: Yes Code(s): L89.312 - Pressure ulcer of right buttock, stage 2 (2) Hyperlipidemia Status: Chronic Current Visit: No Qualifiers: Code(s): E78.5 - Hyperlipidemia, unspecified (3) Hypertension Status: Chronic Current Visit: No Qualifiers: Code(s): I10 - Essential (primary) hypertension (4) Type 2 diabetes mellitus Status: Chronic Current Visit: Yes Code(s): E11.9 - Type 2 diabetes mellitus without complications (5) Tobacco use disorder Status: Chronic Current Visit: Yes Code(s): F17.200 - Nicotine dependence, unspecified, uncomplicated (6) Multiple personality disorder Status: Chronic Current Visit: No Code(s): F44.81 - Dissociative identity disorder (7) Morbid obesity with body mass index of 40.0-49.9 Status: Chronic Current Visit: No Code(s): E66.01 - Morbid (severe) obesity due to excess calories (8) Chronic back pain Status: Chronic Current Visit: No Code(s): M54.9 - Dorsalgia, unspecified; G89.29 - Other chronic pain (9) Tobacco abuse counseling Status: Chronic Current Visit: No Code(s): Z71.6 - Tobacco abuse counseling (10) Swelling of lower extremity Status: Chronic Current Visit: Yes Code(s): M79.89 - Other specified soft tissue disorders (11) Edema of both legs Status: Chronic Current Visit: Yes Code(s): R60.0 - Localized edema (12) Lymphedema of leg Status: Chronic Current Visit: Yes Qualifiers: Laterality: bilateral Code(s): I89.0 - Lymphedema, not elsewhere classified (13) GERD (gastroesophageal reflux disease) Status: Chronic Current Visit: No Code(s): K21.9 - Gastro-esophageal reflux disease without esophagitis (14) Multiple sclerosis Status: Chronic Current Visit: No Code(s): G35 - Multiple sclerosis (15) CKD (chronic kidney disease) stage 4, GFR 15-29 ml/min Status: Chronic Current Visit: No Code(s): N18.4 - Chronic kidney disease, stage 4 (severe) (16) PAD (peripheral artery disease) Status: Chronic Current Visit: No Code(s): I73.9 - Peripheral vascular disease, unspecified (17) History of CVA (cerebrovascular accident) Status: Chronic Current Visit: No Code(s): Z86.73 - Personal history of transient ischemic attack (TIA), and cerebral infarction without residual deficits (18) History of DVT (deep vein thrombosis) Status: Chronic Current Visit: No Code(s): Z86.718 - Personal history of other venous thrombosis and embolism (19) Psoriasis Status: Chronic Current Visit: No Code(s): L40.9 - Psoriasis, unspecified (20) CHF (congestive heart failure) Status: Chronic Current Visit: No Code(s): I50.9 - Heart failure, unspecified (21) Edema Status: Chronic Current Visit: Yes Qualifiers: Code(s): R60.9 - Edema, unspecified (22) Hypothyroidism Status: Chronic Current Visit: No Code(s): E03.9 - Hypothyroidism, unspecified (23) Essential (primary) hypertension Status: Chronic Current Visit: No Code(s): I10 - Essential (primary) hypertension (24) Atherosclerotic heart disease of [place] coronary artery without angina pectoris Status: Chronic Current Visit: No Code(s): I25.10 - Atherosclerotic heart disease of [place] coronary artery without angina pectoris History of Present Illness Date of Service: 04/25/18 Chief Complaint: Bilateral lower extremity swelling, edema, and lymphedema; Right buttock pressure ulceration (stage 2) History of Wound: This is a 47-year-old morbidly obese diabetic female who presented as a referral from her train controller, Dr. Mayo, for evaluation and management regarding bilateral lower extremity swelling, edema, and lymphedema. This has been a problem for the patient in the past, and is chronic in nature. However, it appears to have been exacerbated recently by a traumatic hairline fracture of the right ankle which occurred on November 01, 2017. As a result, the patient was immobile for a period of time, relatively inactive, spending her days in an idle sitting position. As a result of her inactivity and chronic dependency, she has noted swelling, edema, and lymphedema in her lower extremities to be much more severe than usual, prompting her to seek medical attention. The patient claims to sleep in a relatively flat position at night. She has a history of bilateral lower extremity deep vein thrombosis, for which she has been previously treated with systemic anticoagulation therapy. She is not currently taking anticoagulation. The patient has multiple medical problems, which include diabetes mellitus, morbid obesity, hypertension, coronary artery disease, chronic kidney disease, peripheral arterial occlusive disease, and tobacco abuse. The patient has Farrow wraps for her lower extremities, which she had not been using. The wraps are not large enough to accommodate the severe swelling which currently exists in her lower extremities. She also has pneumatic mechanical compression pumps for her lower extremities, which she had not been using until recently. These measures have been previously implemented in treatment for the patient's chronic lower extremity swelling and edema. In recent weeks, the patient has demonstrated increasing compliance with recommended measures. She has been elevating her lower extremities more frequently. She has been using her mechanical compression pumps. The patient has now developed an ulceration on the right lower buttock. This occurred due to prolonged sitting. The patient was at a restorationism conference for several days, sitting long hours each day while attending lectures and presentations. This appears to be a stage II pressure ulceration. Past Medical History Past Medical History: Chronic Problems (Last Reviewed 03/24/18 @ 15:20 by Gilda Zhang) Pressure ulcer of right buttock, stage 2 (Chronic) Hyperlipidemia (Chronic) Hypertension (Chronic) Type 2 diabetes mellitus (Chronic) Tobacco use disorder (Chronic) Multiple personality disorder (Chronic) Morbid obesity with body mass index of 40.0-49.9 (Chronic) Chronic back pain (Chronic) Tobacco abuse counseling (Chronic) Swelling of lower extremity (Chronic) Edema of both legs (Chronic) Lymphedema of leg (Chronic) GERD (gastroesophageal reflux disease) (Chronic) Multiple sclerosis (Chronic) CKD (chronic kidney disease) stage 4, GFR 15-29 ml/min (Chronic) PAD (peripheral artery disease) (Chronic) History of CVA (cerebrovascular accident) (Chronic) History of DVT (deep vein thrombosis) (Chronic) Psoriasis (Chronic) CHF (congestive heart failure) (Chronic) Edema (Chronic) Hypothyroidism (Chronic) Essential (primary) hypertension (Chronic) Atherosclerotic heart disease of [place] coronary artery without angina pectoris (Chronic) Surgical History: appendectomy, cholecystectomy, - - The patient has a history of appendectomy, cholecystectomy, bilateral lower extremity vein stripping, partial hysterectomy, tonsillectomy, lumbar surgery ?4, and bilateral carpal tunnel release. The patient is a Ab0. Her only two live births succumbed shortly following . Allergies/Adverse Reactions: Allergies latex Allergy (Verified 03/24/18 15:10) Rash Penicillins Allergy (Verified 03/24/18 15:10) Unknown venom-honey bee [bee venom (honey bee)] Allergy (Verified 03/24/18 15:10) Unknown Home Medications: Ambulatory Orders Medication Instructions Recorded Celecoxib [Celebrex] 200 mg PO BID 07/03/14 Oxycodone HCl/Acetaminophen 1 ea PO Q4H PRN PRN 07/03/14 [Oxycodone-Acetaminophen 10-325] Tizanidine HCl [Zanaflex] 4 mg PO Q8H 07/03/14 Glimepiride [Amaryl] 4 mg PO BID 11/15/14 ALPRAZolam [Xanax] 0.25 mg PO BID 05/20/17 Albuterol Aerosols [Ventolin 2.5 mg INHALATION Q4H PRN #25 vial 06/18/17 Aerosols] Doxycycline [Vibramycin] 100 mg PO BID #20 cap 06/18/17 Benzonatate [Tessalon Perle] 100 mg PO Q4H PRN PRN #20 cap 06/19/17 amitriptyline 50 mg tablet 100 mg PO QHS tab 08/23/17 aspirin 81 mg tablet,delayed 81 mg PO QDAY 08/23/17 release thyroid (pork) 60 mg tablet 120 mg PO DAILY tab 08/23/17 Gabapentin [Neurontin] 1,200 mg PO TIDCM 01/01/18 Insulin Detemir [Levemir] 64 unit SQ QHS 01/01/18 Insulin Regular, Human [Novolin R] 100 unit SQ BID 01/01/18 Liraglutide [Victoza] 0.12 mg SQ DAILY 01/01/18 proCHLORPERazine suppository 50 mg RECTAL DAILY PRN PRN 01/01/18 [Compazine suppository] diltiazem CD 240 mg 240 mg PO DAILY #90 cap 03/24/18 capsule,extended release 24 hr isosorbide mononitrate ER 60 mg 60 mg PO DAILY #90 tab 03/24/18 tablet,extended release 24 hr nitroglycerin 0.4 mg sublingual 0.4 mg SUBLINGUAL Q5-15M PRN 03/24/18 tablet atorvastatin 80 mg tablet 80 mg PO QDAY #90 tab 04/04/18 - Family History Maternal Family History: Family History (Last Reviewed 03/24/18 @ 15:20 by Gilda Zhang) Mother CAD (coronary artery disease) Diabetes, Heart Disease, No pertinent history, - - Hypothyroid Paternal Family History: Family History (Last Reviewed 03/24/18 @ 15:20 by Gilda Zhang) Mother CAD (coronary artery disease) Cancer, - - The patient's mother had a history of emphysema, COPD, coronary artery disease, diabetes mellitus, dementia, and Parkinson's disease. Patient' s mother at age of 67. Smoking Status: Current some day smoker Tobacco Use: Cigarettes Review of Systems Constitutional: Denies: Chills, Fever, Weight Change Eyes: Denies: Pain, Vision Change HEENT: Denies: Difficulty Hearing, Difficulty Swallowing, Sinus Congestion Cardiovascular: Denies: Chest Pain, Palpitations Respiratory: Denies: Cough, Shortness of Breath Gastrointestinal: Denies: Diarrhea, Nausea, Vomiting Genitourinary: Denies: Dysuria, Hematuria Endocrine: Denies: Heat/ Cold Intolerance, Polydipsia, Polyuria Hematologic/ Lymphatic: Denies: Easy Bruising, Easy Bleeding - Physical Exam Vital Signs Temp Pulse Resp BP 97.0 F L 78 18 121/60 H 04/25/18 13:35 04/25/18 13:35 04/25/18 13:35 04/25/18 13:35 General: Alert, Oriented x3, Cooperative, No apparent distress, Well developed, Well nourished HEENT: Atraumatic, PERRLA, EOMI, Normocephalic Oral: Moist Mucosa Neck: No JVD Lungs: Normal air movement Abdomen: Non-Distended Extremities: No clubbing, No cyanosis, No Calf Tenderness, Edema, - - Mild swelling and edema persist in the lower extremities. However, the swelling and edema continues to improve. There are no open wounds or ulcerations in the lower remedies. There is no sign of infection or cellulitis. Circumferences are documented elsewhere. Skin: - - A stage II pressure ulceration persists in the right lower buttock. There is no sign of infection. Dimensions are documented elsewhere. The ulceration has decreased in size. The patient of the ulceration is generally pink, with minimal bioburden. Wound Measurements and Assessment WC - Nurse 1 - General Ulcer Measurement Start: 04/21/18 12:51 Freq: Status: Active Protocol: Activity Type Activity Date Activity User E-Sign Co-Sign Detail Recorded Client Recorded Date Recorded By Document 04/25/18 13:35 [id number] 04/25/18 13:51 04/25/18 13:35 Wound Center Nurse 1 [Ulcer Assessment] #7- RT GLUTEAL FOLD -Current Size (cm) - Length 0.1 -Current Size (cm) - Width 0.1 -Current Size (cm) - Depth 0.1 -Total Square Cm 0.01 -Photo Taken No -Exudate Amt None Present (0 %) -Wound Margin Flat & Intact -Granulation Amt Large (67-100%) -Granulation Quality [place] -Necrosis Amt None Present (0 %) -Structure Exposed N/A -Texture (Cristina-wound Skin Appearance) Scarring -Moisture (Cristina-wound Skin Appearance No Abnormality ) -Color (Cristina-wound Skin Appearance) No Abnormality -Ulcer Cleansing Rinsed/ Irrigated with Saline -Foul Odor after Cleansing No -Anesthetic Used 4% Lidocaine Solution [Edema Assessment] -Right Calf (cm) 37.5 -Right Ankle (cm) 23 -Left Calf (cm) 36.7 -Left Ankle (cm) 22.5 WC - Nurse 2 - General Ulcer CM Notes Start: 04/21/18 12:51 Freq: Status: Active Protocol: Activity Type Activity Date Activity User E-Sign Co-Sign Detail Recorded Client Recorded Date Recorded By Document 04/25/18 15:02 [id number] 04/25/18 15:08 04/25/18 15:02 Wound Center Nurse 2 [Procedure/Treatment] #7- RT GLUTEAL FOLD -Time 15:02 -Correct Patient Yes -Correct Side, Site, Position Yes -Correct Procedure Yes -Procedure Performed Yes -Type of Procedure Debridement -Clinical Debridement Subcutaneous -Post Debridement Size (cm) - Length 0.1 -Post Debridement Size (cm) - Width 0.1 -Post Debridement Size (cm) - Depth 0.1 -Total Square Cm 0.01 -Wound/Ulcer Outcome Not Healed -Ulcer Cleansing Rinsed/ Irrigated with Saline -Foul Odor after Cleansing No -Bioengineered Tissue No -Topical Lidocaine (%) 4 -Lidocaine (ml) 5 -Bleeding Controlled with NA -Treatment Response Procedure Tolerated Well [See Physician Procedure note for Specifics] Neurological: Cranial nerves II-XII grossly intact, Neuro grossly intact Psych/Mental Status: Normal Affect, Appropriate, Alert and oriented to time, place, person, mood and affect Debridement Note Post-Debridement Measurements/Treatment WC - Nurse 2 - General Ulcer CM Notes Start: 04/21/18 12:51 Freq: Status: Active Protocol: Activity Type Activity Date Activity User E-Sign Co-Sign Detail Recorded Client Recorded Date Recorded By Document 04/25/18 15:02 [email or web address] [id number] 04/25/18 15:08 GELACIO 04/25/18 15:02 Wound Center Nurse 2 #7- RT GLUTEAL FOLD -Time 15:02 -Correct Patient Yes -Correct Side, Site, Position Yes -Correct Procedure Yes -Procedure Performed Yes -Type of Procedure Debridement -Clinical Debridement Subcutaneous -Post Debridement Size (cm) - Length 0.1 -Post Debridement Size (cm) - Width 0.1 -Post Debridement Size (cm) - Depth 0.1 -Total Square Cm 0.01 -Wound/Ulcer Outcome Not Healed -Ulcer Cleansing Rinsed/ Irrigated with Saline -Foul Odor after Cleansing No -Bioengineered Tissue No -Topical Lidocaine (%) 4 -Lidocaine (ml) 5 -Bleeding Controlled with NA -Treatment Response Procedure Tolerated Well Laterality: Right - Buttock Type of Debridement: Excisional debridement Anesthesia Used: 4% Lidocaine Solution Depth: Down to and including healthy tissue, in the subcutaneous layer Percentage of wound debrided: 100 Instrument Used: 3mm curette Severity: Fat Layer Exposed Amount of bleeding with debridement: Mild Bleeding Controlled with: Compression and gauze Patient tolerated procedure well Assessment/Plan Active Problems (Last Reviewed 03/24/18 @ 15:20 by Gilda Zhang) Pressure ulcer of right buttock, stage 2 (Chronic) Type 2 diabetes mellitus (Chronic) Tobacco use disorder (Chronic) Swelling of lower extremity (Chronic) Edema of both legs (Chronic) Lymphedema of leg (Chronic) Edema (Chronic) Assessment: This is a 47-year-old morbidly obese diabetic female with multiple medical problems, which have been listed above. It appears as though a hairline fracture of the right ankle, sustained on November 01, 2017, resulted in a decrease in activity, limited ambulation, and chronic lower extremity dependency. This significant change in the patient's activity and habits resulted in exacerbation of the swelling, edema, and lymphedema in the patient' s lower extremities. The ulceration on the right anterior tibial surface is now completely healed. The patient has undergone a battery of diagnostic laboratory tests, which have been reviewed. Results are as follows: White blood count 7.7, hemoglobin 13.7, hematocrit 42.1, platelets 199,000, sodium 140 , potassium 4.5, chloride 108, BUN 19, creatinine 0.92, glucose 199, hemoglobin A1c 8.2, calcium 8.8, total bilirubin 0.30, AST 18, ALT 16, alkaline phosphatase 109, total protein 6.8, albumin 2.7, pre-albumin 15.4. A venous duplex examination has recently been performed, revealing incompetence of the right great saphenous vein and an incompetent canine enforcement officer vein 17 cm proximal to the right medial malleolus. No superficial venous incompetence is noted in the left lower extremity. A noninvasive lower extremity arterial study is normal, revealing normal arterial perfusion in the lower extremities bilaterally. Finally, as result of prolonged sitting in a restorationism conference recently, the patient has developed a pressure ulceration on her right lower buttock, stage II. The right buttock ulceration is slightly smaller in size, and its base appears clean and healthy in appearance. Plan: The patient has been instructed to elevate her lower extremities as much as possible. We have encouraged the patient to elevate her legs, even during daytime hours. It appears as though she is sleeping in a relatively recumbent position. Activity has been encouraged. Avoidance of prolonged idle sitting has been recommended. Lower extremities are to be elevated to heart level, or higher. Recruitment of the calf and foot muscle pumps has been explained, and can be implemented by means of activity and ambulation. Weight loss has been highly recommended. The patient has been advised to optimize her diabetic control. Dietary counseling will be offered if the patient so wishes. The patient has been advised to continue the use of her mechanical pneumatic compression pumps. She has obtained graduated compression stockings of 20-30 mmHg compression, which she has been instructed to wear on a daily basis. The patient's Farrow wraps have recently been unusable, too small to fit her lower extremities due to extreme swelling. In addition, the patient's Farrow wraps are several years old, due to be replaced. We have referred the patient to the L[facility] at [facility], and recommendations have been reviewed. The intention is to instruct in appropriate long-term habits, and to ultimately fit the patient with CircAid Velcro compression garments. An attempt will be made to secure CircAid compression garments for the lower extremities. Patient will return in 1 week for reassessment. With respect to the pressure ulceration on the patient's right lower buttock, offloading measures are to be continued, and the use of collagen hydrogel will be implemented on a daily basis. The patient is a smoker, and smoking cessation has been recommended. She is to collaborate with her primary care physician in this regard. Influenza vaccine was not administered today. Patient stands 5 feet 1 inch tall. She weighs 250 pounds. Her BMI is 47.1. Weight loss has been recommended, and the patient has been advised to collaborate with her primary care physician in terms of weight loss options. Dietary counseling has been offered as an option.
--- NOTE | 2018-04-26 10:11 | WC ---
Call received from patient this morning regarding bilateral lower leg swelling. Seen Dr. Moya yesterday in clinic. Diischarged wearing compression stockings (Over the counter (copper)). Went shopping after wound center visit for about 4 hours. Took stockings off at bedtime and awoke with swelling. Stockings were not measured but bought as extra large. Instructed to elevate legs, wrap with lary wraps from base of toes to knee.
[2018-05-02 12:45] VITALS: BP 143/72; PULSE 88; RESP 18; TEMP 36.4
--- NOTE | 2018-05-02 13:51 | PCM.WC.HP ---
(1) Pressure ulcer of right buttock, stage 2 Status: Resolved Current Visit: Yes Code(s): L89.312 - Pressure ulcer of right buttock, stage 2 (2) Hyperlipidemia Status: Chronic Current Visit: No Qualifiers: Code(s): E78.5 - Hyperlipidemia, unspecified (3) Hypertension Status: Chronic Current Visit: No Qualifiers: Code(s): I10 - Essential (primary) hypertension (4) Type 2 diabetes mellitus Status: Chronic Current Visit: Yes Code(s): E11.9 - Type 2 diabetes mellitus without complications (5) Tobacco use disorder Status: Chronic Current Visit: Yes Code(s): F17.200 - Nicotine dependence, unspecified, uncomplicated (6) Multiple personality disorder Status: Chronic Current Visit: No Code(s): F44.81 - Dissociative identity disorder (7) Morbid obesity with body mass index of 40.0-49.9 Status: Chronic Current Visit: Yes Code(s): E66.01 - Morbid (severe) obesity due to excess calories (8) Chronic back pain Status: Chronic Current Visit: No Code(s): M54.9 - Dorsalgia, unspecified; G89.29 - Other chronic pain (9) Tobacco abuse counseling Status: Chronic Current Visit: Yes Code(s): Z71.6 - Tobacco abuse counseling (10) Swelling of lower extremity Status: Chronic Current Visit: Yes Code(s): M79.89 - Other specified soft tissue disorders (11) Edema of both legs Status: Chronic Current Visit: Yes Code(s): R60.0 - Localized edema (12) Lymphedema of leg Status: Chronic Current Visit: Yes Qualifiers: Laterality: bilateral Code(s): I89.0 - Lymphedema, not elsewhere classified (13) GERD (gastroesophageal reflux disease) Status: Chronic Current Visit: No Code(s): K21.9 - Gastro-esophageal reflux disease without esophagitis (14) Multiple sclerosis Status: Chronic Current Visit: No Code(s): G35 - Multiple sclerosis (15) CKD (chronic kidney disease) stage 4, GFR 15-29 ml/min Status: Chronic Current Visit: No Code(s): N18.4 - Chronic kidney disease, stage 4 (severe) (16) PAD (peripheral artery disease) Status: Chronic Current Visit: No Code(s): I73.9 - Peripheral vascular disease, unspecified (17) History of CVA (cerebrovascular accident) Status: Chronic Current Visit: No Code(s): Z86.73 - Personal history of transient ischemic attack (TIA), and cerebral infarction without residual deficits (18) History of DVT (deep vein thrombosis) Status: Chronic Current Visit: No Code(s): Z86.718 - Personal history of other venous thrombosis and embolism (19) Psoriasis Status: Chronic Current Visit: No Code(s): L40.9 - Psoriasis, unspecified (20) CHF (congestive heart failure) Status: Chronic Current Visit: No Code(s): I50.9 - Heart failure, unspecified (21) Edema Status: Chronic Current Visit: Yes Qualifiers: Code(s): R60.9 - Edema, unspecified (22) Hypothyroidism Status: Chronic Current Visit: No Code(s): E03.9 - Hypothyroidism, unspecified (23) Essential (primary) hypertension Status: Chronic Current Visit: No Code(s): I10 - Essential (primary) hypertension (24) Atherosclerotic heart disease of creek coronary artery without angina pectoris Status: Chronic Current Visit: No Code(s): I25.10 - Atherosclerotic heart disease of creek coronary artery without angina pectoris History of Present Illness Date of Service: 05/02/18 Chief Complaint: Bilateral lower extremity swelling, edema, and lymphedema; Right buttock pressure ulceration (stage 2) History of Wound: This is a 47-year-old morbidly obese diabetic female who presented as a referral from her website optimization strategist, Dr. Mayo, for evaluation and management regarding bilateral lower extremity swelling, edema, and lymphedema. This has been a problem for the patient in the past, and is chronic in nature. However, it appears to have been exacerbated recently by a traumatic hairline fracture of the right ankle which occurred on November 01, 2017. As a result, the patient was immobile for a period of time, relatively inactive, spending her days in an idle sitting position. As a result of her inactivity and chronic dependency, she has noted swelling, edema, and lymphedema in her lower extremities to be much more severe than usual, prompting her to seek medical attention. The patient claims to sleep in a relatively flat position at night. She has a history of bilateral lower extremity deep vein thrombosis, for which she has been previously treated with systemic anticoagulation therapy. She is not currently taking anticoagulation. The patient has multiple medical problems, which include diabetes mellitus, morbid obesity, hypertension, coronary artery disease, chronic kidney disease, peripheral arterial occlusive disease, and tobacco abuse. The patient has F[place] wraps for her lower extremities, which she had not been using. The wraps are not large enough to accommodate the severe swelling which currently exists in her lower extremities. She also has pneumatic mechanical compression pumps for her lower extremities, which she had not been using. These measures have been previously implemented in treatment for the patient's chronic lower extremity swelling and edema. In recent weeks, the patient has demonstrated increasing compliance with recommended measures. She has been elevating her lower extremities more frequently. The patient developed an ulceration on the right lower buttock, which is now completely healed. This occurred due to prolonged sitting. The patient was at a bahai conference for several days, sitting long hours each day while attending lectures and presentations. This was a stage II pressure ulceration. Past Medical History Past Medical History: Chronic Problems (Last Reviewed 03/24/18 @ 15:20 by Gilda Zhang) Hyperlipidemia (Chronic) Hypertension (Chronic) Type 2 diabetes mellitus (Chronic) Tobacco use disorder (Chronic) Multiple personality disorder (Chronic) Morbid obesity with body mass index of 40.0-49.9 (Chronic) Chronic back pain (Chronic) Tobacco abuse counseling (Chronic) Swelling of lower extremity (Chronic) Edema of both legs (Chronic) Lymphedema of leg (Chronic) GERD (gastroesophageal reflux disease) (Chronic) Multiple sclerosis (Chronic) CKD (chronic kidney disease) stage 4, GFR 15-29 ml/min (Chronic) PAD (peripheral artery disease) (Chronic) History of CVA (cerebrovascular accident) (Chronic) History of DVT (deep vein thrombosis) (Chronic) Psoriasis (Chronic) CHF (congestive heart failure) (Chronic) Edema (Chronic) Hypothyroidism (Chronic) Essential (primary) hypertension (Chronic) Atherosclerotic heart disease of creek coronary artery without angina pectoris (Chronic) Surgical History: appendectomy, cholecystectomy, - - The patient has a history of appendectomy, cholecystectomy, bilateral lower extremity vein stripping, partial hysterectomy, tonsillectomy, lumbar surgery ?4, and bilateral carpal tunnel release. The patient is a Ab0. Her only two live births succumbed shortly following . Allergies/Adverse Reactions: Allergies latex Allergy (Verified 03/24/18 15:10) Rash Penicillins Allergy (Verified 03/24/18 15:10) Unknown venom-honey bee [bee venom (honey bee)] Allergy (Verified 03/24/18 15:10) Unknown Home Medications: Ambulatory Orders Medication Instructions Recorded Celecoxib [Celebrex] 200 mg PO BID 07/03/14 Oxycodone HCl/Acetaminophen 1 ea PO Q4H PRN PRN 07/03/14 [Oxycodone-Acetaminophen 10-325] Tizanidine HCl [Zanaflex] 4 mg PO Q8H 07/03/14 Glimepiride [Amaryl] 4 mg PO BID 11/15/14 ALPRAZolam [Xanax] 0.25 mg PO BID 05/20/17 Albuterol Aerosols [Ventolin 2.5 mg INHALATION Q4H PRN #25 vial 06/18/17 Aerosols] Doxycycline [Vibramycin] 100 mg PO BID #20 cap 06/18/17 Benzonatate [Tessalon Perle] 100 mg PO Q4H PRN PRN #20 cap 06/19/17 amitriptyline 50 mg tablet 100 mg PO QHS tab 08/23/17 aspirin 81 mg tablet,delayed 81 mg PO QDAY 08/23/17 release thyroid (pork) 60 mg tablet 120 mg PO DAILY tab 08/23/17 Gabapentin [Neurontin] 1,200 mg PO TIDCM 01/01/18 Insulin Detemir [Levemir] 64 unit SQ QHS 01/01/18 Insulin Regular, Human [Novolin R] 100 unit SQ BID 01/01/18 Liraglutide [Victoza] 0.12 mg SQ DAILY 01/01/18 proCHLORPERazine suppository 50 mg RECTAL DAILY PRN PRN 01/01/18 [Compazine suppository] diltiazem CD 240 mg 240 mg PO DAILY #90 cap 03/24/18 capsule,extended release 24 hr isosorbide mononitrate ER 60 mg 60 mg PO DAILY #90 tab 03/24/18 tablet,extended release 24 hr nitroglycerin 0.4 mg sublingual 0.4 mg SUBLINGUAL Q5-15M PRN 03/24/18 tablet atorvastatin 80 mg tablet 80 mg PO QDAY #90 tab 04/04/18 - Family History Maternal Family History: Family History (Last Reviewed 03/24/18 @ 15:20 by Gilda Zhang) Mother CAD (coronary artery disease) Diabetes, Heart Disease, No pertinent history, - - Hypothyroid Paternal Family History: Family History (Last Reviewed 03/24/18 @ 15:20 by Gilda Zhang) Mother CAD (coronary artery disease) Cancer, - - The patient's mother had a history of emphysema, COPD, coronary artery disease, diabetes mellitus, dementia, and Parkinson's disease. Patient's mother at age of 67. Smoking Status: Current some day smoker Tobacco Use: Cigarettes Review of Systems Constitutional: Denies: Chills, Fever, Weight Change Eyes: Denies: Pain, Vision Change HEENT: Denies: Difficulty Hearing, Difficulty Swallowing, Sinus Congestion Cardiovascular: Denies: Chest Pain, Palpitations Respiratory: Denies: Cough, Shortness of Breath Gastrointestinal: Denies: Diarrhea, Nausea, Vomiting Genitourinary: Denies: Dysuria, Hematuria Endocrine: Denies: Heat/ Cold Intolerance, Polydipsia, Polyuria Hematologic/ Lymphatic: Denies: Easy Bruising, Easy Bleeding - Physical Exam Vital Signs Temp Pulse Resp BP 97.5 F L 88 18 143/72 H 05/02/18 12:45 05/02/18 12:45 05/02/18 12:45 05/02/18 12:45 General: Alert, Oriented x3, Cooperative, No apparent distress, Well developed, Well nourished, - - The patient is morbidly obese. HEENT: Atraumatic, PERRLA, EOMI, Normocephalic Oral: Moist Mucosa Neck: No JVD Lungs: Normal air movement Abdomen: Non-Distended, Obese Extremities: No clubbing, No cyanosis, No edema, No Calf Tenderness, - - Severe swelling and edema is noted bilaterally in the lower extremities. There are no open wounds or ulcerations. Circumference measurements are documented elsewhere. Skin: No breakdown, - - Patient's right buttock ulceration remains healed. Wound Measurements and Assessment WC - Nurse 1 - General Ulcer Measurement Start: 04/21/18 12:51 Freq: Status: Active Protocol: Activity Type Activity Date Activity User E-Sign Co-Sign Detail Recorded Client Recorded Date Recorded By Document 05/02/18 12:45 [facility] [id number] 05/02/18 12:49 BMF 05/02/18 12:45 Wound Center Nurse 1 [Ulcer Assessment] #7- RT GLUTEAL FOLD -Combined with other wound No -Current Size (cm) - Length 0 -Current Size (cm) - Width 0 -Current Size (cm) - Depth 0 -Total Square Cm 0 -Photo Taken Yes -Epithelialization Large 67-100% [Edema Assessment] -Lower Limb Edema Present Yes -Right Calf (cm) 49.5 -Right Ankle (cm) 30.8 -Left Calf (cm) 52.2 -Left Ankle (cm) 31.4 - Nurse 2 - General Ulcer CM Notes Start: 04/21/18 12:51 Freq: Status: Active Protocol: Activity Type Activity Date Activity User E-Sign Co-Sign Detail Recorded Client Recorded Date Recorded By Document 05/02/18 13:28 [id number] 05/02/18 13:34 JS 05/02/18 13:28 Wound Center Nurse 2 [Procedure/Treatment] #7- RT GLUTEAL FOLD -Time 13:30 -Correct Patient Yes -Correct Side, Site, Position Yes -Correct Procedure Yes -Procedure Performed No -Post Debridement Size (cm) - Length 0 -Post Debridement Size (cm) - Width 0 -Post Debridement Size (cm) - Depth 0 -Total Square Cm 0 -Wound/Ulcer Outcome Healed- Epithelialized [See Physician Procedure note for Specifics] Pain Scale: 0-10 Numeric [Pain] -Is Patient Pain Free? Yes Neurological: Cranial nerves II-XII grossly intact, Neuro grossly intact Psych/Mental Status: Normal Affect, Appropriate, Alert and oriented to time, place, person, mood and affect Debridement Note Post-Debridement Measurements/Treatment - Nurse 2 - General Ulcer CM Notes Start: 04/21/18 12:51 Freq: Status: Active Protocol: Activity Type Activity Date Activity User E-Sign Co-Sign Detail Recorded Client Recorded Date Recorded By Document 04/25/18 15:02 JS [id number] 04/25/18 15:08 JS Document 05/02/18 13:28 [id number] 05/02/18 13:34 JS 04/25/18 05/02/18 15:02 13:28 Wound Center Nurse 2 #7- RT GLUTEAL FOLD -Time 15:02 13:30 -Correct Patient Yes Yes -Correct Side, Site, Position Yes Yes -Correct Procedure Yes Yes -Procedure Performed Yes No -Type of Procedure Debridement -Clinical Debridement Subcutaneous -Post Debridement Size (cm) - Length 0.1 0 -Post Debridement Size (cm) - Width 0.1 0 -Post Debridement Size (cm) - Depth 0.1 0 -Total Square Cm 0.01 0 -Wound/Ulcer Outcome Not Healed Healed- Epithelialized -Ulcer Cleansing Rinsed/ Irrigated with Saline -Foul Odor after Cleansing No -Bioengineered Tissue No -Topical Lidocaine (%) 4 -Lidocaine (ml) 5 -Bleeding Controlled with NA -Treatment Response Procedure Tolerated Well Pain Scale: 0-10 Numeric Is Patient Pain Free? Yes No debridement was completed today Assessment/Plan Active Problems (Last Reviewed 03/24/18 @ 15:20 by Gilda Zhang) Type 2 diabetes mellitus (Chronic) Tobacco use disorder (Chronic) Morbid obesity with body mass index of 40.0-49.9 (Chronic) Tobacco abuse counseling (Chronic) Swelling of lower extremity (Chronic) Edema of both legs (Chronic) Lymphedema of leg (Chronic) Edema (Chronic) Assessment: This is a 47-year-old morbidly obese diabetic female with multiple medical problems, which have been listed above. It appears as though a hairline fracture of the right ankle, sustained on November 01, 2017, resulted in a decrease in activity, limited ambulation, and chronic lower extremity dependency. This significant change in the patient's activity and habits resulted in exacerbation of the swelling, edema, and lymphedema in the patient's lower extremities. The ulceration on the right anterior tibial surface is now completely healed. The patient has undergone a battery of diagnostic laboratory tests, which have been reviewed. Results are as follows: White blood count 7.7, hemoglobin 13.7, hematocrit 42.1, platelets 199,000, sodium 140, potassium 4.5, chloride 108, BUN 19, creatinine 0.92, glucose 199, hemoglobin A1c 8.2, calcium 8.8, total bilirubin 0.30, AST 18, ALT 16, alkaline phosphatase 109, total protein 6.8, albumin 2.7, pre-albumin 15.4. A venous duplex examination has recently been performed, revealing incompetence of the right great saphenous vein and an incompetent insurance claims assistant vein 17 cm proximal to the right medial malleolus. No superficial venous incompetence is noted in the left lower extremity. A noninvasive lower extremity arterial study is normal, revealing normal arterial perfusion in the lower extremities bilaterally. Finally, as result of prolonged sitting in a bahai conference recently, the patient developed a pressure ulceration on her right lower buttock, stage II. The right buttock ulceration is now completely healed. Plan: The patient has been instructed to elevate her lower extremities as much as possible. We have encouraged the patient to elevate her legs, even during daytime hours. It appears as though she is sleeping in a relatively recumbent position. Activity has been encouraged. Avoidance of prolonged idle sitting has been recommended. Lower extremities are to be elevated to heart level, or higher. Recruitment of the calf and foot muscle pumps has been explained, and can be implemented by means of activity and ambulation. Weight loss has been highly recommended. The patient has been advised to optimize her diabetic control. Dietary counseling will be offered if the patient so wishes. She has obtained [id number] graduated compression stockings of 20-30 mmHg compression, which she has been instructed to wear on a daily basis. However, the stockings she obtained were inadequate, likely not properly fitted. We have referred the patient to the Lymphed[facility] at [facility], and recommendations have been reviewed. The intention is to instruct in appropriate long-term habits, and to ultimately fit the patient with CircAid Velcro compression garments. An attempt was made to secure CircAid compression garments for the lower extremities, which were declined by the patient's insurance company. We will now reimplement the use of 3M 2 layer compression wraps the lower extremities bilaterally, which will be changed twice weekly. Patient will return in 1 week for reassessment. We are to attempt to obtain updated mechanical pneumatic compression pumps for the patient's lower extremities. The patient is a smoker, and smoking cessation has been recommended. She is to collaborate with her primary care physician in this regard. Influenza vaccine was not administered today. Patient stands 5 feet 1 inch tall. She weighs 250 pounds. Her BMI is 47.1. Weight loss has been recommended, and the patient has been advised to collaborate with her primary care physician in terms of weight loss options. Dietary counseling has been offered as an option.
[2018-05-05 08:58] VITALS: BP 152/72; PULSE 81; RESP 18; TEMP 35.9
[2018-05-10 10:56] VITALS: BP 153/110; PULSE 80; RESP 18; TEMP 36.6
--- NOTE | 2018-05-10 12:45 | PCM.WC.HP ---
(1) Pressure ulcer of right buttock, stage 2 Status: Resolved Current Visit: Yes Code(s): L89.312 - Pressure ulcer of right buttock, stage 2 (2) Hyperlipidemia Status: Chronic Current Visit: No Qualifiers: Code(s): E78.5 - Hyperlipidemia, unspecified (3) Hypertension Status: Chronic Current Visit: No Qualifiers: Code(s): I10 - Essential (primary) hypertension (4) Type 2 diabetes mellitus Status: Chronic Current Visit: Yes Code(s): E11.9 - Type 2 diabetes mellitus without complications (5) Tobacco use disorder Status: Chronic Current Visit: Yes Code(s): F17.200 - Nicotine dependence, unspecified, uncomplicated (6) Multiple personality disorder Status: Chronic Current Visit: No Code(s): F44.81 - Dissociative identity disorder (7) Morbid obesity with body mass index of 40.0-49.9 Status: Chronic Current Visit: Yes Code(s): E66.01 - Morbid (severe) obesity due to excess calories (8) Chronic back pain Status: Chronic Current Visit: No Code(s): M54.9 - Dorsalgia, unspecified; G89.29 - Other chronic pain (9) Tobacco abuse counseling Status: Chronic Current Visit: Yes Code(s): Z71.6 - Tobacco abuse counseling (10) Swelling of lower extremity Status: Chronic Current Visit: Yes Code(s): M79.89 - Other specified soft tissue disorders (11) Edema of both legs Status: Chronic Current Visit: Yes Code(s): R60.0 - Localized edema (12) Lymphedema of leg Status: Chronic Current Visit: Yes Qualifiers: Laterality: bilateral Code(s): I89.0 - Lymphedema, not elsewhere classified (13) GERD (gastroesophageal reflux disease) Status: Chronic Current Visit: No Code(s): K21.9 - Gastro-esophageal reflux disease without esophagitis (14) Multiple sclerosis Status: Chronic Current Visit: No Code(s): G35 - Multiple sclerosis (15) CKD (chronic kidney disease) stage 4, GFR 15-29 ml/min Status: Chronic Current Visit: No Code(s): N18.4 - Chronic kidney disease, stage 4 (severe) (16) PAD (peripheral artery disease) Status: Chronic Current Visit: No Code(s): I73.9 - Peripheral vascular disease, unspecified (17) History of CVA (cerebrovascular accident) Status: Chronic Current Visit: No Code(s): Z86.73 - Personal history of transient ischemic attack (TIA), and cerebral infarction without residual deficits (18) History of DVT (deep vein thrombosis) Status: Chronic Current Visit: No Code(s): Z86.718 - Personal history of other venous thrombosis and embolism (19) Psoriasis Status: Chronic Current Visit: No Code(s): L40.9 - Psoriasis, unspecified (20) CHF (congestive heart failure) Status: Chronic Current Visit: No Code(s): I50.9 - Heart failure, unspecified (21) Edema Status: Chronic Current Visit: Yes Qualifiers: Code(s): R60.9 - Edema, unspecified (22) Hypothyroidism Status: Chronic Current Visit: No Code(s): E03.9 - Hypothyroidism, unspecified (23) Essential (primary) hypertension Status: Chronic Current Visit: No Code(s): I10 - Essential (primary) hypertension (24) Atherosclerotic heart disease of [place] coronary artery without angina pectoris Status: Chronic Current Visit: No Code(s): I25.10 - Atherosclerotic heart disease of [place] coronary artery without angina pectoris History of Present Illness Date of Service: 05/10/18 Chief Complaint: Bilateral lower extremity swelling, edema, and lymphedema; Right buttock pressure ulceration (stage 2) History of Wound: This is a 47-year-old morbidly obese diabetic female who presented as a referral from her sales and 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 Mayo, for evaluation and management regarding bilateral lower extremity swelling, edema, and lymphedema. This has been a problem for the patient in the past, and is chronic in nature. However, it appears to have been exacerbated recently by a traumatic hairline fracture of the right ankle which occurred on November 01, 2017. As a result, the patient was immobile for a period of time, relatively inactive, spending her days in an idle sitting position. As a result of her inactivity and chronic dependency, she has noted swelling, edema, and lymphedema in her lower extremities to be much more severe than usual, prompting her to seek medical attention. The patient claims to sleep in a relatively flat position at night. She has a history of bilateral lower extremity deep vein thrombosis, for which she has been previously treated with systemic anticoagulation therapy. She is not currently taking anticoagulation. The patient has multiple medical problems, which include diabetes mellitus, morbid obesity, hypertension, coronary artery disease, chronic kidney disease, peripheral arterial occlusive disease, and tobacco abuse. The patient has [place] wraps for her lower extremities, which she had not been using. The wraps are not large enough to accommodate the severe swelling which currently exists in her lower extremities. She also has pneumatic mechanical compression pumps for her lower extremities, which she had not been using. These measures have been previously implemented in treatment for the patient's chronic lower extremity swelling and edema. In recent weeks, the patient has demonstrated increasing compliance with recommended measures. She has been elevating her lower extremities more frequently. The patient developed an ulceration on the right lower buttock, which is now completely healed. This occurred due to prolonged sitting. The patient was at a druze conference for several days, sitting long hours each day while attending lectures and presentations. This was a stage II pressure ulceration. Past Medical History Past Medical History: Chronic Problems (Last Reviewed 03/24/18 @ 15:20 by Gilda Zhang) Hyperlipidemia (Chronic) Hypertension (Chronic) Type 2 diabetes mellitus (Chronic) Tobacco use disorder (Chronic) Multiple personality disorder (Chronic) Morbid obesity with body mass index of 40.0-49.9 (Chronic) Chronic back pain (Chronic) Tobacco abuse counseling (Chronic) Swelling of lower extremity (Chronic) Edema of both legs (Chronic) Lymphedema of leg (Chronic) GERD (gastroesophageal reflux disease) (Chronic) Multiple sclerosis (Chronic) CKD (chronic kidney disease) stage 4, GFR 15-29 ml/min (Chronic) PAD (peripheral artery disease) (Chronic) History of CVA (cerebrovascular accident) (Chronic) History of DVT (deep vein thrombosis) (Chronic) Psoriasis (Chronic) CHF (congestive heart failure) (Chronic) Edema (Chronic) Hypothyroidism (Chronic) Essential (primary) hypertension (Chronic) Atherosclerotic heart disease of [place] coronary artery without angina pectoris (Chronic) Surgical History: appendectomy, cholecystectomy, - - The patient has a history of appendectomy, cholecystectomy, bilateral lower extremity vein stripping, partial hysterectomy, tonsillectomy, lumbar surgery ?4, and bilateral carpal tunnel release. The patient is a Ab0. Her only two live births succumbed shortly following . Allergies/Adverse Reactions: Allergies latex Allergy (Verified 03/24/18 15:10) Rash Penicillins Allergy (Verified 03/24/18 15:10) Unknown venom-honey bee [bee venom (honey bee)] Allergy (Verified 03/24/18 15:10) Unknown Home Medications: Ambulatory Orders Medication Instructions Recorded Celecoxib [Celebrex] 200 mg PO BID 07/03/14 Oxycodone HCl/Acetaminophen 1 ea PO Q4H PRN PRN 07/03/14 [Oxycodone-Acetaminophen 10-325] Tizanidine HCl [Zanaflex] 4 mg PO Q8H 07/03/14 Glimepiride [Amaryl] 4 mg PO BID 11/15/14 ALPRAZolam [Xanax] 0.25 mg PO BID 05/20/17 Albuterol Aerosols [Ventolin 2.5 mg INHALATION Q4H PRN #25 vial 06/18/17 Aerosols] Doxycycline [Vibramycin] 100 mg PO BID #20 cap 06/18/17 Benzonatate [Tessalon Perle] 100 mg PO Q4H PRN PRN #20 cap 06/19/17 amitriptyline 50 mg tablet 100 mg PO QHS tab 08/23/17 aspirin 81 mg tablet,delayed 81 mg PO QDAY 08/23/17 release thyroid (pork) 60 mg tablet 120 mg PO DAILY tab 08/23/17 Gabapentin [Neurontin] 1,200 mg PO TIDCM 01/01/18 Insulin Detemir [Levemir] 64 unit SQ QHS 01/01/18 Insulin Regular, Human [Novolin R] 100 unit SQ BID 01/01/18 Liraglutide [Victoza] 0.12 mg SQ DAILY 01/01/18 proCHLORPERazine suppository 50 mg RECTAL DAILY PRN PRN 01/01/18 [Compazine suppository] diltiazem CD 240 mg 240 mg PO DAILY #90 cap 03/24/18 capsule,extended release 24 hr isosorbide mononitrate ER 60 mg 60 mg PO DAILY #90 tab 03/24/18 tablet,extended release 24 hr nitroglycerin 0.4 mg sublingual 0.4 mg SUBLINGUAL Q5-15M PRN 03/24/18 tablet atorvastatin 80 mg tablet 80 mg PO QDAY #90 tab 04/04/18 - Family History Maternal Family History: Family History (Last Reviewed 03/24/18 @ 15:20 by Gilda Zhang) Mother CAD (coronary artery disease) Diabetes, Heart Disease, No pertinent history, - - Hypothyroid Paternal Family History: Family History (Last Reviewed 03/24/18 @ 15:20 by Gilda Zhang) Mother CAD (coronary artery disease) Cancer, - - The patient's mother had a history of emphysema, COPD, coronary artery disease, diabetes mellitus, dementia, and Parkinson's disease. Patient's mother at age of 67. Smoking Status: Current some day smoker Tobacco Use: Cigarettes Review of Systems Constitutional: Denies: Chills, Fever, Weight Change Eyes: Denies: Pain, Vision Change HEENT: Denies: Difficulty Hearing, Difficulty Swallowing, Sinus Congestion Cardiovascular: Denies: Chest Pain, Palpitations Respiratory: Denies: Cough, Shortness of Breath Gastrointestinal: Denies: Diarrhea, Nausea, Vomiting Genitourinary: Denies: Dysuria, Hematuria Endocrine: Denies: Heat/ Cold Intolerance, Polydipsia, Polyuria Hematologic/ Lymphatic: Denies: Easy Bruising, Easy Bleeding - Physical Exam Vital Signs Temp Pulse Resp BP 97.8 F 80 18 153/110 H 05/10/18 10:56 05/10/18 10:56 05/10/18 10:56 05/10/18 10:56 General: Alert, Oriented x3, Cooperative, No apparent distress, Well developed, Well nourished HEENT: Atraumatic, PERRLA, EOMI, Normocephalic Oral: Moist Mucosa Neck: No JVD Lungs: Normal air movement Abdomen: Non-Distended Extremities: No clubbing, No cyanosis, No Calf Tenderness, - - The swelling and edema in the patient's lower extremities is markedly diminished. It is now down to a minimum. There has been significant improvement. There are no significant skin changes. There are no open wounds or ulcerations. There is no sign of infection or cellulitis. Circumference measurements are documented elsewhere. Skin: No rashes, No breakdown Wound Measurements and Assessment WC - Nurse 1 - General Ulcer Measurement Start: 04/21/18 12:51 Freq: Status: Active Protocol: Activity Type Activity Date Activity User E-Sign Co-Sign Detail Recorded Client Recorded Date Recorded By Document 05/10/18 10:56 [facility] [id number] 05/10/18 11:04 [facility] 05/10/18 10:56 Wound Center Nurse 1 [Edema Assessment] -Lower Limb Edema Present Yes -Right Calf (cm) 36.5 -Right Ankle (cm) 25.6 -Left Calf (cm) 35.8 -Left Ankle (cm) 25.9 WC - Nurse 2 - General Ulcer CM Notes Start: 04/21/18 12:51 Freq: Status: Active Protocol: Activity Type Activity Date Activity User E-Sign Co-Sign Detail Recorded Client Recorded Date Recorded By Document 05/10/18 12:20 [id number] 05/10/18 12:20 05/10/18 12:20 Pain Scale: 0-10 Numeric [Pain] -Is Patient Pain Free? Yes Musculoskeletal: No Muscle Wasting Neurological: Cranial nerves II-XII grossly intact, Neuro grossly intact Psych/Mental Status: Normal Affect, Appropriate, Alert and oriented to time, place, person, mood and affect Debridement Note Post-Debridement Measurements/Treatment WC - Nurse 2 - General Ulcer CM Notes Start: 04/21/18 12:51 Freq: Status: Active Protocol: Activity Type Activity Date Activity User E-Sign Co-Sign Detail Recorded Client Recorded Date Recorded By Document 04/25/18 15:02 [id number] 04/25/18 15:08 JS Document 05/02/18 13:28 JS [id number] 05/02/18 13:34 JS Document 05/10/18 12:20 JS [email or web address] 05/10/18 12:20 04/25/18 05/02/18 05/10/18 15:02 13:28 12:20 Wound Center Nurse 2 #7- RT GLUTEAL FOLD -Time 15:02 13:30 -Correct Patient Yes Yes -Correct Side, Site, Position Yes Yes -Correct Procedure Yes Yes -Procedure Performed Yes No -Type of Procedure Debridement -Clinical Debridement Subcutaneous -Post Debridement Size (cm) - Length 0.1 0 -Post Debridement Size (cm) - Width 0.1 0 -Post Debridement Size (cm) - Depth 0.1 0 -Total Square Cm 0.01 0 -Wound/Ulcer Outcome Not Healed Healed- Epithelialized -Ulcer Cleansing Rinsed/ Irrigated with Saline -Foul Odor after Cleansing No -Bioengineered Tissue No -Topical Lidocaine (%) 4 -Lidocaine (ml) 5 -Bleeding Controlled with NA -Treatment Response Procedure Tolerated Well Pain Scale: 0-10 Numeric Is Patient Pain Free? Yes Yes No debridement was completed today Assessment/Plan Active Problems (Last Reviewed 03/24/18 @ 15:20 by Gilda Zhang) Type 2 diabetes mellitus (Chronic) Tobacco use disorder (Chronic) Morbid obesity with body mass index of 40.0-49.9 (Chronic) Tobacco abuse counseling (Chronic) Swelling of lower extremity (Chronic) Edema of both legs (Chronic) Lymphedema of leg (Chronic) Edema (Chronic) Assessment: This is a 47-year-old morbidly obese diabetic female with multiple medical problems, which have been listed above. It appears as though a hairline fracture of the right ankle, sustained on November 01, 2017, resulted in a decrease in activity, limited ambulation, and chronic lower extremity dependency. This significant change in the patient's activity and habits resulted in exacerbation of the swelling, edema, and lymphedema in the patient's lower extremities. The ulceration on the right anterior tibial surface is now completely healed. The patient has undergone a battery of diagnostic laboratory tests, which have been reviewed. Results are as follows: White blood count 7.7, hemoglobin 13.7, hematocrit 42.1, platelets 199,000, sodium 140, potassium 4.5, chloride 108, BUN 19, creatinine 0.92, glucose 199, hemoglobin A1c 8.2, calcium 8.8, total bilirubin 0.30, AST 18, ALT 16, alkaline phosphatase 109, total protein 6.8, albumin 2.7, pre-albumin 15.4. A venous duplex examination has recently been performed, revealing incompetence of the right great saphenous vein and an incompetent home care specialist vein 17 cm proximal to the right medial malleolus. No superficial venous incompetence is noted in the left lower extremity. A noninvasive lower extremity arterial study is normal, revealing normal arterial perfusion in the lower extremities bilaterally. Finally, as result of prolonged sitting in a druze conference recently, the patient developed a pressure ulceration on her right lower buttock, stage II. The right buttock ulceration is now completely healed. Plan: The patient has been instructed to elevate her lower extremities as much as possible. We have encouraged the patient to elevate her legs, even during daytime hours. It appears as though she is sleeping in a relatively recumbent position. Activity has been encouraged. Avoidance of prolonged idle sitting has been recommended. Lower extremities are to be elevated to heart level, or higher. Recruitment of the calf and foot muscle pumps has been explained, and can be implemented by means of activity and ambulation. Weight loss has been highly recommended. The patient has been advised to optimize her diabetic control. Dietary counseling will be offered if the patient so wishes. She has obtained [id number] graduated compression stockings of 20-30 mmHg compression, which she has been instructed to wear on a daily basis. However, the stockings she obtained were inadequate, likely not properly fitted. We have referred the patient to the Lymphedema [facility] at [facility], and recommendations have been reviewed. The intention is to instruct in appropriate long-term habits, and to ultimately fit the patient with CircAid Velcro compression garments. An attempt was made to secure CircAid compression garments for the lower extremities, which were declined by the patient's insurance company. An effort continues to obtain CircAid compression garments on the patient's behalf. We will continue to implement the use of 3M 2 layer compression wraps the lower extremities bilaterally, which will be changed weekly. Patient will return in 2 weeks for reassessment. We are to attempt to obtain updated mechanical pneumatic compression pumps for the patient's lower extremities. The patient is a smoker, and smoking cessation has been recommended. She is to collaborate with her primary care physician in this regard. Influenza vaccine was not administered today. Patient stands 5 feet 1 inch tall. She weighs 250 pounds. Her BMI is 47.1. Weight loss has been recommended, and the patient has been advised to collaborate with her primary care physician in terms of weight loss options. Dietary counseling has been offered as an option.
--- NOTE | 2018-05-10 12:49 | HP.PCM_ITS ---
(1) Pressure ulcer of right buttock, stage 2 Status: Resolved Current Visit: Yes Code(s): L89.312 - Pressure ulcer of right buttock, stage 2 (2) Hyperlipidemia Status: Chronic Current Visit: No Qualifiers: Code(s): E78.5 - Hyperlipidemia, unspecified (3) Hypertension Status: Chronic Current Visit: No Qualifiers: Code(s): I10 - Essential (primary) hypertension (4) Type 2 diabetes mellitus Status: Chronic Current Visit: Yes Code(s): E11.9 - Type 2 diabetes mellitus without complications (5) Tobacco use disorder Status: Chronic Current Visit: Yes Code(s): F17.200 - Nicotine dependence, unspecified, uncomplicated (6) Multiple personality disorder Status: Chronic Current Visit: No Code(s): F44.81 - Dissociative identity disorder (7) Morbid obesity with body mass index of 40.0-49.9 Status: Chronic Current Visit: Yes Code(s): E66.01 - Morbid (severe) obesity due to excess calories (8) Chronic back pain Status: Chronic Current Visit: No Code(s): M54.9 - Dorsalgia, unspecified; G89.29 - Other chronic pain (9) Tobacco abuse counseling Status: Chronic Current Visit: Yes Code(s): Z71.6 - Tobacco abuse counseling (10) Swelling of lower extremity Status: Chronic Current Visit: Yes Code(s): M79.89 - Other specified soft tissue disorders (11) Edema of both legs Status: Chronic Current Visit: Yes Code(s): R60.0 - Localized edema (12) Lymphedema of leg Status: Chronic Current Visit: Yes Qualifiers: Laterality: bilateral Code(s): I89.0 - Lymphedema, not elsewhere classified (13) GERD (gastroesophageal reflux disease) Status: Chronic Current Visit: No Code(s): K21.9 - Gastro-esophageal reflux disease without esophagitis (14) Multiple sclerosis Status: Chronic Current Visit: No Code(s): G35 - Multiple sclerosis (15) CKD (chronic kidney disease) stage 4, GFR 15-29 ml/min Status: Chronic Current Visit: No Code(s): N18.4 - Chronic kidney disease, stage 4 (severe) (16) PAD (peripheral artery disease) Status: Chronic Current Visit: No Code(s): I73.9 - Peripheral vascular disease, unspecified (17) History of CVA (cerebrovascular accident) Status: Chronic Current Visit: No Code(s): Z86.73 - Personal history of transient ischemic attack (TIA), and cerebral infarction without residual deficits (18) History of DVT (deep vein thrombosis) Status: Chronic Current Visit: No Code(s): Z86.718 - Personal history of other venous thrombosis and embolism (19) Psoriasis Status: Chronic Current Visit: No Code(s): L40.9 - Psoriasis, unspecified (20) CHF (congestive heart failure) Status: Chronic Current Visit: No Code(s): I50.9 - Heart failure, unspecified (21) Edema Status: Chronic Current Visit: Yes Qualifiers: Code(s): R60.9 - Edema, unspecified (22) Hypothyroidism Status: Chronic Current Visit: No Code(s): E03.9 - Hypothyroidism, unspecified (23) Essential (primary) hypertension Status: Chronic Current Visit: No Code(s): I10 - Essential (primary) hypertension (24) Atherosclerotic heart disease of [place] coronary artery without angina pectoris Status: Chronic Current Visit: No Code(s): I25.10 - Atherosclerotic heart disease of [place] coronary artery without angina pectoris History of Present Illness Date of Service: 05/10/18 Chief Complaint: Bilateral lower extremity swelling, edema, and lymphedema; Right buttock pressure ulceration (stage 2) History of Wound: This is a 47-year-old morbidly obese diabetic female who presented as a referral from her realtime reporter, Dr. Mayo, for evaluation and management regarding bilateral lower extremity swelling, edema, and lymphedema. This has been a problem for the patient in the past, and is chronic in nature. However, it appears to have been exacerbated recently by a traumatic hairline fracture of the right ankle which occurred on November 01, 2017. As a result, the patient was immobile for a period of time, relatively inactive, spending her days in an idle sitting position. As a result of her inactivity and chronic dependency, she has noted swelling, edema, and lymphedema in her lower extremities to be much more severe than usual, prompting her to seek medical attention. The patient claims to sleep in a relatively flat position at night. She has a history of bilateral lower extremity deep vein thrombosis, for which she has been previously treated with systemic anticoagulation therapy. She is not currently taking anticoagulation. The patient has multiple medical problems, which include diabetes mellitus, morbid obesity, hypertension, coronary artery disease, chronic kidney disease, peripheral arterial occlusive disease, and tobacco abuse. The patient has [place] wraps for her lower extremities, which she had not been using. The wraps are not large enough to accommodate the severe swelling which currently exists in her lower extremities. She also has pneumatic mechanical compression pumps for her lower extremities, which she had not been using. These measures have been previously implemented in treatment for the patient's chronic lower extremity swelling and edema. In recent weeks, the patient has demonstrated increasing compliance with recommended measures. She has been elevating her lower extremities more frequently. The patient developed an ulceration on the right lower buttock, which is now completely healed. This occurred due to prolonged sitting. The patient was at a taoism conference for several days, sitting long hours each day while attending lectures and presentations. This was a stage II pressure ulceration. Past Medical History Past Medical History: Chronic Problems (Last Reviewed 03/24/18 @ 15:20 by Gilda Zhang) Hyperlipidemia (Chronic) Hypertension (Chronic) Type 2 diabetes mellitus (Chronic) Tobacco use disorder (Chronic) Multiple personality disorder (Chronic) Morbid obesity with body mass index of 40.0-49.9 (Chronic) Chronic back pain (Chronic) Tobacco abuse counseling (Chronic) Swelling of lower extremity (Chronic) Edema of both legs (Chronic) Lymphedema of leg (Chronic) GERD (gastroesophageal reflux disease) (Chronic) Multiple sclerosis (Chronic) CKD (chronic kidney disease) stage 4, GFR 15-29 ml/min (Chronic) PAD (peripheral artery disease) (Chronic) History of CVA (cerebrovascular accident) (Chronic) History of DVT (deep vein thrombosis) (Chronic) Psoriasis (Chronic) CHF (congestive heart failure) (Chronic) Edema (Chronic) Hypothyroidism (Chronic) Essential (primary) hypertension (Chronic) Atherosclerotic heart disease of [place] coronary artery without angina pectoris (Chronic) Surgical History: appendectomy, cholecystectomy, - - The patient has a history of appendectomy, cholecystectomy, bilateral lower extremity vein stripping, partial hysterectomy, tonsillectomy, lumbar surgery ?4, and bilateral carpal tunnel release. The patient is a Ab0. Her only two live births succumbed shortly following . Allergies/Adverse Reactions: Allergies latex Allergy (Verified 03/24/18 15:10) Rash Penicillins Allergy (Verified 03/24/18 15:10) Unknown venom-honey bee [bee venom (honey bee)] Allergy (Verified 03/24/18 15:10) Unknown Home Medications: Ambulatory Orders Medication Instructions Recorded Celecoxib [Celebrex] 200 mg PO BID 07/03/14 Oxycodone HCl/Acetaminophen 1 ea PO Q4H PRN PRN 07/03/14 [Oxycodone-Acetaminophen 10-325] Tizanidine HCl [Zanaflex] 4 mg PO Q8H 07/03/14 Glimepiride [Amaryl] 4 mg PO BID 11/15/14 ALPRAZolam [Xanax] 0.25 mg PO BID 05/20/17 Albuterol Aerosols [Ventolin 2.5 mg INHALATION Q4H PRN #25 vial 06/18/17 Aerosols] Doxycycline [Vibramycin] 100 mg PO BID #20 cap 06/18/17 Benzonatate [Tessalon Perle] 100 mg PO Q4H PRN PRN #20 cap 06/19/17 amitriptyline 50 mg tablet 100 mg PO QHS tab 08/23/17 aspirin 81 mg tablet,delayed 81 mg PO QDAY 08/23/17 release thyroid (pork) 60 mg tablet 120 mg PO DAILY tab 08/23/17 Gabapentin [Neurontin] 1,200 mg PO TIDCM 01/01/18 Insulin Detemir [Levemir] 64 unit SQ QHS 01/01/18 Insulin Regular, Human [Novolin R] 100 unit SQ BID 01/01/18 Liraglutide [Victoza] 0.12 mg SQ DAILY 01/01/18 proCHLORPERazine suppository 50 mg RECTAL DAILY PRN PRN 01/01/18 [Compazine suppository] diltiazem CD 240 mg 240 mg PO DAILY #90 cap 03/24/18 capsule,extended release 24 hr isosorbide mononitrate ER 60 mg 60 mg PO DAILY #90 tab 03/24/18 tablet,extended release 24 hr nitroglycerin 0.4 mg sublingual 0.4 mg SUBLINGUAL Q5-15M PRN 03/24/18 tablet atorvastatin 80 mg tablet 80 mg PO QDAY #90 tab 04/04/18 - Family History Maternal Family History: Family History (Last Reviewed 03/24/18 @ 15:20 by Gilda Zhang) Mother CAD (coronary artery disease) Diabetes, Heart Disease, No pertinent history, - - Hypothyroid Paternal Family History: Family History (Last Reviewed 03/24/18 @ 15:20 by Gilda Zhang) Mother CAD (coronary artery disease) Cancer, - - The patient's mother had a history of emphysema, COPD, coronary artery disease, diabetes mellitus, dementia, and Parkinson's disease. Patient' s mother at age of 67. Smoking Status: Current some day smoker Tobacco Use: Cigarettes Review of Systems Constitutional: Denies: Chills, Fever, Weight Change Eyes: Denies: Pain, Vision Change HEENT: Denies: Difficulty Hearing, Difficulty Swallowing, Sinus Congestion Cardiovascular: Denies: Chest Pain, Palpitations Respiratory: Denies: Cough, Shortness of Breath Gastrointestinal: Denies: Diarrhea, Nausea, Vomiting Genitourinary: Denies: Dysuria, Hematuria Endocrine: Denies: Heat/ Cold Intolerance, Polydipsia, Polyuria Hematologic/ Lymphatic: Denies: Easy Bruising, Easy Bleeding - Physical Exam Vital Signs Temp Pulse Resp BP 97.8 F 80 18 153/110 H 05/10/18 10:56 05/10/18 10:56 05/10/18 10:56 05/10/18 10:56 General: Alert, Oriented x3, Cooperative, No apparent distress, Well developed, Well nourished HEENT: Atraumatic, PERRLA, EOMI, Normocephalic Oral: Moist Mucosa Neck: No JVD Lungs: Normal air movement Abdomen: Non-Distended Extremities: No clubbing, No cyanosis, No Calf Tenderness, - - The swelling and edema in the patient's lower extremities is markedly diminished. It is now down to a minimum. There has been significant improvement. There are no significant skin changes. There are no open wounds or ulcerations. There is no sign of infection or cellulitis. Circumference measurements are documented elsewhere. Skin: No rashes, No breakdown Wound Measurements and Assessment WC - Nurse 1 - General Ulcer Measurement Start: 04/21/18 12:51 Freq: Status: Active Protocol: Activity Type Activity Date Activity User E-Sign Co-Sign Detail Recorded Client Recorded Date Recorded By Document 05/10/18 10:56 [facility] [id number] 05/10/18 11:04 [facility] 05/10/18 10:56 Wound Center Nurse 1 [Edema Assessment] -Lower Limb Edema Present Yes -Right Calf (cm) 36.5 -Right Ankle (cm) 25.6 -Left Calf (cm) 35.8 -Left Ankle (cm) 25.9 WC - Nurse 2 - General Ulcer CM Notes Start: 04/21/18 12:51 Freq: Status: Active Protocol: Activity Type Activity Date Activity User E-Sign Co-Sign Detail Recorded Client Recorded Date Recorded By Document 05/10/18 12:20 [id number] 05/10/18 12:20 05/10/18 12:20 Pain Scale: 0-10 Numeric [Pain] -Is Patient Pain Free? Yes Musculoskeletal: No Muscle Wasting Neurological: Cranial nerves II-XII grossly intact, Neuro grossly intact Psych/Mental Status: Normal Affect, Appropriate, Alert and oriented to time, place, person, mood and affect Debridement Note Post-Debridement Measurements/Treatment WC - Nurse 2 - General Ulcer CM Notes Start: 04/21/18 12:51 Freq: Status: Active Protocol: Activity Type Activity Date Activity User E-Sign Co-Sign Detail Recorded Client Recorded Date Recorded By Document 04/25/18 15:02 [id number] 04/25/18 15:08 JS Document 05/02/18 13:28 JS [id number] 05/02/18 13:34 JS Document 05/10/18 12:20 JS [id number] 05/10/18 12:20 04/25/18 05/02/18 05/10/18 15:02 13:28 12:20 Wound Center Nurse 2 #7- RT GLUTEAL FOLD -Time 15:02 13:30 -Correct Patient Yes Yes -Correct Side, Site, Position Yes Yes -Correct Procedure Yes Yes -Procedure Performed Yes No -Type of Procedure Debridement -Clinical Debridement Subcutaneous -Post Debridement Size (cm) - Length 0.1 0 -Post Debridement Size (cm) - Width 0.1 0 -Post Debridement Size (cm) - Depth 0.1 0 -Total Square Cm 0.01 0 -Wound/Ulcer Outcome Not Healed Healed- Epithelialized -Ulcer Cleansing Rinsed/ Irrigated with Saline -Foul Odor after Cleansing No -Bioengineered Tissue No -Topical Lidocaine (%) 4 -Lidocaine (ml) 5 -Bleeding Controlled with NA -Treatment Response Procedure Tolerated Well Pain Scale: 0-10 Numeric Is Patient Pain Free? Yes Yes No debridement was completed today Assessment/Plan Active Problems (Last Reviewed 03/24/18 @ 15:20 by Gilda Zhang) Type 2 diabetes mellitus (Chronic) Tobacco use disorder (Chronic) Morbid obesity with body mass index of 40.0-49.9 (Chronic) Tobacco abuse counseling (Chronic) Swelling of lower extremity (Chronic) Edema of both legs (Chronic) Lymphedema of leg (Chronic) Edema (Chronic) Assessment: This is a 47-year-old morbidly obese diabetic female with multiple medical problems, which have been listed above. It appears as though a hairline fracture of the right ankle, sustained on November 01, 2017, resulted in a decrease in activity, limited ambulation, and chronic lower extremity dependency. This significant change in the patient's activity and habits resulted in exacerbation of the swelling, edema, and lymphedema in the patient' s lower extremities. The ulceration on the right anterior tibial surface is now completely healed. The patient has undergone a battery of diagnostic laboratory tests, which have been reviewed. Results are as follows: White blood count 7.7, hemoglobin 13.7, hematocrit 42.1, platelets 199,000, sodium 140 , potassium 4.5, chloride 108, BUN 19, creatinine 0.92, glucose 199, hemoglobin A1c 8.2, calcium 8.8, total bilirubin 0.30, AST 18, ALT 16, alkaline phosphatase 109, total protein 6.8, albumin 2.7, pre-albumin 15.4. A venous duplex examination has recently been performed, revealing incompetence of the right great saphenous vein and an incompetent billet shearer vein 17 cm proximal to the right medial malleolus. No superficial venous incompetence is noted in the left lower extremity. A noninvasive lower extremity arterial study is normal, revealing normal arterial perfusion in the lower extremities bilaterally. Finally, as result of prolonged sitting in a taoism conference recently, the patient developed a pressure ulceration on her right lower buttock, stage II. The right buttock ulceration is now completely healed. Plan: The patient has been instructed to elevate her lower extremities as much as possible. We have encouraged the patient to elevate her legs, even during daytime hours. It appears as though she is sleeping in a relatively recumbent position. Activity has been encouraged. Avoidance of prolonged idle sitting has been recommended. Lower extremities are to be elevated to heart level, or higher. Recruitment of the calf and foot muscle pumps has been explained, and can be implemented by means of activity and ambulation. Weight loss has been highly recommended. The patient has been advised to optimize her diabetic control. Dietary counseling will be offered if the patient so wishes. She has obtained [id number] graduated compression stockings of 20-30 mmHg compression, which she has been instructed to wear on a daily basis. However, the stockings she obtained were inadequate, likely not properly fitted. We have referred the patient to the Lymphedema Clinic at [facility], and recommendations have been reviewed. The intention is to instruct in appropriate long-term habits, and to ultimately fit the patient with CircAid Velcro compression garments. An attempt was made to secure CircAid compression garments for the lower extremities, which were declined by the patient's insurance company. An effort continues to obtain CircAid compression garments on the patient's behalf. We will continue to implement the use of 3M 2 layer compression wraps the lower extremities bilaterally, which will be changed weekly. Patient will return in 2 weeks for reassessment. We are to attempt to obtain updated mechanical pneumatic compression pumps for the patient 's lower extremities. The patient is a smoker, and smoking cessation has been recommended. She is to collaborate with her primary care physician in this regard. Influenza vaccine was not administered today. Patient stands 5 feet 1 inch tall. She weighs 250 pounds. Her BMI is 47.1. Weight loss has been recommended, and the patient has been advised to collaborate with her primary care physician in terms of weight loss options. Dietary counseling has been offered as an option.
[2018-05-17 08:41] VITALS: BP 141/74; PULSE 89; RESP 18; TEMP 36
== END 2018-05-20 23:59 ==
LOC: WC 09:00
PROVIDERS: Family Provider Student in an Organized Health Care Education/Training Program; PCP Student in an Organized Health Care Education/Training Program; Visit Provider Surgery
DX: E11.622 Type 2 diabetes mellitus with other skin ulcer (principal); E78.5 Hyperlipidemia, unspecified; L89.312 Pressure ulcer of right buttock, stage 2; F44.81 Dissociative identity disorder; F17.200 Nicotine dependence, unspecified, uncomplicated; M79.89 Other specified soft tissue disorders; R60.0 Localized edema; I89.0 Lymphedema, not elsewhere classified; K21.9 Gastro-esophageal reflux disease without esophagitis; G35 Multiple sclerosis; N18.4 Chronic kidney disease, stage 4 (severe); I12.9 Hypertensive chronic kidney disease with stage 1 through stage 4 chronic kidney disease, or unspecified chronic kidney disease; E11.22 Type 2 diabetes mellitus with diabetic chronic kidney disease; I25.10 Atherosclerotic heart disease of native coronary artery without angina pectoris; E66.01 Morbid (severe) obesity due to excess calories; Z68.41 Body mass index [BMI] 40.0-44.9, adult; Z71.3 Dietary counseling and surveillance; Z86.718 Personal history of other venous thrombosis and embolism; E11.51 Type 2 diabetes mellitus with diabetic peripheral angiopathy without gangrene; Z79.899 Other long term (current) drug therapy; Z79.4 Long term (current) use of insulin; F17.210 Nicotine dependence, cigarettes, uncomplicated
CPT/HCPCS: 11042; 29581; 99211; 99212; 99213; 99214; G0463

== ENCOUNTER 2018-05-24 09:44 | Outpatient (RCR) | payer MEDICARE, MEDICAID, SELFPAY ==
[2018-05-21 00:58] VITALS: BP 141/74; PULSE 89; RESP 18; TEMP 36
[2018-05-24 09:45] VITALS: BP 160/94; PULSE 96; RESP 18; TEMP 36
--- NOTE | 2018-05-24 10:18 | PCM.WC.HP ---
(1) Pressure ulcer of right buttock, stage 2 Status: Resolved Current Visit: No Code(s): L89.312 - Pressure ulcer of right buttock, stage 2 (2) Hyperlipidemia Status: Chronic Current Visit: No Qualifiers: Code(s): E78.5 - Hyperlipidemia, unspecified (3) Hypertension Status: Chronic Current Visit: No Qualifiers: Code(s): I10 - Essential (primary) hypertension (4) Type 2 diabetes mellitus Status: Chronic Current Visit: No Code(s): E11.9 - Type 2 diabetes mellitus without complications (5) Tobacco use disorder Status: Chronic Current Visit: Yes Code(s): F17.200 - Nicotine dependence, unspecified, uncomplicated (6) Multiple personality disorder Status: Chronic Current Visit: No Code(s): F44.81 - Dissociative identity disorder (7) Morbid obesity with body mass index of 40.0-49.9 Status: Chronic Current Visit: Yes Code(s): E66.01 - Morbid (severe) obesity due to excess calories (8) Chronic back pain Status: Chronic Current Visit: No Code(s): M54.9 - Dorsalgia, unspecified; G89.29 - Other chronic pain (9) Tobacco abuse counseling Status: Chronic Current Visit: Yes Code(s): Z71.6 - Tobacco abuse counseling (10) Swelling of lower extremity Status: Chronic Current Visit: Yes Code(s): M79.89 - Other specified soft tissue disorders (11) Edema of both legs Status: Chronic Current Visit: Yes Code(s): R60.0 - Localized edema (12) Lymphedema of leg Status: Chronic Current Visit: Yes Qualifiers: Laterality: bilateral Code(s): I89.0 - Lymphedema, not elsewhere classified (13) GERD (gastroesophageal reflux disease) Status: Chronic Current Visit: No Code(s): K21.9 - Gastro-esophageal reflux disease without esophagitis (14) Multiple sclerosis Status: Chronic Current Visit: No Code(s): G35 - Multiple sclerosis (15) CKD (chronic kidney disease) stage 4, GFR 15-29 ml/min Status: Chronic Current Visit: No Code(s): N18.4 - Chronic kidney disease, stage 4 (severe) (16) PAD (peripheral artery disease) Status: Chronic Current Visit: No Code(s): I73.9 - Peripheral vascular disease, unspecified (17) History of CVA (cerebrovascular accident) Status: Chronic Current Visit: No Code(s): Z86.73 - Personal history of transient ischemic attack (TIA), and cerebral infarction without residual deficits (18) History of DVT (deep vein thrombosis) Status: Chronic Current Visit: No Code(s): Z86.718 - Personal history of other venous thrombosis and embolism (19) Psoriasis Status: Chronic Current Visit: No Code(s): L40.9 - Psoriasis, unspecified (20) CHF (congestive heart failure) Status: Chronic Current Visit: No Code(s): I50.9 - Heart failure, unspecified (21) Edema Status: Chronic Current Visit: Yes Qualifiers: Code(s): R60.9 - Edema, unspecified (22) Hypothyroidism Status: Chronic Current Visit: No Code(s): E03.9 - Hypothyroidism, unspecified (23) Essential (primary) hypertension Status: Chronic Current Visit: No Code(s): I10 - Essential (primary) hypertension (24) Atherosclerotic heart disease of [place] coronary artery without angina pectoris Status: Chronic Current Visit: No Code(s): I25.10 - Atherosclerotic heart disease of [place] coronary artery without angina pectoris History of Present Illness Date of Service: 05/24/18 Chief Complaint: Bilateral lower extremity swelling, edema, and lymphedema History of Wound: This is a 47-year-old morbidly obese diabetic female who presented as a referral from her deputy sheriff building guard, Dr. Mayo, for evaluation and management regarding bilateral lower extremity swelling, edema, and lymphedema. This has been a problem for the patient in the past, and is chronic in nature. However, it appears to have been exacerbated recently by a traumatic hairline fracture of the right ankle which occurred on November 01, 2017. As a result, the patient was immobile for a period of time, relatively inactive, spending her days in an idle sitting position. As a result of her inactivity and chronic dependency, she has noted swelling, edema, and lymphedema in her lower extremities to be much more severe than usual, prompting her to seek medical attention. The patient claims to sleep in a relatively flat position at night. She has a history of bilateral lower extremity deep vein thrombosis, for which she has been previously treated with systemic anticoagulation therapy. She is not currently taking anticoagulation. The patient has multiple medical problems, which include diabetes mellitus, morbid obesity, hypertension, coronary artery disease, chronic kidney disease, peripheral arterial occlusive disease, and tobacco abuse. The patient has [place] wraps for her lower extremities, which she had not been using. The wraps are not large enough to accommodate the severe swelling which existed in her lower extremities. These measures have been previously implemented in treatment for the patient's chronic lower extremity swelling and edema. In recent weeks, the patient has demonstrated increasing compliance with recommended measures. She has been elevating her lower extremities more frequently. The patient developed an ulceration on the right lower buttock, which is now completely healed. This occurred due to prolonged sitting. The patient was at a moravian conference for several days, sitting long hours each day while attending lectures and presentations. This was a stage II pressure ulceration. Past Medical History Past Medical History: Chronic Problems (Last Reviewed 03/24/18 @ 15:20 by Gilda Zhang) Hyperlipidemia (Chronic) Hypertension (Chronic) Type 2 diabetes mellitus (Chronic) Tobacco use disorder (Chronic) Multiple personality disorder (Chronic) Morbid obesity with body mass index of 40.0-49.9 (Chronic) Chronic back pain (Chronic) Tobacco abuse counseling (Chronic) Swelling of lower extremity (Chronic) Edema of both legs (Chronic) Lymphedema of leg (Chronic) GERD (gastroesophageal reflux disease) (Chronic) Multiple sclerosis (Chronic) CKD (chronic kidney disease) stage 4, GFR 15-29 ml/min (Chronic) PAD (peripheral artery disease) (Chronic) History of CVA (cerebrovascular accident) (Chronic) History of DVT (deep vein thrombosis) (Chronic) Psoriasis (Chronic) CHF (congestive heart failure) (Chronic) Edema (Chronic) Hypothyroidism (Chronic) Essential (primary) hypertension (Chronic) Atherosclerotic heart disease of [place] coronary artery without angina pectoris (Chronic) Surgical History: appendectomy, cholecystectomy, - - The patient has a history of appendectomy, cholecystectomy, bilateral lower extremity vein stripping, partial hysterectomy, tonsillectomy, lumbar surgery ?4, and bilateral carpal tunnel release. The patient is a Ab0. Her only two live births succumbed shortly following . Allergies/Adverse Reactions: Allergies latex Allergy (Verified 03/24/18 15:10) Rash Penicillins Allergy (Verified 03/24/18 15:10) Unknown venom-honey bee [bee venom (honey bee)] Allergy (Verified 03/24/18 15:10) Unknown Home Medications: Ambulatory Orders Medication Instructions Recorded Celecoxib [Celebrex] 200 mg PO BID 07/03/14 Oxycodone HCl/Acetaminophen 1 ea PO Q4H PRN PRN 07/03/14 [Oxycodone-Acetaminophen 10-325] Tizanidine HCl [Zanaflex] 4 mg PO Q8H 07/03/14 Glimepiride [Amaryl] 4 mg PO BID 11/15/14 ALPRAZolam [Xanax] 0.25 mg PO BID 05/20/17 Albuterol Aerosols [Ventolin 2.5 mg INHALATION Q4H PRN #25 vial 06/18/17 Aerosols] Doxycycline [Vibramycin] 100 mg PO BID #20 cap 06/18/17 Benzonatate [Tessalon Perle] 100 mg PO Q4H PRN PRN #20 cap 06/19/17 amitriptyline 50 mg tablet 100 mg PO QHS tab 08/23/17 aspirin 81 mg tablet,delayed 81 mg PO QDAY 08/23/17 release thyroid (pork) 60 mg tablet 120 mg PO DAILY tab 08/23/17 Gabapentin [Neurontin] 1,200 mg PO TIDCM 01/01/18 Insulin Detemir [Levemir] 64 unit SQ QHS 01/01/18 Insulin Regular, Human [Novolin R] 100 unit SQ BID 01/01/18 Liraglutide [Victoza] 0.12 mg SQ DAILY 01/01/18 proCHLORPERazine suppository 50 mg RECTAL DAILY PRN PRN 01/01/18 [Compazine suppository] diltiazem CD 240 mg 240 mg PO DAILY #90 cap 03/24/18 capsule,extended release 24 hr isosorbide mononitrate ER 60 mg 60 mg PO DAILY #90 tab 03/24/18 tablet,extended release 24 hr nitroglycerin 0.4 mg sublingual 0.4 mg SUBLINGUAL Q5-15M PRN 03/24/18 tablet atorvastatin 80 mg tablet 80 mg PO QDAY #90 tab 04/04/18 - Family History Maternal Family History: Family History (Last Reviewed 03/24/18 @ 15:20 by Gilda Zhang) Mother CAD (coronary artery disease) Diabetes, Heart Disease, No pertinent history, - - Hypothyroid Paternal Family History: Family History (Last Reviewed 03/24/18 @ 15:20 by Gilda Zhang) Mother CAD (coronary artery disease) Cancer, - - The patient's mother had a history of emphysema, COPD, coronary artery disease, diabetes mellitus, dementia, and Parkinson's disease. Patient's mother at age of 67. Smoking Status: Current some day smoker Tobacco Use: Cigarettes Review of Systems Constitutional: Denies: Chills, Fever, Weight Change Eyes: Denies: Pain, Vision Change HEENT: Denies: Difficulty Hearing, Difficulty Swallowing, Sinus Congestion Cardiovascular: Denies: Chest Pain, Palpitations Respiratory: Denies: Cough, Shortness of Breath Gastrointestinal: Denies: Diarrhea, Nausea, Vomiting Genitourinary: Denies: Dysuria, Hematuria Endocrine: Denies: Heat/ Cold Intolerance, Polydipsia, Polyuria Hematologic/ Lymphatic: Denies: Easy Bruising, Easy Bleeding - Physical Exam Vital Signs Temp Pulse Resp BP 96.8 F L 96 18 160/94 H 05/24/18 09:45 05/24/18 09:45 05/24/18 09:45 05/24/18 09:45 General: Alert, Oriented x3, Cooperative, No apparent distress, Well developed, Well nourished HEENT: Atraumatic, PERRLA, EOMI, Normocephalic Oral: Moist Mucosa Neck: No JVD Lungs: Normal air movement Abdomen: Non-Distended Extremities: No clubbing, No cyanosis, No Calf Tenderness, - - The swelling, edema, and lymphedema in the patient's lower extremities appears to be well controlled. Circumference measurements are markedly diminished bilaterally. Only a small amount of edema is noted on the dorsum of the feet bilaterally. There are no open wounds or ulcerations. There is no sign of infection or cellulitis. Skin: No rashes, No breakdown Wound Measurements and Assessment WC - Nurse 1 - General Ulcer Measurement Start: 05/24/18 09:45 Freq: Status: Active Protocol: Activity Type Activity Date Activity User E-Sign Co-Sign Detail Recorded Client Recorded Date Recorded By Document 05/24/18 09:45 [id number] 05/24/18 09:54 CS 05/24/18 09:45 Wound Center Nurse 1 [Edema Assessment] -Lower Limb Edema Present Yes -Right Calf (cm) 36.2 -Right Ankle (cm) 25 -Left Calf (cm) 35 -Left Ankle (cm) 24.5 WC - Nurse 2 - General Ulcer CM Notes Start: 05/24/18 09:45 Freq: Status: Active Protocol: Activity Type Activity Date Activity User E-Sign Co-Sign Detail Recorded Client Recorded Date Recorded By Document 05/24/18 10:14 JS [id number] 05/24/18 10:14 05/24/18 10:14 Pain Scale: 0-10 Numeric [Pain] -Is Patient Pain Free? Yes Neurological: Cranial nerves II-XII grossly intact, Neuro grossly intact Psych/Mental Status: Normal Affect, Appropriate, Alert and oriented to time, place, person, mood and affect Debridement Note Post-Debridement Measurements/Treatment WC - Nurse 2 - General Ulcer CM Notes Start: 05/24/18 09:45 Freq: Status: Active Protocol: Activity Type Activity Date Activity User E-Sign Co-Sign Detail Recorded Client Recorded Date Recorded By Document 05/24/18 10:14 [id number] 05/24/18 10:14 05/24/18 10:14 Pain Scale: 0-10 Numeric Is Patient Pain Free? Yes No debridement was completed today Assessment/Plan Active Problems (Last Reviewed 03/24/18 @ 15:20 by Gilda Zhang) Tobacco use disorder (Chronic) Morbid obesity with body mass index of 40.0-49.9 (Chronic) Tobacco abuse counseling (Chronic) Swelling of lower extremity (Chronic) Edema of both legs (Chronic) Lymphedema of leg (Chronic) Edema (Chronic) Assessment: This is a 47-year-old morbidly obese diabetic female with multiple medical problems, which have been listed above. It appears as though a hairline fracture of the right ankle, sustained on November 01, 2017, resulted in a decrease in activity, limited ambulation, and chronic lower extremity dependency. This significant change in the patient's activity and habits resulted in exacerbation of the swelling, edema, and lymphedema in the patient's lower extremities. The patient has undergone a battery of diagnostic laboratory tests, which have been reviewed. Results are as follows: White blood count 7.7, hemoglobin 13.7, hematocrit 42.1, platelets 199,000, sodium 140, potassium 4.5, chloride 108, BUN 19, creatinine 0.92, glucose 199, hemoglobin A1c 8.2, calcium 8.8, total bilirubin 0.30, AST 18, ALT 16, alkaline phosphatase 109, total protein 6.8, albumin 2.7, pre-albumin 15.4. A venous duplex examination has recently been performed, revealing incompetence of the right great saphenous vein and an incompetent lever tender vein 17 cm proximal to the right medial malleolus. No superficial venous incompetence is noted in the left lower extremity. A noninvasive lower extremity arterial study is normal, revealing normal arterial perfusion in the lower extremities bilaterally. Finally, as result of prolonged sitting in a moravian conference recently, the patient developed a pressure ulceration on her right lower buttock, stage II. The right buttock ulceration is now completely healed. Plan: The patient is to be discharged. The swelling and edema in the lower extremities is well controlled. She has obtained graduated compression stockings of 20-30 mmHg compression, which are to be worn on a daily basis. She appears to understand the need to elevate her lower extremities as much as possible, and to sleep on a flat surface at night. She is to avoid prolonged idle sitting. Weight loss has been recommended. We have attempted to obtain CircAid Velcro compression garments, but they have been denied by the patient's insurance. Lower extremities are to be elevated to heart level, or higher. Recruitment of the calf and foot muscle pumps has been explained, and can be implemented by means of activity and ambulation. Weight loss has been highly recommended. The patient has been advised to optimize her diabetic control. Dietary counseling will be offered if the patient so wishes. We have referred the patient to the Lymphedema Clinic at [facility], and recommendations have been reviewed. The intention is to instruct in appropriate long-term habits. This has been accomplished, and the patient is now to be discharged. An attempt was made to secure CircAid compression garments for the lower extremities, which were declined by the patient's insurance company. We have attempted to obtain updated mechanical pneumatic compression pumps for the patient's lower extremities. Determination in this regard awaits her insurance company. The patient will be discharged, and followed up henceforth on an as-needed basis. The patient is a smoker, and smoking cessation has been recommended. She is to collaborate with her primary care physician in this regard. Influenza vaccine was not administered today. Patient stands 5 feet 1 inch tall. She weighs 250 pounds. Her BMI is 47.1. Weight loss has been recommended, and the patient has been advised to collaborate with her primary care physician in terms of weight loss options. Dietary counseling has been offered as an option.
--- NOTE | 2018-05-26 10:11 | WC ---
Addendum entered by Kyler Aquino 05/27/18 12:06: Sonali's sister instructed to make an appointment for her at the Lymphedema Clinic for ongoing care. Occupational Therapy referral made after talking with sister. Compression stockings may be available through '[facility]', however, a request was also made for Lymphedema Pumps, but nothing has been finalized or heard from to date. Original Note: 05/25/18 08:15 (Patient discharged from the Wound Center 05/24/18-Wounds have all been healed) Patient's sister called in stating the stockings that Sonali bought from [employer] are cutting into to her legs. Wanting to know what to do, and if Al Wraps would suffice. This job specification writer was to get in touch w/Dr. Moya regarding same. 8:30 Ms. Peters showed-up in the Wound Center. Discussed care and concerns over inability of her getting compression stockings (CircAids) (Insurance has denied need even when ulcers were present). Stockings she has are too long for her legs and were rolling down causing a constriction to just below the knees. Stockings pulled off and allowed to only go up to knee. Much 'Toe' space now extends, but patient acknowledges it feels better. She still needs properly fitted stockings. 05/26/18: VM message received from sister stating Sonali's legs are swelling-up.
--- NOTE | 2018-06-01 11:05 | WC ---
Patient called in regards to legs swelling again, wanting to know what to do. (Please refer to previous notes from 05/26/18) Does not want to come back into the Wound Center. This copy writer called Lymphedema Clinic to confirm presence of any follow-up appointments. No appointments have been set up as of this writing. Clotilde Navarro (Lymphedema Therapist) has been trying to reach out to the patient via phone call. Messages left with the patient to call and make a follow-up appointment, but calls have not been returned. A call made to her sister today (Voice Msg Left) regarding the necessity of Sonali calling the Lymphedema Clinic for appointment(s). It was stressed Sonali needs to take responsibility for her care. Call back number left with her sister.
== END 2018-06-19 23:59 ==
LOC: WC 09:44
PROVIDERS: Family Provider Student in an Organized Health Care Education/Training Program; PCP Student in an Organized Health Care Education/Training Program; Visit Provider Surgery
DX: E11.622 Type 2 diabetes mellitus with other skin ulcer (principal); L89.312 Pressure ulcer of right buttock, stage 2; E78.5 Hyperlipidemia, unspecified; F44.81 Dissociative identity disorder; M79.89 Other specified soft tissue disorders; K21.9 Gastro-esophageal reflux disease without esophagitis; I89.0 Lymphedema, not elsewhere classified; R60.0 Localized edema; G35 Multiple sclerosis; E11.22 Type 2 diabetes mellitus with diabetic chronic kidney disease; N18.4 Chronic kidney disease, stage 4 (severe); E11.51 Type 2 diabetes mellitus with diabetic peripheral angiopathy without gangrene; Z86.73 Personal history of transient ischemic attack (TIA), and cerebral infarction without residual deficits; Z86.718 Personal history of other venous thrombosis and embolism; L40.9 Psoriasis, unspecified; I13.0 Hypertensive heart and chronic kidney disease with heart failure and stage 1 through stage 4 chronic kidney disease, or unspecified chronic kidney disease; I50.9 Heart failure, unspecified; E03.9 Hypothyroidism, unspecified; I25.10 Atherosclerotic heart disease of native coronary artery without angina pectoris; E66.01 Morbid (severe) obesity due to excess calories; Z68.42 Body mass index [BMI] 45.0-49.9, adult; Z71.3 Dietary counseling and surveillance; Z79.899 Other long term (current) drug therapy; Z79.4 Long term (current) use of insulin; F17.210 Nicotine dependence, cigarettes, uncomplicated
CPT/HCPCS: 99211; G0463

== ENCOUNTER → 2018-05-25 07:03 | Outpatient (CLI) | payer MEDICARE, MEDICAID, SELFPAY | PROVIDERS: Family Provider Student in an Organized Health Care Education/Training Program; PCP Student in an Organized Health Care Education/Training Program; Visit Provider Psychiatry & Neurology Neurology | DX: R51 Headache (principal) | CPT/HCPCS: 70551 ==

== ENCOUNTER → 2018-08-03 12:06 | Outpatient (CLI) | payer MEDICARE, MEDICAID, SELFPAY ==
[2018-08-03 12:53] LABS: Protein, Urine (Random) 411.8 mg/dL (<11.9); Protein:Creat Ratio 3520 mg/g CRE (0-200)
== END ==
PROVIDERS: Family Provider Student in an Organized Health Care Education/Training Program; PCP Student in an Organized Health Care Education/Training Program; Visit Provider Internal Medicine Nephrology
DX: E11.22 Type 2 diabetes mellitus with diabetic chronic kidney disease (principal)
CPT/HCPCS: 82570; 84156

== ENCOUNTER 2018-09-18 00:23 | Emergency (ER) | payer MEDICARE, MEDICAID, SELFPAY ==
[2018-09-02 13:18] VITALS: BMI 42.9
[2018-09-18 00:27] VITALS: BP 152/77; PULSE 59; RESP 16; TEMP 35.6; O2SAT 97; BMI 41.8
--- NOTE | 2018-09-18 00:44 | EKG12_ITS ---
Test Reason : CP Blood Pressure : / mmHG Vent. Rate : 057 BPM Atrial Rate : 057 BPM P-R Int : 158 ms QRS Dur : 082 ms QT Int : 474 ms P-R-T Axes : 056 -11 033 degrees QTc Int : 461 ms Sinus bradycardia Septal infarct , age undetermined Abnormal ECG Confirmed by WENDY CROWLEY, RENATE ([id number]), film and video editor LUCRECIA GIL ([id number]) on 09/19/2018 12:48:29 PM Referred By: STEVIE Confirmed By:RENATE NGUYEN MD
--- NOTE | 2018-09-18 00:46 | ED.DCSUM_ITS ---
- ER Visit Summary Date of Service: 09/18/18 Chief Complaint: [] Chest pain History of Present Illness: The patient is a 48 F stated she woke up approximately an hour and 40 minutes ago with sharp pain in the center of her chest. It lasted for 10 minutes and went away. She woke up with this sensation. Current severity is resolved. Maximum severity was moderate. Worse by nothing. Relieved with time. No home treatment. Denies associated symptoms other than some pain in her right shoulder and upper arm and numbness. This has all resolved. She called the paramedics who brought her in. She does take a daily aspirin. She has had this in the past. She reports a negative stress test 3 months ago by her chaser apprentice. She stated her last heart cath was 12 years ago and she does not have any stents or blockages. Patient does have hypertension high cholesterol and diabetes. She has had a prior remote DVT. No other PE risk factors. Patient also noted she had adelina placed in her right wong as she cut it when she fell prior to Laura. She is noticed some redness around the wound and wanted to get checked out. ROS General: Denies fever, chills, sweats Eyes: Denies visual changes, blurred vision, double vision ENT: Denies ear pain, rhinorrhea, sore throat Cardiovascular: Denies palpitations, heart racing Respiratory: Denies dyspnea, cough, sputum, dyspnea on exertion, orthopnea,PND GI: Denies abdominal pain, nausea, vomiting, diarrhea, constipation, melena : Denies dysuria, hematuria, frequency Musculoskeletal: Denies myalgias, arthralgias, neck pain, back pain Skin: See HPI Neuro: Denies headache, weakness, see HPI Psych: Denies depression, anxiety Endo: Denies polyuria, polydipsia, polyphagia Heme: Denies easy bruising, easy bleeding, lymphadenopathy Allergy: Denies hives, swelling Physical Examination: [] Vital signs reviewed General: Well-nourished well-developed Head: Normocephalic atraumatic Eyes: Pupils equal round and reactive to light extraocular movements intact ENT: TMs clear no hemotympanum no trauma Neck: Nontender full range of motion Cardiovascular: Regular rate rhythm no murmurs normal S1-S2 Respiratory: No distress clear to auscultation bilaterally chest nontender Abdomen: Soft nontender nondistended normal bowel sounds no masses Back: Nontender no CVA tenderness Extremities: Nontender active range of motion ?4 extremities no trauma Skin: Right lower extremity has some mild cellulitis measuring 3 x 3 cm around a lower extremity wound that is stapled closed. There is no dehiscence or drainage Neuro alert oriented cranial nerves II through XII intact normal strength sensation reflexes Test Results: [] Emergency Department Course and Treatment: [] EKG obtained shows sinus rhythm with a rate of 57. Q wave V2. Unchanged from prior. No acute STEMI. Patient given a dose of aspirin. Lab work and chest x-ray obtained. Chest x-ray shows no acute abnormalities. Mild right sided alveolar atelectasis. CBC normal. Chemistries normal except potassium 5.4. Chloride 109. Creatinine 1.0. Troponin is negative. Patient given a dose of Keflex for her mild right lower extremity cellulitis. This is a very atypical presentation for chest discomfort with radiation to her arm. She does have risk factors. She is refusing a second troponin level. She does not feel she needs to be admitted. Her pain never came back. I think this is reasonable. I have a low suspicion for cardiac cause pulmonary embolism or dissection. I feel she can follow-up as an outpatient. Treatment Plan: [] Disposition: [] Impression: [] Atypical chest pain Right arm paresthesia?resolved Right lower extremity wound infection This note was generated with [employer] dictation software. It may contain incorrect words, spelling, and punctuation that were not noted in review of the chart prior to signing ED Disposition - Plan for ED Patient: Chief Complaint: Chest Pain Referrals: Dillan Kraus DO [Primary Care Provider] -
[2018-09-18] MEDS: Aspirin 81 MG TAB.CHEW 324 MG PO (00:54)
[2018-09-18 00:57] VITALS: O2SAT 99
[2018-09-18 00:59] LABS: Absolute Neutrophil Count 6.4 X10^3/uL (2.0-7.7); Basophil# 0.02 X10^3/uL; Basophil% 0.3 % (0-1); Eosinophil# 0.12 X10^3/uL; Eosinophils% 1.6 % (0-5); Hematocrit 41.2 % (37-47); Hemoglobin 13.5 g/dl (12.0-15.0); Lymphocyte % 9.2 % (19-41); Mean Corp Hgb Conc 32.8 g/gl (32-36); Mean Corpuscular Hgb 31.5 pg (27.0-32.0); Monocyte# 0.36 X10^3/uL; Monocyte% 4.7 % (0-10); Neutrophil # 6.43 X10^3/uL (2.7-7.7); Neutrophil % 84.1 % (47-70); Platelet Count 204 K/mm3 (150-450); RBC Distribution Width CV 12.8 % (11.6-14.6); RBC Distribution Width SD 43.5 fl (35.1-43.9); Red Blood Count 4.29 M/mm3 (4.2-5.4); White Blood Count 7.6 K/mm3 (4.4-11.0)
[2018-09-18 01:01] LABS: POSITIVE COUNT NO; POSITIVE DIFFERENTIAL NO; POSITIVE MORPHOLOGY NO
[2018-09-18 01:13] LABS: Anion Gap 4 (5-15); BUN 19 mg/dL (7-18); BUN/Creat Ratio 17.6 RATIO (10-20); Calcium,Total 8.8 mg/dL (8.5-10.1); Chloride 109 mmol/L (98-107); Creatinine, Serum 1.08 mg/dL (0.55-1.02); EST Glomerular Filtration Rate 57 mL/min (>60); Est Glom Filt Rate - Afr Amer 69 mL/min (>60); Estimated Creatinine Clearance 44.76 ml/min; Glucose 51 mg/dL (74-106); Potassium 5.4 mmol/L (3.5-5.1); Sodium Level 139 mmol/L (136-145)
--- NOTE | 2018-09-18 01:15 | RAD_ITS ---
STUDY: X-RAY CHEST REASON FOR EXAM: Female, 48 years old. Chest pain TECHNIQUE: Frontal and lateral views of the chest. COMPARISON: 06/18/2017 FINDINGS: Right basilar alveolar disease and bibasilar atelectasis. There is no demonstrated pleural abnormality. Normal size heart. Normal mediastinum and babs. Normal visualized pulmonary arteries. Normal visualized aortic arch and descending thoracic aorta. Normal visualized thoracic spine. Normal visualized ribs, clavicles, and shoulders. There is no demonstrated abnormality of the visualized soft tissue structures of the upper abdomen. 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 Electronically Signed: Juanpablo Rogers MD at 1:48 EST Tel , Service support ,
[2018-09-18 01:26] VITALS: BP 144/66; PULSE 57; RESP 16; O2SAT 99
[2018-09-18 02:17] VITALS: BP 141/80; PULSE 57; RESP 19; O2SAT 98
--- NOTE | 2018-09-18 02:25 | ED.DEP ---
ED Disposition - Plan for ED Patient: Disposition: Home or Assisted Living Chief Complaint: Chest Pain Instructions: ED Chest Pain NonCardiac Prescriptions: Cephalexin [Keflex] 500 mg PO Q6 #40 cap Referrals: Dillan Kraus DO [Primary Care Provider] -
[2018-09-18] MEDS: Cephalexin 250 MG Capsule 500 MG PO (02:28)
[2018-09-18 02:46] VITALS: BP 139/76; PULSE 60; RESP 18; O2SAT 98
== END 2018-09-18 02:47 | disposition home or self-care (01) ==
PROVIDERS: Emergency Provider Emergency Medicine; Family Provider Student in an Organized Health Care Education/Training Program; PCP Student in an Organized Health Care Education/Training Program
DX: R07.89 Other chest pain (principal); L03.115 Cellulitis of right lower limb; I25.10 Atherosclerotic heart disease of native coronary artery without angina pectoris; E11.9 Type 2 diabetes mellitus without complications; I10 Essential (primary) hypertension; E78.00 Pure hypercholesterolemia, unspecified; Z86.73 Personal history of transient ischemic attack (TIA), and cerebral infarction without residual deficits; Z86.718 Personal history of other venous thrombosis and embolism; M25.511 Pain in right shoulder; R20.0 Anesthesia of skin
CPT/HCPCS: 71046; 80048; 84484; 85025; 93005; 99285; A4216

== ENCOUNTER 2018-09-18 15:49 | Emergency (ER) | payer MEDICARE, MEDICAID, SELFPAY ==
[2018-09-18 00:27] VITALS: BMI 41.8
[2018-09-18 15:50] VITALS: BP 144/89; PULSE 59; RESP 20; TEMP 35.8; O2SAT 99; BMI 42.3
[2018-09-18] MEDS: Dextrose 50%-Water 25 GM/50 ML DISP.SYRIN IV (16:00)
--- NOTE | 2018-09-18 16:01 | EKG12_ITS ---
Test Reason : HYPERCLYCEMIA Blood Pressure : / mmHG Vent. Rate : 060 BPM Atrial Rate : 060 BPM P-R Int : 160 ms QRS Dur : 086 ms QT Int : 476 ms P-R-T Axes : 055 025 046 degrees QTc Int : 476 ms Normal sinus rhythm Low voltage QRS Septal infarct , age undetermined Abnormal ECG Confirmed by WENDY CROWLEY, RENATE ([id number]), assistant editor LUCRECIA GIL ([id number] on 09/21/2018 2:28:16 PM Referred By: Confirmed By:RENATE NGUYEN MD
[2018-09-18 16:06] VITALS: PULSE 65; RESP 25; O2SAT 98
[2018-09-18 16:36] LABS: Bedside Glucose 22 mg/dL (70-110)
[2018-09-18 16:36] LABS: Bedside Glucose 158 mg/dL (70-110)
--- NOTE | 2018-09-18 17:24 | ED.VISSUMM ---
- ER Visit Summary Date of Service: 09/18/18 Chief Complaint: Altered mental status History of Present Illness: The patient is a 48 F who was seen earlier this morning for chest pain. Cardiac workup was negative. Patient declined second troponin. She presents because of altered mental status. Patient's GGT was 22 after she was given glucose by paramedics. She is awake alert and oriented presently and informed me that she had a couple coffee and 2 oatmeal cookies the entire day. She presently has no complaints. Physical Examination: Vital signs noted. Head is atraumatic normocephalic. Pupils are equal round reactive. Extraocular muscles are intact. TMs are pearly white with landmarks noted. Nares patent with no drainage. Posterior pharynx without erythema or exudate. Uvula is midline. There is no dysphonia or dysphasia. Trachea is midline. There is no stridor with auscultation of the neck. Heart is regular without murmur, gallop or rub. S1 and S2 are normal. Lungs are clear to auscultation with good movement of air bilaterally. Abdomen soft nontender bowel sounds present normal. Neuro exam nonfocal Test Results: PTT 20 2 repeat 50. Patient did awake after D50. She is eating. EKG sinus rhythm rate of 60 low voltage with decreased anterior force. Troponin less than 0.015. Emergency Department Course and Treatment: Because she was seen here last night for chest pain and EKG was obtained as well as troponin. Treatment Plan: Discharged home with family/friend Disposition: Discharge to home with appropriate home-going instructions Impression: Altered mental status secondary to hypoglycemia insulin-dependent This note was generated with [employer] dictation software. It may contain incorrect words, spelling, and punctuation that were not noted in review of the chart prior to signing ED Disposition - Plan for ED Patient: Disposition: Home or Assisted Living Chief Complaint: Hypoglycemia Instructions: ED Diabetes Hypoglycemia Insulin React Referrals: Dillan Kraus DO [Primary Care Provider] - As Needed
[2018-09-18 18:02] VITALS: BP 153/81; PULSE 67; RESP 16; O2SAT 97
== END 2018-09-18 18:03 | disposition home or self-care (01) ==
PROVIDERS: Emergency Provider Emergency Medicine; Family Provider Student in an Organized Health Care Education/Training Program; PCP Student in an Organized Health Care Education/Training Program
DX: E11.649 Type 2 diabetes mellitus with hypoglycemia without coma (principal); Z79.4 Long term (current) use of insulin; I10 Essential (primary) hypertension; E78.00 Pure hypercholesterolemia, unspecified; I25.10 Atherosclerotic heart disease of native coronary artery without angina pectoris
CPT/HCPCS: 82962; 84484; 93005; 96374; 99284; J1610

== ENCOUNTER 2018-09-19 16:01 | Inpatient (IN) | payer MEDICARE, MEDICAID, SELFPAY ==
[2018-09-18 15:50] VITALS: BMI 42.3
[2018-09-19] VITALS (7 sets, daily range): BP systolic 134–159; BP diastolic 53–88; PULSE 65–72; RESP 16–20; TEMP 36.4–37; O2SAT 96–99; BMI 44.4; BMI 44.5
--- NOTE | 2018-09-19 16:34 | ED.RN ---
JUICE, CHEESE, CRACKERS AND PB GIVEN.
[2018-09-19 16:36] LABS: Bedside Glucose 50 mg/dL (70-110)
[2018-09-19 17:35] LABS: Absolute Lymphocyte Count 1.25 X10^3/ul (0.83-4.51); Absolute Neutrophil Count 5.1 X10^3/uL (2.0-7.7); Basophil# 0.02 X10^3/uL; Basophil% 0.3 % (0-1); Eosinophils% 4.2 % (0-5); Hematocrit 41.1 % (37-47); Hemoglobin 13.2 g/dl (12.0-15.0); Lymphocyte # 1.25 X10^3/ul (4.0); Lymphocyte % 17.4 % (19-41); Mean Corp Hgb Conc 32.1 g/gl (32-36); Mean Corpuscular Hgb 31.2 pg (27.0-32.0); Mean Corpuscular Volume 97.2 fL (81-99); Mean Platelet Vol. 10.2 fl (6.2-12.0); Monocyte# 0.55 X10^3/uL; Monocyte% 7.6 % (0-10); Neutrophil # 5.06 X10^3/uL (2.7-7.7); Neutrophil % 70.2 % (47-70); Platelet Count 219 K/mm3 (150-450); RBC Distribution Width CV 13.2 % (11.6-14.6); RBC Distribution Width SD 45.8 fl (35.1-43.9); Red Blood Count 4.23 M/mm3 (4.2-5.4); White Blood Count 7.2 K/mm3 (4.4-11.0)
[2018-09-19 17:37] LABS: POSITIVE COUNT NO; POSITIVE DIFFERENTIAL NO; POSITIVE MORPHOLOGY NO
[2018-09-19] MEDS: Morphine 4 MG/ML Syringe IV ×2 (17:39→19:49)
[2018-09-19 17:47] LABS: ALB/GLOB Ratio 0.7 RATIO (0.9-2.4); AST(SGOT) 28 U/L (15-37); Alanine Aminotransfer ALT/SGPT 21 U/L (13-56); Albumin, Serum 3.1 g/dL (3.2-5.0); Alkaline Phosphatase 126 U/L (45-117); Anion Gap 8 (5-15); BUN 23 mg/dL (7-18); BUN/Creat Ratio 14.4 RATIO (10-20); Calcium,Total 8.8 mg/dL (8.5-10.1); Chloride 110 mmol/L (98-107); EST Glomerular Filtration Rate 36 mL/min (>60); Est Glom Filt Rate - Afr Amer 44 mL/min (>60); Estimated Creatinine Clearance 30.21 ml/min; Globulin 4.3 g/dL (2.2-4.2); Glucose 49 mg/dL (74-106); Potassium 4.7 mmol/L (3.5-5.1); Protein, Total 7.4 g/dL (6.4-8.2); Sodium Level 142 mmol/L (136-145)
[2018-09-19 17:49] LABS: Bacteria 0 SEEN /hpf (None Seen); Mucous, Urine 0 SEEN /hpf (<or=2+)
[2018-09-19 17:55] LABS: Color, Urine Yellow (Yellow); Glucose, Dipstick Normal (Normal); Ketone-Dipstick Negative (Negative); Leukocyte Esterase-Dipstick 25 /ul (Negative); Nitrite-Dipstick Negative (Negative); Occult Blood-Urine 10 /ul (Negative); Protein-Dipstick 500 mg/dl (Negative); Specific Gravity, Urine 1.025 (1.002-1.030); Urine Bilirubin Dipstick Negative (Negative); Urine Clarity Sl. Cloudy (Clear); Urine Urobilinogen 1 mg/dl (Normal)
[2018-09-19 18:05] LABS: Lactic Acid 0.9 mmol/L (0.4-2.0)
[2018-09-19] MEDS: Dextrose 50%-Water 25 GM/50 ML DISP.SYRIN IV ×2 (18:08→19:55)
[2018-09-19 18:12] LABS: Hyaline Cast 0-5 SEEN /lpf (0-5); Red Blood Cells-Urine 0-5 SEEN /hpf (0-5); Squamous Epithelial Cells - UA 0-5 SEEN /hpf (5-10); White Blood Cells 0-5 SEEN /hpf (0-5)
[2018-09-19 18:16] LABS: Bedside Glucose 28 mg/dL (70-110)
--- NOTE | 2018-09-19 18:19 | PCM.HP.STD ---
Problem List (1) Cellulitis Status: Acute Qualifiers: Site of cellulitis: extremity Site of cellulitis of extremity: lower extremity Laterality: right Qualified Code(s): L03.115 - Cellulitis of right lower limb (2) LE (acute kidney injury) Status: Acute (3) Hypoglycemia Status: Acute (4) Pressure ulcer of right buttock, stage 2 Status: Chronic (5) Hyperlipidemia Status: Chronic Qualifiers: Hyperlipidemia type: pure hypercholesterolemia Qualified Code(s): E78.00 - Pure hypercholesterolemia, unspecified; E78.0 - Pure hypercholesterolemia (6) Hypertension Status: Chronic Qualifiers: Hypertension type: essential hypertension (7) Type 2 diabetes mellitus Status: Chronic Qualifiers: Diabetes mellitus terminologist insulin use: with terminologist use Diabetes mellitus complication status: with unspecified complications Qualified Code(s): E11.8 - Type 2 diabetes mellitus with unspecified complications; 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 (8) Tobacco use disorder Status: Chronic (9) Multiple personality disorder Status: Chronic (10) Morbid obesity with body mass index of 40.0-49.9 Status: Chronic (11) Chronic back pain Status: Chronic Qualifiers: Back pain location: back pain in unspecified location Back pain laterality: unspecified Qualified Code(s): M54.9 - Dorsalgia, unspecified; G89.29 - Other chronic pain (12) Lymphedema of leg Status: Chronic Qualifiers: Laterality: bilateral (13) GERD (gastroesophageal reflux disease) Status: Chronic Qualifiers: Esophagitis presence: esophagitis presence not specified Qualified Code(s): K21.9 - Gastro-esophageal reflux disease without esophagitis (14) Multiple sclerosis Status: Chronic (15) CKD (chronic kidney disease) stage 4, GFR 15-29 ml/min Status: Chronic (16) PAD (peripheral artery disease) Status: Chronic (17) History of CVA (cerebrovascular accident) Status: Chronic (18) History of DVT (deep vein thrombosis) Status: Chronic (19) Psoriasis Status: Chronic (20) Hypothyroidism Status: Chronic Qualifiers: Hypothyroidism type: unspecified Qualified Code(s): E03.9 - Hypothyroidism, unspecified (21) Essential (primary) hypertension Status: Chronic (22) Atherosclerotic heart disease of [place] coronary artery without angina pectoris Status: Chronic Qualifiers: [place] vs. transplanted heart: [place] heart Qualified Code(s): I25.10 - Atherosclerotic heart disease of [place] coronary artery without angina pectoris History of Present Illness Date of Admission: 09/19/18 Chief Complaint: RLE redness, edema, pain, low BS The patient is a 48 y/o M w/ PMHx: History of MS, Prior CVA without deficits, Diabetes mellitus type II w/ Neuropathy, HTN, HLD, CAD s/p CT with unclear PCI history, Chronic BL LE edema, Morbid Obesity, Tobacco use, PAD, CKD stage IV who presents to the [facility] ED on 09/19/18 with recent history of falling at home hitting her head in addition to obtaining a right lower extremity laceration across the lower wong requiring staple placement in addition to oral antibiotic treatment with Keflex with ongoing issues with hypoglycemia who now represents with recurrent hypoglycemia despite hold on her insulin and oral regimen in addition to worsened right lower extremity edema, erythema, drainage from the laceration with out marked chills but noted fevers the last 24 hours. She notes pain is severe and rates it 10 out of 10. Work-up in the ED included T 97.5, heart rate 65, BP 149/73, respiratory rate 18, 98% on room air, CBC with WBC 7.2, hemoglobin 13.2, platelet 219 with mild left shift, CMP with chloride 110, BUN/creatinine 23/1.60 with prior most recent creatinine noted 0.8-1.08, glucose 49, lactic acid 0.9, alk phos 126, urinalysis with evidence of dehydration, culture x2 obtained. In the ED patient administered D5 drip at 100, clindamycin, D5 amp, morphine, normal saline. Past Medical History Past Medical History (Chronic Problems): Chronic Problems (Last Reviewed 03/24/18 @ 15:20 by Gilda Zhang) Pressure ulcer of right buttock, stage 2 (Chronic) Hyperlipidemia (Chronic) Hypertension (Chronic) Type 2 diabetes mellitus (Chronic) Tobacco use disorder (Chronic) Multiple personality disorder (Chronic) Morbid obesity with body mass index of 40.0-49.9 (Chronic) Chronic back pain (Chronic) Tobacco abuse counseling (Chronic) Swelling of lower extremity (Chronic) Edema of both legs (Chronic) Lymphedema of leg (Chronic) GERD (gastroesophageal reflux disease) (Chronic) Multiple sclerosis (Chronic) CKD (chronic kidney disease) stage 4, GFR 15-29 ml/min (Chronic) PAD (peripheral artery disease) (Chronic) History of CVA (cerebrovascular accident) (Chronic) History of DVT (deep vein thrombosis) (Chronic) Psoriasis (Chronic) CHF (congestive heart failure) (Chronic) Edema (Chronic) Hypothyroidism (Chronic) Essential (primary) hypertension (Chronic) Atherosclerotic heart disease of [place] coronary artery without angina pectoris (Chronic) Medical History: Medical History (Last Reviewed 03/24/18 @ 15:20 by Gilda Zhang) Hyperlipidemia (Chronic) E78.5 Hypertension (Chronic) I10 Type 2 diabetes mellitus (Chronic) E11.9 Tobacco use disorder (Chronic) F17.200 Multiple personality disorder (Chronic) F44.81 Morbid obesity with body mass index of 40.0-49.9 (Chronic) E66.01 Chronic back pain (Chronic) M54.9, G89.29 Tobacco abuse counseling (Chronic) Z71.6 Swelling of lower extremity (Chronic) M79.89 Edema of both legs (Chronic) R60.0 Lymphedema of leg (Chronic) I89.0 GERD (gastroesophageal reflux disease) (Chronic) K21.9 Multiple sclerosis (Chronic) G35 CKD (chronic kidney disease) stage 4, GFR 15-29 ml/min (Chronic) N18.4 PAD (peripheral artery disease) (Chronic) I73.9 History of CVA (cerebrovascular accident) (Chronic) Z86.73 History of DVT (deep vein thrombosis) (Chronic) Z86.718 Psoriasis (Chronic) L40.9 CHF (congestive heart failure) (Chronic) I50.9 Edema (Chronic) R60.9 Hypothyroidism (Chronic) E03.9 Essential (primary) hypertension (Chronic) I10 Atherosclerotic heart disease of [place] coronary artery without angina pectoris (Chronic) I25.10 Hyperlipidemia E78.5 Type 2 diabetes mellitus E11.9 Allergies latex Allergy (Verified 09/19/18 16:01) Rash Penicillins Allergy (Verified 09/19/18 16:01) Unknown venom-honey bee [bee venom (honey bee)] Allergy (Verified 09/19/18 16:01) Unknown kidney beans Allergy (Intermediate, Uncoded 09/19/18 16:01) Hives Home Medications: Ambulatory Orders Medication Instructions Recorded Celecoxib [Celebrex] 200 mg PO BID 07/03/14 Tizanidine HCl [Zanaflex] 4 mg PO Q8H PRN PRN 07/03/14 ALPRAZolam [Xanax] 0.25 mg PO BID 05/20/17 Albuterol Aerosols [Ventolin 2.5 mg INHALATION Q4H PRN #25 vial 06/18/17 Aerosols] amitriptyline 50 mg tablet 100 mg PO QHS tab 08/23/17 aspirin 81 mg tablet,delayed 81 mg PO DAILY 08/23/17 release Gabapentin [Neurontin] 1,200 mg PO TIDCM 01/01/18 Insulin Detemir [Levemir] 64 unit SQ QHS 01/01/18 Liraglutide [Victoza] 0.12 mg SQ DAILY 01/01/18 proCHLORPERazine suppository 50 mg RECTAL DAILY PRN PRN 01/01/18 [Compazine suppository] nitroglycerin 0.4 mg sublingual 0.4 mg SUBLINGUAL Q5-15M PRN 03/24/18 tablet insulin U- 100 regular human 100 100 unit SC .COMPLEX 08/18/18 unit/mL injection solution metoprolol tartrate 25 mg tablet 25 mg PO BID #60 tab 09/02/18 ranolazine ER 1,000 mg 1,000 mg PO BID #180 tab 09/12/18 tablet,extended release,12 hr Cephalexin [Keflex] 500 mg PO Q6H 09/19/18 Glimepiride 4 mg PO DAILY 09/19/18 Ibuprofen 800 mg PO DAILY 09/19/18 Oxycodone HCl/Acetaminophen 1 tab PO Q4H PRN PRN 09/19/18 [Oxycodone-Acetaminophen 5-325] Thyroid,Pork [Tabulating Clerk Thyroid] 120 mg PO UD 09/19/18 Thyroid,Pork [Tabulating Clerk Thyroid] 240 mg PO UD 09/19/18 Surgical History: Surgical History (Last Updated 08/18/18 @ 15:46 by Marbella Nagy) H/O hand surgery Z98.890 X 4 History of appendectomy Z90.49 History of back surgery Z98.890 History of cholecystectomy Z90.49 History of partial hysterectomy Z90.711 History of partial mastectomy of both breasts Z90.13 History of tonsillectomy Z90.89 History of vein stripping Z98.890 Surgical History: appendectomy, cholecystectomy, - - The patient has a history of appendectomy, cholecystectomy, bilateral lower extremity vein stripping, partial hysterectomy, tonsillectomy, lumbar surgery ?4, and bilateral carpal tunnel release. The patient is a Ab0. Her only two live births succumbed shortly following . 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 Tobacco Use: Cigarettes Alcohol: None Drugs: None - *Family History Maternal Family History: Family History (Last Reviewed 08/18/18 @ 15:46 by Marbella Nagy) Mother CAD (coronary artery disease) History Items: Diabetes, Heart Disease, No pertinent history, - - Hypothyroid Paternal Family History: Family History (Last Reviewed 08/18/18 @ 15:46 by Marbella Nagy) Mother CAD (coronary artery disease) History Items: Cancer, - - The patient's mother had a history of emphysema, COPD, coronary artery disease, diabetes mellitus, dementia, and Parkinson's disease. Patient's mother at age of 67. Review of Systems Constitutional: Reports: Anorexia, Fever, Malaise, Weakness, Fatigue. Denies: Chills, Weight Change HEENT: Denies: Head Aches, Sinus Congestion, Sinus Drainage Cardiovascular: Denies: Chest Pain, Palpitations Respiratory: Denies: Cough, Shortness of breath at rest, Sputum production Gastrointestinal: Denies: Abdominal Pain, Nausea, Vomiting Genitourinary: Denies: Dysuria Musculoskeletal: Reports: Back Pain, Joint Pain. Denies: Joint Tenderness Skin: Reports: Skin Changes, Wounds. Denies: Rash Neurological: Reports: Balance problems, Numbness, Tingling. Denies: Focal weakness Psychiatric: Reports: Anxiety, Depression. Denies: Homicidal Ideations, Suicidal Ideations Hematologic/ Lymphatic: Denies: Easy Bruising, Easy Bleeding VTE Information - Inpt Only VTE Present on Admission: No VTE Mechan Device Prophylaxis: SCD's VTE Pharm Prophylaxis ordered?: Yes Patient Problems: Active and Suspected Problems (Last Reviewed 03/24/18 @ 15:20 by Gilda Zhang) Cellulitis (Acute) LE (acute kidney injury) (Acute) Hypoglycemia (Acute) Subjective: Seated upright in the ED bed, fatigued appearing, ongoing discomfort to the RLE. Objective: Physical Examination: General: awake, alert, oriented x 3 and cooperative, seated upright in the ED bed in no apparent distress but notes ongoing discomfort. Skin: normal color, turgor, no icterus, cyanosis except notable right lower extremity wong laceration distally in the horizontal direction with adelina intact, currently no drainage with notable edema, tenderness to palpation concurrently and erythema extending the entire wong. HEENT: AT/NC, EOMI, PERRLA, only dry MM, no carotid bruits or JVD noted. Lungs: CTA bilaterally, moderate effort, mild decrease BL bases, no rales, ronchi or wheezing. Heart: Regular rate and rhythm; no gallop, rub audible. Abdomen: soft, morbidly obese, NTTP, ND, normal BS, no HSM. Extremities: no cyanosis, clubbing, see skin. Neurological: patient awake, alert, oriented x 3; cognitive function intact; pupils equally reactive to light and accomodation; cranial nerves II-XII grossly normal, moving all 4 extremities, no focal deficits, strength severely globally decreased secondary to acute presentation and comorbidities. Psychiatric: affect appears normal, no acute evidence of depressive or anxiety feelings. - Physical Exam Vital Signs Temp Pulse Resp BP Pulse Ox 97.5 F L 65 18 149/73 H 98 09/19/18 16:02 09/19/18 16:02 09/19/18 16:02 09/19/18 16:02 09/19/18 16:02 Oxygen Delivery Method Room Air Weight: 227 lb 4.745 oz Body Mass Index (BMI) 44.4 Finger Stick Blood Glucose 50 Laboratory Tests Past 24 Hrs 09/19/18 09/19/18 09/19/18 16:30 16:30 17:30 WBC 7.2 RBC 4.23 Hgb 13.2 Hct 41.1 MCV 97.2 MCH 31.2 MCHC 32.1 RDW 13.2 RDW Differential 45.8 H Plt Count 219 MPV 10.2 Immature Gran % (Auto) 0.300 Neut % (Auto) 70.2 H Lymph % (Auto) 17.4 L [place] % (Auto) 7.6 Eos % (Auto) 4.2 Baso % (Auto) 0.3 Absolute Neuts (auto) 5.1 Absolute Lymphs (auto) 1.25 Total Counted Not Reportable Sodium 142 Potassium 4.7 Chloride 110 H Carbon Dioxide 24.0 Anion Gap 8 BUN 23 H Creatinine 1.60 H Estim Creat Clear Calc 30.21 Est GFR (MDRD) Af Amer 44 L Est GFR (MDRD) Non-Af 36 L BUN/Creatinine Ratio 14.4 Glucose 49 L Lactic Acid 0.9 Calcium 8.8 Total Bilirubin 0.30 AST 28 ALT 21 Alkaline Phosphatase 126 H Total Protein 7.4 Albumin 3.1 L Globulin 4.3 H Albumin/Globulin Ratio 0.7 L Urine Color Urine Clarity Urine pH Ur Specific [place] Urine Protein Urine Glucose (UA) Urine Ketones Urine Occult Blood Urine Nitrite Urine Bilirubin Urine Urobilinogen Ur Leukocyte Esterase Urine RBC Urine WBC Ur Squamous Epith Cells Urine Bacteria Hyaline Casts Urine Mucus 09/19/18 17:45 WBC RBC Hgb Hct MCV MCH MCHC RDW RDW Differential Plt Count MPV Immature Gran % (Auto) Neut % (Auto) Lymph % (Auto) [place] % (Auto) Eos % (Auto) Baso % (Auto) Absolute Neuts (auto) Absolute Lymphs (auto) Total Counted Sodium Potassium Chloride Carbon Dioxide Anion Gap BUN Creatinine Estim Creat Clear Calc Est GFR (MDRD) Af Amer Est GFR (MDRD) Non-Af BUN/Creatinine Ratio Glucose Lactic Acid Calcium Total Bilirubin AST ALT Alkaline Phosphatase Total Protein Albumin Globulin Albumin/Globulin Ratio Urine Color Yellow Urine Clarity Sl. Cloudy Urine pH 6.0 Ur Specific [place] 1.025 Urine Protein 500 H Urine Glucose (UA) Normal Urine Ketones Negative Urine Occult Blood 10 H Urine Nitrite Negative Urine Bilirubin Negative Urine Urobilinogen 1 H Ur Leukocyte Esterase 25 H Urine RBC 0-5 SEEN Urine WBC 0-5 SEEN Ur Squamous Epith Cells 0-5 SEEN Urine Bacteria 0 SEEN Hyaline Casts 0-5 SEEN Urine Mucus 0 SEEN POC Glucose 09/19/18 09/19/18 18:06 16:24 POC Glucose 28 L* 50 L Assessment/Plan All Active Problems (Last Reviewed 03/24/18 @ 15:20 by Gilda Zhang) Cellulitis (Acute) LE (acute kidney injury) (Acute) Hypoglycemia (Acute) The patient is a 48 y/o M w/ PMHx: History of MS, Prior CVA without deficits, Diabetes mellitus type II w/ Neuropathy, HTN, HLD, CAD s/p CT with unclear PCI history, Chronic BL LE edema, Morbid Obesity, Tobacco use, PAD, CKD stage IV who presents to the [facility] ED on 12/31/18 with recent history of falling at home hitting her head in addition to obtaining a right lower extremity laceration across the lower wong requiring staple placement in addition to oral antibiotic treatment with Keflex with ongoing issues with hypoglycemia who now represents with recurrent hypoglycemia despite hold on her insulin and oral regimen in addition to worsened right lower extremity edema, erythema, drainage from the laceration with out marked chills but noted fevers the last 24 hours. (1) RLE Extremity Cellulitis s/p Fall w/ Laceration, infected: Will admit to MS, maintain on IV rocephin and IV vancomycin given severity of appearance w/ renal dosing, if discharge recurrent will obtain Wound Cx and Wound MRSA PCR, plan repeat CBC in AM, continue affected extremity elevation above heart when seated and in bed, monitor erythema outline with VS checks. Given appearance will consult Wound RN and Dr. Arita, Plastic Surgery. (2) Hypoglycemia, suspected secondary to acute ongoing infection: We will continue dextrose IV fluid supplementation, closely monitor blood sugar with serial Accu-Cheks until improvement, hold insulin therapy as well as oral diabetic medications, nutrition consultation. (3) Acute kidney injury on CKD stage IV: [place] secondary to recent poor intake with increased pain to the extremity and decreased ambulation. Admission BUN/Cr 23/1.60 with SG on UA notably elevated, prior baseline creatinine noted to be most recently 0.8-1.08. Will hydrate, hold nephrotoxic medications and repeat chemistry in AM. (4) Morbid Obesity: Weight loss and lifestyle changes encouraged, nutrition consulted. (5) History of CVA: No deficits, continue home aspirin, BP regimen, nutrition consultation for diabetic diet education with as noted current hold on diabetic medications, not on statin therapy. (6) History CT, CAD: We will continue home regimen aspirin, metoprolol, Ranexa, not on statin therapy. (7) Anxiety and Depression/Personality Disorder: Continue home Xanax regimen although would benefit from additional therapies. (8) Hypothyroidism: Continue home synthroid regimen. (9) Multiple sclerosis: Encouraged continued follow-up with neurology, PT and OT consulted, case management consulted for discharge planning. (10) GERD: PPI. (11) Chronic Present on Admission Stage II R buttock decubitous ulcer: Offloading, barrier cream, wound RN as noted. (12) DVT Prophylaxis: SCDs as able to tolerate, heparin. Code Visit Inpatient E&M: 01227 Init Hosp L3
--- NOTE | 2018-09-19 18:48 | HP.PCM_ITS ---
Problem List (1) Cellulitis Status: Acute Qualifiers: Site of cellulitis: extremity Site of cellulitis of extremity: lower extremity Laterality: right Qualified Code(s): L03.115 - Cellulitis of right lower limb (2) LE (acute kidney injury) Status: Acute (3) Hypoglycemia Status: Acute (4) Pressure ulcer of right buttock, stage 2 Status: Chronic (5) Hyperlipidemia Status: Chronic Qualifiers: Hyperlipidemia type: pure hypercholesterolemia Qualified Code(s): E78.00 - Pure hypercholesterolemia, unspecified; E78.0 - Pure hypercholesterolemia (6) Hypertension Status: Chronic Qualifiers: Hypertension type: essential hypertension (7) Type 2 diabetes mellitus Status: Chronic Qualifiers: 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: with regional intermodal 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 use Diabetes mellitus complication status: with unspecified complications Qualified Code(s): E11.8 - Type 2 diabetes mellitus with unspecified complications; 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 (8) Tobacco use disorder Status: Chronic (9) Multiple personality disorder Status: Chronic (10) Morbid obesity with body mass index of 40.0-49.9 Status: Chronic (11) Chronic back pain Status: Chronic Qualifiers: Back pain location: back pain in unspecified location Back pain laterality: unspecified Qualified Code(s): M54.9 - Dorsalgia, unspecified; G89.29 - Other chronic pain (12) Lymphedema of leg Status: Chronic Qualifiers: Laterality: bilateral (13) GERD (gastroesophageal reflux disease) Status: Chronic Qualifiers: Esophagitis presence: esophagitis presence not specified Qualified Code(s): K21.9 - Gastro-esophageal reflux disease without esophagitis (14) Multiple sclerosis Status: Chronic (15) CKD (chronic kidney disease) stage 4, GFR 15-29 ml/min Status: Chronic (16) PAD (peripheral artery disease) Status: Chronic (17) History of CVA (cerebrovascular accident) Status: Chronic (18) History of DVT (deep vein thrombosis) Status: Chronic (19) Psoriasis Status: Chronic (20) Hypothyroidism Status: Chronic Qualifiers: Hypothyroidism type: unspecified Qualified Code(s): E03.9 - Hypothyroidism, unspecified (21) Essential (primary) hypertension Status: Chronic (22) Atherosclerotic heart disease of [place] coronary artery without angina pectoris Status: Chronic Qualifiers: [place] vs. transplanted heart: [place] heart Qualified Code(s): I25.10 - Atherosclerotic heart disease of [place] coronary artery without angina pectoris History of Present Illness Date of Admission: 09/19/18 Chief Complaint: RLE redness, edema, pain, low BS The patient is a 48 y/o M w/ PMHx: History of MS, Prior CVA without deficits, Diabetes mellitus type II w/ Neuropathy, HTN, HLD, CAD s/p [place] with unclear PCI history, Chronic BL LE edema, Morbid Obesity, Tobacco use, PAD, CKD stage IV who presents to the [facility] ED on 09/19/18 with recent history of falling at home hit ting her head in addition to obtaining a right lower extremity laceration across the lower wong requiring staple placement in addition to oral antibiotic treatment with Keflex with ongoing issues with hypoglycemia who now represents with recurrent hypoglycemia despite hold on her insulin and oral regimen in addition to worsened right lower extremity edema, erythema, drainage from the laceration with out marked chills but noted fevers the last 24 hours. She notes pain is severe and rates it 10 out of 10. Work-up in the ED included T 97.5, heart rate 65, BP 149/73, respiratory rate 18, 98% on room air, CBC with WBC 7.2, hemoglobin 13.2, platelet 219 with mild left shift, CMP with chloride 110, BUN/creatinine 23/1.60 with prior most recent creatinine noted 0.8-1.08, glucose 49, lactic acid 0.9, alk phos 126, urinalysis with evidence of dehydration, culture x2 obtained. In the ED patient administered D5 drip at 100, clindamycin, D5 amp, morphine, normal saline. Past Medical History Past Medical History (Chronic Problems): Chronic Problems (Last Reviewed 03/24/18 @ 15:20 by Gilda Zhang) Pressure ulcer of right buttock, stage 2 (Chronic) Hyperlipidemia (Chronic) Hypertension (Chronic) Type 2 diabetes mellitus (Chronic) Tobacco use disorder (Chronic) Multiple personality disorder (Chronic) Morbid obesity with body mass index of 40.0-49.9 (Chronic) Chronic back pain (Chronic) Tobacco abuse counseling (Chronic) Swelling of lower extremity (Chronic) Edema of both legs (Chronic) Lymphedema of leg (Chronic) GERD (gastroesophageal reflux disease) (Chronic) Multiple sclerosis (Chronic) CKD (chronic kidney disease) stage 4, GFR 15-29 ml/min (Chronic) PAD (peripheral artery disease) (Chronic) History of CVA (cerebrovascular accident) (Chronic) History of DVT (deep vein thrombosis) (Chronic) Psoriasis (Chronic) CHF (congestive heart failure) (Chronic) Edema (Chronic) Hypothyroidism (Chronic) Essential (primary) hypertension (Chronic) Atherosclerotic heart disease of [place] coronary artery without angina pectoris (Chronic) Medical History: Medical History (Last Reviewed 03/24/18 @ 15:20 by Gilda Zhang) Hyperlipidemia (Chronic) E78.5 Hypertension (Chronic) I10 Type 2 diabetes mellitus (Chronic) E11.9 Tobacco use disorder (Chronic) F17.200 Multiple personality disorder (Chronic) F44.81 Morbid obesity with body mass index of 40.0-49.9 (Chronic) E66.01 Chronic back pain (Chronic) M54.9, G89.29 Tobacco abuse counseling (Chronic) Z71.6 Swelling of lower extremity (Chronic) M79.89 Edema of both legs (Chronic) R60.0 Lymphedema of leg (Chronic) I89.0 GERD (gastroesophageal reflux disease) (Chronic) K21.9 Multiple sclerosis (Chronic) G35 CKD (chronic kidney disease) stage 4, GFR 15-29 ml/min (Chronic) N18.4 PAD (peripheral artery disease) (Chronic) I73.9 History of CVA (cerebrovascular accident) (Chronic) Z86.73 History of DVT (deep vein thrombosis) (Chronic) Z86.718 Psoriasis (Chronic) L40.9 CHF (congestive heart failure) (Chronic) I50.9 Edema (Chronic) R60.9 Hypothyroidism (Chronic) E03.9 Essential (primary) hypertension (Chronic) I10 Atherosclerotic heart disease of [place] coronary artery without angina pectoris (Chronic) I25.10 Hyperlipidemia E78.5 Type 2 diabetes mellitus E11.9 Allergies latex Allergy (Verified 09/19/18 16:01) Rash Penicillins Allergy (Verified 09/19/18 16:01) Unknown venom-honey bee [bee venom (honey bee)] Allergy (Verified 09/19/18 16:01) Unknown kidney beans Allergy (Intermediate, Uncoded 09/19/18 16:01) Hives Home Medications: Ambulatory Orders Medication Instructions Recorded Celecoxib [Celebrex] 200 mg PO BID 07/03/14 Tizanidine HCl [Zanaflex] 4 mg PO Q8H PRN PRN 07/03/14 ALPRAZolam [Xanax] 0.25 mg PO BID 05/20/17 Albuterol Aerosols [Ventolin 2.5 mg INHALATION Q4H PRN #25 vial 06/18/17 Aerosols] amitriptyline 50 mg tablet 100 mg PO QHS tab 08/23/17 aspirin 81 mg tablet,delayed 81 mg PO DAILY 08/23/17 release Gabapentin [Neurontin] 1,200 mg PO TIDCM 01/01/18 Insulin Detemir [Levemir] 64 unit SQ QHS 01/01/18 Liraglutide [Victoza] 0.12 mg SQ DAILY 01/01/18 proCHLORPERazine suppository 50 mg RECTAL DAILY PRN PRN 01/01/18 [Compazine suppository] nitroglycerin 0.4 mg sublingual 0.4 mg SUBLINGUAL Q5-15M PRN 03/24/18 tablet insulin U- 100 regular human 100 100 unit SC .COMPLEX 08/18/18 unit/mL injection solution metoprolol tartrate 25 mg tablet 25 mg PO BID #60 tab 09/02/18 ranolazine ER 1,000 mg 1,000 mg PO BID #180 tab 09/12/18 tablet,extended release,12 hr Cephalexin [Keflex] 500 mg PO Q6H 09/19/18 Glimepiride 4 mg PO DAILY 09/19/18 Ibuprofen 800 mg PO DAILY 09/19/18 Oxycodone HCl/Acetaminophen 1 tab PO Q4H PRN PRN 09/19/18 [Oxycodone-Acetaminophen 5-325] Thyroid,Pork [Brick Mason Thyroid] 120 mg PO UD 09/19/18 Thyroid,Pork [Brick Mason Thyroid] 240 mg PO UD 09/19/18 Surgical History: Surgical History (Last Updated 08/18/18 @ 15:46 by Marbella Nagy) H/O hand surgery Z98.890 X 4 History of appendectomy Z90.49 History of back surgery Z98.890 History of cholecystectomy Z90.49 History of partial hysterectomy Z90.711 History of partial mastectomy of both breasts Z90.13 History of tonsillectomy Z90.89 History of vein stripping Z98.890 Surgical History: appendectomy, cholecystectomy, - - The patient has a history of appendectomy, cholecystectomy, bilateral lower extremity vein stripping, partial hysterectomy, tonsillectomy, lumbar surgery ?4, and bilateral carpal tunnel release. The patient is a Ab0. Her only two live births succumbed shortly following . Psychiatric History: Anxiety, Depression [employer] History: No pertinent [employer] history Lives: Alone Smoking Status: Current every day smoker - 1-1.5 ppd. Tobacco Use: Cigarettes Alcohol: None Drugs: None - *Family History Maternal Family History: Family History (Last Reviewed 08/18/18 @ 15:46 by Marbella Nagy) Mother CAD (coronary artery disease) History Items: Diabetes, Heart Disease, No pertinent history, - - Hypothyroid Paternal Family History: Family History (Last Reviewed 08/18/18 @ 15:46 by Marbella Nagy) Mother CAD (coronary artery disease) History Items: Cancer, - - The patient's mother had a history of emphysema, COPD, coronary artery disease, diabetes mellitus, dementia, and Parkinson's disease. Patient's mother at age of 67. Review of Systems Constitutional: Reports: Anorexia, Fever, Malaise, Weakness, Fatigue. Denies: Chills, Weight Change HEENT: Denies: Head Aches, Sinus Congestion, Sinus Drainage Cardiovascular: Denies: Chest Pain, Palpitations Respiratory: Denies: Cough, Shortness of breath at rest, Sputum production Gastrointestinal: Denies: Abdominal Pain, Nausea, Vomiting Genitourinary: Denies: Dysuria Musculoskeletal: Reports: Back Pain, Joint Pain. Denies: Joint Tenderness Skin: Reports: Skin Changes, Wounds. Denies: Rash Neurological: Reports: Balance problems, Numbness, Tingling. Denies: Focal weakness Psychiatric: Reports: Anxiety, Depression. Denies: Homicidal Ideations, Suicidal Ideations Hematologic/ Lymphatic: Denies: Easy Bruising, Easy Bleeding VTE Information - Inpt Only VTE Present on Admission: No VTE Mechan Device Prophylaxis: SCD's VTE Pharm Prophylaxis ordered?: Yes Patient Problems: Active and Suspected Problems (Last Reviewed 03/24/18 @ 15:20 by Gilda Zhang) Cellulitis (Acute) LE (acute kidney injury) (Acute) Hypoglycemia (Acute) Subjective: Seated upright in the ED bed, fatigued appearing, ongoing discomfort to the RLE. Objective: Physical Examination: General: awake, alert, oriented x 3 and cooperative, seated upright in the ED bed in no apparent distress but notes ongoing discomfort. Skin: normal color, turgor, no icterus, cyanosis except notable right lower extremity wong laceration distally in the horizontal direction with adelina intact, currently no drainage with notable edema, tenderness to palpation concurrently and erythema extending the entire wong. HEENT: AT/NC, EOMI, PERRLA, only dry MM, no carotid bruits or JVD noted. Lungs: CTA bilaterally, moderate effort, mild decrease BL bases, no rales, ronchi or wheezing. Heart: Regular rate and rhythm; no gallop, rub audible. Abdomen: soft, morbidly obese, NTTP, ND, normal BS, no HSM. Extremities: no cyanosis, clubbing, see skin. Neurological: patient awake, alert, oriented x 3; cognitive function intact; pu pils equally reactive to light and accomodation; cranial nerves II-XII grossly normal, moving all 4 extremities, no focal deficits, strength severely globally decreased secondary to acute presentation and comorbidities. Psychiatric: affect appears normal, no acute evidence of depressive or anxiety feelings. - Physical Exam Vital Signs Temp Pulse Resp BP Pulse Ox 97.5 F L 65 18 149/73 H 98 09/19/18 16:02 09/19/18 16:02 09/19/18 16:02 09/19/18 16:02 09/19/18 16:02 Oxygen Delivery Method Room Air Weight: 227 lb 4.745 oz Body Mass Index (BMI) 44.4 Finger Stick Blood Glucose 50 Laboratory Tests Past 24 Hrs 09/19/18 09/19/18 09/19/18 16:30 16:30 17:30 WBC 7.2 RBC 4.23 Hgb 13.2 Hct 41.1 MCV 97.2 MCH 31.2 MCHC 32.1 RDW 13.2 RDW Differential 45.8 H Plt Count 219 MPV 10.2 Immature Gran % (Auto) 0.300 Neut % (Auto) 70.2 H Lymph % (Auto) 17.4 L [place] % (Auto) 7.6 Eos % (Auto) 4.2 Baso % (Auto) 0.3 Absolute Neuts (auto) 5.1 Absolute Lymphs (auto) 1.25 Total Counted Not Reportable Sodium 142 Potassium 4.7 Chloride 110 H Carbon Dioxide 24.0 Anion Gap 8 BUN 23 H Creatinine 1.60 H Estim Creat Clear Calc 30.21 Est GFR (MDRD) Af Amer 44 L Est GFR (MDRD) Non-Af 36 L BUN/Creatinine Ratio 14.4 Glucose 49 L Lactic Acid 0.9 Calcium 8.8 Total Bilirubin 0.30 AST 28 ALT 21 Alkaline Phosphatase 126 H Total Protein 7.4 Albumin 3.1 L Globulin 4.3 H Albumin/Globulin Ratio 0.7 L Urine Color Urine Clarity Urine pH Ur Specific [place] Urine Protein Urine Glucose (UA) Urine Ketones Urine Occult Blood Urine Nitrite Urine Bilirubin Urine Urobilinogen Ur Leukocyte Esterase Urine RBC Urine WBC Ur Squamous Epith Cells Urine Bacteria Hyaline Casts Urine Mucus 09/19/18 17:45 WBC RBC Hgb Hct MCV MCH MCHC RDW RDW Differential Plt Count MPV Immature Gran % (Auto) Neut % (Auto) Lymph % (Auto) [place] % (Auto) Eos % (Auto) Baso % (Auto) Absolute Neuts (auto) Absolute Lymphs (auto) Total Counted Sodium Potassium Chloride Carbon Dioxide Anion Gap BUN Creatinine Estim Creat Clear Calc Est GFR (MDRD) Af Amer Est GFR (MDRD) Non-Af BUN/Creatinine Ratio Glucose Lactic Acid Calcium Total Bilirubin AST ALT Alkaline Phosphatase Total Protein Albumin Globulin Albumin/Globulin Ratio Urine Color Yellow Urine Clarity Sl. Cloudy Urine pH 6.0 Ur Specific [place] 1.025 Urine Protein 500 H Urine Glucose (UA) Normal Urine Ketones Negative Urine Occult Blood 10 H Urine Nitrite Negative Urine Bilirubin Negative Urine Urobilinogen 1 H Ur Leukocyte Esterase 25 H Urine RBC 0-5 SEEN Urine WBC 0-5 SEEN Ur Squamous Epith Cells 0-5 SEEN Urine Bacteria 0 SEEN Hyaline Casts 0-5 SEEN Urine Mucus 0 SEEN POC Glucose 09/19/18 09/19/18 18:06 16:24 POC Glucose 28 L* 50 L Assessment/Plan All Active Problems (Last Reviewed 03/24/18 @ 15:20 by Gilda Zhang) Cellulitis (Acute) LE (acute kidney injury) (Acute) Hypoglycemia (Acute) The patient is a 48 y/o M w/ PMHx: History of MS, Prior CVA without deficits, Diabetes mellitus type II w/ Neuropathy, HTN, HLD, CAD s/p [place] with unclear PCI history, Chronic BL LE edema, Morbid Obesity, Tobacco use, PAD, CKD stage IV who presents to the [facility] ED on 09/19/18 with recent history of falling at home hitting her head in addition to obtaining a right lower extremity laceration across the lower wong requiring staple placement in addition to oral antibiotic treatment with Keflex with ongoing issues with hypoglycemia who now represents with recurrent hypoglycemia despite hold on her insulin and oral regimen in addition to worsened right lower extremity edema, erythema, drainage from the laceration with out marked chills but noted fevers the last 24 hours. (1) RLE Extremity Cellulitis s/p Fall w/ Laceration, infected: Will admit to MS, maintain on IV rocephin and IV vancomycin given severity of appearance w/ renal dosing, if discharge recurrent will obtain Wound Cx and Wound MRSA PCR, plan repeat CBC in AM, continue affected extremity elevation above heart when seated and in bed, monitor erythema outline with VS checks. Given appearance will consult Wound RN and Dr. Arita, Plastic Surgery. (2) Hypoglycemia, suspected secondary to acute ongoing infection: We will continue dextrose IV fluid supplementation, closely monitor blood sugar with serial Accu-Cheks until improvement, hold insulin therapy as well as oral diabetic medications, nutrition consultation. (3) Acute kidney injury on CKD stage IV: [place] secondary to recent poor intake with increased pain to the extremity and decreased ambulation. Admission BUN/Cr 23/1.60 with SG on UA notably elevated, prior baseline creatinine noted to be most recently 0.8-1.08. Will hydrate, hold nephrotoxic medications and repeat chemistry in AM. (4) Morbid Obesity: Weight loss and lifestyle changes encouraged, nutrition consulted. (5) History of CVA: No deficits, continue home aspirin, BP regimen, nutrition consultation for diabetic diet education with as noted current hold on diabetic medications, not on statin therapy. (6) History [place], CAD: We will continue home regimen aspirin, metoprolol, Ranexa, not on statin therapy. (7) Anxiety and Depression/Personality Disorder: Continue home Xanax regimen although would benefit from additional therapies. (8) Hypothyroidism: Continue home synthroid regimen. (9) Multiple sclerosis: Encouraged continued follow-up with neurology, PT and OT consulted, case management consulted for discharge planning. (10) GERD: PPI. (11) Chronic Present on Admission Stage II R buttock decubitous ulcer: Offloading, barrier cream, wound RN as noted. (12) DVT Prophylaxis: SCDs as able to tolerate, heparin. Code Visit Inpatient E&M: 51516 Init Hosp L3
[2018-09-19 18:56] LABS: Bedside Glucose 101 mg/dL (70-110)
--- NOTE | 2018-09-19 19:14 | ED.DCSUM_ITS ---
- ER Visit Summary Date of Service: 09/19/18 Chief Complaint: Low blood sugar History of Present Illness: The patient is a 48 F presents to the emergency department low blood sugar. The patient was actually seen here yesterday for the same. She has a history of insulin and diabetes and is on long-acting anti- hyperglycemics. Yesterday, she was found and was obtunded. She had a blood sugar of 22. She was seen here, given D50, and able to eat. She was told to stop her oral medications. She did take her insulin last night because her blood sugar was greater than 200. She states that she has been eating today but cannot get her blood sugar higher than 60. The patient does have a cellulitis of her lower extremity that she is on Keflex for. She feels like is getting worse. She denies any fevers or chills. She denies any chest pain. Physical Examination: Vital signs reviewed General: Well-nourished, well-developed Head: Normocephalic, atraumatic Eyes: Pupils equal and reactive, extraocular muscles intact Neck, supple, no lymphadenopathy Heart: Regular rate and rhythm Respiratory: No distress, clear bilaterally Abdomen: Soft, nontender, nondistended, no peritoneal signs Back: Nontender Extremities: Nontender, mild erythema over the wong where the stitches are. No purulence, no cords Skin: Normal color no rash Neuro: Alert and oriented, no focal or lateralizing deficits Test Results: [] Emergency Department Course and Treatment: The patient has recurrent hypoglycemia. She was 49 in triage. IV was established. The patient was given D50 and fluids. She did have another episode of hypoglycemia. The patient was able to eat, but labs do demonstrate evidence of acute kidney injury. As she is on long-acting oral anti-hyperglycemics and has had recurrent hypoglycemia, I do feel the patient is require admission. She was hydrated. She was started on broad-spectrum biotics for cellulitis. The patient was discussed with the hospitalist and will be admitted at this time. Treatment Plan: [] Disposition: Admission Impression: 1. Cellulitis right lower extremity 2. Acute kidney injury 3. Recurrent hypoglycemia This note was generated with [employer] software. It may contain incorrect words, spelling, and punctuation that were not noted in review of the chart prior to signing ED Disposition - Plan for ED Patient: Chief Complaint: Hypoglycemia Referrals: Dillan Kraus DO [Primary Care Provider] -
[2018-09-19] MEDS: Dext 5%-0.45% NS 1,000 ML 100 ML IV (19:37)
[2018-09-19 20:01] LABS: Bedside Glucose 62 mg/dL (70-110)
[2018-09-19 20:25] LABS: Bedside Glucose 130 mg/dL (70-110)
[2018-09-19 21:45] LABS: Magnesium 1.9 mg/dL (1.6-2.6)
[2018-09-19 22:06] LABS: Hemoglobin A1c 7.4 % (4.2-6.3)
[2018-09-19] MEDS: oxyCODONE 5 MG Tablet PO (23:42)
[2018-09-19] MEDS: Ceftriaxone 1 GM/50 ML BAG IV (23:43)
[2018-09-20] VITALS (8 sets, daily range): BP systolic 104–119; BP diastolic 60–66; PULSE 60–80; RESP 16; TEMP 36.6–36.7; O2SAT 94–97
[2018-09-20] LABS: Bedside Glucose 39 mg/dL (70-110)
--- NOTE | 2018-09-20 00:15 | NURSING ---
Pt's BS was low but pt was asymptotic gave cookies, meal, and orange juice. Also gave amp D50 per order.
[2018-09-20 00:18] LABS: Glucose 57 mg/dL (74-106)
[2018-09-20] MEDS: Dextrose 50%-Water 25 GM/50 ML DISP.SYRIN IV (00:30)
[2018-09-20] MEDS: ALPRAZolam 0.25 MG Tablet PO ×2 (00:35→09:36)
[2018-09-20] MEDS: Metoprolol Tartrate 25 MG Tablet PO ×2 (00:36→09:35)
[2018-09-20] MEDS: Ranolazine 500 MG Tablet 1000 MG PO (00:36)
[2018-09-20] MEDS: Amitriptyline 100 MG Tablet PO (00:36)
[2018-09-20] MEDS: Heparin Injection (Vial) 5,000 UNIT/ML VIAL 5000 UNIT SC (00:39)
[2018-09-20] MEDS: Pantoprazole Sodium 20 MG Tablet PO ×2 (00:39→09:36)
--- NOTE | 2018-09-20 00:59 | PCM.RX.CS ---
Consult Pharmacy has been consulted to manage selected antiobiotic: Vancomycin Type of Consult: New start Suspected Infection: Skin/Soft tissue Prior Doses of Antibiotics Received/Current Regimen: Medications Vancomycin HCl (Vancomycin) 1,000 mg in 200 mls @ 200 mls/hr IV Q24H VERA Discontinued Medications Vancomycin HCl 1,500 mg/ (Sodium Chloride) 530 mls @ 250 mls/hr IV X1 ONE Stop: 09/20/18 00:07 Last Admin: 09/20/18 00:40 Dose: 250 mls/hr Labs: Sodium 142 mmol/L (136-145) 09/19/18 16:30 Potassium 4.7 mmol/L (3.5-5.1) 09/19/18 16:30 Chloride 110 mmol/L (98-107) H 09/19/18 16:30 Carbon Dioxide 24.0 mmol/L (21.0-32.0) 09/19/18 16:30 Anion Gap 8 (5-15) 09/19/18 16:30 BUN 23 mg/dL (7-18) H 09/19/18 16:30 Creatinine 1.60 mg/dL (0.55-1.02) H 09/19/18 16:30 Est GFR (MDRD) Af Amer 44 mL/min (>60) L 09/19/18 16:30 Est GFR (MDRD) Non-Af 36 mL/min (>60) L 09/19/18 16:30 BUN/Creatinine Ratio 14.4 RATIO (10-20) 09/19/18 16:30 Glucose 57 mg/dL (74-106) L 09/20/18 00:03 Weight used for dosin.4 kg Estimated Creatinine Clearance: 30 Goal Trough: 10-15 mcg/mL Pharmacy Plan for Drug Dosing: Pharmacy Service will continue to monitor and adjust dosing as required. Follow-Up Labs: Trough Vancomycin Labs to be done on [date and time ordered]: 09/22/18 @0000
[2018-09-20 01:06] LABS: Bedside Glucose 143 mg/dL (70-110)
[2018-09-20 01:35] LABS: Bedside Glucose 135 mg/dL (70-110)
[2018-09-20 02:41] LABS: Bedside Glucose 121 mg/dL (70-110)
[2018-09-20 03:36] LABS: Bedside Glucose 127 mg/dL (70-110)
[2018-09-20] MEDS: Dext 5%-0.45% NS 1,000 ML 100 ML IV (05:44)
[2018-09-20 07:08] LABS: Absolute Lymphocyte Count 1.55 X10^3/ul (0.83-4.51); Absolute Neutrophil Count 3.4 X10^3/uL (2.0-7.7); Basophil# 0.02 X10^3/uL; Basophil% 0.3 % (0-1); Eosinophil# 0.34 X10^3/uL; Eosinophils% 5.8 % (0-5); Hematocrit 33.7 % (37-47); Hemoglobin 10.7 g/dl (12.0-15.0); Lymphocyte # 1.55 X10^3/ul (4.0); Lymphocyte % 26.4 % (19-41); Mean Corp Hgb Conc 31.8 g/gl (32-36); Mean Corpuscular Hgb 31.2 pg (27.0-32.0); Mean Corpuscular Volume 98.3 fL (81-99); Mean Platelet Vol. 9.8 fl (6.2-12.0); Monocyte# 0.57 X10^3/uL; Monocyte% 9.7 % (0-10); Neutrophil # 3.38 X10^3/uL (2.7-7.7); Neutrophil % 57.6 % (47-70); Platelet Count 167 K/mm3 (150-450); RBC Distribution Width SD 44.8 fl (35.1-43.9); Red Blood Count 3.43 M/mm3 (4.2-5.4); White Blood Count 5.9 K/mm3 (4.4-11.0)
[2018-09-20 07:11] LABS: Bedside Glucose 107 mg/dL (70-110)
[2018-09-20 07:15] LABS: POSITIVE COUNT NO; POSITIVE DIFFERENTIAL NO; POSITIVE MORPHOLOGY NO
[2018-09-20 07:26] LABS: Anion Gap 9 (5-15); BUN 21 mg/dL (7-18); BUN/Creat Ratio 17.2 RATIO (10-20); Calcium,Total 8.2 mg/dL (8.5-10.1); Chloride 112 mmol/L (98-107); Creatinine, Serum 1.22 mg/dL (0.55-1.02); EST Glomerular Filtration Rate 50 mL/min (>60); Est Glom Filt Rate - Afr Amer 60 mL/min (>60); Estimated Creatinine Clearance 39.63 ml/min; Glucose 114 mg/dL (74-106); Sodium Level 145 mmol/L (136-145)
[2018-09-20] MEDS: Gabapentin 300 MG Capsule PO (09:35)
[2018-09-20 10:55] LABS: Bedside Glucose 204 mg/dL (70-110)
--- NOTE | 2018-09-20 11:26 | PCM.TXEXTCAR ---
- Diet 09/19/18 21:25 Diet: Regular Diet Food consistency:: Regular Liquid Consistency:: Regular/Thin - Routine Orders/Code Status Enema Type: [place] Enema Frequency: Daily PRN Suppository Type: Dulcolax 10mg Suppository Frequency: Daily PRN - Wound(s) RLE Wound Type: lacteration Right posterior upper thigh Wound Type: blister that is open - Therapies Weight Bearing: Weight bearing as tolerated Physical Therapy: Eval and Treat Occupational Therapy: Eval and Treat - Allergies/Procedures Done in Hospital Allergies/Adverse Reactions: Allergies latex Allergy (Verified 09/19/18 16:01) Rash Penicillins Allergy (Verified 09/19/18 16:01) Unknown venom-honey bee [bee venom (honey bee)] Allergy (Verified 09/19/18 16:01) Unknown kidney beans Allergy (Intermediate, Uncoded 09/19/18 16:01) Hives Procedures: None - Type of Care/Length of Stay Estimated LOS: Convalescent Care Less Than 30 days Type of Care Needed: Skilled Rehab Potential: Fair Prognosis: Good - Additional Orders/Day of Discharge Day of Discharge: 09/20/18 - Dietary and Speech Recommendations Dietitian Recommendations/Changes: Rec diet change to 1600c odalys Cardiac/ low sodium w/ fluid restriction as indicated - Follow Up Care Primary Care Physician: Dillan Kraus DO [Primary Care Provider] - Please follow up with your Primary Care Physician in: 1-2 weeks
--- NOTE | 2018-09-20 11:28 | PCM.DC.SUM ---
Discharge Date and Diagnosis Date of Admission: 09/19/18 Date of Discharge: 09/20/18 - Primary Discharge Diagnosis Active and Suspected Problems (Last Reviewed 03/24/18 @ 15:20 by Gilda Zhang) Cellulitis (Acute) LE (acute kidney injury) (Acute) Hypoglycemia (Acute) - Secondary Discharge Diagnosis Chronic Problems (Last Reviewed 03/24/18 @ 15:20 by Gilda Zhang) Pressure ulcer of right buttock, stage 2 (Chronic) Hyperlipidemia (Chronic) Hypertension (Chronic) Type 2 diabetes mellitus (Chronic) Tobacco use disorder (Chronic) Multiple personality disorder (Chronic) Morbid obesity with body mass index of 40.0-49.9 (Chronic) Chronic back pain (Chronic) Tobacco abuse counseling (Chronic) Swelling of lower extremity (Chronic) Edema of both legs (Chronic) Lymphedema of leg (Chronic) GERD (gastroesophageal reflux disease) (Chronic) Multiple sclerosis (Chronic) CKD (chronic kidney disease) stage 4, GFR 15-29 ml/min (Chronic) PAD (peripheral artery disease) (Chronic) History of CVA (cerebrovascular accident) (Chronic) History of DVT (deep vein thrombosis) (Chronic) Psoriasis (Chronic) CHF (congestive heart failure) (Chronic) Edema (Chronic) Hypothyroidism (Chronic) Essential (primary) hypertension (Chronic) Atherosclerotic heart disease of [place] coronary artery without angina pectoris (Chronic) Hospital Course and Treatment Consultations 09/19/18 21:25 Consult: Onc/Wound/hair designer Routine Comment: General surgery- Dr Pineda Operations: None Procedures: None Summary of Care Provided: The patient is a 48 year old F with an extensive past medical history as listed. She was admitted through the ED with a complaint of a recent fall at home which resulted in a right lower extremity laceration across the lower skin. It required staple placement and she was also given oral antibiotics namely Keflex. She was subsequently presented with worsening right lower extremity edema, redness and drainage for the laceration with associated subjective fever but without chills. Pain was also increase in the right lower extremity and was rated a 10 out of 10. She had also noted that she had become hypoglycemic in the says she has been eating well while taking her insulin for diabetes. She had no elevated white cell count with WBC being 7.2. She was started on IV clindamycin and given D5 ampule and blood cultures were taken and she was admitted. Plastic surgery was consulted for possible debridement. However Dr. Arita is away and so general surgery reviewed her. Per general surgery opinion, patient needed debridement done as soon as possible but Dr. Pineda said she did not operate on the lower extremity. She therefore recommended that patient be transferred to a tertiary center where she would have general surgery evaluation today. Patient was therefore transferred to [facility] on 09/20/2018. Patient seen and examined prior to discharge. She had no complaints. Pain in the right lower extremity was better than when she came in. She denied any fever, any chills, any cough or chest pain, any shortness of breath, any abdominal pain, any diarrhea vomiting. Review of systems otherwise negative. Labs and vitals reviewed. Home medications reviewed and reconciled. [] Objective: Vital Signs Height 5 ft Weight: 228 lb 1 oz Weight in Pounds 228.1 lbs Pulse Ox 94 Temperature 98.1 F Pulse Rate 80 Respiratory Rate 16 Blood Pressure 119/66 Blood Pressure Position Semi-Fowlers - Physical Exam General: Alert, Oriented x3, Cooperative, No apparent distress HEENT: Atraumatic, PERRLA, EOMI, Normocephalic Oral: Moist Mucosa Neck: Supple, No JVD, Negative Carotid Bruits Lungs: Clear to auscultation, Normal air movement, No rhonchi, No wheeze, No rales Cardiovascular: Regular rate, Regular Rhythm, Normal S1, Normal S2, No murmurs Abdomen: Bowel Sounds Present, Soft, Non Tender, Non-Distended, No Hepato-splenomegaly Extremities: No clubbing, No cyanosis, - - RLE erythematous, swollen, warm and tender to touch. Ulceration on front of lower right wong covered wrapped in bandage Skin: Ulcer/ Wound Musculoskeletal: No Tenderness to Palpation of Joints or Extremities Lymphatic: No Cervical, Supraclavicular, or Inguinal Adenopathy Neurological: Cranial nerves II-XII grossly intact, Neuro grossly intact, Motor Exam 5/5 strength throughout Psych/Mental Status: Normal Affect, Appropriate, Alert and oriented to time, place, person, mood and affect Vital Signs Temp Pulse Resp BP Pulse Ox 98.1 F 80 16 119/66 94 09/20/18 06:45 09/20/18 09:35 09/20/18 06:45 09/20/18 06:45 09/20/18 07:04 Oxygen Delivery Method Room Air Weight: 228 lb 1 oz Body Mass Index (BMI) 44.5 Finger Stick Blood Glucose 62 Intake and Output for Last 24 Hours 09/18/18 09/19/18 09/20/18 23:59 23:59 23:59 Intake Total 1763 / 1763 Balance 1763 / 1763 Laboratory Tests Past 24 Hrs 09/19/18 09/19/18 09/19/18 16:30 16:30 16:30 WBC 7.2 RBC 4.23 Hgb 13.2 Hct 41.1 MCV 97.2 MCH 31.2 MCHC 32.1 RDW 13.2 RDW Differential 45.8 H Plt Count 219 MPV 10.2 Immature Gran % (Auto) 0.300 Neut % (Auto) 70.2 H Lymph % (Auto) 17.4 L Monroe % (Auto) 7.6 Eos % (Auto) 4.2 Baso % (Auto) 0.3 Absolute Neuts (auto) 5.1 Absolute Lymphs (auto) 1.25 Total Counted Not Reportable Sodium 142 Potassium 4.7 Chloride 110 H Carbon Dioxide 24.0 Anion Gap 8 BUN 23 H Creatinine 1.60 H Estim Creat Clear Calc 30.21 Est GFR (MDRD) Af Amer 44 L Est GFR (MDRD) Non-Af 36 L BUN/Creatinine Ratio 14.4 Glucose 49 L Hemoglobin A1c 7.4 H Lactic Acid Calcium 8.8 Magnesium Total Bilirubin 0.30 AST 28 ALT 21 Alkaline Phosphatase 126 H Total Protein 7.4 Albumin 3.1 L Globulin 4.3 H Albumin/Globulin Ratio 0.7 L Urine Color Urine Clarity Urine pH Ur Specific [place] Urine Protein Urine Glucose (UA) Urine Ketones Urine Occult Blood Urine Nitrite Urine Bilirubin Urine Urobilinogen Ur Leukocyte Esterase Urine RBC Urine WBC Ur Squamous Epith Cells Urine Bacteria Hyaline Casts Urine Mucus 09/19/18 09/19/18 09/19/18 16:30 17:30 17:45 WBC RBC Hgb Hct MCV MCH MCHC RDW RDW Differential Plt Count MPV Immature Gran % (Auto) Neut % (Auto) Lymph % (Auto) Monroe % (Auto) Eos % (Auto) Baso % (Auto) Absolute Neuts (auto) Absolute Lymphs (auto) Total Counted Sodium Potassium Chloride Carbon Dioxide Anion Gap BUN Creatinine Estim Creat Clear Calc Est GFR (MDRD) Af Amer Est GFR (MDRD) Non-Af BUN/Creatinine Ratio Glucose Hemoglobin A1c Lactic Acid 0.9 Calcium Magnesium 1.9 Total Bilirubin AST ALT Alkaline Phosphatase Total Protein Albumin Globulin Albumin/Globulin Ratio Urine Color Yellow Urine Clarity Sl. Cloudy Urine pH 6.0 Ur Specific [place] 1.025 Urine Protein 500 H Urine Glucose (UA) Normal Urine Ketones Negative Urine Occult Blood 10 H Urine Nitrite Negative Urine Bilirubin Negative Urine Urobilinogen 1 H Ur Leukocyte Esterase 25 H Urine RBC 0-5 SEEN Urine WBC 0-5 SEEN Ur Squamous Epith Cells 0-5 SEEN Urine Bacteria 0 SEEN Hyaline Casts 0-5 SEEN Urine Mucus 0 SEEN 09/20/18 09/20/18 09/20/18 00:03 06:40 06:40 WBC 5.9 RBC 3.43 L Hgb 10.7 L Hct 33.7 L MCV 98.3 MCH 31.2 MCHC 31.8 L RDW 13.0 RDW Differential 44.8 H Plt Count 167 MPV 9.8 Immature Gran % (Auto) 0.200 Neut % (Auto) 57.6 Lymph % (Auto) 26.4 Monroe % (Auto) 9.7 Eos % (Auto) 5.8 H Baso % (Auto) 0.3 Absolute Neuts (auto) 3.4 Absolute Lymphs (auto) 1.55 Total Counted Not Reportable Sodium 145 Potassium 4.0 Chloride 112 H Carbon Dioxide 24.0 Anion Gap 9 BUN 21 H Creatinine 1.22 H Estim Creat Clear Calc 39.63 Est GFR (MDRD) Af Amer 60 Est GFR (MDRD) Non-Af 50 L BUN/Creatinine Ratio 17.2 Glucose 57 L 114 H Hemoglobin A1c Lactic Acid Calcium 8.2 L Magnesium Total Bilirubin AST ALT Alkaline Phosphatase Total Protein Albumin Globulin Albumin/Globulin Ratio Urine Color Urine Clarity Urine pH Ur Specific [place] Urine Protein Urine Glucose (UA) Urine Ketones Urine Occult Blood Urine Nitrite Urine Bilirubin Urine Urobilinogen Ur Leukocyte Esterase Urine RBC Urine WBC Ur Squamous Epith Cells Urine Bacteria Hyaline Casts Urine Mucus POC Glucose 09/20/18 09/20/18 09/20/18 10:50 07:02 03:27 POC Glucose 204 H 107 127 H 09/20/18 09/20/18 09/20/18 02:34 01:31 00:34 POC Glucose 121 H 135 H 143 H 12/31/18 12/31/18 12/31/18 23:51 20:21 19:50 POC Glucose 39 L* 130 H 62 L 09/19/18 09/19/18 09/19/18 18:48 18:06 16:24 POC Glucose 101 28 L* 50 L Plan is to transfer to [facility] for surgical evaluation and possible debridement of ulceration. Discharge Diet: Low fat/ Low Cholesterol Weight Bearing Status: Weight bearing as tolerated Home Medications: Medications to take at Discharge Celecoxib [Celebrex] 200 mg PO BID 07/03/14 Tizanidine HCl [Zanaflex] 4 mg PO Q8H PRN PRN 07/03/14 ALPRAZolam [Xanax] 0.25 mg PO BID 05/20/17 Albuterol Aerosols [Ventolin Aerosols] 2.5 mg INHALATION Q4H PRN #25 vial 06/18/17 amitriptyline 50 mg tablet 100 mg PO QHS tab 08/23/17 aspirin 81 mg tablet,delayed release 81 mg PO DAILY 08/23/17 Gabapentin [Neurontin] 1,200 mg PO TIDCM 01/01/18 Insulin Detemir [Levemir] 64 unit SQ QHS 01/01/18 Liraglutide [Victoza] 0.12 mg SQ DAILY 01/01/18 proCHLORPERazine suppository [Compazine suppository] 50 mg RECTAL DAILY PRN PRN 01/01/18 nitroglycerin 0.4 mg sublingual tablet 0.4 mg SUBLINGUAL Q5-15M PRN 03/24/18 insulin U- 100 regular human 100 unit/mL injection solution 100 unit SC .COMPLEX 08/18/18 metoprolol tartrate 25 mg tablet 25 mg PO BID #60 tab 09/02/18 ranolazine ER 1,000 mg tablet,extended release,12 hr 1,000 mg PO BID #180 tab 09/12/18 Glimepiride 4 mg PO DAILY 09/19/18 Ibuprofen 800 mg PO DAILY 09/19/18 Oxycodone HCl/Acetaminophen [Oxycodone-Acetaminophen 5-325] 1 tab PO Q4H PRN PRN 09/19/18 Thyroid,Pork [Neurosurgery Physician Thyroid] 120 mg PO UD 09/19/18 Thyroid,Pork [Neurosurgery Physician Thyroid] 240 mg PO UD 09/19/18 Primary Care Physician: Kraus,Dillan, DO [Primary Care Provider] - Please follow up with your Primary Care Physician in: 1-2 weeks Disposition: Acute care Hospital - [facility] Minutes spent on discharge:: 45 Patient Condition:: Stable Medical Necessity - Tobacco Use Smoking Status: Current every day smoker Tobacco Use: Cigarettes Meaningful Use Info Meaningful Use Diagnoses (Choose all that apply): None applicable Code Visit Inpatient E&M: 30630 Disch Hosp
--- NOTE | 2018-09-20 12:20 | NURSING ---
REPORT CALLED TO ALYSON CASTELLANOS @ [facility] FOR ROOM # 240S
== END 2018-09-20 12:54 | disposition short-term general hospital (02) | DRG 603 ==
LOC: ED 19:36 → MS3 20:03
PROVIDERS: Hospitalist; Admitting Provider Family Medicine; Emergency Provider Emergency Medicine; Family Provider Student in an Organized Health Care Education/Training Program; PCP Student in an Organized Health Care Education/Training Program; Referring Provider Family Medicine; Visit Provider Student in an Organized Health Care Education/Training Program
DX: L03.115 Cellulitis of right lower limb (principal); N17.9 Acute kidney failure, unspecified; Z68.41 Body mass index [BMI] 40.0-44.9, adult; N18.4 Chronic kidney disease, stage 4 (severe); E11.649 Type 2 diabetes mellitus with hypoglycemia without coma; E66.01 Morbid (severe) obesity due to excess calories; E03.9 Hypothyroidism, unspecified; G35 Multiple sclerosis; L89.312 Pressure ulcer of right buttock, stage 2; I25.10 Atherosclerotic heart disease of native coronary artery without angina pectoris; E11.40 Type 2 diabetes mellitus with diabetic neuropathy, unspecified; E78.5 Hyperlipidemia, unspecified; E11.22 Type 2 diabetes mellitus with diabetic chronic kidney disease; I12.9 Hypertensive chronic kidney disease with stage 1 through stage 4 chronic kidney disease, or unspecified chronic kidney disease; K21.9 Gastro-esophageal reflux disease without esophagitis; I73.9 Peripheral vascular disease, unspecified; L40.9 Psoriasis, unspecified; Z86.718 Personal history of other venous thrombosis and embolism; I25.2 Old myocardial infarction; Z79.4 Long term (current) use of insulin; Z86.73 Personal history of transient ischemic attack (TIA), and cerebral infarction without residual deficits; F17.210 Nicotine dependence, cigarettes, uncomplicated; I89.0 Lymphedema, not elsewhere classified; F44.81 Dissociative identity disorder; G89.29 Other chronic pain; M54.9 Dorsalgia, unspecified
CPT/HCPCS: 36415; 71046; 80048; 80053; 81001; 82947; 82962; 83036; 83605; 83735; 84484; 85025; 87040; 93005; 96374; 99284; 99285; 99406; J7030; J7040; A4216; J1610; J7799

== ENCOUNTER 2018-09-30 06:14 | Inpatient (IN) | payer MEDICARE, MEDICAID, SELFPAY ==
[2018-09-19 21:27] VITALS: BMI 44.5
[2018-09-30] VITALS (10 sets, daily range): BP systolic 120–140; BP diastolic 60–92; PULSE 39–96; RESP 15–18; TEMP 35.1–37.1; O2SAT 94–98; BMI 49.9; BMI 55.3
--- NOTE | 2018-09-30 06:26 | ED.RN ---
PT GIVEN ONE AMP OF D50,PT AWAKE AND TALKING MORE.
--- NOTE | 2018-09-30 06:31 | EKG12_ITS ---
Test Reason : LETHARGIC Blood Pressure : / mmHG Vent. Rate : 042 BPM Atrial Rate : 042 BPM P-R Int : 174 ms QRS Dur : 086 ms QT Int : 518 ms P-R-T Axes : 057 009 025 degrees QTc Int : 432 ms Marked sinus bradycardia Low voltage QRS Septal infarct , age undetermined Abnormal ECG Confirmed by SHANTA CROWLEY, MIMI ([id number]), video tape editor LUCRECIA GIL ([id number] on 10/04/2018 4:59:25 PM Referred By: STEVIE Confirmed By:MIMI WOMACK MD
[2018-09-30] MEDS: Dextrose 50%-Water 25 GM/50 ML DISP.SYRIN IV (06:33)
[2018-09-30 06:39] LABS: Absolute Lymphocyte Count 0.94 X10^3/ul (0.83-4.51); Absolute Neutrophil Count 7.7 X10^3/uL (2.0-7.7); Basophil# 0.02 X10^3/uL; Basophil% 0.2 % (0-1); Eosinophil# 0.24 X10^3/uL; Eosinophils% 2.4 % (0-5); Hematocrit 29.6 % (37-47); Hemoglobin 9.5 g/dl (12.0-15.0); Lymphocyte # 0.94 X10^3/ul (4.0); Lymphocyte % 9.6 % (19-41); Mean Corp Hgb Conc 32.1 g/gl (32-36); Mean Corpuscular Volume 96.7 fL (81-99); Mean Platelet Vol. 9.5 fl (6.2-12.0); Monocyte# 0.93 X10^3/uL; Monocyte% 9.5 % (0-10); Neutrophil # 7.66 X10^3/uL (2.7-7.7); Neutrophil % 77.8 % (47-70); Platelet Count 245 K/mm3 (150-450); RBC Distribution Width CV 13.9 % (11.6-14.6); RBC Distribution Width SD 47.6 fl (35.1-43.9); Red Blood Count 3.06 M/mm3 (4.2-5.4); White Blood Count 9.8 K/mm3 (4.4-11.0)
--- NOTE | 2018-09-30 06:43 | ED.VISSUMM ---
- ER Visit Summary Date of Service: 09/30/18 Chief Complaint: [] Confusion low blood sugars History of Present Illness: The patient is a 48 F patient comes in this morning with confusion and low blood sugars. Her aunt was having a hard time keeping her awake this morning. Patient lives alone is recently discharged from [facility]. Prior to [place] she had a injury to her right wong suffering a deep wound laceration that was stapled closed. Subsequent subsequently got infected. She was initially placed on Keflex but the wound became more infected. She was admitted to our hospital with hypoglycemia and a cellulitis. She was placed on IV antibiotics. She was transferred to [facility] for debridement of her right lower extremity infection wound x2 surgeries. She is to be on IV antibiotics every 8 hours for the next 4 days before she stops. She is following up with outpatient wound care for a large wound on her right wong that will have to heal now by secondary intention. Patient is on insulin therapy as well as glimepiride. She did eat food last night. She has been retaining fluid since her infection and receiving IV fluids for her cellulitis. They now have her on Bumex. She is on a beta-rose as well for hypertension. Patient denies any complaints at this time. Paramedics noted that her blood sugar was 49. Physical Examination: [] Vital signs reviewed General: Well-nourished well-developed morbidly obese Head: Normocephalic atraumatic Eyes: Pupils equal round and reactive to light extraocular movements intact ENT: TMs clear no hemotympanum no trauma Neck: Nontender full range of motion Cardiovascular: Regular bradycardia no murmurs normal S1-S2 Respiratory: No distress clear to auscultation bilaterally chest nontender Abdomen: Soft nontender really obese normal bowel sounds no masses Back: Nontender no CVA tenderness Extremities: Nontender. Right lower extremity wong with large gaping wound. It is deep to the soft tissue and does not involve the bone. There is no signs of infection.. She is chronic significant lymphedema bilateral lower extremities. Left upper extremity PICC is clean dry intact without evidence of infection Skin: See above Neuro alert oriented cranial nerves II through XII intact normal strength sensation reflexes Test Results: [] Emergency Department Course and Treatment: [] BCT obtained in the emergency department and was significantly low. Patient given an amp of D50 and will be ordered food. EKG shows sinus bradycardia at 42 without STEMI. Patient has no focal neurologic deficits at this time. She is answering all questions appropriately. Her right lower extremity wound appears like it is healing appropriately without infection. I do not feel she is septic. She has no fevers. She is getting IV antibiotics at home. Lab work was obtained. It shows a chronic anemia at 9.5. No elevation in her white blood cell count. Chemistry shows potassium 3.2. Glucose 33 BUN 58 creatinine 2.6. I compared this creatinine to her recent creatinine upon discharge [facility] which was 2.79. I suspect this is from diuresis. Discussed with the hospitalist. Patient will be admitted for further evaluation of her hyperglycemia and sinus bradycardia. I would not give her fluids at this time. We will try to give her an oral diet and see if she can recalibrate her fluids on her own. Suspect her bradycardia is from metoprolol and her hypoglycemic event. She is never had this before however. She will be monitored closely on telemetry Treatment Plan: [] Disposition: [] Impression: [] Acute hypoglycemic event with confusion Sinus bradycardia No insufficiency Right lower extremity wound Morbid obesity This note was generated with [employer] dictation software. It may contain incorrect words, spelling, and punctuation that were not noted in review of the chart prior to signing ED Disposition - Plan for ED Patient: Chief Complaint: Fatigue Referrals: Dillan Kraus DO [Primary Care Provider] -
[2018-09-30 06:49] LABS: POSITIVE COUNT NO; POSITIVE DIFFERENTIAL NO; POSITIVE MORPHOLOGY NO
[2018-09-30 06:55] LABS: Bedside Glucose 140 mg/dL (70-110)
[2018-09-30 07:05] LABS: Bedside Glucose 27 mg/dL (70-110)
[2018-09-30 07:07] LABS: Anion Gap 7 (5-15); BUN 58 mg/dL (7-18); BUN/Creat Ratio 22.1 RATIO (10-20); Calcium,Total 8.2 mg/dL (8.5-10.1); Chloride 107 mmol/L (98-107); Creatinine, Serum 2.62 mg/dL (0.55-1.02); EST Glomerular Filtration Rate 21 mL/min (>60); Est Glom Filt Rate - Afr Amer 25 mL/min (>60); Estimated Creatinine Clearance 22.18 ml/min; Glucose 33 mg/dL (74-106); Potassium 3.2 mmol/L (3.5-5.1); Sodium Level 139 mmol/L (136-145)
--- NOTE | 2018-09-30 07:15 | HP.PCM_ITS ---
History of Present Illness Date of Admission: 09/30/18 Chief Complaint: hypoglycemia The patient is a 48 year old F with an exatensive PMH as listed. She was admitted with a complaint of altered mental status. Her aunt went to wake her up adn found her to be unresponsive. Her and called the EMS and she was found to have low blood sugars with blood sugar of 49. His blood sugar subsequently came up a bit with administration of his sugar drink. She was brought to the ED where she was found to have low blood sugars again and was given an amp of D50. EKG done showed sinus bradycardia with heart rate of 40-year-old without any ST segment changes. Of note, patient was admitted earlier this month after she had injury to her right wong and suffered a deep laceration. He subsequently got infected and she was admitted at [place]. However she was transferred to [facility] on account of nonavailability of plastic surgeon for debridement. She had to surgeries on her right leg at [facility] and was discharged home recently with a PICC line in place and was supposed to have 6 days of IV meropenem. She denies any fever or chills, any cough or chest pain, shortness of breath, abdominal pain, any diarrhea vomiting. She states she has been eating well and claims compliance with her diabetes meds. She has been admitted to be managed for hypoglycemia likely medication induced. [] Past Medical History Past Medical History (Chronic Problems): Chronic Problems (Last Reviewed 03/24/18 @ 15:20 by Gilda Zhang) Pressure ulcer of right buttock, stage 2 (Chronic) Hyperlipidemia (Chronic) Hypertension (Chronic) Type 2 diabetes mellitus (Chronic) Tobacco use disorder (Chronic) Multiple personality disorder (Chronic) Morbid obesity with body mass index of 40.0-49.9 (Chronic) Chronic back pain (Chronic) Tobacco abuse counseling (Chronic) Swelling of lower extremity (Chronic) Edema of both legs (Chronic) Lymphedema of leg (Chronic) GERD (gastroesophageal reflux disease) (Chronic) Multiple sclerosis (Chronic) CKD (chronic kidney disease) stage 4, GFR 15-29 ml/min (Chronic) PAD (peripheral artery disease) (Chronic) History of CVA (cerebrovascular accident) (Chronic) History of DVT (deep vein thrombosis) (Chronic) Psoriasis (Chronic) CHF (congestive heart failure) (Chronic) Edema (Chronic) Hypothyroidism (Chronic) Essential (primary) hypertension (Chronic) Atherosclerotic heart disease of [place] coronary artery without angina pectoris (Chronic) Medical History: Medical History (Last Reviewed 03/24/18 @ 15:20 by Gilda Zhang) Hyperlipidemia (Chronic) E78.5 Hypertension (Chronic) I10 Type 2 diabetes mellitus (Chronic) E11.9 Tobacco use disorder (Chronic) F17.200 Multiple personality disorder (Chronic) F44.81 Morbid obesity with body mass index of 40.0-49.9 (Chronic) E66.01 Chronic back pain (Chronic) M54.9, G89.29 Tobacco abuse counseling (Chronic) Z71.6 Swelling of lower extremity (Chronic) M79.89 Edema of both legs (Chronic) R60.0 Lymphedema of leg (Chronic) I89.0 GERD (gastroesophageal reflux disease) (Chronic) K21.9 Multiple sclerosis (Chronic) G35 CKD (chronic kidney disease) stage 4, GFR 15-29 ml/min (Chronic) N18.4 PAD (peripheral artery disease) (Chronic) I73.9 History of CVA (cerebrovascular accident) (Chronic) Z86.73 History of DVT (deep vein thrombosis) (Chronic) Z86.718 Psoriasis (Chronic) L40.9 CHF (congestive heart failure) (Chronic) I50.9 Edema (Chronic) R60.9 Hypothyroidism (Chronic) E03.9 Essential (primary) hypertension (Chronic) I10 Atherosclerotic heart disease of [place] coronary artery without angina pectoris (Chronic) I25.10 Hyperlipidemia E78.5 Type 2 diabetes mellitus E11.9 Allergies latex Allergy (Verified 09/30/18 06:25) Rash Penicillins Allergy (Verified 09/30/18 06:25) Unknown venom-honey bee [bee venom (honey bee)] Allergy (Verified 09/30/18 06:25) Unknown kidney beans Allergy (Intermediate, Uncoded 09/30/18 06:25) Hives IV DYE Allergy (Uncoded 09/30/18 06:25) Unknown Home Medications: Ambulatory Orders Medication Instructions Recorded Celecoxib [Celebrex] 200 mg PO BID 07/03/14 Tizanidine HCl [Zanaflex] 4 mg PO Q8H PRN PRN 07/03/14 ALPRAZolam [Xanax] 0.25 mg PO BID 05/20/17 amitriptyline 50 mg tablet 100 mg PO QHS tab 08/23/17 aspirin 81 mg tablet,delayed 81 mg PO DAILY 08/23/17 release Gabapentin [Neurontin] 1,800 mg PO BID 01/01/18 Insulin Detemir [Levemir] 64 unit SQ QHS 01/01/18 Liraglutide [Victoza] 0.12 mg SQ DAILY 01/01/18 proCHLORPERazine suppository 50 mg RECTAL DAILY PRN PRN 01/01/18 [Compazine suppository] nitroglycerin 0.4 mg sublingual 0.4 mg SUBLINGUAL Q5-15M PRN 03/24/18 tablet insulin U- 100 regular human 100 100 unit SC .COMPLEX 08/18/18 unit/mL injection solution metoprolol tartrate 25 mg tablet 25 mg PO BID #60 tab 09/02/18 ranolazine ER 1,000 mg 1,000 mg PO BID #180 tab 09/12/18 tablet,extended release,12 hr Glimepiride 4 mg PO DAILY 09/19/18 Ibuprofen 800 mg PO DAILY 09/19/18 Oxycodone HCl/Acetaminophen 2 tab PO Q4H PRN PRN 09/19/18 [Oxycodone-Acetaminophen 5-325] Thyroid,Pork [Mac Operator Thyroid] 120 mg PO UD 09/19/18 Thyroid,Pork [Mac Operator Thyroid] 240 mg PO UD 09/19/18 Albuterol Aerosols [Ventolin 2.5 mg INHALATION Q4H PRN PRN 09/30/18 Aerosols] Surgical History: Surgical History (Last Updated 08/18/18 @ 15:46 by Marbella Nagy) H/O hand surgery Z98.890 X 4 History of appendectomy Z90.49 History of back surgery Z98.890 History of cholecystectomy Z90.49 History of partial hysterectomy Z90.711 History of partial mastectomy of both breasts Z90.13 History of tonsillectomy Z90.89 History of vein stripping Z98.890 Surgical History: appendectomy, cholecystectomy, - - The patient has a history of appendectomy, cholecystectomy, bilateral lower extremity vein stripping, partial hysterectomy, tonsillectomy, lumbar surgery ?4, and bilateral carpal ranjith jaden release. The patient is a Ab0. Her only two live births succumbed shortly following . 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 Patient's mother at age of 67. Review of Systems Constitutional: Denies: Chills, Fever, Malaise, Weakness, Weight Change, Fatigue Eyes: Denies: Blurred vision HEENT: Denies: Head Aches, Sinus Congestion, Sinus Drainage Cardiovascular: Denies: Chest Pain, Palpitations Respiratory: Denies: Cough, Shortness of Breath, Shortness of breath at rest, Sputum production Gastrointestinal: Denies: Abdominal Pain, Nausea, Vomiting Genitourinary: Denies: Dysuria Musculoskeletal: Denies: Joint Pain, Joint Tenderness Skin: Denies: Rash, Wounds Neurological: Denies: Numbness, Tingling, Focal weakness Psychiatric: Denies: Anxiety, Depression, Homicidal Ideations, Suicidal Ideations Hematologic/ Lymphatic: Denies: Easy Bruising, Easy Bleeding VTE Information - Inpt Only VTE Present on Admission: No VTE Pharm Prophylaxis ordered?: Yes - Physical Exam General: Alert, Oriented x3, Cooperative, No apparent distress HEENT: Atraumatic, PERRLA, EOMI, Normocephalic Oral: Dry Mucosa Neck: Supple, No JVD, Negative Carotid Bruits Lungs: Clear to auscultation, Normal air movement, No rhonchi, No wheeze, No rales Cardiovascular: Regular rate, Regular Rhythm, Normal S1, Normal S2, No murmurs Abdomen: Bowel Sounds Present, Soft, Non Tender, Non-Distended, No Hepato- splenomegaly Extremities: No clubbing, No cyanosis, Capillary Refill Less than 3 Seconds, - - LLE bandaged; has mild nonpitting edema of both LEs Skin: Ulcer/ Wound - LLE bandaged around wong Musculoskeletal: No Tenderness to Palpation of Joints or Extremities Lymphatic: No Cervical, Supraclavicular, or Inguinal Adenopathy Neurological: Cranial nerves II-XII grossly intact, Neuro grossly intact, Motor Exam 5/5 strength throughout Psych/Mental Status: Normal Affect, Appropriate, Alert and oriented to time, place, person, mood and affect Vital Signs Temp Pulse Resp BP Pulse Ox 98.7 F 39 L 15 120/60 96 09/30/18 06:40 09/30/18 06:40 09/30/18 06:40 09/30/18 06:40 09/30/18 06:40 Oxygen Delivery Method Room Air Weight: 291 lb 0.163 oz Body Mass Index (BMI) 49.9 Finger Stick Blood Glucose 140 Laboratory Tests Past 24 Hrs 09/30/18 09/30/18 06:30 06:30 WBC 9.8 RBC 3.06 L Hgb 9.5 L Hct 29.6 L MCV 96.7 MCH 31.0 MCHC 32.1 RDW 13.9 RDW Differential 47.6 H Plt Count 245 MPV 9.5 Immature Gran % (Auto) 0.500 Neut % (Auto) 77.8 H Lymph % (Auto) 9.6 L [place] % (Auto) 9.5 Eos % (Auto) 2.4 Baso % (Auto) 0.2 Absolute Neuts (auto) 7.7 Absolute Lymphs (auto) 0.94 Total Counted Not Reportable Sodium 139 Potassium 3.2 L Chloride 107 Carbon Dioxide 25.0 Anion Gap 7 BUN 58 H Creatinine 2.62 H Estim Creat Clear Calc 22.18 Est GFR (MDRD) Af Amer 25 L Est GFR (MDRD) Non-Af 21 L BUN/Creatinine Ratio 22.1 H Glucose 33 L* Calcium 8.2 L POC Glucose 09/30/18 09/30/18 06:48 06:16 POC Glucose 140 H 27 L* Assessment/Plan All Active Problems (Last Reviewed 03/24/18 @ 15:20 by Gilda Zhang) Cellulitis (Acute) LE (acute kidney injury) (Acute) Hypoglycemia (Acute) 48-year-old female admitted with a complaint of hypoglycemia. 1. Hypoglycemia, likely medication induced * blood sugar was 49 when EMS arrived; she has been compliant with her diabetes meds * on admission in ED, blood sugar was 27, and was 33 on labs drawn * admit to PCU with telemetry * hold all oral diabetes meds and insulin; was on insulin detemir 64IU qhs and liraglutide. * start IVF D5 NS ~ 75cc/hr * acucchecks q6hrly * last A1C was 7.4 (09/19/18) * will adjust meds once hypoglycemia has resolved. * 2. LLE ulcer * s/p debridement at [facility] * was discharged with PICC line in place, for 6 more days of IV meropenem 500mg q12, starting today * will continue IV meropenem for 12 more doses, starting today * wound care nurse consulted * 3. Hypokalemia: K is 3.2. Will replace and monitor 4. Sinus bradycardia: HR was in 30s on admission per EKG. On metoprolol; will hold and monitor 5. Hypothyroidism: On Synthroid 6. Le on CKD stage III: * Cr is 2.62, Cr on 09/20/18 was 1.22 * being gently hydrated with IVF. * will trend Cr 7. Psoriasis:to follow up with spot welder body assembly upon discharge 8. Chronic diastolic heart failure: will hold diuretics o/a of kidney impairment 9. Anemia: Hb is 9.5. baseline is ~ 13. Likely due to blood loss from surgical procedures and recent illness. WIll monitor 10.Super morbid obesity:complicates, care, management and prognosis DVT prophylaxis: heparin Code Visit Inpatient E&M: 91201 Init Hosp L3
[2018-09-30 07:25] LABS: Bedside Glucose 86 mg/dL (70-110)
[2018-09-30 09:21] LABS: Bedside Glucose 116 mg/dL (70-110)
--- NOTE | 2018-09-30 10:20 | CASEMGMT ---
JASMIN ROYAL ASSESSMENT Re-admission note: Pt was admitted to [facility] 09/19/18 for cellulitis, LE, and hypoglycemia. Pt had a recent fall @ home prior to 09/19/18 admission and had a laceration to her lower wong that required stapling and was placed on oral antibiotics. When pt presented to [facility] on 09/19/18 with cellulitis of the wound, it was determined she needed debridement of wound. Pt was transferred to [facility] 09/20/18. Pt was discharged from [facility] 09/29/18 and re-admitted to [facility] 09/30/18 w/dx: Hypoglycmia, bradycardia, and LE. JASMIN ROYAL to room to meet with patient for initial transition planning/care coordination assessment. JASMIN ROYAL introduced self and role at [facility]. Pt sleeping/groggy. Did awaken briefly but fell back asleep. Pt's aunt, Celeste, @ bedside and provided the following information. She states she is the only family member involved with pt . PCP: [facility] Specialists: [facility] Preferred Pharmacy: [facility] [employer] Insurance: [employer] [facility] Prescription Benefit: Yes Living Will/HPOA: Celeste states pt does not currently have LW/HCPOA. She states pt has been provided with information in the past but has not completed any paperwork. Celeste given AD info packet and Detonator Assembler card and made aware when pt awakens and is oriented that if she wishes, she can complete here @ [facility] or as an-out-pt. Also provided with Detonator Assembler Rac Card. LNOK: Aunt Celeste Living Arrangements: Lives alone in a trailer. Has a stair lift to enter her trailer. Celeste states she lives beside pt and goes over to prepare meals for pt and assist with care. She states they have talked about pt receiving meals on wheels but that pt does not like their food. Transportation: Celeste states pt does not drive and has transportation services for medical appts through [employer] [facility]. DME: Has the following DME: Stair lift, lift chair, shower chair, raised toilet seat, cane, hospital bed, rails/grab bars, walker, and wheelchair. Celeste states pt used to have a BSC but loaned it out to someone and never got it back. Celeste states if pt does return home, that she feels that she could use a BSC. Also states she does not have a medical alert button but is interested in information. Given list of Medical Alert button suppliers. HHC/SNF: Current with [facility] HHC: snf, PT/OT, SW, and aide. Celeste states the nurse was out to pt's home to do teaching for the IV antibiotics with her (Celeste) and then she was informed that she would need to continue to give pt the antibiotics. Celeste states she is not available/able to provide this type of care for pt and that she is not able to be over @ pt's home as often as pt is needing. Celeste states she was told by [facility] that an aide would be available to care for the patient but that [facility] staff informed her this is not the case. Celeste states pt requires more personal care than she is able to provide as well and asking about snf facility for pt. Informed Celeste that when pt awakens more and is oriented that pt would need to be agreeable to going somewhere. Celeste states she thinks pt may not have been agreeable going somewhere in the past d/t being concerned that it would be long-term. Celeste states she thinks pt may be agreeable to going to TCU upon discharge d/t it's not a senior care and she wouldn't feel like she'd have to stay there. Celeste became tearful when talking about care pt is requiring and states I am just not able to give her the type of care that she is needing. She really needs someone to be there with her and I just can't be there all of the time. Emotional support provided. CM to continue to follow to determine appropriate and safe discharge plan Priya ROSSI, notified of possible ECF placement needed on discharge if pt is agreeable and that pt's aunt, Celeste, interested in TCU for pt and thinks pt may be agreeable to this. Celeste states has no further concerns/needs at this time. Advised her to ask for CM if any further questions/concerns/needs arise. Voices understanding. PLAN: CUATE Mcleod BSN RN CM
[2018-09-30 10:35] LABS: Bedside Glucose 137 mg/dL (70-110)
[2018-09-30] MEDS: Ranolazine 500 MG Tablet 1000 MG PO ×2 (10:56→22:52)
[2018-09-30] MEDS: Thyroid 60 MG Tablet 120 MG PO (10:57)
--- NOTE | 2018-09-30 12:28 | NURSING ---
wound photo right lower leg
[2018-09-30 13:01] LABS: Bedside Glucose 144 mg/dL (70-110)
[2018-09-30] MEDS: Glucerna Shake 120 ML LIQUID PO (13:40)
[2018-09-30 14:26] LABS: Bedside Glucose 153 mg/dL (70-110)
[2018-09-30 17:11] LABS: Bedside Glucose 178 mg/dL (70-110)
[2018-09-30] MEDS: ALPRAZolam 0.25 MG Tablet PO (22:51)
[2018-09-30] MEDS: Amitriptyline 100 MG Tablet PO (22:51)
[2018-09-30] MEDS: Heparin Injection (Vial) 5,000 UNIT/ML VIAL 5000 UNIT SC (22:52)
[2018-10-01] VITALS (10 sets, daily range): BP systolic 111–130; BP diastolic 43–59; PULSE 59–75; RESP 16–18; TEMP 36.7–37.2; O2SAT 92–95
[2018-10-01 00:21] LABS: Bedside Glucose 159 mg/dL (70-110)
[2018-10-01] MEDS: oxyCODONE 5 MG Tablet 10 MG PO (04:33)
[2018-10-01] MEDS: 0.9% NaCl PICC Flush IV ×3 (05:05→14:40)
[2018-10-01 05:16] LABS: Absolute Lymphocyte Count 1.22 X10^3/ul (0.83-4.51); Absolute Neutrophil Count 6.2 X10^3/uL (2.0-7.7); Basophil# 0.03 X10^3/uL; Basophil% 0.3 % (0-1); Eosinophil# 0.31 X10^3/uL; Eosinophils% 3.6 % (0-5); Hematocrit 25.8 % (37-47); Hemoglobin 8.1 g/dl (12.0-15.0); Lymphocyte # 1.22 X10^3/ul (4.0); Mean Corp Hgb Conc 31.4 g/gl (32-36); Mean Corpuscular Hgb 30.7 pg (27.0-32.0); Mean Corpuscular Volume 97.7 fL (81-99); Mean Platelet Vol. 9.5 fl (6.2-12.0); Monocyte% 10.3 % (0-10); Neutrophil # 6.22 X10^3/uL (2.7-7.7); Neutrophil % 71.6 % (47-70); Platelet Count 229 K/mm3 (150-450); RBC Distribution Width CV 14.1 % (11.6-14.6); Red Blood Count 2.64 M/mm3 (4.2-5.4); White Blood Count 8.7 K/mm3 (4.4-11.0)
[2018-10-01 05:20] LABS: POSITIVE COUNT NO; POSITIVE DIFFERENTIAL NO; POSITIVE MORPHOLOGY NO
[2018-10-01 05:30] LABS: Anion Gap 9 (5-15); BUN 56 mg/dL (7-18); BUN/Creat Ratio 22.8 RATIO (10-20); Calcium,Total 7.8 mg/dL (8.5-10.1); Chloride 111 mmol/L (98-107); Creatinine, Serum 2.46 mg/dL (0.55-1.02); EST Glomerular Filtration Rate 22 mL/min (>60); Est Glom Filt Rate - Afr Amer 27 mL/min (>60); Estimated Creatinine Clearance 19.65 ml/min; Glucose 133 mg/dL (74-106); Potassium 4.1 mmol/L (3.5-5.1); Sodium Level 144 mmol/L (136-145)
[2018-10-01] MEDS: Heparin Injection (Vial) 5,000 UNIT/ML VIAL 5000 UNIT SC ×3 (05:52→21:04)
[2018-10-01 07:05] LABS: Bedside Glucose 144 mg/dL (70-110)
[2018-10-01] MEDS: Ranolazine 500 MG Tablet 1000 MG PO ×2 (09:47→21:04)
[2018-10-01] MEDS: ALPRAZolam 0.25 MG Tablet PO ×2 (09:47→21:04)
[2018-10-01] MEDS: Glucerna Shake 120 ML LIQUID PO (09:48)
[2018-10-01] MEDS: Thyroid 60 MG Tablet 240 MG PO (09:48)
[2018-10-01] MEDS: Aspirin E.C. 81 MG Tablet PO (09:49)
[2018-10-01 11:56] LABS: Bedside Glucose 135 mg/dL (70-110)
--- NOTE | 2018-10-01 12:24 | PCM.PN.HOSP ---
Subjective: Patient seen and examined. She was admitted complaint of altered mental status that has been managed for acute metabolic encephalopathy due to hypoglycemia. She also be managed for AK I. Patient seen and examined today. She complains of bloating. She denies any fever or chills, cough or chest pain, shortness of breath, abdominal pain, diarrhea vomiting. Review of systems otherwise negative. Labs and vitals reviewed. Discussion had with her aunt Celeste who is her primary caregiver. Her aunt wants patient to go to a rehab facility because her aunt is a primary caregiver and she is having difficulty coping caring for the patient. Case management on board to facilitate placement. Vitals/I&O's: Vital Signs Temp Pulse Resp BP Pulse Ox 98.4 F 62 16 111/47 L 95 10/01/18 09:42 10/01/18 11:01 10/01/18 09:42 10/01/18 09:42 10/01/18 09:42 Oxygen Flow Rate (L/min) 2 Oxygen Delivery Method Room Air Weight: 287 lb 14.779 oz Body Mass Index (BMI) 55.3 Finger Stick Blood Glucose 86 Intake and Output for Last 24 Hours 09/29/18 09/30/18 10/01/18 23:59 23:59 23:59 Intake Total 1696 / 1696 651 / 651 Output Total 400 / 400 Balance 1296 / 1296 651 / 651 General: Alert, Oriented x3, Cooperative, No apparent distress HEENT: Atraumatic, PERRLA, EOMI, Normocephalic Oral: Dry Mucosa Neck: Supple, No JVD, Negative Carotid Bruits Lungs: Clear to auscultation, Normal air movement, No rhonchi, No wheeze, No rales Cardiovascular: Regular rate, Regular Rhythm, Normal S1, Normal S2, No murmurs Abdomen: Bowel Sounds Present, Soft, Non Tender, Non-Distended, No Hepato-splenomegaly Extremities: No clubbing, No cyanosis, Capillary Refill Less than 3 Seconds, - - LLE has wound vac on LLE wound. Skin: Ulcer/ Wound -as under extremities. Musculoskeletal: No Tenderness to Palpation of Joints or Extremities Lymphatic: No Cervical, Supraclavicular, or Inguinal Adenopathy Neurological: Cranial nerves II-XII grossly intact, Neuro grossly intact, Motor Exam 5/5 strength throughout Psych/Mental Status: Normal Affect, Appropriate, Alert and oriented to time, place, person, mood and affect Laboratory Results 09/30/18 12:25: POC Glucose 144 H 09/30/18 14:21: POC Glucose 153 H 09/30/18 17:03: POC Glucose 178 H 09/30/18 22:19: POC Glucose 159 H 10/01/18 05:00: WBC 8.7, RBC 2.64 L, Hgb 8.1 L, Hct 25.8 L, MCV 97.7, MCH 30.7, MCHC 31.4 L, RDW 14.1, RDW Differential 49.0 H, Plt Count 229, MPV 9.5, Immature Gran % (Auto) 0.200, Neut % (Auto) 71.6 H, Lymph % (Auto) 14.0 L, [place] % (Auto) 10.3 H, Eos % (Auto) 3.6, Baso % (Auto) 0.3, Absolute Neuts (auto) 6.2, Absolute Lymphs (auto) 1.22, Total Counted Not Reportable 10/01/18 05:00: Sodium 144, Potassium 4.1, Chloride 111 H, Carbon Dioxide 24.0, Anion Gap 9, BUN 56 H, Creatinine 2.46 H, Estim Creat Clear Calc 19.65, Est GFR (MDRD) Af Amer 27 L, Est GFR (MDRD) Non-Af 22 L, BUN/Creatinine Ratio 22.8 H, Glucose 133 H, Calcium 7.8 L 10/01/18 06:59: POC Glucose 144 H 10/01/18 11:14: POC Glucose 135 H Current Medications Alprazolam (Xanax) 0.25 mg PO BID [facility] Last Admin: 10/01/18 09:47 Dose: 0.25 mg Amitriptyline HCl (Elavil) 100 mg PO QHS [facility] Last Admin: 09/30/18 22:51 Dose: 100 mg Aspirin (Ecotrin) 81 mg PO DAILY@0800 [facility] Last Admin: 10/01/18 09:49 Dose: 81 mg Heparin Sodium (Beef Lung) () 50 units IV UD PRN PRN Reason: HEPARIN FLUSH Heparin Sodium (Porcine) (Heparin Na) 5,000 unit SC Q8 [facility] Last Admin: 10/01/18 05:52 Dose: 5,000 unit Meropenem 500 mg/ Sodium (Chloride) 60 mls @ 100 mls/hr IV Q12 [facility] Stop: 10/05/18 22:35 Last Admin: 10/01/18 09:49 Dose: 100 mls/hr Magnesium Hydroxide (Milk Of Magnesia) 30 ml PO DAILY PRN PRN PRN Reason: Constipation Nitroglycerin (Nitrostat) 0.4 mg SUBLINGUAL Q5M PRN PRN Reason: chest pain Nutritional Formula (Lactose Free) (Glucerna Shake) 120 ml PO TIDCM [facility] Last Admin: 10/01/18 11:53 Dose: Not Given Prochlorperazine Maleate (Compazine Suppository) 25 mg RECTAL BID PRN PRN PRN Reason: MIGRAINE SYMPTOMS Ranolazine (Ranexa) 1,000 mg PO BID [facility] Last Admin: 10/01/18 09:47 Dose: 1,000 mg Sodium Chloride () 10 - 20 ml IV UD PRN PRN Reason: PICC FLUSH Last Admin: 10/01/18 09:49 Dose: 10 ml Thyroid ([place] Thyroid) 120 mg PO MoTuWeThFr@1000 [facility] Last Admin: 09/30/18 10:57 Dose: 120 mg Thyroid ([place] Thyroid) 240 mg PO SuSa@1000 [facility] Last Admin: 10/01/18 09:48 Dose: 240 mg Medical Necessity - Tobacco Use Smoking Status: Current every day smoker Tobacco Use: Cigarettes Assessment/Plan All Active Problems (Last Reviewed 03/24/18 @ 15:20 by Gilda Zhang) Cellulitis (Acute) BK (acute kidney injury) (Acute) Hypoglycemia (Acute) 48-year-old female admitted with a complaint of hypoglycemia. 1. Acute metabolic encephalopathy due to Hypoglycemia, likely medication induced resolved. insulin and victoza on hold accuchecks ACHS ISS 2. LLE ulcer s/p debridement at [facility] was discharged with PICC line in place, for 6 more days of IV meropenem 500mg q12, starting today will continue IV meropenem for 12 more doses- stop date 10/05/18 wound care nurse on board has wound vac in place 3. Hypokalemia:resolved. K is 4.1 today. 4. Sinus bradycardia: HR was in 30s on admission per EKG. HR now in 60s and 70s since metoprolol was stopped. Will continue monitoring. On metoprolol; will hold and monitor 5. Hypothyroidism: On Synthroid 6. Bk on CKD stage III: Cr is 2.46 today Cr on 09/20/18 was 1.22 being gently hydrated with IVF. will trend Cr 7. Psoriasis:to follow up with director hematology upon discharge 8. Chronic diastolic heart failure: will hold diuretics o/a of kidney impairment 9. Anemia: Hb is 8.1 today. baseline is ~ 13. Likely due to blood loss from surgical procedures and recent illness. WIll monitor. consider transfusion if Hb falls to <7 10.Super morbid obesity:complicates, care, management and prognosis DVT prophylaxis: heparin
--- NOTE | 2018-10-01 12:30 | PN_ITS ---
Subjective: Patient seen and examined. She was admitted complaint of altered mental status that has been managed for acute metabolic encephalopathy due to hypoglycemia. She also be managed for AK I. Patient seen and examined today. She complains of bloating. She denies any fever or chills, cough or chest pain, shortness of breath, abdominal pain, diarrhea vomiting. Review of systems otherwise negative. Labs and vitals reviewed. Discussion had with her aunt Celeste who is her primary caregiver. Her aunt wants patient to go to a rehab facility because her aunt is a primary caregiver and she is having difficulty coping caring for the patient. Case management on board to facilitate placement. Vitals/I&O's: Vital Signs Temp Pulse Resp BP Pulse Ox 98.4 F 62 16 111/47 L 95 10/01/18 09:42 10/01/18 11:01 10/01/18 09:42 10/01/18 09:42 10/01/18 09:42 Oxygen Flow Rate (L/min) 2 Oxygen Delivery Method Room Air Weight: 287 lb 14.779 oz Body Mass Index (BMI) 55.3 Finger Stick Blood Glucose 86 Intake and Output for Last 24 Hours 09/29/18 09/30/18 10/01/18 23:59 23:59 23:59 Intake Total 1696 / 1696 651 / 651 Output Total 400 / 400 Balance 1296 / 1296 651 / 651 General: Alert, Oriented x3, Cooperative, No apparent distress HEENT: Atraumatic, PERRLA, EOMI, Normocephalic Oral: Dry Mucosa Neck: Supple, No JVD, Negative Carotid Bruits Lungs: Clear to auscultation, Normal air movement, No rhonchi, No wheeze, No rales Cardiovascular: Regular rate, Regular Rhythm, Normal S1, Normal S2, No murmurs Abdomen: Bowel Sounds Present, Soft, Non Tender, Non-Distended, No Hepato- splenomegaly Extremities: No clubbing, No cyanosis, Capillary Refill Less than 3 Seconds, - - LLE has wound vac on LLE wound. Skin: Ulcer/ Wound -as under extremities. Musculoskeletal: No Tenderness to Palpation of Joints or Extremities Lymphatic: No Cervical, Supraclavicular, or Inguinal Adenopathy Neurological: Cranial nerves II-XII grossly intact, Neuro grossly intact, Motor Exam 5/5 strength throughout Psych/Mental Status: Normal Affect, Appropriate, Alert and oriented to time, place, person, mood and affect Laboratory Results 09/30/18 12:25: POC Glucose 144 H 09/30/18 14:21: POC Glucose 153 H 09/30/18 17:03: POC Glucose 178 H 09/30/18 22:19: POC Glucose 159 H 10/01/18 05:00: WBC 8.7, RBC 2.64 L, Hgb 8.1 L, Hct 25.8 L, MCV 97.7, MCH 30.7, MCHC 31.4 L, RDW 14.1, RDW Differential 49.0 H, Plt Count 229, MPV 9.5, Immature Gran % (Auto) 0.200, Neut % (Auto) 71.6 H, Lymph % (Auto) 14.0 L, [place] % (Auto) 10.3 H, Eos % (Auto) 3.6, Baso % (Auto) 0.3, Absolute Neuts (auto) 6.2, Absolute Lymphs (auto) 1.22, Total Counted Not Reportable 10/01/18 05:00: Sodium 144, Potassium 4.1, Chloride 111 H, Carbon Dioxide 24.0, Anion Gap 9, BUN 56 H, Creatinine 2.46 H, Estim Creat Clear Calc 19.65, Est GFR (MDRD) Af Amer 27 L, Est GFR (MDRD) Non-Af 22 L, BUN/Creatinine Ratio 22.8 H, Glucose 133 H, Calcium 7.8 L 10/01/18 06:59: POC Glucose 144 H 10/01/18 11:14: POC Glucose 135 H Current Medications Alprazolam (Xanax) 0.25 mg PO BID [facility] Last Admin: 10/01/18 09:47 Dose: 0.25 mg Amitriptyline HCl (Elavil) 100 mg PO QHS [facility] Last Admin: 09/30/18 22:51 Dose: 100 mg Aspirin (Ecotrin) 81 mg PO DAILY@0800 [facility] Last Admin: 10/01/18 09:49 Dose: 81 mg Heparin Sodium (Beef Lung) () 50 units IV UD PRN PRN Reason: HEPARIN FLUSH Heparin Sodium (Porcine) (Heparin Na) 5,000 unit SC Q8 [facility] Last Admin: 10/01/18 05:52 Dose: 5,000 unit Meropenem 500 mg/ Sodium (Chloride) 60 mls @ 100 mls/hr IV Q12 [facility] Stop: 10/05/18 22:35 Last Admin: 10/01/18 09:49 Dose: 100 mls/hr Magnesium Hydroxide (Milk Of Magnesia) 30 ml PO DAILY PRN PRN PRN Reason: Constipation Nitroglycerin (Nitrostat) 0.4 mg SUBLINGUAL Q5M PRN PRN Reason: chest pain Nutritional Formula (Lactose Free) (Glucerna Shake) 120 ml PO TIDCM [facility] Last Admin: 10/01/18 11:53 Dose: Not Given Prochlorperazine Maleate (Compazine Suppository) 25 mg RECTAL BID PRN PRN PRN Reason: MIGRAINE SYMPTOMS Ranolazine (Ranexa) 1,000 mg PO BID [facility] Last Admin: 10/01/18 09:47 Dose: 1,000 mg Sodium Chloride () 10 - 20 ml IV UD PRN PRN Reason: PICC FLUSH Last Admin: 10/01/18 09:49 Dose: 10 ml Thyroid ([place] Thyroid) 120 mg PO MoTuWeThFr@1000 [facility] Last Admin: 09/30/18 10:57 Dose: 120 mg Thyroid ([place]astian Thyroid) 240 mg PO SuSa@1000 [facility] Last Admin: 10/01/18 09:48 Dose: 240 mg Medical Necessity - Tobacco Use Smoking Status: Current every day smoker Tobacco Use: Cigarettes Assessment/Plan All Active Problems (Last Reviewed 03/24/18 @ 15:20 by Gilda Zhang) Cellulitis (Acute) BK (acute kidney injury) (Acute) Hypoglycemia (Acute) 48-year-old female admitted with a complaint of hypoglycemia. 1. Acute metabolic encephalopathy due to Hypoglycemia, likely medication induced * resolved. * insulin and victoza on hold * accuchecks ACHS * ISS * * 2. LLE ulcer * s/p debridement at [facility] * was discharged with PICC line in place, for 6 more days of IV meropenem 500mg q12, starting today * will continue IV meropenem for 12 more doses- stop date 10/05/18 * wound care nurse on board * has wound vac in place * 3. Hypokalemia:resolved. K is 4.1 today. 4. Sinus bradycardia: HR was in 30s on admission per EKG. HR now in 60s and 70s since metoprolol was stopped. Will continue monitoring. On metoprolol; will hold and monitor 5. Hypothyroidism: On Synthroid 6. Bk on CKD stage III: * Cr is 2.46 today Cr on 09/20/18 was 1.22 * being gently hydrated with IVF. * will trend Cr 7. Psoriasis:to follow up with in shop service technician upon discharge 8. Chronic diastolic heart failure: will hold diuretics o/a of kidney impairment 9. Anemia: * Hb is 8.1 today. baseline is ~ 13. * Likely due to blood loss from surgical procedures and recent illness. * WIll monitor. consider transfusion if Hb falls to <7 10.Super morbid obesity:complicates, care, management and prognosis DVT prophylaxis: heparin
--- NOTE | 2018-10-01 13:23 | CASEMGMT ---
Social Work Note FLO received message from Bisi in TCU stating pre-cert has been obtained and pt is able to discharge to TCU today or tomorrow. FLO met with pt. Pt has family present in room. FLO introduced self and role at [facility]. Pt is alert and orientated x4. Pt gave this worker permission to speak to her in front of her guest. FLO explained TCU at [facility] and pt is agreeable to TCU. FLO informed pt and pt's family that TCU is able to accept and pre-cert has been obtained. Pt and pt's family states understanding. Green sheet on pt's chart. Plan: TCU once medically cleared. Pt is able to discharge to TCU today or tomorrow. If pt is not able to discharge tomorrow (Wednesday) pt will need to be at [facility] until Wednesday when pre-cert can be resubmitted. May Verma PATIENT TRANSPORTATION DRIVER, CAGE CLERK
[2018-10-01 14:05] LABS: BNP,B-Type NATRIURETIC PEPTIDE 479.8 pg/mL (0-100)
[2018-10-01] MEDS: Furosemide 40 MG/4 ML Vial IV (14:40)
[2018-10-01] MEDS: Gabapentin 600 MG Tablet 1800 MG PO (16:32)
[2018-10-01 16:41] LABS: Bedside Glucose 172 mg/dL (70-110)
--- NOTE | 2018-10-01 18:11 | EKG12_ITS ---
Test Reason : CP Blood Pressure : / mmHG Vent. Rate : 074 BPM Atrial Rate : 074 BPM P-R Int : 134 ms QRS Dur : 080 ms QT Int : 388 ms P-R-T Axes : 041 017 064 degrees QTc Int : 430 ms Normal sinus rhythm Low voltage QRS Cannot rule out Anterior infarct , age undetermined Abnormal ECG When compared with ECG of 30-SEP-2018 06:19, MANUAL COMPARISON REQUIRED, DATA IS UNCONFIRMED Confirmed by SHANTA CROWLEY, MIMI ([id number]), editor & co founder LUCRECIA GIL ([id number]) on 10/04/2018 5:32:33 PM Referred By: YOANNA Confirmed By:MIMI WOMACK MD
[2018-10-01] MEDS: Amitriptyline 100 MG Tablet PO (21:04)
[2018-10-01 22:00] LABS: Bedside Glucose 269 mg/dL (70-110)
[2018-10-02] VITALS (11 sets, daily range): BP systolic 112–148; BP diastolic 45–59; PULSE 64–89; RESP 16–18; TEMP 36.8–37.2; O2SAT 92–98
[2018-10-02] MEDS: Heparin Injection (Vial) 5,000 UNIT/ML VIAL 5000 UNIT SC ×3 (05:08→21:32)
[2018-10-02 06:22] LABS: Absolute Lymphocyte Count 0.83 X10^3/ul (0.83-4.51); Absolute Neutrophil Count 8.5 X10^3/uL (2.0-7.7); Basophil# 0.01 X10^3/uL; Basophil% 0.1 % (0-1); Eosinophil# 0.24 X10^3/uL; Eosinophils% 2.2 % (0-5); Hematocrit 27.5 % (37-47); Hemoglobin 8.5 g/dl (12.0-15.0); Lymphocyte # 0.83 X10^3/ul (4.0); Lymphocyte % 7.7 % (19-41); Mean Corp Hgb Conc 30.9 g/gl (32-36); Mean Corpuscular Hgb 30.9 pg (27.0-32.0); Mean Platelet Vol. 9.9 fl (6.2-12.0); Monocyte# 1.22 X10^3/uL; Monocyte% 11.3 % (0-10); Neutrophil # 8.48 X10^3/uL (2.7-7.7); Neutrophil % 78.2 % (47-70); Platelet Count 259 K/mm3 (150-450); RBC Distribution Width CV 14.6 % (11.6-14.6); RBC Distribution Width SD 51.6 fl (35.1-43.9); Red Blood Count 2.75 M/mm3 (4.2-5.4); White Blood Count 10.8 K/mm3 (4.4-11.0)
[2018-10-02 06:31] LABS: POSITIVE COUNT NO; POSITIVE DIFFERENTIAL NO; POSITIVE MORPHOLOGY NO
[2018-10-02 06:50] LABS: Bedside Glucose 252 mg/dL (70-110)
[2018-10-02 06:57] LABS: Anion Gap 11 (5-15); BUN 61 mg/dL (7-18); BUN/Creat Ratio 24.6 RATIO (10-20); Calcium,Total 8.2 mg/dL (8.5-10.1); Chloride 109 mmol/L (98-107); Creatinine, Serum 2.48 mg/dL (0.55-1.02); EST Glomerular Filtration Rate 22 mL/min (>60); Est Glom Filt Rate - Afr Amer 26 mL/min (>60); Estimated Creatinine Clearance 19.49 ml/min; Glucose 275 mg/dL (74-106); Potassium 4.8 mmol/L (3.5-5.1); Sodium Level 143 mmol/L (136-145)
[2018-10-02] MEDS: Glucerna Shake 120 ML LIQUID PO (07:54)
[2018-10-02] MEDS: Gabapentin 600 MG Tablet 1800 MG PO ×2 (07:54→16:25)
[2018-10-02] MEDS: Insulin Lispro 100 UNIT/ML INSULN.PEN SC ×4 (07:54→21:32)
[2018-10-02] MEDS: Aspirin E.C. 81 MG Tablet PO (07:54)
[2018-10-02] MEDS: Thyroid 60 MG Tablet 240 MG PO (09:26)
[2018-10-02] MEDS: 0.9% NaCl PICC Flush IV ×2 (09:26→21:31)
[2018-10-02] MEDS: Ranolazine 500 MG Tablet 1000 MG PO ×2 (09:26→21:31)
[2018-10-02] MEDS: ALPRAZolam 0.25 MG Tablet PO ×2 (09:26→21:31)
[2018-10-02] MEDS: Furosemide 40 MG/4 ML Vial IV (09:26)
[2018-10-02 11:46] LABS: Bedside Glucose 214 mg/dL (70-110)
--- NOTE | 2018-10-02 13:15 | PCM.PN.HOSP ---
Subjective: Patient seen and examined. She has no complaints overnight and feels well. Bloating has improved with diuresis. She is on 2 L of oxygen at time of review. She usually will use oxygen only at night. She denies any chest pain or palpitations, shortness of breath, abdominal pain, diarrhea vomiting. Review of systems otherwise negative. Labs and vitals reviewed. Vitals/I&O's: Vital Signs Temp Pulse Resp BP Pulse Ox 98.6 F 64 16 112/45 L 92 10/02/18 09:25 10/02/18 11:02 10/02/18 09:25 10/02/18 09:25 10/02/18 09:25 Oxygen Flow Rate (L/min) 2 Oxygen Delivery Method Room Air Weight: 289 lb 7.471 oz Body Mass Index (BMI) 55.3 Finger Stick Blood Glucose 86 Intake and Output for Last 24 Hours 09/30/18 10/01/18 10/02/18 23:59 23:59 23:59 Intake Total 1696 / 1696 1697 / 1697 208 / 208 Output Total 400 / 400 1350 / 1350 1050 / 1050 Balance 1296 / 1296 347 / 347 -842 / -842 General: Alert, Oriented x3, Cooperative, No apparent distress HEENT: Atraumatic, PERRLA, EOMI, Normocephalic Oral: Dry Mucosa Neck: Supple, No JVD, Negative Carotid Bruits Lungs: Clear to auscultation, Normal air movement, No rhonchi, No wheeze, No rales Cardiovascular: Regular rate, Regular Rhythm, Normal S1, Normal S2, No murmurs Abdomen: Bowel Sounds Present, Soft, Non Tender, Non-Distended, No Hepato-splenomegaly Extremities: No clubbing, No cyanosis, Capillary Refill Less than 3 Seconds, - - LLE has wound vac on LLE wound. Skin: Ulcer/ Wound -as under extremities. Musculoskeletal: No Tenderness to Palpation of Joints or Extremities Lymphatic: No Cervical, Supraclavicular, or Inguinal Adenopathy Neurological: Cranial nerves II-XII grossly intact, Neuro grossly intact, Motor Exam 5/5 strength throughout Psych/Mental Status: Normal Affect, Appropriate, Alert and oriented to time, place, person, mood and affect Laboratory Results 10/01/18 05:00: B-Natriuretic Peptide 479.8 H 10/01/18 16:30: POC Glucose 172 H 10/01/18 20:58: POC Glucose 269 H 10/02/18 04:55: Sodium 143, Potassium 4.8, Chloride 109 H, Carbon Dioxide 23.0, Anion Gap 11, BUN 61 H, Creatinine 2.48 H, Estim Creat Clear Calc 19.49, Est GFR (MDRD) Af Amer 26 L, Est GFR (MDRD) Non-Af 22 L, BUN/Creatinine Ratio 24.6 H, Glucose 275 H, Calcium 8.2 L 10/02/18 04:55: WBC 10.8, RBC 2.75 L, Hgb 8.5 L, Hct 27.5 L, MCV 100.0 H, MCH 30.9, MCHC 30.9 L, RDW 14.6, RDW Differential 51.6 H, Plt Count 259, MPV 9.9, Immature Gran % (Auto) 0.500, Neut % (Auto) 78.2 H, Lymph % (Auto) 7.7 L, [place] % (Auto) 11.3 H, Eos % (Auto) 2.2, Baso % (Auto) 0.1, Absolute Neuts (auto) 8.5 H, Absolute Lymphs (auto) 0.83, Total Counted Not Reportable 10/02/18 06:41: POC Glucose 252 H 10/02/18 11:28: POC Glucose 214 H Current Medications Albuterol Sulfate (Ventolin Aerosols) 2.5 mg INHALATION Q4H PRN PRN PRN Reason: wheezing/SOB Alprazolam (Xanax) 0.25 mg PO BID [facility] Last Admin: 10/02/18 09:26 Dose: 0.25 mg Amitriptyline HCl (Elavil) 100 mg PO QHS [facility] Last Admin: 10/01/18 21:04 Dose: 100 mg Aspirin (Ecotrin) 81 mg PO DAILY@0800 [facility] Last Admin: 10/02/18 07:54 Dose: 81 mg Furosemide (Lasix) 40 mg IV DAILY [facility] Last Admin: 10/02/18 09:26 Dose: 40 mg Gabapentin (Neurontin) 1,800 mg PO BIDCM [facility] Last Admin: 10/02/18 07:54 Dose: 1,800 mg Heparin Sodium (Beef Lung) () 50 units IV UD PRN PRN Reason: HEPARIN FLUSH Heparin Sodium (Porcine) (Heparin Na) 5,000 unit SC Q8 [facility] Last Admin: 10/02/18 05:08 Dose: 5,000 unit Meropenem 500 mg/ Sodium (Chloride) 60 mls @ 100 mls/hr IV Q12 [facility] Stop: 10/05/18 22:35 Last Admin: 10/02/18 09:25 Dose: 100 mls/hr Insulin Human Lispro (Humalog Kwikpen (Bkc)) 0 unit SC ACHS [facility]; Protocol Last Admin: 10/02/18 11:32 Dose: 4 u Magnesium Hydroxide (Milk Of Magnesia) 30 ml PO DAILY PRN PRN PRN Reason: Constipation Nitroglycerin (Nitrostat) 0.4 mg SUBLINGUAL Q5M PRN PRN Reason: chest pain Nutritional Formula (Lactose Free) (Glucerna Shake) 120 ml PO TIDCM [facility] Last Admin: 10/02/18 11:32 Dose: Not Given Oxycodone HCl (Oxyir) 10 mg PO Q4H PRN PRN Reason: PAIN Prochlorperazine Maleate (Compazine Suppository) 25 mg RECTAL BID PRN PRN PRN Reason: MIGRAINE SYMPTOMS Ranolazine (Ranexa) 1,000 mg PO BID [facility] Last Admin: 10/02/18 09:26 Dose: 1,000 mg Sodium Chloride () 10 - 20 ml IV UD PRN PRN Reason: PICC FLUSH Last Admin: 10/02/18 09:26 Dose: 10 ml Thyroid ([place] Thyroid) 120 mg PO MoTuWeThFr@1000 [facility] Last Admin: 09/30/18 10:57 Dose: 120 mg Thyroid ([place] Thyroid) 240 mg PO SuSa@1000 [facility] Last Admin: 10/02/18 09:26 Dose: 240 mg Tizanidine HCl (Zanaflex) 4 mg PO Q8H PRN PRN PRN Reason: SPASMS Medical Necessity - Tobacco Use Smoking Status: Current every day smoker Tobacco Use: Cigarettes Assessment/Plan All Active Problems (Last Reviewed 03/24/18 @ 15:20 by Gilda Zhang) Cellulitis (Acute) BK (acute kidney injury) (Acute) Hypoglycemia (Acute) 48-year-old female admitted with a complaint of hypoglycemia. 1. Acute metabolic encephalopathy due to Hypoglycemia, likely medication induced resolved. insulin and victoza on hold accuchecks ACHS ISS 2. LLE ulcer s/p debridement at [facility] was discharged with PICC line in place, for 6 more days of IV meropenem 500mg q12, starting today will continue IV meropenem for 12 more doses- stop date 10/05/18 wound care nurse on board has wound vac in place 3. Acute diastolic heart failure had been complaining of bloating and feeling heavy BNp checked was 479.8 had echo in 04/06: which showed Ef of 65% and mild LVH now diuresing with IV lasix 40mg daily. says bloating is much better. urine output yesterday increased to 1350mls will continue diuresing; 4. Hypokalemia:resolved. K is 4.8 today. 5. Sinus bradycardia: HR was in 30s on admission per EKG. HR now in 60s and 70s since metoprolol was stopped. Will continue monitoring. 6. Hypothyroidism: On Synthroid. Will check 7. Bk on CKD stage III: Cr is 2.48 today Cr on 09/20/18 was 1.22 Cr on discharge from [facility] was ~ 2.7 IVF stopped o/a of heart failure will check UA will monitor 7. Psoriasis:to follow up with second baller upon discharge 8. Chronic diastolic heart failure: will hold diuretics o/a of kidney impairment 9. Anemia: Hb is 8.5 today. baseline is ~ 13. Likely due to blood loss from surgical procedures and recent illness. WIll monitor. consider transfusion if Hb falls to <7 10.Super morbid obesity:complicates, care, management and prognosis DVT prophylaxis: heparin Disposition: for discharge to TCU once stable Code Visit Inpatient E&M: 86661 Subs Hosp L3
--- NOTE | 2018-10-02 13:41 | PN_ITS ---
Subjective: Patient seen and examined. She has no complaints overnight and feels well. Bloating has improved with diuresis. She is on 2 L of oxygen at time of review. She usually will use oxygen only at night. She denies any chest pain or palpitations, shortness of breath, abdominal pain, diarrhea vomiting. Review of systems otherwise negative. Labs and vitals reviewed. Vitals/I&O's: Vital Signs Temp Pulse Resp BP Pulse Ox 98.6 F 64 16 112/45 L 92 10/02/18 09:25 10/02/18 11:02 10/02/18 09:25 10/02/18 09:25 10/02/18 09:25 Oxygen Flow Rate (L/min) 2 Oxygen Delivery Method Room Air Weight: 289 lb 7.471 oz Body Mass Index (BMI) 55.3 Finger Stick Blood Glucose 86 Intake and Output for Last 24 Hours 09/30/18 10/01/18 10/02/18 23:59 23:59 23:59 Intake Total 1696 / 1696 1697 / 1697 208 / 208 Output Total 400 / 400 1350 / 1350 1050 / 1050 Balance 1296 / 1296 347 / 347 -842 / -842 General: Alert, Oriented x3, Cooperative, No apparent distress HEENT: Atraumatic, PERRLA, EOMI, Normocephalic Oral: Dry Mucosa Neck: Supple, No JVD, Negative Carotid Bruits Lungs: Clear to auscultation, Normal air movement, No rhonchi, No wheeze, No rales Cardiovascular: Regular rate, Regular Rhythm, Normal S1, Normal S2, No murmurs Abdomen: Bowel Sounds Present, Soft, Non Tender, Non-Distended, No Hepato- splenomegaly Extremities: No clubbing, No cyanosis, Capillary Refill Less than 3 Seconds, - - LLE has wound vac on LLE wound. Skin: Ulcer/ Wound -as under extremities. Musculoskeletal: No Tenderness to Palpation of Joints or Extremities Lymphatic: No Cervical, Supraclavicular, or Inguinal Adenopathy Neurological: Cranial nerves II-XII grossly intact, Neuro grossly intact, Motor Exam 5/5 strength throughout Psych/Mental Status: Normal Affect, Appropriate, Alert and oriented to time, place, person, mood and affect Laboratory Results 10/01/18 05:00: B-Natriuretic Peptide 479.8 H 10/01/18 16:30: POC Glucose 172 H 10/01/18 20:58: POC Glucose 269 H 10/02/18 04:55: Sodium 143, Potassium 4.8, Chloride 109 H, Carbon Dioxide 23.0, Anion Gap 11, BUN 61 H, Creatinine 2.48 H, Estim Creat Clear Calc 19.49, Est GFR (MDRD) Af Amer 26 L, Est GFR (MDRD) Non-Af 22 L, BUN/Creatinine Ratio 24.6 H, Glucose 275 H, Calcium 8.2 L 10/02/18 04:55: WBC 10.8, RBC 2.75 L, Hgb 8.5 L, Hct 27.5 L, MCV 100.0 H, MCH 30.9, MCHC 30.9 L, RDW 14.6, RDW Differential 51.6 H, Plt Count 259, MPV 9.9, Immature Gran % (Auto) 0.500, Neut % (Auto) 78.2 H, Lymph % (Auto) 7.7 L, [place] % (Auto) 11.3 H, Eos % (Auto) 2.2, Baso % (Auto) 0.1, Absolute Neuts (auto) 8.5 H, Absolute Lymphs (auto) 0.83, Total Counted Not Reportable 10/02/18 06:41: POC Glucose 252 H 10/02/18 11:28: POC Glucose 214 H Current Medications Albuterol Sulfate (Ventolin Aerosols) 2.5 mg INHALATION Q4H PRN PRN PRN Reason: wheezing/SOB Alprazolam (Xanax) 0.25 mg PO BID [facility] Last Admin: 10/02/18 09:26 Dose: 0.25 mg Amitriptyline HCl (Elavil) 100 mg PO QHS [facility] Last Admin: 10/01/18 21:04 Dose: 100 mg Aspirin (Ecotrin) 81 mg PO DAILY@0800 [facility] Last Admin: 10/02/18 07:54 Dose: 81 mg Furosemide (Lasix) 40 mg IV DAILY [facility] Last Admin: 10/02/18 09:26 Dose: 40 mg Gabapentin (Neurontin) 1,800 mg PO BIDCM [facility] Last Admin: 10/02/18 07:54 Dose: 1,800 mg Heparin Sodium (Beef Lung) () 50 units IV UD PRN PRN Reason: HEPARIN FLUSH Heparin Sodium (Porcine) (Heparin Na) 5,000 unit SC Q8 [facility] Last Admin: 10/02/18 05:08 Dose: 5,000 unit Meropenem 500 mg/ Sodium (Chloride) 60 mls @ 100 mls/hr IV Q12 [facility] Stop: 10/05/18 22:35 Last Admin: 10/02/18 09:25 Dose: 100 mls/hr Insulin Human Lispro (Humalog Kwikpen (Bkc)) 0 unit SC ACHS [facility]; Protocol Last Admin: 10/02/18 11:32 Dose: 4 u Magnesium Hydroxide (Milk Of Magnesia) 30 ml PO DAILY PRN PRN PRN Reason: Constipation Nitroglycerin (Nitrostat) 0.4 mg SUBLINGUAL Q5M PRN PRN Reason: chest pain Nutritional Formula (Lactose Free) (Glucerna Shake) 120 ml PO TIDCM [facility] Last Admin: 10/02/18 11:32 Dose: Not Given Oxycodone HCl (Oxyir) 10 mg PO Q4H PRN PRN Reason: PAIN Prochlorperazine Maleate (Compazine Suppository) 25 mg RECTAL BID PRN PRN PRN Reason: MIGRAINE SYMPTOMS Ranolazine (Ranexa) 1,000 mg PO BID [facility] Last Admin: 10/02/18 09:26 Dose: 1,000 mg Sodium Chloride () 10 - 20 ml IV UD PRN PRN Reason: PICC FLUSH Last Admin: 10/02/18 09:26 Dose: 10 ml Thyroid ([place] Thyroid) 120 mg PO MoTuWeThFr@1000 [facility] Last Admin: 09/30/18 10:57 Dose: 120 mg Thyroid ([place] Thyroid) 240 mg PO SuSa@1000 [facility] Last Admin: 10/02/18 09:26 Dose: 240 mg Tizanidine HCl (Zanaflex) 4 mg PO Q8H PRN PRN PRN Reason: SPASMS Medical Necessity - Tobacco Use Smoking Status: Current every day smoker Tobacco Use: Cigarettes Assessment/Plan All Active Problems (Last Reviewed 03/24/18 @ 15:20 by Gilda Zhang) Cellulitis (Acute) BK (acute kidney injury) (Acute) Hypoglycemia (Acute) 48-year-old female admitted with a complaint of hypoglycemia. 1. Acute metabolic encephalopathy due to Hypoglycemia, likely medication induced * resolved. * insulin and victoza on hold * accuchecks ACHS * ISS * 2. LLE ulcer * s/p debridement at [facility] * was discharged with PICC line in place, for 6 more days of IV meropenem 500mg q12, starting today * will continue IV meropenem for 12 more doses- stop date 10/05/18 * wound care nurse on board * has wound vac in place * 3. Acute diastolic heart failure * had been complaining of bloating and feeling heavy * BNp checked was 479.8 * had echo in 04/06: which showed Ef of 65% and mild LVH * now diuresing with IV lasix 40mg daily. * says bloating is much better. urine output yesterday increased to 1350mls * will continue diuresing; 4. Hypokalemia:resolved. K is 4.8 today. 5. Sinus bradycardia: * HR was in 30s on admission per EKG. HR now in 60s and 70s since metoprolol was stopped. Will continue monitoring. 6. Hypothyroidism: On Synthroid. Will check 7. Bk on CKD stage III: * Cr is 2.48 today Cr on 09/20/18 was 1.22 * Cr on discharge from [facility] was ~ 2.7 * IVF stopped o/a of heart failure * will check UA * will monitor * 7. Psoriasis:to follow up with genetic scientist upon discharge 8. Chronic diastolic heart failure: will hold diuretics o/a of kidney impairment 9. Anemia: * Hb is 8.5 today. baseline is ~ 13. * Likely due to blood loss from surgical procedures and recent illness. * WIll monitor. consider transfusion if Hb falls to <7 10.Super morbid obesity:complicates, care, management and prognosis DVT prophylaxis: heparin Disposition: for discharge to TCU once stable Code Visit Inpatient E&M: [id number] [facility] Hosp L3
[2018-10-02 14:14] LABS: Thyroid Stim Hormone (TSH) 0.99 uIU/mL (0.358-3.74)
[2018-10-02 15:08] LABS: Bacteria 0 SEEN /hpf (None Seen); Mucous, Urine 0 SEEN /hpf (<or=2+); Red Blood Cells-Urine 0 SEEN /hpf (0-5); White Blood Cells 0 SEEN /hpf (0-5)
[2018-10-02 15:16] LABS: Color, Urine Yellow (Yellow); Glucose, Dipstick Normal (Normal); Ketone-Dipstick Negative (Negative); Leukocyte Esterase-Dipstick Negative /ul (Negative); Nitrite-Dipstick Negative (Negative); Occult Blood-Urine Negative /ul (Negative); Protein-Dipstick 30 mg/dl (Negative); Specific Gravity, Urine 1.015 (1.002-1.030); Urine Bilirubin Dipstick Negative (Negative); Urine Clarity Clear (Clear); Urine Urobilinogen Normal (Normal)
[2018-10-02 15:31] LABS: Yeast-Urine RARE /hpf (None Seen)
[2018-10-02 15:32] LABS: Squamous Epithelial Cells - UA 0-5 SEEN /hpf (5-10)
[2018-10-02 16:45] LABS: Bedside Glucose 225 mg/dL (70-110)
[2018-10-02] MEDS: Amitriptyline 100 MG Tablet PO (21:32)
[2018-10-02 23:16] LABS: Bedside Glucose 193 mg/dL (70-110)
[2018-10-03] VITALS (9 sets, daily range): BP systolic 108–146; BP diastolic 46–67; PULSE 68–77; RESP 16–18; TEMP 36.9; O2SAT 93–94
[2018-10-03] MEDS: Heparin Injection (Vial) 5,000 UNIT/ML VIAL 5000 UNIT SC ×2 (05:14→14:59)
[2018-10-03] MEDS: 0.9% NaCl PICC Flush IV ×3 (05:16→12:06)
[2018-10-03 06:35] LABS: Anion Gap 8 (5-15); BUN 61 mg/dL (7-18); BUN/Creat Ratio 25.8 RATIO (10-20); Calcium,Total 8.3 mg/dL (8.5-10.1); Chloride 111 mmol/L (98-107); Creatinine, Serum 2.36 mg/dL (0.55-1.02); EST Glomerular Filtration Rate 23 mL/min (>60); Est Glom Filt Rate - Afr Amer 28 mL/min (>60); Estimated Creatinine Clearance 20.48 ml/min; Glucose 204 mg/dL (74-106); Potassium 4.9 mmol/L (3.5-5.1); Sodium Level 145 mmol/L (136-145)
[2018-10-03 06:46] LABS: Bedside Glucose 199 mg/dL (70-110)
[2018-10-03] MEDS: Gabapentin 600 MG Tablet 1800 MG PO ×2 (08:19→16:34)
[2018-10-03] MEDS: Aspirin E.C. 81 MG Tablet PO (08:20)
[2018-10-03] MEDS: Insulin Lispro 100 UNIT/ML INSULN.PEN SC ×3 (08:24→16:35)
[2018-10-03] MEDS: Ranolazine 500 MG Tablet 1000 MG PO (10:43)
[2018-10-03] MEDS: Furosemide 40 MG/4 ML Vial IV (10:44)
[2018-10-03] MEDS: Thyroid 60 MG Tablet 120 MG PO (10:44)
[2018-10-03] MEDS: ALPRAZolam 0.25 MG Tablet PO (10:48)
[2018-10-03 12:31] LABS: Bedside Glucose 264 mg/dL (70-110)
--- NOTE | 2018-10-03 13:41 | CASEMGMT ---
Patient's pre-cert . She requires another pre-cert. Bisi in TCU is working on this. Plan: [facility] TCU pending insurance approval. Suze CAREY MSW
--- NOTE | 2018-10-03 14:46 | PCM.TXEXTCAR ---
- Diet 09/30/18 08:48 Diet: Calorie Controlled Is pt able to select menu?: Yes How many daily calories?: 1800 calorie - Routine Orders/Code Status Suppository Type: Dulcolax 10mg Suppository Frequency: Daily PRN Code Status: Full Code - Wound(s) RIGHT LOWER LEG Wound Type: OPEN SURGICAL WOUND S/P TRAUMA RIGHT GLUTEAL FOLD Wound Type: Pressure Injury Dressing Change: MEPILEX - Therapies Weight Bearing: Weight bearing as tolerated Physical Therapy: Eval and Treat Occupational Therapy: Eval and Treat Speech Therapy: Eval and Treat - Allergies/Procedures Done in Hospital Allergies/Adverse Reactions: Allergies latex Allergy (Verified 09/30/18 06:25) Rash Penicillins Allergy (Verified 09/30/18 06:25) Unknown venom-honey bee [bee venom (honey bee)] Allergy (Verified 09/30/18 06:25) Unknown kidney beans Allergy (Intermediate, Uncoded 09/30/18 06:25) Hives IV DYE Allergy (Uncoded 09/30/18 06:25) Unknown - Type of Care/Length of Stay Estimated LOS: Convalescent Care Less Than 30 days Type of Care Needed: Skilled Rehab Potential: Good Prognosis: Good - Additional Orders/Day of Discharge Additional Orders: Follow-up [facility] orthopedic surgeon/[facility] wound care in 1-2 weeks. Patient has wound VAC. Day of Discharge: 10/03/18 - Dietary and Speech Recommendations Dietitian Recommendations/Changes: Diet change to 1800 odalys Cardiac/Low sodium w/ 1500 ml fluid restriction diet. Rec Osiel 1 pkg BID for pressure ulcer. - Follow Up Care Primary Care Physician: Dillan Kraus DO [Primary Care Provider] - Please follow up with your Primary Care Physician in: in 1-2 weeks Please Follow Up With: Namrata Solorzano DO When: for CKD Stage 3 on diuretics
--- NOTE | 2018-10-03 15:34 | CASEMGMT ---
Gilda from [facility] aware that pt to go to TCU today, voices understanding. [place] CASTELLANOS CM
--- NOTE | 2018-10-03 15:46 | CASEMGMT ---
Patient was approved to go to TCU. SW notified physician. SW notified patient and RN. All in agreement with d/c plan. Plan: d/c to [facility] TCU under skilled level of care. Suze HAMILTON
[2018-10-03] MEDS: oxyCODONE 5 MG Tablet 10 MG PO (16:52)
[2018-10-03 17:00] LABS: Bedside Glucose 358 mg/dL (70-110)
--- NOTE | 2018-10-03 17:57 | DS.PCM_ITS ---
Discharge Date and Diagnosis Date of Admission: 09/30/18 Date of Discharge: 10/03/18 - Primary Discharge Diagnosis Acute hypoglycemia - Secondary Discharge Diagnosis Chronic Problems (Last Reviewed 03/24/18 @ 15:20 by Gilda Zhang) Pressure ulcer of right buttock, stage 2 (Chronic) Hyperlipidemia (Chronic) Hypertension (Chronic) Type 2 diabetes mellitus (Chronic) Tobacco use disorder (Chronic) Multiple personality disorder (Chronic) Morbid obesity with body mass index of 40.0-49.9 (Chronic) Chronic back pain (Chronic) Tobacco abuse counseling (Chronic) Swelling of lower extremity (Chronic) Edema of both legs (Chronic) Lymphedema of leg (Chronic) GERD (gastroesophageal reflux disease) (Chronic) Multiple sclerosis (Chronic) CKD (chronic kidney disease) stage 4, GFR 15-29 ml/min (Chronic) PAD (peripheral artery disease) (Chronic) History of CVA (cerebrovascular accident) (Chronic) History of DVT (deep vein thrombosis) (Chronic) Psoriasis (Chronic) CHF (congestive heart failure) (Chronic) Edema (Chronic) Hypothyroidism (Chronic) Essential (primary) hypertension (Chronic) Atherosclerotic heart disease of [place] coronary artery without angina pectoris (Chronic) Hospital Course and Treatment Consultations 09/30/18 09:16 Consult: Onc/Wound/security and compliance analyst Routine Comment: Summary of Care Provided: 48-year-old female admitted with with extensive comorbidities including CHF, CVA, multiple sclerosis, diverticulitis type II, and atherosclerotic heart disease with recent left lower extremity ulcer status post debridement [facility] on IV meropenem was admitted for altered mental status secondary to hypoglycemia. Blood sugar was found 49. 1. Acute metabolic encephalopathy due to Hypoglycemia, likely medication induced * resolved. * Initially insulin and victoza on hold. As the Accu-Cheks improved to 200s, Levemir was resumed at lower dose 10 units subcu to release with sliding scale. * accuchecks ACHS * ISS 2. LLE ulcer * s/p debridement at [facility] * was discharged with PICC line in place, for 6 more days of IV meropenem 500mg q12, starting today * will continue IV meropenem for 12 more doses- stop date 10/05/18 * wound care nurse on board. Follow-up wound care center. * has wound vac in place * 3. chronic diastolic heart failure The patient has history of heart failure and coronary artery disease * had been complaining of bloating and feeling heavy * had echo in 04/06: which showed Ef of 65% and mild LVH * now diuresing with IV lasix 40mg daily. Patient had good urine output. * Patient was diuresed well 4. Hypokalemia:resolved. K is 4.9 today. 5. Sinus bradycardia: * HR was in 30s on admission per EKG. HR now in 60s and 70s since metoprolol was stopped. Bradycardia resolved. Metoprolol was resumed on lower dose 12.5 mg twice daily with holding parameter. Ranexa decreased to 500 mg twice daily. 6. Hypothyroidism: On Synthroid. 7. Bk on CKD stage III: * Cr is 2.48 and 2.36 on the day of discharge. Cr on 09/20/18 was 1.22 * Cr on discharge from [facility] was ~ 2.7 * IVF stopped o/a of heart failure * UA was benign with protein 30, mild proteinuria * 7. Psoriasis:to follow up with retail merchandising manager upon discharge 8. Chronic diastolic heart failure: will hold diuretics o/a of kidney impairment 9. Anemia: * Hb is 8.5 today. baseline is ~ 13. * Likely due to blood loss from surgical procedures and recent illness. * consider transfusion if Hb falls to <7 10.Super morbid obesity:complicates, care, management and prognosis DVT prophylaxis: heparin [] Discharge medication reconciliation done. Discharge follow-up instructions completed. Discharge process discussed with the patient. Patient was suggested to follow-up kidney function, and electrolytes in the TCU as per PCP weekly to adjust dose of diuretic. Total time spent, exact 35 minutes on discharge meds reconciliation, examination, review of imaging and blood test and discussion with the patient on follow-up instructions. Subjective: Seen and examined. Patient gets easily tired and short of breath even on mild exertion. At rest she is comfortable on the bed on 2 L of oxygen Patient has a wound VAC on right leg. Al wrap bandage done. - Physical Exam General: Alert, Oriented x3, Cooperative HEENT: Atraumatic, PERRLA, EOMI, Normocephalic Neck: Supple, No JVD, Negative Carotid Bruits Lungs: Diminished, Rhonchi, Short of Breath Cardiovascular: Regular rate, Regular Rhythm, Normal S1, Normal S2, No murmurs Abdomen: Bowel Sounds Present, Soft, Non Tender, Non-Distended Extremities: Capillary Refill Less than 3 Seconds, Edema Skin: Ulcer/ Wound - Wound VAC in right leg. Right leg ulcer status post debridement Musculoskeletal: No Tenderness to Palpation of Joints or Extremities, Arthritic Changes, - Neurological: Cranial nerves II-XII grossly intact, Deep Tendon Reflexes 2+/4 and Symmetrical, Neuro grossly intact Psych/Mental Status: Normal Affect, Appropriate Vital Signs Temp Pulse Resp BP Pulse Ox 98.5 F 76 18 146/67 H 93 10/03/18 14:16 10/03/18 16:29 10/03/18 14:16 10/03/18 14:16 10/03/18 14:16 Oxygen Flow Rate (L/min) 2.5 Oxygen Delivery Method Nasal Cannula Weight: 289 lb 7.471 oz Body Mass Index (BMI) 55.3 Finger Stick Blood Glucose 86 Intake and Output for Last 24 Hours 10/01/18 10/02/18 10/03/18 23:59 23:59 23:59 Intake Total 1697 / 1697 688 / 688 918 / 918 Output Total 1350 / 1350 1650 / 1650 1275 / 1275 Balance 347 / 347 -962 / -962 -357 / -357 Laboratory Tests Past 24 Hrs 10/03/18 05:10 Sodium 145 Potassium 4.9 Chloride 111 H Carbon Dioxide 26.0 Anion Gap 8 BUN 61 H Creatinine 2.36 H Estim Creat Clear Calc 20.48 Est GFR (MDRD) Af Amer 28 L Est GFR (MDRD) Non-Af 23 L BUN/Creatinine Ratio 25.8 H Glucose 204 H Calcium 8.3 L POC Glucose 10/03/18 10/03/18 10/03/18 16:30 11:58 06:38 POC Glucose 358 H 264 H 199 H 10/02/18 21:28 POC Glucose 193 H Home Medications: Medications to take at Discharge Tizanidine HCl [Zanaflex] 4 mg PO Q8H PRN PRN 07/03/14 ALPRAZolam [Xanax] 0.25 mg PO BID 05/20/17 amitriptyline 50 mg tablet 100 mg PO QHS tab 08/23/17 aspirin 81 mg tablet,delayed release 81 mg PO DAILY 08/23/17 Gabapentin [Neurontin] 1,800 mg PO BID 01/01/18 Liraglutide [Victoza] 0.12 mg SQ DAILY 01/01/18 proCHLORPERazine suppository [Compazine suppository] 50 mg RECTAL DAILY PRN PRN 01/01/18 nitroglycerin 0.4 mg sublingual tablet 0.4 mg SUBLINGUAL Q5-15M PRN 03/24/18 Thyroid,Pork [Strap Buckler Machine Thyroid] 120 mg PO UD 09/19/18 Thyroid,Pork [Strap Buckler Machine Thyroid] 240 mg PO UD 09/19/18 Albuterol Aerosols [Ventolin Aerosols] 2.5 mg INHALATION Q4H PRN PRN 09/30/18 Insulin Detemir [Levemir] 10 unit SQ QHS 10/03/18 Insulin Lispro [Humalog KwikPen] See Protocol SC ACHS 10/03/18 Meropenem [Merrem] 500 mg IV Q12 10/03/18 Metoprolol Tartrate [Lopressor (beta rose)] 12.5 mg PO BID 10/03/18 Oxycodone HCl/Acetaminophen [Oxycodone-Acetaminophen 5-325] 2 tab PO Q4H PRN PRN #10 tab 10/03/18 Ranolazine [Ranexa] 1,000 mg PO BID 10/03/18 Following Prescrptions Were Given to Patient: Oxycodone HCl/Acetaminophen [Oxycodone-Acetaminophen 5-325] 2 tab PO Q4H PRN PRN #10 tab PRN Reason: Pain Primary Care Physician: Dillan Kraus DO [Primary Care Provider] - Please follow up with your Primary Care Physician in: in 1-2 weeks Please Follow Up With: Namrata Solorzano DO When: for CKD Stage 3 on diuretics Medical Necessity - Tobacco Use Smoking Status: Current every day smoker Tobacco Use: Cigarettes Meaningful Use Info Meaningful Use Diagnoses (Choose all that apply): None applicable Code Visit Inpatient E&M: 36869 Disch Hosp
== END 2018-10-03 18:16 | disposition skilled nursing facility (03) | DRG 638 ==
LOC: ED 07:25 → PCU 07:34
PROVIDERS: Admitting Provider Student in an Organized Health Care Education/Training Program; Emergency Provider Emergency Medicine; Family Provider Student in an Organized Health Care Education/Training Program; PCP Student in an Organized Health Care Education/Training Program; Visit Provider Internal Medicine
DX: E11.649 Type 2 diabetes mellitus with hypoglycemia without coma (principal); Z68.43 Body mass index [BMI] 50.0-59.9, adult; L97.929 Non-pressure chronic ulcer of unspecified part of left lower leg with unspecified severity; I13.0 Hypertensive heart and chronic kidney disease with heart failure and stage 1 through stage 4 chronic kidney disease, or unspecified chronic kidney disease; I50.32 Chronic diastolic (congestive) heart failure; N17.9 Acute kidney failure, unspecified; E66.01 Morbid (severe) obesity due to excess calories; R00.1 Bradycardia, unspecified; E87.6 Hypokalemia; E11.22 Type 2 diabetes mellitus with diabetic chronic kidney disease; E03.9 Hypothyroidism, unspecified; L40.9 Psoriasis, unspecified; G35 Multiple sclerosis; D50.0 Iron deficiency anemia secondary to blood loss (chronic); I25.10 Atherosclerotic heart disease of native coronary artery without angina pectoris; L89.312 Pressure ulcer of right buttock, stage 2; N18.3 Chronic kidney disease, stage 3 (moderate); Z79.4 Long term (current) use of insulin
CPT/HCPCS: 36415; 80048; 81001; 82962; 83880; 84443; 85025; 93005; 97110; 97116; 97162; 97165; 97530; 97802; 99284; 99406; J2185; A4216; J1940

== ENCOUNTER 2018-10-03 18:32 | Inpatient (IN) | payer MEDICARE, MEDICAID, SELFPAY ==
[2018-09-30 08:35] VITALS: BMI 55.3
[2018-10-03 18:36] VITALS: BP 132/76; PULSE 85; RESP 22; TEMP 36.3; O2SAT 93
--- NOTE | 2018-10-03 18:43 | NURSING ---
arrived from [facility] via bed at 183
[2018-10-03] MEDS: 0.9% NaCl IVPB Med Flush (250 mL) 15 ML IV (20:12)
[2018-10-03] MEDS: 0.9% NaCl PICC Flush 10 ML IV (20:12)
[2018-10-03 20:18] VITALS: BMI 56.4
[2018-10-03 20:22] VITALS: BMI 56.4
[2018-10-03 20:33] VITALS: PULSE 76; O2SAT 92
--- NOTE | 2018-10-03 21:00 | PCM.HP.STD ---
Problem List (1) Encephalopathy Status: Acute (2) Hypokalemia Status: Acute (3) Acute on chronic diastolic (congestive) heart failure Status: Acute (4) Acute on chronic kidney failure Status: Acute (5) Leg wound, right Status: Chronic (6) Cellulitis of right leg Status: Chronic (7) Diabetes mellitus Status: Chronic (8) Tobacco dependence due to cigarettes Status: Chronic (9) Morbid obesity Status: Chronic (10) Peripheral arterial occlusive disease Status: Chronic (11) Stroke Status: Chronic (12) Osteoarthritis Status: Chronic (13) Muscle spasm Status: Chronic (14) Anxiety Status: Chronic (15) Diabetic polyneuropathy Status: Chronic (16) Coronary artery disease Status: Chronic (17) Hypoglycemia Status: Acute (18) Hyperlipidemia Status: Chronic Qualifiers: (19) Hypertension Status: Chronic Qualifiers: (20) Multiple personality disorder Status: Chronic (21) GERD (gastroesophageal reflux disease) Status: Chronic Qualifiers: (22) Multiple sclerosis Status: Chronic (23) Edema Status: Chronic Qualifiers: (24) Hypothyroidism Status: Chronic Qualifiers: History of Present Illness Date of Admission: 10/03/18 Chief Complaint: Here for rehabilitation, strengthening, prior to discharge home alone. The patient is a 48 year old Female with below past medical history presented to [facility] Emergency Department 09/30/2018 with confusion, low blood sugars. Unable to stay awake. Lives alone, recently discharged from [facility]. Recent right lower extremity deep laceration stapled. Right lower extremity infected treated with oral Keflex, then IV antibiotics. Debrided at [facility]. On IV antibiotics Q8H at home for 4 more days. Bumex for fluid retention. Blood sugar 49 by squad. Amp D50 given. EKG showed bradycardia with rate 42, no sign of STEMI. Hemoglobin 9.5, K 3.2, Glucose 33, BUN 58, Creatinine 2.6. 09/30/2018 Admit to Hospital. Hold diabetes medications for hypoglycemia. IV Meropenem for right lower extremity cellulitis. Replace potassium. Gentle IV fluids for acute kidney injury. 10/02/2018 Encephalopathy resolved. IV Lasix 40MG daily for acute on chronic diastolic congestive heart failure, BNP elevated, patient felt bloated. Heart rate improved off Metoprolol. Cr 2.48, not at baseline. 10/03/2018 Admit to TCU with debility, here for rehabilitation, strengthening, prior to discharge home alone. Past Medical History Past Medical History (Chronic Problems): Chronic Problems (Last Reviewed 03/24/18 @ 15:20 by Gilda Zhang) Leg wound, right (Chronic) Cellulitis of right leg (Chronic) Diabetes mellitus (Chronic) Tobacco dependence due to cigarettes (Chronic) Morbid obesity (Chronic) Peripheral arterial occlusive disease (Chronic) Stroke (Chronic) Osteoarthritis (Chronic) Muscle spasm (Chronic) Anxiety (Chronic) Diabetic polyneuropathy (Chronic) Coronary artery disease (Chronic) Pressure ulcer of right buttock, stage 2 (Chronic) Hyperlipidemia (Chronic) Hypertension (Chronic) Type 2 diabetes mellitus (Chronic) Tobacco use disorder (Chronic) Multiple personality disorder (Chronic) Morbid obesity with body mass index of 40.0-49.9 (Chronic) Chronic back pain (Chronic) Tobacco abuse counseling (Chronic) Swelling of lower extremity (Chronic) Edema of both legs (Chronic) Lymphedema of leg (Chronic) GERD (gastroesophageal reflux disease) (Chronic) Multiple sclerosis (Chronic) CKD (chronic kidney disease) stage 4, GFR 15-29 ml/min (Chronic) PAD (peripheral artery disease) (Chronic) History of CVA (cerebrovascular accident) (Chronic) History of DVT (deep vein thrombosis) (Chronic) Psoriasis (Chronic) CHF (congestive heart failure) (Chronic) Edema (Chronic) Hypothyroidism (Chronic) Essential (primary) hypertension (Chronic) Atherosclerotic heart disease of [place] coronary artery without angina pectoris (Chronic) Medical History: Medical History (Last Reviewed 03/24/18 @ 15:20 by Gilda Zhang) Hyperlipidemia (Chronic) E78.5 Hypertension (Chronic) I10 Type 2 diabetes mellitus (Chronic) E11.9 Tobacco use disorder (Chronic) F17.200 Multiple personality disorder (Chronic) F44.81 Morbid obesity with body mass index of 40.0-49.9 (Chronic) E66.01 Chronic back pain (Chronic) M54.9, G89.29 Tobacco abuse counseling (Chronic) Z71.6 Swelling of lower extremity (Chronic) M79.89 Edema of both legs (Chronic) R60.0 Lymphedema of leg (Chronic) I89.0 GERD (gastroesophageal reflux disease) (Chronic) K21.9 Multiple sclerosis (Chronic) G35 CKD (chronic kidney disease) stage 4, GFR 15-29 ml/min (Chronic) N18.4 PAD (peripheral artery disease) (Chronic) I73.9 History of CVA (cerebrovascular accident) (Chronic) Z86.73 History of DVT (deep vein thrombosis) (Chronic) Z86.718 Psoriasis (Chronic) L40.9 CHF (congestive heart failure) (Chronic) I50.9 Edema (Chronic) R60.9 Hypothyroidism (Chronic) E03.9 Essential (primary) hypertension (Chronic) I10 Atherosclerotic heart disease of [place] coronary artery without angina pectoris (Chronic) I25.10 Hyperlipidemia E78.5 Type 2 diabetes mellitus E11.9 Allergies latex Allergy (Verified 09/30/18 06:25) Rash Penicillins Allergy (Verified 09/30/18 06:25) Unknown venom-honey bee [bee venom (honey bee)] Allergy (Verified 09/30/18 06:25) Unknown kidney beans Allergy (Intermediate, Uncoded 09/30/18 06:25) Hives IV DYE Allergy (Uncoded 09/30/18 06:25) Unknown Home Medications: Ambulatory Orders Medication Instructions Recorded Tizanidine HCl [Zanaflex] 4 mg PO Q8H PRN PRN 07/03/14 ALPRAZolam [Xanax] 0.25 mg PO BID 05/20/17 amitriptyline 50 mg tablet 100 mg PO QHS tab 08/23/17 aspirin 81 mg tablet,delayed 81 mg PO DAILY 08/23/17 release Gabapentin [Neurontin] 1,800 mg PO BID 01/01/18 Liraglutide [Victoza] 0.12 mg SQ DAILY 01/01/18 proCHLORPERazine suppository 50 mg RECTAL DAILY PRN PRN 01/01/18 [Compazine suppository] nitroglycerin 0.4 mg sublingual 0.4 mg SUBLINGUAL Q5-15M PRN 03/24/18 tablet Thyroid,Pork [Rubber Press Operator Thyroid] 120 mg PO UD 09/19/18 Thyroid,Pork [Rubber Press Operator Thyroid] 240 mg PO UD 09/19/18 Albuterol Aerosols [Ventolin 2.5 mg INHALATION Q4H PRN PRN 09/30/18 Aerosols] Insulin Detemir [Levemir] 10 unit SQ QHS 10/03/18 Insulin Lispro [Humalog KwikPen] See Protocol SC ACHS 10/03/18 Meropenem [Merrem] 500 mg IV Q12 10/03/18 Metoprolol Tartrate [Lopressor 12.5 mg PO BID 10/03/18 (beta rose)] Oxycodone HCl/Acetaminophen 2 tab PO Q4H PRN PRN #10 tab 10/03/18 [Oxycodone-Acetaminophen 5-325] Ranolazine [Ranexa] 1,000 mg PO BID 10/03/18 Surgical History: Surgical History (Last Updated 08/18/18 @ 15:46 by Marbella Nagy) H/O hand surgery Z98.890 X 4 History of appendectomy Z90.49 History of back surgery Z98.890 History of cholecystectomy Z90.49 History of partial hysterectomy Z90.711 History of partial mastectomy of both breasts Z90.13 History of tonsillectomy Z90.89 History of vein stripping Z98.890 Surgical History: appendectomy, cholecystectomy, hysterectomy - Partial., mastectomy - Partial bilateral., tonsillectomy, - - Bilateral lower extremity vein stripping, lumbar surgery ?4, and bilateral carpal tunnel release. The patient is a Ab0. Her only two live births succumbed shortly following . Psychiatric History: Anxiety, Depression, - - Multiple personality disorder. 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: No pertinent SERVICE COORDINATOR [facility] history Lives: Alone Smoking Status: Current every day smoker Tobacco Use: Cigarettes Alcohol: Occasional Drugs: None - *Family History Maternal Family History: Family History (Last Reviewed 08/18/18 @ 15:46 by Marbella Nagy) Mother CAD (coronary artery disease) History Items: Diabetes, Heart Disease, No pertinent history, - - Hypothyroid Paternal Family History: Family History (Last Reviewed 08/18/18 @ 15:46 by Marbella Nagy) Mother CAD (coronary artery disease) History Items: Cancer, - - The patient's mother had a history of emphysema, COPD, coronary artery disease, diabetes mellitus, dementia, and Parkinson's disease. Patient's mother at age of 67. Review of Systems Constitutional: Denies: Chills, Fever, Weight Change HEENT: Denies: Head Aches, Sinus Congestion, Sinus Drainage Cardiovascular: Denies: Chest Pain, Palpitations Respiratory: Denies: Cough, Shortness of breath at rest, Sputum production Gastrointestinal: Denies: Abdominal Pain, Nausea, Vomiting Genitourinary: Denies: Dysuria Musculoskeletal: Denies: Joint Pain, Joint Tenderness Skin: Denies: Rash, Wounds Neurological: Denies: Numbness, Tingling, Focal weakness Psychiatric: Denies: Anxiety, Depression, Homicidal Ideations, Suicidal Ideations Hematologic/ Lymphatic: Denies: Easy Bruising, Easy Bleeding VTE Information - Inpt Only VTE Present on Admission: No VTE Mechan Device Prophylaxis: Knee High ROSA Hose VTE Pharm Prophylaxis ordered?: Yes Patient Problems: Active and Suspected Problems (Last Reviewed 03/24/18 @ 15:20 by Gilda Zhang) Encephalopathy (Acute) Hypokalemia (Acute) Acute on chronic diastolic (congestive) heart failure (Acute) Acute on chronic kidney failure (Acute) - Physical Exam General: Alert, Oriented x3, Cooperative HEENT: Atraumatic, PERRLA, EOMI, Normocephalic Neck: Supple, No JVD, Negative Carotid Bruits Lungs: Clear to auscultation, Normal air movement Cardiovascular: Regular rate, No murmurs Abdomen: Bowel Sounds Present, Soft, Non Tender Extremities: No edema, Capillary Refill Less than 3 Seconds Skin: Ulcer/ Wound - Right lower extremity wound vac., Rash Present - Psoriatic rash bilateral elbows. Musculoskeletal: No Tenderness to Palpation of Joints or Extremities Neurological: Cranial nerves II-XII grossly intact Psych/Mental Status: Normal Affect, Appropriate Weight: 131.043 kg Body Mass Index (BMI) 56.4 Finger Stick Blood Glucose 86 Assessment/Plan All Active Problems (Last Reviewed 03/24/18 @ 15:20 by Gilda Zhang) Cellulitis (Acute) LE (acute kidney injury) (Acute) Hypoglycemia (Acute) Encephalopathy (Acute) Hypokalemia (Acute) Acute on chronic diastolic (congestive) heart failure (Acute) Acute on chronic kidney failure (Acute) 48 year old female with below past medical history hospitalized for encephalopathy secondary to persistent hypoglycemia, complicated by acute on chronic diastolic heart failure, acute on chronic kidney failure, hypokalemia, bradycardia, admitted to TCU with debility, here for rehabilitation, strengthening, prior to discharge home alone. Debility - PT/OT. Dysphagia - ST. Pain - Tylenol 1000MG Q6H PRN mild pain, Oxycodone 10MG Q4H PRN moderate pain. Bowel - Miralax 17GM daily, Senna/colace 2 tablets BID, Dulcolax 10MG PO daily PRN. Pneumonia vaccination - Administer Pneumovax 23 as appropriate. DVT prophylaxis - Lovenox 30MG SC daily. Shortness of Breath - Albuterol 2.5MG Q4H PRN. Anxiety - Xanax 0.25MG BID, resident doing well with chronic mcfp use, GDR clinically contraindicated. Diabetic polyneuropathy - Elavil 100MG QHS, Gabapentin 1800MG BID, both [place] List medications but resident stable with chronic intermediate frame tender use, GDR clinically contraindicated. Coronary Artery Disease - Metoprolol 12.5MG BID, Ranexa 1000MG BID, Aspirin 81MG daily, NTG 0.4MG SL Q5M PRN chest pain. Diabetes Mellitus II - Lantus 10 units QHS, Victoza 1.2MG daily (GLP1 agonist do not typically cause hypoglycemia). Cellulitis right lower extremity - Meropenem 500MG IV Q12H, ?stop date. Right lower extremity wound - [place] 1 packet twice daily. Chronic nausea - Compazine 50MG [place] daily PRN. Hypothyroidism - [place] Thyroid 120MG 5days/week, 240MG 2days/week. Muscle spasm - Tizanidine 4MG Q8H PRN. Psoriasis - Hydrocortisone cream 2.5% twice daily.
--- NOTE | 2018-10-03 21:04 | HP.PCM_ITS ---
Problem List (1) Encephalopathy Status: Acute (2) Hypokalemia Status: Acute (3) Acute on chronic diastolic (congestive) heart failure Status: Acute (4) Acute on chronic kidney failure Status: Acute (5) Leg wound, right Status: Chronic (6) Cellulitis of right leg Status: Chronic (7) Diabetes mellitus Status: Chronic (8) Tobacco dependence due to cigarettes Status: Chronic (9) Morbid obesity Status: Chronic (10) Peripheral arterial occlusive disease Status: Chronic (11) Stroke Status: Chronic (12) Osteoarthritis Status: Chronic (13) Muscle spasm Status: Chronic (14) Anxiety Status: Chronic (15) Diabetic polyneuropathy Status: Chronic (16) Coronary artery disease Status: Chronic (17) Hypoglycemia Status: Acute (18) Hyperlipidemia Status: Chronic Qualifiers: (19) Hypertension Status: Chronic Qualifiers: (20) Multiple personality disorder Status: Chronic (21) GERD (gastroesophageal reflux disease) Status: Chronic Qualifiers: (22) Multiple sclerosis Status: Chronic (23) Edema Status: Chronic Qualifiers: (24) Hypothyroidism Status: Chronic Qualifiers: History of Present Illness Date of Admission: 10/03/18 Chief Complaint: Here for rehabilitation, strengthening, prior to discharge home alone. The patient is a 48 year old Female with below past medical history presented to [facility] Emergency Department 09/30/2018 with confusion, low blood sugars. Unable to stay awake. Lives alone, recently discharged from [facility]. Recent right lower extremity deep laceration stapled. Right lower extremity infected treated with oral Keflex, then IV antibiotics. Debrided at [facility]. On IV antibiotics Q8H at home for 4 more days. Bumex for fluid retention. Blood sugar 49 by squad. Amp D50 given. EKG showed bradycardia with rate 42, no sign of STEMI. Hemoglobin 9.5, K 3.2, Glucose 33, BUN 58, Creatinine 2.6. 09/30/2018 Admit to Hospital. Hold diabetes medications for hypoglycemia. IV Meropenem for right lower extremity cellulitis. Replace potassium. Gentle IV fluids for acute kidney injury. 10/02/2018 Encephalopathy resolved. IV Lasix 40MG daily for acute on chronic diastolic congestive heart failure, BNP elevated, patient felt bloated. Heart rate improved off Metoprolol. Cr 2.48, not at baseline. 10/03/2018 Admit to TCU with debility, here for rehabilitation, strengthening, prior to discharge home alone. Past Medical History Past Medical History (Chronic Problems): Chronic Problems (Last Reviewed 03/24/18 @ 15:20 by Gilda Zhang) Leg wound, right (Chronic) Cellulitis of right leg (Chronic) Diabetes mellitus (Chronic) Tobacco dependence due to cigarettes (Chronic) Morbid obesity (Chronic) Peripheral arterial occlusive disease (Chronic) Stroke (Chronic) Osteoarthritis (Chronic) Muscle spasm (Chronic) Anxiety (Chronic) Diabetic polyneuropathy (Chronic) Coronary artery disease (Chronic) Pressure ulcer of right buttock, stage 2 (Chronic) Hyperlipidemia (Chronic) Hypertension (Chronic) Type 2 diabetes mellitus (Chronic) Tobacco use disorder (Chronic) Multiple personality disorder (Chronic) Morbid obesity with body mass index of 40.0-49.9 (Chronic) Chronic back pain (Chronic) Tobacco abuse counseling (Chronic) Swelling of lower extremity (Chronic) Edema of both legs (Chronic) Lymphedema of leg (Chronic) GERD (gastroesophageal reflux disease) (Chronic) Multiple sclerosis (Chronic) CKD (chronic kidney disease) stage 4, GFR 15-29 ml/min (Chronic) PAD (peripheral artery disease) (Chronic) History of CVA (cerebrovascular accident) (Chronic) History of DVT (deep vein thrombosis) (Chronic) Psoriasis (Chronic) CHF (congestive heart failure) (Chronic) Edema (Chronic) Hypothyroidism (Chronic) Essential (primary) hypertension (Chronic) Atherosclerotic heart disease of [place] coronary artery without angina pectoris (Chronic) Medical History: Medical History (Last Reviewed 03/24/18 @ 15:20 by Gilda Zhang) Hyperlipidemia (Chronic) E78.5 Hypertension (Chronic) I10 Type 2 diabetes mellitus (Chronic) E11.9 Tobacco use disorder (Chronic) F17.200 Multiple personality disorder (Chronic) F44.81 Morbid obesity with body mass index of 40.0-49.9 (Chronic) E66.01 Chronic back pain (Chronic) M54.9, G89.29 Tobacco abuse counseling (Chronic) Z71.6 Swelling of lower extremity (Chronic) M79.89 Edema of both legs (Chronic) R60.0 Lymphedema of leg (Chronic) I89.0 GERD (gastroesophageal reflux disease) (Chronic) K21.9 Multiple sclerosis (Chronic) G35 CKD (chronic kidney disease) stage 4, GFR 15-29 ml/min (Chronic) N18.4 PAD (peripheral artery disease) (Chronic) I73.9 History of CVA (cerebrovascular accident) (Chronic) Z86.73 History of DVT (deep vein thrombosis) (Chronic) Z86.718 Psoriasis (Chronic) L40.9 CHF (congestive heart failure) (Chronic) I50.9 Edema (Chronic) R60.9 Hypothyroidism (Chronic) E03.9 Essential (primary) hypertension (Chronic) I10 Atherosclerotic heart disease of [place] coronary artery without angina pectoris (Chronic) I25.10 Hyperlipidemia E78.5 Type 2 diabetes mellitus E11.9 Allergies latex Allergy (Verified 09/30/18 06:25) Rash Penicillins Allergy (Verified 09/30/18 06:25) Unknown venom-honey bee [bee venom (honey bee)] Allergy (Verified 09/30/18 06:25) Unknown kidney beans Allergy (Intermediate, Uncoded 09/30/18 06:25) Hives IV DYE Allergy (Uncoded 09/30/18 06:25) Unknown Home Medications: Ambulatory Orders Medication Instructions Recorded Tizanidine HCl [Zanaflex] 4 mg PO Q8H PRN PRN 07/03/14 ALPRAZolam [Xanax] 0.25 mg PO BID 05/20/17 amitriptyline 50 mg tablet 100 mg PO QHS tab 08/23/17 aspirin 81 mg tablet,delayed 81 mg PO DAILY 08/23/17 release Gabapentin [Neurontin] 1,800 mg PO BID 01/01/18 Liraglutide [Victoza] 0.12 mg SQ DAILY 01/01/18 proCHLORPERazine suppository 50 mg RECTAL DAILY PRN PRN 01/01/18 [Compazine suppository] nitroglycerin 0.4 mg sublingual 0.4 mg SUBLINGUAL Q5-15M PRN 03/24/18 tablet Thyroid,Pork [[employer] Thyroid] 120 mg PO UD 09/19/18 Thyroid,Pork [[employer] Thyroid] 240 mg PO UD 09/19/18 Albuterol Aerosols [Ventolin 2.5 mg INHALATION Q4H PRN PRN 09/30/18 Aerosols] Insulin Detemir [Levemir] 10 unit SQ QHS 10/03/18 Insulin Lispro [Humalog KwikPen] See Protocol SC ACHS 10/03/18 Meropenem [Merrem] 500 mg IV Q12 10/03/18 Metoprolol Tartrate [Lopressor 12.5 mg PO BID 10/03/18 (beta rose)] Oxycodone HCl/Acetaminophen 2 tab PO Q4H PRN PRN #10 tab 10/03/18 [Oxycodone-Acetaminophen 5-325] Ranolazine [Ranexa] 1,000 mg PO BID 10/03/18 Surgical History: Surgical History (Last Updated 08/18/18 @ 15:46 by Marbella Nagy) H/O hand surgery Z98.890 X 4 History of appendectomy Z90.49 History of back surgery Z98.890 History of cholecystectomy Z90.49 History of partial hysterectomy Z90.711 History of partial mastectomy of both breasts Z90.13 History of tonsillectomy Z90.89 History of vein stripping Z98.890 Surgical History: appendectomy, cholecystectomy, hysterectomy - Partial., mastectomy - Partial bilateral., tonsillectomy, - - Bilateral lower extremity vein stripping, lumbar surgery ?4, and bilateral carpal tunnel release. The patient is a Ab0. Her only two live births succumbed shortly following . Psychiatric History: Anxiety, Depression, - - Multiple personality disorder. [employer] History: No pertinent [employer] history Lives: Alone Smoking Status: Current every day smoker Tobacco Use: Cigarettes Alcohol: Occasional Drugs: None - *Family History Maternal Family History: Family History (Last Reviewed 08/18/18 @ 15:46 by Marbella Nagy) Mother CAD (coronary artery disease) History Items: Diabetes, Heart Disease, No pertinent history, - - Hypothyroid Paternal Family History: Family History (Last Reviewed 08/18/18 @ 15:46 by aMrbella Nagy) Mother CAD (coronary artery disease) History Items: Cancer, - - The patient's mother had a history of emphysema, COPD, coronary artery disease, diabetes mellitus, dementia, and Parkinson's disease. Patient's mother at age of 67. Review of Systems Constitutional: Denies: Chills, Fever, Weight Change HEENT: Denies: Head Aches, Sinus Congestion, Sinus Drainage Cardiovascular: Denies: Chest Pain, Palpitations Respiratory: Denies: Cough, Shortness of breath at rest, Sputum production Gastrointestinal: Denies: Abdominal Pain, Nausea, Vomiting Genitourinary: Denies: Dysuria Musculoskeletal: Denies: Joint Pain, Joint Tenderness Skin: Denies: Rash, Wounds Neurological: Denies: Numbness, Tingling, Focal weakness Psychiatric: Denies: Anxiety, Depression, Homicidal Ideations, Suicidal Ideations Hematologic/ Lymphatic: Denies: Easy Bruising, Easy Bleeding VTE Information - Inpt Only VTE Present on Admission: No VTE Mechan Device Prophylaxis: Knee High ROSA Hose VTE Pharm Prophylaxis ordered?: Yes Patient Problems: Active and Suspected Problems (Last Reviewed 03/24/18 @ 15:20 by Gilda Zhang) Encephalopathy (Acute) Hypokalemia (Acute) Acute on chronic diastolic (congestive) heart failure (Acute) Acute on chronic kidney failure (Acute) - Physical Exam General: Alert, Oriented x3, Cooperative HEENT: Atraumatic, PERRLA, EOMI, Normocephalic Neck: Supple, No JVD, Negative Carotid Bruits Lungs: Clear to auscultation, Normal air movement Cardiovascular: Regular rate, No murmurs Abdomen: Bowel Sounds Present, Soft, Non Tender Extremities: No edema, Capillary Refill Less than 3 Seconds Skin: Ulcer/ Wound - Right lower extremity wound vac., Rash Present - Psoriatic rash bilateral elbows. Musculoskeletal: No Tenderness to Palpation of Joints or Extremities Neurological: Cranial nerves II-XII grossly intact Psych/Mental Status: Normal Affect, Appropriate Weight: 131.043 kg Body Mass Index (BMI) 56.4 Finger Stick Blood Glucose 86 Assessment/Plan All Active Problems (Last Reviewed 03/24/18 @ 15:20 by Gilda Zhang) Cellulitis (Acute) LE (acute kidney injury) (Acute) Hypoglycemia (Acute) Encephalopathy (Acute) Hypokalemia (Acute) Acute on chronic diastolic (congestive) heart failure (Acute) Acute on chronic kidney failure (Acute) 48 year old female with below past medical history hospitalized for encephalopathy secondary to persistent hypoglycemia, complicated by acute on chronic diastolic heart failure, acute on chronic kidney failure, hypokalemia, bradycardia, admitted to TCU with debility, here for rehabilitation, strengthening, prior to discharge home alone. * Debility - PT/OT. * Dysphagia - ST. * Pain - Tylenol 1000MG Q6H PRN mild pain, Oxycodone 10MG Q4H PRN moderate pain. * Bowel - Miralax 17GM daily, Senna/colace 2 tablets BID, Dulcolax 10MG PO daily PRN. * Pneumonia vaccination - Administer Pneumovax 23 as appropriate. * DVT prophylaxis - Lovenox 30MG SC daily. * Shortness of Breath - Albuterol 2.5MG Q4H PRN. * Anxiety - Xanax 0.25MG BID, resident doing well with chronic detention use, GDR clinically contraindicated. * Diabetic polyneuropathy - Elavil 100MG QHS, Gabapentin 1800MG BID, both [place] medications but resident stable with chronic manager long term care use, GDR clinically contraindicated. * Coronary Artery Disease - Metoprolol 12.5MG BID, Ranexa 1000MG BID, Aspirin 81MG daily, NTG 0.4MG SL Q5M PRN chest pain. * Diabetes Mellitus II - Lantus 10 units QHS, Victoza 1.2MG daily (GLP1 agonist do not typically cause hypoglycemia). * Cellulitis right lower extremity - Meropenem 500MG IV Q12H, ?stop date. * Right lower extremity wound - Osiel 1 packet twice daily. * Chronic nausea - Compazine 50MG LA daily PRN. * Hypothyroidism - [place] Thyroid 120MG 5days/week, 240MG 2days/week. * Muscle spasm - Tizanidine 4MG Q8H PRN. * Psoriasis - Hydrocortisone cream 2.5% twice daily.
[2018-10-03 21:15] LABS: Bedside Glucose 235 mg/dL (70-110)
[2018-10-03] MEDS: Amitriptyline 100 MG Tablet PO (21:21)
[2018-10-03] MEDS: Menthol/Lanolin/Calamine/Znox 113 GM Tube 1 APPLIC TOPICAL (22:07)
[2018-10-03] MEDS: Nystatin Powder 15gm Bottle 1 APPLIC TOPICAL (22:08)
[2018-10-04] MEDS: 0.9% NaCl PICC Flush 10 ML IV (05:49)
[2018-10-04 05:54] VITALS: BP 120/71; PULSE 84
[2018-10-04] MEDS: Metoprolol Tartrate 25 MG Tablet 12.5 MG PO (05:54)
[2018-10-04] MEDS: Gabapentin 600 MG Tablet 1800 MG PO (05:54)
[2018-10-04] MEDS: Ranolazine 500 MG Tablet 1000 MG PO (05:54)
[2018-10-04] MEDS: Nystatin Powder 15gm Bottle 1 APPLIC TOPICAL (05:55)
[2018-10-04] MEDS: Menthol/Lanolin/Calamine/Znox 113 GM Tube 1 APPLIC TOPICAL (05:55)
[2018-10-04] MEDS: Enoxaparin 30 MG/0.3 ML Syringe SC (05:57)
[2018-10-04 06:02] LABS: Absolute Lymphocyte Count 0.75 X10^3/ul (0.83-4.51); Absolute Neutrophil Count 12.1 X10^3/uL (2.0-7.7); Basophil# 0.03 X10^3/uL; Basophil% 0.2 % (0-1); Eosinophils% 1.4 % (0-5); Hematocrit 27.3 % (37-47); Hemoglobin 8.3 g/dl (12.0-15.0); Lymphocyte # 0.75 X10^3/ul (4.0); Lymphocyte % 5.3 % (19-41); Mean Corp Hgb Conc 30.4 g/gl (32-36); Mean Corpuscular Volume 101.9 fL (81-99); Mean Platelet Vol. 9.9 fl (6.2-12.0); Monocyte# 1.02 X10^3/uL; Monocyte% 7.2 % (0-10); Neutrophil # 12.13 X10^3/uL (2.7-7.7); Neutrophil % 85.5 % (47-70); Platelet Count 230 K/mm3 (150-450); RBC Distribution Width CV 14.2 % (11.6-14.6); RBC Distribution Width SD 51.2 fl (35.1-43.9); Red Blood Count 2.68 M/mm3 (4.2-5.4); White Blood Count 14.2 K/mm3 (4.4-11.0)
[2018-10-04 06:05] LABS: Bedside Glucose 301 mg/dL (70-110)
[2018-10-04 06:14] LABS: POSITIVE COUNT NO; POSITIVE DIFFERENTIAL NO; POSITIVE MORPHOLOGY NO
[2018-10-04 06:15] LABS: Anion Gap 5 (5-15); BUN 61 mg/dL (7-18); BUN/Creat Ratio 26.5 RATIO (10-20); Calcium,Total 8.4 mg/dL (8.5-10.1); Chloride 108 mmol/L (98-107); EST Glomerular Filtration Rate 24 mL/min (>60); Est Glom Filt Rate - Afr Amer 29 mL/min (>60); Estimated Creatinine Clearance 21.02 ml/min; Glucose 299 mg/dL (74-106); Potassium 5.2 mmol/L (3.5-5.1); Sodium Level 139 mmol/L (136-145)
[2018-10-04] MEDS: oxyCODONE 5 MG Tablet 10 MG PO (08:12)
[2018-10-04] MEDS: Aspirin E.C. 81 MG Tablet PO (08:13)
[2018-10-04 09:30] VITALS: O2SAT 92
[2018-10-04] MEDS: Iron Polysaccharide Complex 150 MG CAPSULE PO (09:31)
[2018-10-04] MEDS: ALPRAZolam 0.25 MG Tablet PO (09:31)
[2018-10-04] MEDS: Sodium Polystyrene Sulfonate 15 GM/60 ML UDC 30 GM PO (09:38)
[2018-10-04] MEDS: Thyroid 60 MG Tablet 120 MG PO (09:50)
[2018-10-04] MEDS: Tuberculin,Purif.prot.deriv. 50 TU/ML Vial 5 ML ID (09:51)
[2018-10-04 10:41] LABS: Bedside Glucose 315 mg/dL (70-110)
--- NOTE | 2018-10-04 11:01 | PCM.PN.RX ---
<Cachorro Orozco D - Last Filed: 10/04/18 11:01> Progress Note - Pharmacy Subjective: TCU Admission Objective: Allergies latex Allergy (Verified 09/30/18 06:25) Rash Penicillins Allergy (Verified 09/30/18 06:25) Unknown venom-honey bee [bee venom (honey bee)] Allergy (Verified 09/30/18 06:25) Unknown kidney beans Allergy (Intermediate, Uncoded 09/30/18 06:25) Hives IV DYE Allergy (Uncoded 09/30/18 06:25) Unknown Current Medications Generic Name Dose Route Start Last Admin Trade Name Freq PRN Reason Stop Dose Admin Acetaminophen 1,000 mg 10/03/18 21:22 Tylenol PO Q6H PRN PRN MILD PAIN (-11/27) Albuterol Sulfate 2.5 mg 10/03/18 18:51 Ventolin Aerosols INHALATION Q4H PRN PRN wheezing/SOB Alprazolam 0.25 mg 10/04/18 06:00 10/04/18 09:31 Xanax PO 0.25 mg BID VERA Administration Amitriptyline HCl 100 mg 10/03/18 22:00 10/03/18 21:21 Elavil PO 100 mg QHS VERA Administration Aspirin 81 mg 10/04/18 08:00 10/04/18 08:13 Ecotrin PO 81 mg DAILY@0800 VERA Administration Bisacodyl 10 mg 10/03/18 21:23 Dulcolax PO DAILY PRN Constipation Calamine/Phenol 1 applic 10/03/18 22:00 10/04/18 05:55 Calmoseptine Ointment TOPICAL 1 applicatio 0600,2200 VERA Administration Protocol Enoxaparin Sodium 30 mg 10/04/18 06:00 10/04/18 05:57 Lovenox SC 30 mg DAILY@0600 VERA Administration Gabapentin 1,800 mg 10/04/18 06:00 10/04/18 05:54 Neurontin PO 1,800 mg BID VERA Administration Hydrocortisone 1 applic 10/04/18 18:00 Hytone TOPICAL BID VERA Protocol Meropenem 500 mg/ Sodium 60 mls @ 100 mls/hr 10/03/18 19:35 10/04/18 05:48 Chloride IV 100 mls/hr Q12 VERA Administration Sodium Chloride 250 mls @ 15 mls/hr 10/03/18 20:00 10/03/18 20:12 IV 15 mls/hr .[id number] PRN Administration SALINE FLUSH Insulin Glargine 5 units 10/04/18 18:00 Lantus ([facility]) SC BID [facility] Insulin Human Lispro 3 unit 10/04/18 11:45 Humalog Kwikpen ([facility]) SC TIDAC [facility] Metoprolol Tartrate 12.5 mg 10/04/18 06:00 10/04/18 05:54 Lopressor (Beta Murtaza) PO 12.5 mg BID [facility] Administration Multi-Ingredient Cream 1 applic 10/03/18 22:00 10/04/18 06:01 Eucerin TOPICAL 1 applicatio 0600,2200 [facility] Administration Protocol Nitroglycerin 0.4 mg 10/03/18 18:51 Nitrostat SUBLINGUAL .Q5-15M PRN chest pain Nutritional Formula 1 packet 10/04/18 08:00 10/04/18 08:13 Osiel - [place] Flavor PO 1 packet BIDCM [facility] Administration Nystatin 1 applic 10/03/18 22:00 10/04/18 05:55 Mycostatin Powder TOPICAL 1 applicatio 0600,2200 [facility] Administration Protocol Oxycodone HCl 10 mg 10/03/18 21:24 10/04/18 08:12 Oxyir PO 10 mg Q4H PRN PRN Administration MODERATE PAIN (4-5/10) Polyethylene Glycol 17 gm 10/04/18 06:00 10/04/18 05:55 Miralax PO Not Given DAILY [facility] Polysaccharide Iron Complex 150 mg 10/04/18 08:00 10/04/18 09:31 Ferrex 150 PO 150 mg DAILYCM [facility] Administration Prochlorperazine Maleate 50 mg 10/03/18 18:51 Compazine Suppository RECTAL DAILY PRN PRN MIGRAINE SYMPTOMS Ranolazine 1,000 mg 10/04/18 06:00 10/04/18 05:54 Ranexa PO 1,000 mg BID [facility] Administration Senna/Docusate Sodium 2 tablet 10/04/18 06:00 10/04/18 05:56 Senokot-S, Cristina-Colace PO Not Given BID [facility] Sodium Chloride 10 ml 10/03/18 20:00 10/04/18 05:49 IV 10 ml UD PRN Administration PICC FLUSH Thyroid 120 mg 10/04/18 10:00 10/04/18 09:50 [place] Thyroid PO 120 mg MOTUWETHFR@1000 VERA Administration Thyroid 240 mg 10/08/18 10:00 [place] Thyroid PO SUSA@1000 VERA Tizanidine HCl 4 mg 10/03/18 18:51 Zanaflex PO Q8H PRN PRN SPASMS Tuberculin PPD 5 tu 10/11/18 10:00 Tubersol, Aplisol, Ppd ID 10/11/18 10:01 X1 ONE Problem List (Last Reviewed 03/24/18 @ 15:20 by Gilda Zhang) Encephalopathy (Acute) Hypokalemia (Acute) Acute on chronic diastolic (congestive) heart failure (Acute) Acute on chronic kidney failure (Acute) Leg wound, right (Chronic) Cellulitis of right leg (Chronic) Diabetes mellitus (Chronic) Tobacco dependence due to cigarettes (Chronic) Morbid obesity (Chronic) Peripheral arterial occlusive disease (Chronic) Stroke (Chronic) Osteoarthritis (Chronic) Muscle spasm (Chronic) Anxiety (Chronic) Diabetic polyneuropathy (Chronic) Coronary artery disease (Chronic) Vital Signs Temp Pulse Resp BP Pulse Ox 97.4 F L 84 22 H 120/71 92 10/03/18 18:36 10/04/18 05:54 10/03/18 18:36 10/04/18 05:54 10/04/18 09:30 Oxygen Flow Rate (L/min) 2 Oxygen Delivery Method Nasal Cannula Weight: 131.043 kg Body Mass Index (BMI) 56.4 Finger Stick Blood Glucose 86 Sodium 139 mmol/L (136-145) 10/04/18 05:45 Potassium 5.2 mmol/L (3.5-5.1) H 10/04/18 05:45 Chloride 108 mmol/L (98-107) H 10/04/18 05:45 Carbon Dioxide 26.0 mmol/L (21.0-32.0) 10/04/18 05:45 Anion Gap 5 (5-15) 10/04/18 05:45 BUN 61 mg/dL (7-18) H 10/04/18 05:45 Creatinine 2.30 mg/dL (0.55-1.02) H 10/04/18 05:45 Est GFR (MDRD) Af Amer 29 mL/min (>60) L 10/04/18 05:45 Est GFR (MDRD) Non-Af 24 mL/min (>60) L 10/04/18 05:45 BUN/Creatinine Ratio 26.5 RATIO (10-20) H 10/04/18 05:45 Glucose 299 mg/dL (74-106) H 10/04/18 05:45 Assessment/Plan: 1) Pain APAP for mild pain, oxycodone for moderate pain, gabapentin & amitriptyline for neuropathy, tizanidine for spasms, prochlorperazine for migraine. Continue to monitor daily pain scores, prn medication use. GDR addressed by primary physician. 2) DM2 Insulin glargine twice daily, lispro with meals, liraglutide. Continue to monitor BGT, s/s hyper/hypoglycemia. 3) Hypothyroidism [place] Thyroid daily. Continue to monitor s/s hyper/hypothyroidism. * 4) CAD ASA, metoprolol, ranolazine, prn ntg. Continue to monitor BP/HR, prn medication use, for chest pain. * When patient was admitted to PCU her HR was in the 30s and 40s. HR returned to WNL by holding and not receiving during her admission, but it was resumed from the home list upon discharge. Please clarify if metoprolol should be restarted, patient received her first dose this morning. 5) ID Meropenem continued from postop order in [place] through 10/05. Continue to monitor s/s infection. 6) DVT PPx Enoxaparin daily. Continue to monitor for bleeding/clot. Psychotropic Medications: 7) Anxiety Alprazolam twice daily. GDR addressed by primary physician. Continue to monitor for anxiety. Unnecessary Medications: None Bowel Regimen: 8) Senna/s, PEG, prn bisacodyl. Continue to monitor prn medication use, for constipation/diarrhea. Date of Note:: 10/04/18 - Provider Comments Provider responsibility: Provider responsible to enter orders to implement recommendations <Marcos Stoner Chi - Last Filed: 10/04/18 17:51> Progress Note - Pharmacy Subjective: [] Objective: Allergies latex Allergy (Verified 09/30/18 06:25) Rash Penicillins Allergy (Verified 09/30/18 06:25) Unknown venom-honey bee [bee venom (honey bee)] Allergy (Verified 09/30/18 06:25) Unknown kidney beans Allergy (Intermediate, Uncoded 09/30/18 06:25) Hives IV DYE Allergy (Uncoded 09/30/18 06:25) Unknown Vital Signs Temp Pulse Resp BP Pulse Ox 97.4 F L 84 22 H 120/71 92 10/03/18 18:36 10/04/18 05:54 10/03/18 18:36 10/04/18 05:54 10/04/18 09:30 Oxygen Flow Rate (L/min) 2 Oxygen Delivery Method Nasal Cannula Weight: 131.043 kg Body Mass Index (BMI) 56.4 Finger Stick Blood Glucose 86 Sodium 139 mmol/L (136-145) 10/04/18 05:45 Potassium 5.2 mmol/L (3.5-5.1) H 10/04/18 05:45 Chloride 108 mmol/L (98-107) H 10/04/18 05:45 Carbon Dioxide 26.0 mmol/L (21.0-32.0) 10/04/18 05:45 Anion Gap 5 (5-15) 10/04/18 05:45 BUN 61 mg/dL (7-18) H 10/04/18 05:45 Creatinine 2.30 mg/dL (0.55-1.02) H 10/04/18 05:45 Est GFR (MDRD) Af Amer 29 mL/min (>60) L 10/04/18 05:45 Est GFR (MDRD) Non-Af 24 mL/min (>60) L 10/04/18 05:45 BUN/Creatinine Ratio 26.5 RATIO (10-20) H 10/04/18 05:45 Glucose 299 mg/dL (74-106) H 10/04/18 05:45 Assessment/Plan: Psychotropic Medications: Unnecessary Medications: Bowel Regimen: - Provider Comments Provider responsibility: Provider responsible to enter orders to implement recommendations Provider Comments to Recommendations by Pharmacy: Agree
--- NOTE | 2018-10-04 11:37 | PHA.CONS_ITS ---
<Cachorro Orozco D - Last Filed: 10/04/18 11:01> Progress Note - Pharmacy Subjective: TCU Admission Objective: Allergies latex Allergy (Verified 09/30/18 06:25) Rash Penicillins Allergy (Verified 09/30/18 06:25) Unknown venom-honey bee [bee venom (honey bee)] Allergy (Verified 09/30/18 06:25) Unknown kidney beans Allergy (Intermediate, Uncoded 09/30/18 06:25) Hives IV DYE Allergy (Uncoded 09/30/18 06:25) Unknown Current Medications Generic Name Dose Route Start Last Admin Trade Name Freq PRN Reason Stop Dose Admin Acetaminophen 1,000 mg 10/03/18 21:22 Tylenol PO Q6H PRN PRN MILD PAIN (-11/27) Albuterol Sulfate 2.5 mg 10/03/18 18:51 Ventolin Aerosols INHALATION Q4H PRN PRN wheezing/SOB Alprazolam 0.25 mg 10/04/18 06:00 10/04/18 09:31 Xanax PO 0.25 mg BID VERA Administration Amitriptyline HCl 100 mg 10/03/18 22:00 10/03/18 21:21 Elavil PO 100 mg QHS VERA Administration Aspirin 81 mg 10/04/18 08:00 10/04/18 08:13 Ecotrin PO 81 mg DAILY@0800 VERA Administration Bisacodyl 10 mg 10/03/18 21:23 Dulcolax PO DAILY PRN Constipation Calamine/Phenol 1 applic 10/03/18 22:00 10/04/18 05:55 Calmoseptine Ointment TOPICAL 1 applicatio 0600,2200 VERA Administration Protocol Enoxaparin Sodium 30 mg 10/04/18 06:00 10/04/18 05:57 Lovenox SC 30 mg DAILY@0600 VERA Administration Gabapentin 1,800 mg 10/04/18 06:00 10/04/18 05:54 Neurontin PO 1,800 mg BID VERA Administration Hydrocortisone 1 applic 10/04/18 18:00 Hytone TOPICAL BID VERA Protocol Meropenem 500 mg/ Sodium 60 mls @ 100 mls/hr 10/03/18 19:35 10/04/18 05:48 Chloride IV 100 mls/hr Q12 VERA Administration Sodium Chloride 250 mls @ 15 mls/hr 10/03/18 20:00 10/03/18 20:12 IV 15 mls/hr .[id number] PRN Administration SALINE FLUSH Insulin Glargine 5 units 10/04/18 18:00 Lantus ([facility]) SC BID [facility] Insulin Human Lispro 3 unit 10/04/18 11:45 Humalog Kwikpen ([facility]) SC TIDAC [facility] Metoprolol Tartrate 12.5 mg 10/04/18 06:00 10/04/18 05:54 Lopressor (Beta Murtaza) PO 12.5 mg BID [facility] Administration Multi-Ingredient Cream 1 applic 10/03/18 22:00 10/04/18 06:01 Eucerin TOPICAL 1 applicatio 0600,2200 [facility] Administration Protocol Nitroglycerin 0.4 mg 10/03/18 18:51 Nitrostat SUBLINGUAL .Q5-15M PRN chest pain Nutritional Formula 1 packet 10/04/18 08:00 10/04/18 08:13 Osiel [place] Flavor PO 1 packet BIDCM [facility] Administration Nystatin 1 applic 10/03/18 22:00 10/04/18 05:55 Mycostatin Powder TOPICAL 1 applicatio 0600,2200 [facility] Administration Protocol Oxycodone HCl 10 mg 10/03/18 21:24 10/04/18 08:12 Oxyir PO 10 mg Q4H PRN PRN Administration MODERATE PAIN (4-5/10) Polyethylene Glycol 17 gm 10/04/18 06:00 10/04/18 05:55 Miralax PO Not Given DAILY [facility] Polysaccharide Iron Complex 150 mg 10/04/18 08:00 10/04/18 09:31 Ferrex 150 PO 150 mg DAILYCM [facility] Administration Prochlorperazine Maleate 50 mg 10/03/18 18:51 Compazine Suppository RECTAL DAILY PRN PRN MIGRAINE SYMPTOMS Ranolazine 1,000 mg 10/04/18 06:00 10/04/18 05:54 Ranexa PO 1,000 mg BID [facility] Administration Senna/Docusate Sodium 2 tablet 10/04/18 06:00 10/04/18 05:56 Senokot-S, Cristina-Colace PO Not Given BID [facility] Sodium Chloride 10 ml 10/03/18 20:00 10/04/18 05:49 IV 10 ml UD PRN Administration PICC FLUSH Thyroid 120 mg 10/04/18 10:00 10/04/18 09:50 Eminence Thyroid PO 120 mg MOTUWETHFR@1000 VERA Administration Thyroid 240 mg 10/08/18 10:00 Eminence Thyroid PO SUSA@1000 VERA Tizanidine HCl 4 mg 10/03/18 18:51 Zanaflex PO Q8H PRN PRN SPASMS Tuberculin PPD 5 tu 10/11/18 10:00 Tubersol, Aplisol, Ppd ID 10/11/18 10:01 X1 ONE Problem List (Last Reviewed 03/24/18 @ 15:20 by Gilda Zhang) Encephalopathy (Acute) Hypokalemia (Acute) Acute on chronic diastolic (congestive) heart failure (Acute) Acute on chronic kidney failure (Acute) Leg wound, right (Chronic) Cellulitis of right leg (Chronic) Diabetes mellitus (Chronic) Tobacco dependence due to cigarettes (Chronic) Morbid obesity (Chronic) Peripheral arterial occlusive disease (Chronic) Stroke (Chronic) Osteoarthritis (Chronic) Muscle spasm (Chronic) Anxiety (Chronic) Diabetic polyneuropathy (Chronic) Coronary artery disease (Chronic) Vital Signs Temp Pulse Resp BP Pulse Ox 97.4 F L 84 22 H 120/71 92 10/03/18 18:36 10/04/18 05:54 10/03/18 18:36 10/04/18 05:54 10/04/18 09:30 Oxygen Flow Rate (L/min) 2 Oxygen Delivery Method Nasal Cannula Weight: 131.043 kg Body Mass Index (BMI) 56.4 Finger Stick Blood Glucose 86 Sodium 139 mmol/L (136-145) 10/04/18 05:45 Potassium 5.2 mmol/L (3.5-5.1) H 10/04/18 05:45 Chloride 108 mmol/L (98-107) H 10/04/18 05:45 Carbon Dioxide 26.0 mmol/L (21.0-32.0) 10/04/18 05:45 Anion Gap 5 (5-15) 10/04/18 05:45 BUN 61 mg/dL (7-18) H 10/04/18 05:45 Creatinine 2.30 mg/dL (0.55-1.02) H 10/04/18 05:45 Est GFR (MDRD) Af Amer 29 mL/min (>60) L 10/04/18 05:45 Est GFR (MDRD) Non-Af 24 mL/min (>60) L 10/04/18 05:45 BUN/Creatinine Ratio 26.5 RATIO (10-20) H 10/04/18 05:45 Glucose 299 mg/dL (74-106) H 10/04/18 05:45 Assessment/Plan: 1) Pain APAP for mild pain, oxycodone for moderate pain, gabapentin & amitriptyline for neuropathy, tizanidine for spasms, prochlorperazine for migraine. Continue to monitor daily pain scores, prn medication use. GDR addressed by primary physician. 2) DM2 Insulin glargine twice daily, lispro with meals, liraglutide. Continue to monitor BGT, s/s hyper/hypoglycemia. 3) Hypothyroidism Eminence Thyroid daily. Continue to monitor s/s hyper/hypothyroidism. * 4) CAD ASA, metoprolol, ranolazine, prn ntg. Continue to monitor BP/HR, prn medication use, for chest pain. * When patient was admitted to PCU her HR was in the 30s and 40s. HR returned to WNL by holding and not receiving during her admission, but it was resumed from the home list upon discharge. Please clarify if metoprolol should be restarted, patient received her first dose this morning. 5) ID Meropenem continued from postop order in [facility] through 10/05. Continue to monitor s/s infection. 6) DVT PPx Enoxaparin daily. Continue to monitor for bleeding/clot. Psychotropic Medications: 7) Anxiety Alprazolam twice daily. GDR addressed by primary physician. Continue to monitor for anxiety. Unnecessary Medications: None Bowel Regimen: 8) Senna/s, PEG, prn bisacodyl. Continue to monitor prn medication use, for constipation/diarrhea. Date of Note:: 10/04/18 - Provider Comments Provider responsibility: Provider responsible to enter orders to implement recommendations <Marcos Stoner Chi - Last Filed: 10/04/18 17:51> Progress Note - Pharmacy Subjective: [] Objective: Allergies latex Allergy (Verified 09/30/18 06:25) Rash Penicillins Allergy (Verified 09/30/18 06:25) Unknown venom-honey bee [bee venom (honey bee)] Allergy (Verified 09/30/18 06:25) Unknown kidney beans Allergy (Intermediate, Uncoded 09/30/18 06:25) Hives IV DYE Allergy (Uncoded 09/30/18 06:25) Unknown Vital Signs Temp Pulse Resp BP Pulse Ox 97.4 F L 84 22 H 120/71 92 10/03/18 18:36 10/04/18 05:54 10/03/18 18:36 10/04/18 05:54 10/04/18 09:30 Oxygen Flow Rate (L/min) 2 Oxygen Delivery Method Nasal Cannula Weight: 131.043 kg Body Mass Index (BMI) 56.4 Finger Stick Blood Glucose 86 Sodium 139 mmol/L (136-145) 10/04/18 05:45 Potassium 5.2 mmol/L (3.5-5.1) H 10/04/18 05:45 Chloride 108 mmol/L (98-107) H 10/04/18 05:45 Carbon Dioxide 26.0 mmol/L (21.0-32.0) 10/04/18 05:45 Anion Gap 5 (5-15) 10/04/18 05:45 BUN 61 mg/dL (7-18) H 10/04/18 05:45 Creatinine 2.30 mg/dL (0.55-1.02) H 10/04/18 05:45 Est GFR (MDRD) Af Amer 29 mL/min (>60) L 10/04/18 05:45 Est GFR (MDRD) Non-Af 24 mL/min (>60) L 10/04/18 05:45 BUN/Creatinine Ratio 26.5 RATIO (10-20) H 10/04/18 05:45 Glucose 299 mg/dL (74-106) H 10/04/18 05:45 Assessment/Plan: Psychotropic Medications: Unnecessary Medications: Bowel Regimen: - Provider Comments Provider responsibility: Provider responsible to enter orders to implement recommendations Provider Comments to Recommendations by Pharmacy: Agree
--- NOTE | 2018-10-04 13:05 | CASEMGMT ---
Social Work Responding to [employer]. This elementary school social worker meeting with resident aunt, Celeste in [facility]. Celeste presenting as tearful and concerned for resident. This elementary school social worker offering verbal and emotional support, no other family members or friends were that at first. This elementary school social worker offering to contacting the marine fuel dock attendant services for Celeste, Celeste declining marine fuel dock attendant and reporting to have support through [employer] local community. This elementary school social worker offering if there is anyone that this elementary school social worker can call for Celeste. Celeste reporting to have already contacted Celeste's teacher through the [employer]. Shortly after Celeste's teacher arrived on unit and was also providing emotional/spiritual support for Celeste. Celeste requesting for this elementary school social worker to contact Celeste's and reporting that resident does not have any children/spouse or living parents and that Celeste is main support for resident. Resident reporting that resident does not have a DPOA for Health Care in place, that Celeste is aware of. This elementary school social worker attempted to contact Celeste's multiple times, eventually Celeste's daughter was able to get in contact with eCleste's . [employer] continued for 15-20mins then doctor came to [facility] and notified Celeste that resident did not make it. Celeste was able to be transitioned to a chair where Celeste's teacher and this elementary school social worker continued to provide support. After sometime Celeste wanted to enter resident's room. This elementary school social worker sitting with Celeste and talking about memories and current grief. Celeste then had members from the local [employer] community arrive for further support as well as Celeste's family. Throughout the remainder of the day this elementary school social worker did check in with Celeste and offered support multiple times. Celeste thanking this elementary school social worker for the support. Celeste did decide on a home as resident did not have any arrangements at this time. This elementary school social worker providing nursing staff with home name and number. No further needs at this time. JOY Oleary
--- NOTE | 2018-10-04 14:37 | NURSING ---
Pt became unresponsive at 1010, code blue called, pt pronounced at 1030
--- NOTE | 2018-10-04 17:52 | PCM.DC ---
Allergies/Adverse Reactions: Allergies latex Allergy (Verified 09/30/18 06:25) Rash Penicillins Allergy (Verified 09/30/18 06:25) Unknown venom-honey bee [bee venom (honey bee)] Allergy (Verified 09/30/18 06:25) Unknown kidney beans Allergy (Intermediate, Uncoded 09/30/18 06:25) Hives IV DYE Allergy (Uncoded 09/30/18 06:25) Unknown Medications to take at Discharge Tizanidine HCl [Zanaflex] 4 mg PO Q8H PRN PRN 07/03/14 ALPRAZolam [Xanax] 0.25 mg PO BID 05/20/17 amitriptyline 50 mg tablet 100 mg PO QHS tab 08/23/17 aspirin 81 mg tablet,delayed release 81 mg PO DAILY 08/23/17 Gabapentin [Neurontin] 1,800 mg PO BID 01/01/18 Liraglutide [Victoza] 0.12 mg SQ DAILY 01/01/18 proCHLORPERazine suppository [Compazine suppository] 50 mg RECTAL DAILY PRN PRN 01/01/18 nitroglycerin 0.4 mg sublingual tablet 0.4 mg SUBLINGUAL Q5-15M PRN 03/24/18 Thyroid,Pork [Show Card Writer Thyroid] 120 mg PO UD 09/19/18 Thyroid,Pork [Show Card Writer Thyroid] 240 mg PO UD 09/19/18 Albuterol Aerosols [Ventolin Aerosols] 2.5 mg INHALATION Q4H PRN PRN 09/30/18 Insulin Detemir [Levemir] 10 unit SQ QHS 10/03/18 Insulin Lispro [Humalog KwikPen] See Protocol SC ACHS 10/03/18 Meropenem [Merrem] 500 mg IV Q12 10/03/18 Metoprolol Tartrate [Lopressor (beta rose)] 12.5 mg PO BID 10/03/18 Oxycodone HCl/Acetaminophen [Oxycodone-Acetaminophen 5-325] 2 tab PO Q4H PRN PRN #10 tab 10/03/18 Ranolazine [Ranexa] 1,000 mg PO BID 10/03/18 Primary Care Physician: Dillan Kraus DO [Primary Care Provider] - Please follow up with your Primary Care Physician in: N/A. Test Results: Test results from this visit will be discussed in further detail at your follow-up appointment, if applicable. Please Follow Up With: Namrata Solorzano DO When: [phone] Please Follow Up With: [facility] GENERAL ORTHO SURGEON When: F/U 1-2 WEEKS Proposed Discharge Date: 10/04/18
--- NOTE | 2018-10-04 17:55 | PCM.DC.SUM ---
Discharge Date and Diagnosis Date of Admission: 10/03/18 Date of Discharge: 10/04/18 - Secondary Discharge Diagnosis Chronic Problems (Last Reviewed 10/04/18 @ 12:50 by Daly Mancera) Leg wound, right (Chronic) Cellulitis of right leg (Chronic) Diabetes mellitus (Chronic) Tobacco dependence due to cigarettes (Chronic) Morbid obesity (Chronic) Peripheral arterial occlusive disease (Chronic) Stroke (Chronic) Osteoarthritis (Chronic) Muscle spasm (Chronic) Anxiety (Chronic) Diabetic polyneuropathy (Chronic) Coronary artery disease (Chronic) Pressure ulcer of right buttock, stage 2 (Chronic) Hyperlipidemia (Chronic) Hypertension (Chronic) Type 2 diabetes mellitus (Chronic) Tobacco use disorder (Chronic) Multiple personality disorder (Chronic) Morbid obesity with body mass index of 40.0-49.9 (Chronic) Chronic back pain (Chronic) Tobacco abuse counseling (Chronic) Swelling of lower extremity (Chronic) Edema of both legs (Chronic) Lymphedema of leg (Chronic) GERD (gastroesophageal reflux disease) (Chronic) Multiple sclerosis (Chronic) CKD (chronic kidney disease) stage 4, GFR 15-29 ml/min (Chronic) PAD (peripheral artery disease) (Chronic) History of CVA (cerebrovascular accident) (Chronic) History of DVT (deep vein thrombosis) (Chronic) Psoriasis (Chronic) CHF (congestive heart failure) (Chronic) Edema (Chronic) Hypothyroidism (Chronic) Essential (primary) hypertension (Chronic) Atherosclerotic heart disease of [place] coronary artery without angina pectoris (Chronic) Hospital Course and Treatment Consultations 10/03/18 22:44 Consult: Onc/Wound/health and safety trainer Routine Comment: Reason for Consult:: wound vac Operations: None Procedures: None Summary of Care Provided: The patient is a 48 year old Female with below past medical history hospitalized for encephalopathy secondary to persistent hypoglycemia, complicated by acute on chronic diastolic heart failure, acute on chronic kidney failure, hypokalemia, bradycardia, admitted to TCU with debility, here for rehabilitation, strengthening, prior to discharge home alone. [facility] called, resident unresponsive, after ACLS, resident . - Physical Exam Vital Signs Temp Pulse Resp BP Pulse Ox 97.4 F L 84 22 H 120/71 92 10/03/18 18:36 10/04/18 05:54 10/03/18 18:36 10/04/18 05:54 10/04/18 09:30 Oxygen Flow Rate (L/min) 2 Oxygen Delivery Method Nasal Cannula Weight: 131.043 kg Body Mass Index (BMI) 56.4 Finger Stick Blood Glucose 86 Intake and Output for Last 24 Hours 10/02/18 10/03/18 10/04/18 23:59 23:59 23:59 Intake Total 420 / 420 Balance 420 / 420 Laboratory Tests Past 24 Hrs 10/04/18 10/04/18 05:45 05:45 WBC 14.2 H RBC 2.68 L Hgb 8.3 L Hct 27.3 L MCV 101.9 H MCH 31.0 MCHC 30.4 L RDW 14.2 RDW Differential 51.2 H Plt Count 230 MPV 9.9 Immature Gran % (Auto) 0.400 Neut % (Auto) 85.5 H Lymph % (Auto) 5.3 L [place] % (Auto) 7.2 Eos % (Auto) 1.4 Baso % (Auto) 0.2 Absolute Neuts (auto) 12.1 H Absolute Lymphs (auto) 0.75 L Total Counted Not Reportable Sodium 139 Potassium 5.2 H Chloride 108 H Carbon Dioxide 26.0 Anion Gap 5 BUN 61 H Creatinine 2.30 H Estim Creat Clear Calc 21.02 Est GFR (MDRD) Af Amer 29 L Est GFR (MDRD) Non-Af 24 L BUN/Creatinine Ratio 26.5 H Glucose 299 H Calcium 8.4 L POC Glucose 10/04/18 10/04/18 10/03/18 10:18 05:53 21:09 POC Glucose 315 H 301 H 235 H Home Medications: Medications to take at Discharge Tizanidine HCl [Zanaflex] 4 mg PO Q8H PRN PRN 07/03/14 ALPRAZolam [Xanax] 0.25 mg PO BID 05/20/17 amitriptyline 50 mg tablet 100 mg PO QHS tab 08/23/17 aspirin 81 mg tablet,delayed release 81 mg PO DAILY 08/23/17 Gabapentin [Neurontin] 1,800 mg PO BID 01/01/18 Liraglutide [Victoza] 0.12 mg SQ DAILY 01/01/18 proCHLORPERazine suppository [Compazine suppository] 50 mg RECTAL DAILY PRN PRN 01/01/18 nitroglycerin 0.4 mg sublingual tablet 0.4 mg SUBLINGUAL Q5-15M PRN 03/24/18 Thyroid,Pork [Cruise Director Thyroid] 120 mg PO UD 09/19/18 Thyroid,Pork [Cruise Director Thyroid] 240 mg PO UD 09/19/18 Albuterol Aerosols [Ventolin Aerosols] 2.5 mg INHALATION Q4H PRN PRN 09/30/18 Insulin Detemir [Levemir] 10 unit SQ QHS 10/03/18 Insulin Lispro [Humalog KwikPen] See Protocol SC ACHS 10/03/18 Meropenem [Merrem] 500 mg IV Q12 10/03/18 Metoprolol Tartrate [Lopressor (beta rose)] 12.5 mg PO BID 10/03/18 Oxycodone HCl/Acetaminophen [Oxycodone-Acetaminophen 5-325] 2 tab PO Q4H PRN PRN #10 tab 10/03/18 Ranolazine [Ranexa] 1,000 mg PO BID 10/03/18 Primary Care Physician: Dillan Kraus DO [Primary Care Provider] - Please follow up with your Primary Care Physician in: N/A. Please Follow Up With: Namrata Solorzano DO When: [phone] Please Follow Up With: [facility]HE[facility] GENERAL ORTHO SURGEON When: F/U 1-2 WEEKS Disposition: Minutes spent on discharge:: 30 Medical Necessity - Tobacco Use Smoking Status: Current every day smoker Tobacco Use: Cigarettes Meaningful Use Info Meaningful Use Diagnoses (Choose all that apply): None applicable
--- NOTE | 2018-10-04 22:44 | NURSING ---
This nursing registered nurse supervisor received call from pt's Aunt Celeste. Aunt was inquiring if pt's body had been released from [facility] yet and had been picked up. States that body is to go to [facility] in [place]. This registered nurse supervisor called [facility] and was informed that body had been released from them and, and then called aunt to inform her at 2131. Aunt stated that she notified [facility] and they stated they would be here in the morning to peanut picker the body. This registered nurse supervisor then contacted the listed next of kin on the chart, Addy Lee to inform him of the above events at 2142. Addy stated he agreed with decisions.
--- NOTE | 2018-10-05 05:00 | NURSING ---
Pt's Aunt Celeste called unit on 10/05/18 at 0500 requesting pt's certificate and asking if Celeste's daughter may view pt in morgue. client service supervisor notified. client service supervisor informed this nurse [facility] Information relayed to Celeste. Celeste acceptable.
--- NOTE | 2018-10-05 11:36 | MDS.RN ---
Information for the mds was obtained from review of the clinical record, interview of resident, staff, and direct observation of resident's care.
== END 2018-10-04 14:35 | DRG 948 ==
PROVIDERS: Admitting Provider Family Medicine Geriatric Medicine; Family Provider Student in an Organized Health Care Education/Training Program; PCP Student in an Organized Health Care Education/Training Program; Visit Provider Family Medicine Geriatric Medicine
DX: R53.81 Other malaise (principal); L03.115 Cellulitis of right lower limb; I13.0 Hypertensive heart and chronic kidney disease with heart failure and stage 1 through stage 4 chronic kidney disease, or unspecified chronic kidney disease; I50.32 Chronic diastolic (congestive) heart failure; Z68.43 Body mass index [BMI] 50.0-59.9, adult; N18.4 Chronic kidney disease, stage 4 (severe); I25.10 Atherosclerotic heart disease of native coronary artery without angina pectoris; E03.9 Hypothyroidism, unspecified; E11.42 Type 2 diabetes mellitus with diabetic polyneuropathy; F41.9 Anxiety disorder, unspecified; E11.22 Type 2 diabetes mellitus with diabetic chronic kidney disease; F17.210 Nicotine dependence, cigarettes, uncomplicated; E66.01 Morbid (severe) obesity due to excess calories; Z71.3 Dietary counseling and surveillance; E11.51 Type 2 diabetes mellitus with diabetic peripheral angiopathy without gangrene; M19.90 Unspecified osteoarthritis, unspecified site; E78.5 Hyperlipidemia, unspecified; K21.9 Gastro-esophageal reflux disease without esophagitis; F44.81 Dissociative identity disorder; G35 Multiple sclerosis; Z86.718 Personal history of other venous thrombosis and embolism; Z86.73 Personal history of transient ischemic attack (TIA), and cerebral infarction without residual deficits; L40.9 Psoriasis, unspecified; T14.8XXD Other injury of unspecified body region, subsequent encounter; X58.XXXD Exposure to other specified factors, subsequent encounter
CPT/HCPCS: 80048; 82962; 85025; 92950; 97163; 97166; 99406; J2185; J7030; J7050; A4216; J2310; J3475